=== PATIENT | male | born 1940 | race Caucasian/White ===

== ENCOUNTER 2022-02-15 13:00 | Outpatient (RCR) | payer MEDICARE, BC, SELFPAY | END 2022-07-20 15:49 | disposition home or self-care (01) | PROVIDERS: PCP Family Medicine; Visit Provider Family Medicine | DX: M54.12 Radiculopathy, cervical region (principal); M79.601 Pain in right arm; Z51.89 Encounter for other specified aftercare | CPT/HCPCS: 97110; 97140; 97162 ==

== ENCOUNTER 2022-05-25 07:49 | Outpatient (CLI) | payer MEDICARE, BC, SELFPAY | END 2022-05-25 07:50 | disposition home or self-care (01) | LOC: AMB 06-01 09:55 | PROVIDERS: PCP Family Medicine; Visit Provider Emergency Medicine | DX: R56.9 Unspecified convulsions (principal); R41.82 Altered mental status, unspecified | CPT/HCPCS: A0425; A0427 ==

== ENCOUNTER 2022-05-25 08:36 | Observation (INO) | payer MEDICARE, BC, SELFPAY ==
[2022-05-25] VITALS (22 sets, daily range): BP systolic 108–140; BP diastolic 66–98; PULSE 60–97; RESP 13–74; TEMP 36.2–36.9; O2SAT 87–98; BMI 25.1; BMI 25.4
[2022-05-25 09:55] LABS: Basophils Absolute Auto 0.04 K/uL (0.00-0.30); Basophils Percent Auto 0.5 % (0.0-3.0); Eosinophils Absolute Auto 0.08 K/uL (0.00-0.50); Hematocrit 44.4 % (37.0-53.0); Hemoglobin* 14.7 gm/dL (13.5-17.5); Immature Granulocytes Abs Auto 0.01 K/uL (0.00-0.30); Immature Granulocytes Pct Auto 0.1 %; Mean Corpuscular HGB Conc 33 gm/dL (32-36); Mean Corpuscular Hemoglobin 30 pg (26-34); Mean Corpuscular Volume 90 fL (80-100); Monocytes Percent Auto 8.1 % (0.0-11.0); Neutrophils Percent Auto 79.3 % (42.0-72.0); Platelet Count* 220 K/uL (140-440); RDW Coefficient of Variation % 13.6 % (11.5-15.5); Red Blood Count 4.96 m/uL (4.30-5.90)
[2022-05-25 09:58] LABS: Slide Review Reflex No
[2022-05-25 09:59] LABS: Chloride* 103 mmol/L (96-114)
--- NOTE | 2022-05-25 09:59 | ED.NURSE ---
had an episode that lasted approx 3 minutes when his jaw started to move as though he was chewing and became unresponsive. called nurse and dr méndez did also observe this activity. 02 sats became low-84%. did place 02 at 2 l n/c. awakened an did not have recollection of this occurring. was placed on youth corrections officer.
[2022-05-25 10:00] LABS: Potassium* 3.9 mmol/L (3.6-5.1); Sodium* 139 mmol/L (135-149)
[2022-05-25 10:01] LABS: Albumin* 3.9 g/dL (3.3-5.0)
--- OUTSIDE RECORDS SUMMARY | 2022-05-25 10:01 | XMS_ITS | Encounter Summary ---
:1940 Author Organization [facility] Address [address] [place] [address] Care Team Providers Name Role Phone Unavailable Primary Care Provider Unavailable Encounter Details Date Type Department Care Team Description 12/20/2021 Clinical Communication Department of Sleep Kleber Lindsey, Medicine in [place] Garland, M.P .H. [place] [address] [place], [place] [phone] Social History Tobacco Use Types Packs/Day Years Used Date Smoking Tobacco: Never Smokeless Tobacco: Never Alcohol Use Standard Drinks/Week Comments Yes 1 (1 standard drink = 0.6 oz pure alcoho l) Alcohol Habits Answer Date Recorded How often do you have a drink containing 4 or more times a w [place] 01/14/2022 alcohol? How many drinks containing alcohol do you have 1 or 2 01/14/2022 on a typical day when you are drinking? How often do you have six or more drinks on one Never 01/14/2022 occasion? Social Isolation Answer Date Recorded In a typical week, how many times do you Three times a week 01/14/2022 talk on the phone with family, friends, or neighbors? How often do you get together with friends Once a week 01/14/2022 or relatives? How often do you attend confucianism or episcopalian More than 4 time s per year 01/14/2022 services? Do you belong to any clubs or organizations Yes 01/14/2022 such as confucianism groups, unions, fraternal or athletic groups, or school groups? How often do you attend meetings of the More than 4 times pe r year 01/14/2022 clubs or organizations you belong to? Are you now , , , 01/14/2022 , never or living with a partner? Physical Activity Answer Date Recorded On average, how many days per week do you engage in moderate to 3 days 01/14/2022 strenuous exercise (like walking fast, running, jogging, dancing, swimming, biking, or other activities that cause a light or heavy sweat)? On average, how many minutes do you engage in exercise at th is 30 min 01/14/2022 level? Stress Answer Date Recorded Do you feel stress - tense, restless, nervous, or To some ex tent 01/14/2022 anxious, or unable to sleep at night because your mind is troubled all the time - these days? Financial Resource Strain Answer Date Recorded How hard is it for you to pay for the very basics like Not h aric at all 01/14/2022 food, housing, medical care, and heating? Intimate Partner Violence Answer Date Recorded Within the last year, have you been afraid of your partner o r No 01/14/2022 ex-partner? Within the last year, have you been humiliated or emotionall y No 01/14/2022 abused in other ways by your partner or ex-partner? Within the last year, have you been kicked, hit, slapped, or No 01/14/2022 otherwise physically hurt by your partner or ex-partner? Within the last year, have you been raped or forced to have any No 01/14/2022 kind of sexual activity by your partner or ex-partner? Food Insecurity Answer Date Recorded Within the past 12 months, you worried that your food would Never true 01/14/2022 run out before you got money to buy more. Within the past 12 months, the food you bought just didn't N ever true 01/14/2022 last and you didn't have money to get more. Transportation Needs Answer Date Recorded In the past 12 months, has lack of transportation kept you f rom No 01/14/2022 medical appointments or from getting medications? In the past 12 months, has lack of transportation kept you f rom No 01/14/2022 meetings, work, or getting things needed for daily living? Housing Stability Answer Date Recorded In the last 12 months, was there a time when you were not ab le No 01/14/2022 to pay the mortgage or rent on time? In the last 12 months, how many places have you lived? 2 01/14/2022 In the last 12 months, was there a time when you did not hav e a No 01/14/[address] or slept in a skilled nursing (including now)? Education Answer Date Recorded What is the highest level of school you have completed or th e Doctorate 01/15/2019 highest degree you have received? 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 Gates has senta referral and the patient said Dr. Gates wanted him to try and get seen sooner than his scheduledappointment on 02/14. It looks like there was a previous note with in the order that he could be seenon 12/07 which of course has passed but wondering if still able to fit the patient in before 02/14 Current Phone Number: [phone] Can Nursing/Provider leave a detailed message?: yes Did the patient refuse triage through Nurse line? (for symptom based concerns): na Action Needed: please advise the patient if he can be seen sooner than 02/14 Name of Medication (if relevant): Please send all scheduling replies to scheduling pool. documented in this encounter Plan of Treatment Not on filedocumented as of this encounter Visit Diagnoses Not on filedocumented in this encounter
--- OUTSIDE RECORDS SUMMARY | 2022-05-25 10:01 | XMS_ITS | Clinical Summary ---
:1940 Author Organization [facility] Address [address] [place] [address] Care Team Providers Name Role Phone Unavailable Primary Care Provider Unavailable Source Comments Patient records contain information from all sites at [facility]. For routine questions regarding patient records, call [phone] during business hours, M-F 8:00 AM - 5:00 PM Central Time. Record requests for emergency care only can be directed to [phone] at any time.[facility] Allergies Active Allergy Reactions Severity Noted Date Comments Clams GI intolerance 01/30/2018 Grass Pollen Wheezing 12/04/2021 House Dust Mite Other (see comments) 01/30/2018 snee zy Mold Other (see comments) 01/30/2018 sneezy Medications Medication Sig Dispensed Refills Start Date End Date Status cyanocobalamin (VITAMIN Take 500 mcg by 0 Active B12) 500 mcg tablet mouth daily. cholecalciferol (VITAMIN Take 2,000 0 01/08/2019 Active D3) 2,000 Unit capsule Units by mouth daily. aspirin [address] tablet Take 81 mg by 0 Active mouth daily. levETIRAcetam (KEPPRA) Take 250 mg by 0 12/26/2021 Active 500 mg tablet mouth 2 (two) times a day. 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 from Last 3 Months Immunizations Name Administration Dates Next Due SARS-COV-2 (COVID-19) - PFIZER (12 years or older) 1, 09/01/2020 Social History Tobacco Use Types Packs/Day Years Used Date Smoking Tobacco: Never Smokeless Tobacco: Never Alcohol Use Standard Drinks/Week Comments Yes 1 (1 standard drink = 0.6 oz pure alcoho l) Alcohol Habits Answer Date Recorded How often do you have a drink containing 4 or more times a w [place] 01/14/2022 alcohol? How many drinks containing alcohol [...] or relatives? How often do you attend tenriism or congregation More than 4 time s per year 01/14/2022 services? Do you belong to any clubs or organizations Yes 01/14/2022 such as tenriism groups, unions, fraternal or athletic groups, or [...] place to sleep or slept in a snf (including now)? Education Answer Date Recorded What is the highest level of school you have completed or th e Doctorate 01/15/2019 highest degree you have received? 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 Filed Vital Signs Vital Sign Reading Time Taken Comments Blood Pressure 130/73 01/18/2022 10:02 AM CDT Pulse 69 01/18/2022 10:02 AM CDT Temperature 36.4 ??C (97.5 ??F) 02/25/2018 10:59 AM CDT Respiratory Rate - - Oxygen Saturation - - Inhaled Oxygen Concentration - - Weight 81.8 kg (180 lb 5.4 oz) 01/18/2022 10:02 AM CDT Height 180 cm (5' 10.87) 02/25/2018 10:59 AM CDT Body Mass Index 25.25 02/25/2018 10:59 AM CDT Plan of Treatment Health Maintenance Due Date Last Done Comments Depression Screening (Annual 07/23/2021 PHQ-2) Fall Risk Screen (Annual) 07/23/2021 DTaP,Tdap,and Td Vaccines (2 - Td 07/30/2022 07/30/2012, or Tdap) Pneumococcal vaccine (65+ years) Completed 06/10/2014, Zoster Vaccines Completed 12/04/2018, 09/26/2018, 2007 COVID-19 Vaccine Completed 04/13/2022, 11/08/2021, 05/03/2021, Additional history exists Influenza Vaccine Completed 04/13/2022, 04/11/2021, 04/23/2019, Additional history exists Medical Devices Implanted Type Area Clock And Watch Hands Dipper Device Shelf Model / Identifier Expiration Date Ser ial / Lot Ocular Lens Ocular Lens Cornea Insurance Payer Benefit Plan Subscriber ID Effective Phone Address Typ e / Group Dates MEDICARE MEDICARE A [id number] 2008-Pres [address] [place] [address] BLUE CROSS BCBS NISQUALLY [id number] 2016-Pres [phone] [address] X Cost Share BLUE SHIELD BLUE COST ent [phone] [facility] [place] [id number]
--- OUTSIDE RECORDS SUMMARY | 2022-05-25 10:01 | XMS_ITS | Encounter Summary ---
:1940 Author Organization [facility] Address [address] [place] [address] Care Team Providers Name Role Phone Unavailable Primary Care Provider Unavailable Reason for Referral MRI/CAT/PET Scan (Routine) - Closed Specialty Diagnoses / Procedures Referred By Contact Refer red To Contact Radiology Diagnoses Hemiplegia Nondominant Side Left (HCC) Kle[facility] Lindsey M.D., [facility] [place] Procedures MR Brain without and with IV Contrast M.P.H. [address] [place] [phone] Referral ID Status Reason Start Date Expiration Date Visits Requ ested Visits Authorized [id number] Closed 01/18/2022 01/18/2023 1 1 Reason for Visit MRI/CAT/PET Scan (Routine) - Closed Specialty Diagnoses / Procedures Referred By Contact Refer red To Contact Radiology Diagnoses Hemiplegia Nondominant Side Left (HCC) Kleber Lindsey M.D., [facility] [place] on Procedures MR Brain without and with IV Contrast M.[facility] [address] [place] [phone] Referral ID Status Reason Start Date Expiration Date Visits Requ ested Visits Authorized [id number] Closed 01/18/2022 01/18/2023 1 1 Encounter Details Date Type Department Care Team Description 01/30/2022 Hospital Encounter Department of Kleber Lindsey ia Radiology in Leslie Jha, Nondominant Pieter e Left [place] M.P.[facility] ([facility]) [address] [facility] [id number] [place] [phone] Social History Tobacco Use Types Packs/Day Years Used Date Smoking Tobacco: Never Smokeless Tobacco: Never Alcohol Use Standard Drinks/Week Comments Yes 1 (1 standard drink = 0.6 oz pure alcoho l) Alcohol Habits Answer Date Recorded How often do you have a drink containing 4 or more times a w [place] 01/14/2022 alcohol? How many drinks containing alcohol [...] or relatives? How often do you attend latter day or yarsani More than 4 time s per year 01/14/2022 services? Do you belong to any clubs or organizations Yes 01/14/2022 such as latter day groups, unions, fraternal or athletic groups, or [...] place to sleep or slept in a long-term (including now)? Education Answer Date Recorded What is the highest level of school you have completed or th e Doctorate 01/15/2019 highest degree you have received? 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 cholecalciferol (VITAMIN D3) Take 2,000 Units 0 0 01/08/2019 2,000 Unit capsule by mouth daily. cyanocobalamin (VITAMIN B12) Take 500 mcg by 0 500 mcg tablet mouth daily. levETIRAcetam (KEPPRA) 500 mg Take 250 mg by 0 tablet mouth 2 (two) times a day. documented as of this encounter Plan of Treatment Not on filedocumented as of this encounter Procedures Procedure Name Priority Date/Time Associated Comments Diagnosis MR BRAIN WITHOUT RAD - Routine 01/30/2022 11:27 Hemiplegia Result s for this AND WITH IV (most inpatients AM CDT Nondominant Side procedu re are in CONTRAST and all Left (HCC) the results outpatients) section. documented in this encounter Results MR Brain without and with IV Contrast (01/30/2022 11:27 AM CDT) Anatomical Region Laterality Modality Head, Brain, Neuroradiology RST LOS, Neuroradiology ARZ N/A Magnetic Resonance LOS, Neuroradiology FLA [facility] Specimen (Source) Anatomical Collection Method Collection Time Re ceived Time Location / / Volume Laterality 01/30/2022 2:20 PM CDT Impressions 01/30/2022 4:41 PM CDT Chronic changes as noted, stable. Narrative 01/30/2022 4:41 PM CDT EXAM: MR BRAIN WITHOUT AND WITH IV CONTRAST COMPARISON: Prior outside brain MRI date d 11/10/2021 and 08/09/2020. FINDINGS: Abnormal relatively confluent T2 signal throughout the right frontoparietal white matter, without associated mass effect, enhancem ent, or abnormal mineralization, stable. Minimal chronic microvascular degenerati ve change with moderate diffuse parenchymal volume loss. Minimal scattered mucosal thickening in the paranasal sinuses. Otherwise negative. Specifically, nothin g for an acute infarction. No midline shift. Overall normal sized ventricles, allowing for the volum e loss. Procedure Note Eden Cavazos M.D. - 01/30/2022Form atting of this note might be different from the original. EXAM: MR BRAIN WITHOUT AND WITH IV CONTR AST COMPARISON: Prior outside brain MRI date d 11/10/2021 and 08/09/2020. FINDINGS: Abnormal relatively confluent T2 signal throughout the right frontoparietal white matter, without associated mass effect, enhancem ent, or abnormal mineralization, stable. Minimal chronic microvascular degenerati ve change with moderate diffuse parenchymal volume loss. Minimal scattered mucosal thickening in the paranasal sinuses. Otherwise negative. Specifically, nothin g for an acute infarction. No midline shift. Overall normal sized ventricles, allowing for the volum e loss. IMPRESSION: Chronic changes as noted, stable. Kleber Lindsey M.D., M.P.H. IMG MRI PROCEDURES documented in this encounter Visit Diagnoses Diagnosis Hemiplegia Nondominant Side Left (HCC) documented in this encounter Administered Medications Inactive Administered Medications - up to 3 most recent administrations Medication Order MAR Action Action Date Dose Rate Site gadobutrol injection 0.5-15 mL Given 01/30/2022 11:28 AM CDT 8.2 mL (GADAVIST) 0.5-15 mL, intravenous, Once in imaging, contrast, Starting on Sun01/30/22 at 1036, For 1 dose, Dose per Radiant Medication Guidelines Intrathecal doses greater than 0.25 mL not recommended. sodium chloride 0.9 % injection 1-250 mL Given 01/30/2022 11:27 AM CDT 10 mL 1-250 mL, intravenous, Once in imaging, line care, Starting on Sun01/30/22 at 1036, For 1 dose documented in this encounter
--- OUTSIDE RECORDS SUMMARY | 2022-05-25 10:01 | XMS_ITS | Encounter Summary ---
:1940 Author Organization [facility] Address [address] [place] [address] Care Team Providers Name Role Phone Unavailable Primary Care Provider Unavailable Reason for Referral Outpatient (Routine) - Authorized Specialty Diagnoses / Procedures Referred By Contact Refer red To Contact Diagnoses Lesion Nerve Ulnar Right Kleber Lindsey M.D., [facility] [place] Region Procedures EMG M.P.H. [address] [place] [address] Referral ID Status Reason Start Date Expiration Date Visits V isits Requested Authorized [id number] Authorized 01/18/2022 01/18/2023 1 1 MRI/CAT/PET Scan (Routine) - Closed Specialty Diagnoses / Procedures Referred By Contact Refer red To Contact Radiology Diagnoses Hemiplegia Nondominant Side Left (HCC) Kleber Lindsey M.D., [facility] [place] Z[place] on Procedures MR Brain without and with IV Contrast M.P.H. [address] [place] [address] Referral ID Status Reason Start Date Expiration Date Visits Requ ested Visits Authorized [id number] Closed 01/18/2022 01/18/2023 1 1 Reason for Visit Reason Comments Seizures Hemiplegia - follow up Seizures - ref. Dr. Gates [facility] Outpatient (Routine) - Closed Specialty Diagnoses / Procedures Referred By Contact Refer red To Contact Video Medicine Diagnoses Hemiplegia Nondominant Side Left (HCC) Kleber Lindsey M.D., [facility] [place] on M.P.H. [address] [place] [address] Referral ID Status Reason Start Date Expiration Date Visits Requ ested Visits Authorized [id number] Closed 07/27/2020 07/27/2021 1 1 Encounter Details Date Type Department Care Team Description 01/18/2022 Office Visit Department of Kleber Lindsey, Lesion Ner ve Ulnar Right (Primary Dx); Neurology in [place], M.P.H. Hemiplegia Nondominant Side Left (HCC); [place], [place] [address] Other Seizures (HCC); [address] [place], [place] Paraparesis Spastic (HCC) [place] [phone] [phone] Social History Tobacco Use Types Packs/Day Years Used Date Smoking Tobacco: Never Smokeless Tobacco: Never Alcohol Use Standard Drinks/Week Comments Yes 1 (1 standard drink = 0.6 oz pure alcoho l) Alcohol Habits Answer Date Recorded How often do you have a drink containing 4 or more times a w [place] 01/14/2022 alcohol? How many drinks containing alcohol [...] or relatives? How often do you attend moravian or jehovah's witness More than 4 time s per year 01/14/2022 services? Do you belong to any clubs or organizations Yes 01/14/2022 such as moravian groups, unions, fraternal or athletic groups, or [...] place to sleep or slept in a jail (including now)? Education Answer Date Recorded What is the highest level of school you have completed or th e Doctorate 01/15/2019 highest degree you have received? 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 - 01/18/2022 10:15 AM CDT SUBJECTIVE CHIEF COMPLAINT / REASON FOR VISIT Da Monk is a 81 y.o. male who presents for evaluation of Seizures and Hemiplegia - follow up (Seizures - ref. Dr[facility]). HISTORY OF PRESENT ILLNESS This very pleasant [facility] [facility] returns for follow-up which is annually to keep an eyeon a left hemiparesis because of which she appears to be an ill-defined lesion which could be chronic or inflammatory in right centrum semiovale we and extending to the right fronto parietal periventricular white matter. There has not been enhancement. In September of this year he had convulsive seizure out of sleep on 10/06, 324 and 519. Following this he was started on Keppra 500 mg p.o. b.i.d.. This caused some irritability and so he now has a dose of 250 mg p.o. b.i.d. and this seems to have helped a little bit. A follow- up MRI of the brain [facility] appears to be benign but it was witho ut contrast. Although previous seizures were of sleep. The 1st one resulted according to his with a swollen lip the 2nd one resulted in a tongue biting in the 3rd when resulted in tongue biting urinary incontinence and blood although the bedroom. All through the seizures were out of sleep in theydo not sleep in the same room so she did not see the onset. He has had more difficulty walking lately and that is on top of his chronic left hemiparesis. Speculate this might be due to a change in thatlesion that would been following or perhaps a protracted Moises's hemiparesis or perhaps the Keppra iscausing some problems with balance although it is a low dose and is less likely to do so than sodium channel anti seizure medicines. At the end of the visit the patient mentioned that he has numbness and pain in the three fingers of the right hand that would be supplied by the ulnar nerve. He says this is worse during sleep. He usedto hold his arm up over his head to sleep in this eliminate the pain. At present he goes to sleep cherelle chair for couple hours and the pain goes away. He has had imaging studies of his neck, MRI cervical spine at [facility]. And they do not seem to show evidence of C8-T1 distribution foraminal narrowing that would explain this. It is described as moderate bilateral foraminal narrowing from 2018. INDICATION: 77-year-old male. Bilateral neck pain exacerbated by superior upper extremity extension. Left lower extremity numbness. TECHNIQUE: T1-T2 and STIR sagittal images with multilevel T2 axial acquisitions. Findings : Prevertebral tissues normal. Cerebellar tonsils are situated. Spinal cord is normal. C2-3: Moderate left facet arthrosis. Mild right foraminal narrowing. The disc space is normal. C3-4: Mild bulge, spurring and slight retrolisthesis. Moderate right and mild left foraminal narrowing. C4-5: Disc bulge and spurring. Marked right and moderate left foraminal narrowing. Central canal is adequately patent. C5-6: Disc bulge, spurring and slight retrolisthesis. Moderate bilateral foraminal narrowing. C6-7: Disc bulge, spurring and slight retrolisthesis. Marked moderate bilateral foraminal narrowing.No significant central stenosis. C7-T1: Annular bulge and minor marginal spurring. Mild bilateral foraminal narrowing. Central canal is adequate patent. T1-2: Mild bulge marginal??spurring. Mild bilateral foraminal. Central canal is adequately patent. T2-3: Disc bulge and spurring. No significant central or foraminal narrowing. IMPRESSION: 1. Multilevel spondylosis and/or listhesis detailed above without spinal cord impingement or intramedullary lesion. 2. Facet arthrosis is most advanced on the right at C2-3 without evidence for synovitis. 3. Marked bilateral C6-7 and marked right C4-5 narrowing. Mild and/or moderate foraminal narrowing at other segments detailed above. Dictated by Charan Orellana MD @ Oct 15 2017 ??3:08PM No past medical history on file. No past surgical history on file. MEDICATIONS: Current Outpatient Medications: ??? cholecalciferol (VITAMIN D3) 2,000 Unit capsule, Take 2,000 Units by mouth daily., Disp: , Rfl: ??? cyanocobalamin (VITAMIN B12) 500 mcg tablet, Take 500 mcg by mouth daily., Disp: , Rfl: ??? levETIRAcetam (KEPPRA) 500 mg tablet, Take 250 mg by mouth 2 (two) times a day., Disp: , Rfl: ??? aspirin [address] tablet, Take 81 mg by mouth daily., Disp: , Rfl: ALLERGY: Allergies Allergen Reactions ??? Clams GI intolerance ??? Grass Pollen Wheezing ??? House Dust Mite Other (see comments) sneezy ??? Mold Other (see comments) sneezy No family history on file. Social History Socioeconomic History ??? Marital status: Spouse name: Not on file ??? Number of children: Not on file ??? Years of education: Not on file ??? Highest education level: Doctorate Occupational History ??? Not on file Tobacco Use ??? Smoking status: Never Smoker ??? Smokeless tobacco: Never Used Substance and Sexual Activity ??? Alcohol use: Yes Alcohol/week: 1.0 standard drink Types: 1 Glasses of wine per week ??? Drug use: No ??? Sexual activity: Not on file Other Topics Concern ??? Not on file Social History Narrative ??? Not on file Social Determinants of Health Financial Resource Strain: Low Risk ??? Difficulty of Paying Living Expenses: Not hard at all Food Insecurity: No Food Insecurity ??? Worried About Running Out of Food in the Last Year: Never true ??? Ran Out of Food in the Last Year: Never true Transportation Needs: No Transportation Needs ??? Lack of Transportation (Medical): No ??? Lack of Transportation (Non-Medical): No Physical Activity: Insufficiently Active ??? Days of Exercise per Week: 3 days ??? Minutes of Exercise per Session: 30 min Stress: Stress Concern Present ??? Feeling of Stress : To some extent Social Connections: Socially Integrated ??? Frequency of Communication with Friends and Family: Three times a week ??? Frequency of Social Gatherings with Friends and Family: Once a week ??? Attends Pentecostal Services: More than 4 times per year ??? Active Member of Clubs or Organizations: Yes ??? Attends Club or Organization Meetings: More than 4 times per year ??? Marital Status: Intimate Partner Violence: Not At Risk ??? Fear of Current or Ex-Partner: No ??? Emotionally Abused: No ??? Physically Abused: No ??? Sexually Abused: No Housing Stability: Low Risk ??? Unable to Pay for Housing in the Last Year: No ??? Number of Places Lived in the Last Year: 2 ??? Unstable Housing in the Last Year: No @ OBJECTIVE Vitals: 01/18/22 1002 BP: 130/73 BP Location: Right arm Patient Position: Sitting Cuff Size: Regular Pulse: 69 Weight: 81.8 kg PHYSICAL EXAM COGNITION: Alert and oriented x 4. CRANIAL NERVES: flame hardening machine setter II-XII intact and symmetric. MOTOR: His right him paresis with the paretic gait min he has a rather careful. Reflexes are accordingly brisker on the left side SENSORY: normal sensation to touch, he seemed to have decreased pinprick on the entire right hand soI can not localize the distribution of numbness to a root or nerve distribution. Phalen's test was negative. CEREBELLAR: ARMs-2 on the left ASSESSMENT / PLAN Impression: Encounter Diagnoses Name Primary? Lesion Nerve Ulnar Right Yes ??? Hemiplegia Nondominant Side Left (HCC) ??? Other Seizures ([facility]) ??? Paraparesis Spastic (HCC) For his seizures ago I think it is appropriate to continue the Keppra 250 mg p.o. b.i.d.. If he has another seizure and one and lamotrigine and titrate him up to 100 mg p.o. b.i.d.. The greater difficulty walking might be related to the seizures are might be related to whatever is going on the right hemisphere. I am getting an MRI with contrast to see make sure that this has not changed substantiallyor is not enhancing. The problem with his right hand is likely either a ulnar nerve entrapment or perhaps C8 nerve root but I have not confident about either of those. I am going to order an EMG to evaluate this. I am going to see him back after the studies are complete. I personally spent 60 minutes in care of the patient today. Time includes both non face to face and face to face patient care. Kleber Lindsey M.D., M.P.H. documented in this encounter Plan of Treatment Scheduled Orders Name Type Priority Associated Diagnoses Order S chedule EMG Neurology Routine Lesion Nerve Ulnar Right Exp ected: 01/18/2022 (Approximate), Expires: 2022 documented as of this encounter Results MR Brain without and with IV Contrast (01/30/2022 11:27 AM CDT) Anatomical Region Laterality Modality Head, Brain, Neuroradiology RST LOS, Neuroradiology ARZ N/A Magnetic Resonance LOS, Neuroradiology FLA [facility] Specimen (Source) Anatomical Collection Method Collection Time [...] documented in this encounter Visit Diagnoses Diagnosis Lesion Nerve Ulnar Right - Primary Hemiplegia Nondominant Side Left (HCC) Other Seizures (HCC) Paraparesis Spastic (HCC) Hemiplegia Nondominant Side Left (HCC) documented in this encounter
[2022-05-25 10:02] LABS: Creatinine* 0.7 mg/dL (0.5-1.5); Est. Creatinine Clearance* 58.81; Estimated Glomerular Filt Rate 92 ml/min
--- OUTSIDE RECORDS SUMMARY | 2022-05-25 10:02 | XMS_ITS | Encounter Summary ---
:1940 Author Organization [facility] Address [address] [place] [address] Care Team Providers Name Role Phone Unavailable Primary Care Provider Unavailable Reason for Visit Outpatient (Routine) - Closed Specialty Diagnoses / Procedures Referred By Contact Refer red To Contact Rheumatology Diagnoses Positive Antinuclear Antibody Abnormal Elevated Tahira Acevedo M.B.B.S. [facility] Procedures Rheumatology - Diagnosis eConsult [address] [place], [place] [address] Referral ID Status Reason Start Date Expiration Date Visits Requ ested Visits Authorized [id number] Closed 09/06/2018 09/06/2019 1 1 Encounter Details Date Type Department Care Team Description 09/12/2018 Internal Division of Cecil Guy Positive Ant inuclear E-Consult Rheumatology in Narciso Pryor M.D. Antibody Abnormal [place], [place] [address] [facility] Elevated [address] [place] [phone] Social History Tobacco Use Types Packs/Day Years Used Date Smoking Tobacco: Never Smokeless Tobacco: Never Alcohol Use Standard Drinks/Week Comments Yes 1 (1 standard drink = 0.6 oz pure alcoho l) Alcohol Habits Answer Date Recorded How often do you have a drink containing 4 or more times a w [place] 01/14/2022 alcohol? How many drinks containing alcohol [...] or relatives? How often do you attend congregation or latter-day More than 4 time s per year 01/14/2022 services? Do you belong to any clubs or organizations Yes 01/14/2022 such as congregation groups, unions, fraternal or athletic groups, or [...] minutes do you engage in exercise at is 30 min 01/14/2022 level? Stress Answer [...] place to sleep or slept in a fdc (including now)? 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 - 09/12/2018 4:30 PM CST Is internal E consultation regarding a positive SUSANNA found during the evaluation of a mild left hemiparesis related to a right cerebral lesion. Reviewed detailed neurology evaluation. As recorded, he has no history of symptoms suggestive of systemic lupus erythematosis. Current laboratory studies are notable for no anemia or unexplained cytopenias. 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 He is not taking any medications known to cause a positive SUSANNA. He has a low vitamin-D level. Assessment/recommendation #1 Positive SUSANNA of uncertain clinical significance #2 Mild polyclonal hypergammaglobulinemia #3 Low vitamin-D level Recommendation #1 Positive SUSANNA is most likely related to his age however given the low vitamin- D level, he should be screened for celiac disease. In addition and ZENOBIA panel would be helpful to exclude other more specific autoantibodies seen in connective tissue diseases. TRICAL TROUPER documented in this encounter Plan of Treatment Not on filedocumented as of this encounter Visit Diagnoses Diagnosis Positive Antinuclear Antibody Abnormal E levated documented in this encounter
--- OUTSIDE RECORDS SUMMARY | 2022-05-25 10:02 | XMS_ITS | Encounter Summary ---
:1940 Author Organization [facility] Address [address] [place] [address] Care Team Providers Name Role Phone Unavailable Primary Care Provider Unavailable Reason for Referral Outpatient (Routine) - Closed Specialty Diagnoses / Procedures Referred By Contact Refer red To Contact Neurology Kleber Lindsey M.D ., M.P.H. 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 [facility] Region [address] [place] [address] Referral ID Status Reason Start Date Expiration Date Visits Requ ested Visits Authorized [id number] Closed 01/15/2019 01/15/2020 1 1 Encounter Details Date Type Department Care Team Description 07/24/2019 Office Visit Department of Kleber Lindsey, Hemiplegia Nondominant Neurology in [place], M.P.H. Side Left (HCC) [place], [place] [address] (Primary Dx) [address] [place] [phone] Social History Tobacco Use Types Packs/Day Years Used Date Smoking Tobacco: Never Smokeless Tobacco: Never Alcohol Use Standard Drinks/Week Comments Yes 1 (1 standard drink = 0.6 oz pure alcoho l) Alcohol Habits Answer Date Recorded How often do you have a drink containing 4 or more times a w [place] 01/14/2022 alcohol? How many drinks containing alcohol [...] or relatives? How often do you attend buddhist or druze More than 4 time s per year 01/14/2022 services? Do you belong to any clubs or organizations Yes 01/14/2022 such as buddhist groups, unions, fraternal or athletic groups, or [...] place to sleep or slept in a usp (including now)? Education Answer Date Recorded What is the highest level of school you have completed or th e Doctorate 01/15/2019 highest degree you have received? 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 - 07/24/2019 2:00 PM CST SUBJECTIVE CHIEF COMPLAINT / REASON FOR VISIT Da Monk is a 78 y.o. male who presents for evaluation of Follow-up (MRI results). HISTORY OF PRESENT ILLNESS This 78-year-old patient presents for follow-up on left lower extremity motor difficulties. Dr. Bardales observed that the patient's symptoms did not appear to be related to spinal stenosis ill and ordered the imaging study of his brain. The patient was evaluated by Dr. 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 Repeat imaging shows lesion is stable. 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 I postulate that he might have had encephalitis and was compensated for many years and then dev eloped symptoms later in life or perhaps there was enough injury to the in [place] in that region thathe is finally developed microvascular disease many years later. In any case the other options are a football injuries but he certainly didn't have any symptoms immediately after any of these events. He continues to have problems with his left leg and has to concentrate more carefully when he is walking up stairs with that leg. 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 No past medical history on file. No past surgical history on file. MEDICATIONS: Current Outpatient Medications: ??? aspirin 81 mg chewable tablet, Chew 1 tablet (81 mg total) daily., Disp: 30 tablet, Rfl: 11 ??? cholecalciferol (VITAMIN D3) 2,000 Unit capsule, Take 2,000 Units by mouth daily., Disp: , Rfl: ??? cyanocobalamin (VITAMIN B12) 500 mcg tablet, Take 500 mcg by mouth daily., Disp: , Rfl: ALLERGY: Allergies Allergen Reactions ??? Clams GI intolerance ??? House Dust Mite Other (see comments) sneezy ??? Mold Other (see comments) sneezy No family history on file. Social History Socioeconomic History ??? Marital status: Spouse name: Not on file ??? Number of children: Not on file ??? Years of education: Not on file ??? Highest education level: Doctorate Occupational History ??? Not on file Social Needs ??? Financial resource strain: Not hard at all ??? Food insecurity Worry: Never true Inability: Never true ??? Transportation needs Medical: No Non-medical: No Tobacco Use ??? Smoking status: Never Smoker ??? Smokeless tobacco: Never Used Substance and Sexual Activity ??? Alcohol use: Yes Alcohol/week: 1.0 standard drinks Types: 1 Glasses of wine per week Frequency: 4 or more times a week Drinks per session: 1 or 2 Binge frequency: Never ??? Drug use: No ??? Sexual activity: Not on file Lifestyle ??? Physical activity Days per week: 2 days Minutes per session: 40 min ??? Stress: Only a little Relationships ??? Social connections Talks on phone: Twice a week Gets together: Once a week Attends druze service: More than 4 times per year Active member of club or organization: Yes Attends meetings of clubs or organizations: More than 4 times per year Relationship status: ??? Intimate partner violence Fear of current or ex partner: Not on file Emotionally abused: Not on file Physically abused: Not on file Forced sexual activity: Not on file Other Topics Concern ??? Not on file Social History Narrative ??? Not on file OBJECTIVE Vitals: 07/24/19 1352 BP: 125/75 BP Location: Right arm Patient Position: Sitting Cuff Size: Regular Pulse: 73 Weight: 80.4 kg PHYSICAL EXAM COGNITION: Alert and oriented x 4. CRANIAL NERVES: dehydrator II-XII intact and symmetric. MOTOR: his strength is really very close to normal on the left side REFLEXES: Reflexes are brisker on the left side 2+ in the left upper extremity and 3+ in left lowerextremity SENSORY: normal sensation to touch GAIT: he has a likely rather hemiparetic gait on the left leg Impression: Encounter Diagnoses Name Primary? Hemiplegia Nondominant Side Left (HCC) Yes This is stable. I've recommended that he probably should take low-dose aspirin. The immunology studies were all negative and I reviewed those with him today. He is very high functioning and is clinically stable. My thought is that I can see him back in a year. I did recommend that he take aspirin because of the apparent microvascular lesions but reassuringly he doesn't have any progression. Total time with the patient today was over 40 minutes and more than half that was counseling. Kleber Lindsey M.D., M.P.H. SYSTEM OPERATOR documented in this encounter Plan of Treatment Scheduled Referrals Name Type Priority Associated Diagnoses Order S [facility] Neurology office Outpatient Referral Routine Expe cted: visit (clinic) 07/24/2020 (Approximate), Expires: 07/24/2022 documented as of this encounter Visit Diagnoses Diagnosis Hemiplegia Nondominant Side Left (HCC) - Primary documented in this encounter
--- OUTSIDE RECORDS SUMMARY | 2022-05-25 10:02 | XMS_ITS | Encounter Summary ---
:1940 Author Organization [facility] Address [address] [place] [address] Care Team Providers Name Role Phone Unavailable Primary Care Provider Unavailable Encounter Details Date Type Department Care Team Description 01/15/2019 Hospital Encounter Department of Kleber Lindsey Positive Antinuclear Laboratory Medicine Leslie Jha, Antibody Abnormal in [facility]oxanna Mcg[facility] [address] [place] [phone] Social History Tobacco Use Types Packs/Day Years Used Date Smoking Tobacco: Never Smokeless Tobacco: Never Alcohol Use Standard Drinks/Week Comments Yes 1 (1 standard drink = 0.6 oz pure alcoho l) Alcohol Habits Answer Date Recorded How often do you have a drink containing 4 or more times a w [place] 01/14/2022 alcohol? How many drinks containing alcohol [...] or relatives? How often do you attend scientology or baptism More than 4 time s per year 01/14/2022 services? Do you belong to any clubs or organizations Yes 01/14/2022 such as scientology groups, unions, fraternal or athletic groups, or [...] place to sleep or slept in a long term (including now)? Education Answer Date Recorded What is the highest level of school you have completed or th e Doctorate 01/15/2019 highest degree you have received? 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 cyanocobalamin (VITAMIN B12) Take 500 mcg by 0 500 mcg tablet mouth daily. documented as of this encounter Plan of Treatment Not on filedocumented as of this encounter Procedures Procedure Name Priority Date/Time Associated Diagnosis Comme nts AB TO EXTRACTABLE Routine 01/15/2019 1:43 PM Positive Antinucl ear Results for this NUCLEAR AG EVAL, S CDT Antibody Abnormal proc edure are in Elevated the results section. documented in this encounter Results Antibody to Extractable Nuclear Antigen Evaluation (01/15/2019 1:43 PM CDT) P athologist Signature SS-A/Ro Ab, <0.2 <1.0 01/16/2019 IgG, S (Negative) 1:32 PM CDT U SS-B/La Ab, <0.2 <1.0 01/16/2019 IgG, S (Negative) 1:32 PM CDT U Sm Ab, IgG, S <0.2 <1.0 01/16/2019 (Negative) 1:32 PM CDT U MORTAR MAN Ab, IgG, S <0.2 <1.0 01/16/2019 (Negative) 1:32 PM CDT U Scl 70 Ab, IgG, <0.2 <1.0 01/16/2019 S (Negative) 1:32 PM CDT U Senait 1 Ab, IgG, S <0.2 <1.0 01/16/2019 (Negative) 1:32 PM CDT U Specimen Anatomical Collection Method Collection Time Receive d Time (Source) Location / / Volume Laterality Blood (Blood, 01/15/2019 1:43 PM 01/17/20 19 Venous) CDT 11:24 AM CDT Kleber Lindsey M.D., M.P.H. LAB BLOOD ADD-ON Performing Organization Address City/State/ZIP Code Phon e Number [facility]- [address] [place] [phone] [facility] documented in this encounter Visit Diagnoses Diagnosis Positive Antinuclear Antibody Abnormal E levated documented in this encounter
--- OUTSIDE RECORDS SUMMARY | 2022-05-25 10:02 | XMS_ITS | Encounter Summary ---
:1940 Author Organization [facility] Address [address] [place] [address] Care Team Providers Name Role Phone Unavailable Primary Care Provider Unavailable Encounter Details Date Type Department Care Team Description 11/15/2021 Clinical Communication Department of Neurology Kleber Lindsey, in [facility] william Nelson, M.P.H. [address] [place], [place] [phone] Social History Tobacco Use Types Packs/Day Years Used Date Smoking Tobacco: Never Smokeless Tobacco: Never Alcohol Use Standard Drinks/Week Comments Yes 1 (1 standard drink = 0.6 oz pure alcoho l) Alcohol Habits Answer Date Recorded How often do you have a drink containing 4 or more times a w [place] 01/14/2022 alcohol? How many drinks containing alcohol [...] or relatives? How often do you attend synagogue or rastafarian More than 4 time s per year 01/14/2022 services? Do you belong to any clubs or organizations Yes 01/14/2022 such as synagogue groups, unions, fraternal or athletic groups, or [...] place to sleep or slept in a intermediate (including now)? Education Answer Date Recorded What is the highest level of school you have completed or th e Doctorate 01/15/2019 highest degree you have received? 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 Telephone Encounter - Joleen Pryor LPerlaP.NPerla - 11/15/2021 10:54 AM CDT Patient has an order place. There is an opening 12/07/21 at 11:30. Please call patient and schedule. Telephone Encounter - Jerry Salas - 11/15/2021 10:14 AM CDT Reason for Communication: Patient calling in he stated he had an MRI completed at [facility] and also discuss Potential seizure interpretation. Patient stated he is wanting to schedule an appt with to go over the results. Please place order and call patient to schedule as soon as possible Current Can Nursing/Provider leave a detailed message?: Yes Did the patient refuse triage through Nurse line? (for symptom based concerns): Action Needed: Please call patient back Name of Medication (if relevant): Please send all scheduling replies to scheduling pool. documented in this encounter Plan of Treatment Not on filedocumented as of this encounter Visit Diagnoses Not on filedocumented in this encounter
--- OUTSIDE RECORDS SUMMARY | 2022-05-25 10:02 | XMS_ITS | Encounter Summary ---
:1940 Author Organization [facility] Address [address] [place] [address] Care Team Providers Name Role Phone Unavailable Primary Care Provider Unavailable Reason for Visit Reason Onset Date Comments Judy Acevedo 07/29/2018 Encounter Details Date Type Department Care Team Description 07/29/2018 Clinical Communication Department of Neurology Ana Acevedo E8B / Ali in [facility] M.B.B.S. [address] [facility] [address] [place] [phone] Social History Tobacco Use Types Packs/Day Years Used Date Smoking Tobacco: Never Smokeless Tobacco: Never Alcohol Use Standard Drinks/Week Comments Yes 1 (1 standard drink = 0.6 oz pure alcoho l) Alcohol Habits Answer Date Recorded How often do you have a drink containing 4 or more times a w [place] 01/14/2022 alcohol? How many drinks containing alcohol [...] or relatives? How often do you attend voodoo or anabaptist More than 4 time s per year 01/14/2022 services? Do you belong to any clubs or organizations Yes 01/14/2022 such as voodoo groups, unions, fraternal or athletic groups, or [...] place to sleep or slept in a nursing home (including now)? 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 He is currently in [place] and not due back to [place] until Aug. He is hoping to either delay until Aug for a face to face visit and/or visit by video visit or phone sooner if you feel that is needed. Please review and advise if you feel r/s to Fe is OK or if you prefer to visit with him by phone orvideo visit. Thank you [phone] RDION TUNER Telephone Encounter - Daija Frank - 07/29/2018 1:04 PM CST Patient submitted an Automated Appointment Reminder to reschedule appointments. Please contact the patient to determine which appointments to update and reschedule as appropriate. Thank you. RDION TUNER documented in this encounter Plan of Treatment Not on filedocumented as of this encounter Visit Diagnoses Not on filedocumented in this encounter
--- OUTSIDE RECORDS SUMMARY | 2022-05-25 10:02 | XMS_ITS | Encounter Summary ---
:1940 Author Organization [facility] Address [address] [place] [address] Care Team Providers Name Role Phone Unavailable Primary Care Provider Unavailable Reason for Referral Outpatient (Routine) - Closed Specialty Diagnoses / Procedures Referred By Contact Refer red To Contact Neurology Kleber Lindsey M.D ., M.P.H. [facility] Region [address] [place] [address] Referral ID Status Reason Start Date Expiration Date Visits Requ ested Visits Authorized [id number] Closed 01/15/2019 01/15/2020 1 1 Reason for Visit Reason Comments Follow-up L side weakness Encounter Details Date Type Department Care Team Description 01/15/2019 Comprehensive Visit Department of Kleber Lindsey Antinuclear Antibody Abnormal Elevated (Primary Dx); Neurology in Leslie Jha, Headache [place], [place] M.P.H. [address] [place] [address] [address] [facility] [address] [place], [place] [phone] Social History Tobacco Use Types Packs/Day Years Used Date Smoking Tobacco: Never Smokeless Tobacco: Never Alcohol Use Standard Drinks/Week Comments Yes 1 (1 standard drink = 0.6 oz pure alcoho l) Alcohol Habits Answer Date Recorded How often do you have a drink containing 4 or more times a w [place] 01/14/2022 alcohol? How many drinks containing alcohol [...] or relatives? How often do you attend pentecostal or rastafari More than 4 time s per year 01/14/2022 services? Do you belong to any clubs or organizations Yes 01/14/2022 such as pentecostal groups, unions, fraternal or athletic groups, or [...] place to sleep or slept in a alf (including now)? Education Answer Date Recorded What is the highest level of school you have completed or th e Doctorate 01/15/2019 highest degree you have received? 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 - 01/15/2019 12:45 PM CDT SUBJECTIVE CHIEF COMPLAINT / REASON FOR VISIT Da Monk is a 78 y.o. male who presents for evaluation of Follow-up (L side weakness). HISTORY OF PRESENT ILLNESS This very pleasant 78-year-old gentleman has weakness in his left lower extremity that I thought might be related to stenosis in his spine but turns out that that may all be part of the problem the other part is a poorly defined lesion in the right hemisphere characterized by our neuroradiologist says consistent with remote injury or trauma with no features of a glioma nor low- grade malignancy. 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 Dr. Acevedo obtained a rheumatology consult seeing as his SUSANNA was positive but they do explain this is likely being due to his age and recommended zenobia panel which I have ordered. I reviewed the patient's evaluation with him and discussed everybody's perspective. I proper that itwould probably be reasonable to get the zenobia and then an MRI brain in six months. And unless Dr. 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 No past medical history on file. No [...] strain: Not hard at all ??? Food insecurity: Worry: Never true Inability: Never true ??? Transportation needs: Medical: No Non-medical: No Tobacco Use ??? [...] activity: Not on file Lifestyle ??? Physical activity: Days per week: 3 days Minutes per session: 40 min ??? Stress: Not at all Relationships ??? Social connections: Talks on phone: Three times a week Gets together: Once a week Attends rastafari service: More than 4 times per year Active member of club or organization: Yes Attends meetings of clubs or organizations: More than 4 times per year Relationship status: ??? Intimate partner violence: Fear of current or ex partner: Not on file Emotionally abused: Not on file Physically abused: Not on file Forced sexual activity: Not on file Other Topics Concern ??? Not on file Social History Narrative ??? Not on file OBJECTIVE Vitals: 01/15/19 1248 BP: 120/74 BP Location: Left arm Patient Position: Sitting Cuff Size: Regular Pulse: 66 Weight: 80.6 kg PHYSICAL EXAM COGNITION: Alert and oriented x 4. CRANIAL NERVES: director of neurology II-XII intact and symmetric. MOTOR: Subtle weakness in the left lower extremity REFLEXES: his reflexes are brisker in the left lower extremity SENSORY: normal sensation to touch CEREBELLAR: ARMs-normal GAIT: he has a spastic gait Impression: Encounter Diagnoses Name Primary? Positive Antinuclear Antibody Abnormal Elevated Yes ??? Headache Going to check the patient's ZENOBIA panel today follow-up with an MRI brain in six months. I told him Ithink that is likely we will find a treatable cause for his problem. We had a long discussion about his evaluation including visits to Neurosurgery and Neurology (Dr. Acevedo) Total time together was over 40 minutes and more than half was counseling. Kleber Lindsey M.D., M.P.H. documented in this encounter Plan of Treatment Scheduled Referrals Name Type Priority Associated Diagnoses Order S [facility] Neurology office Outpatient Referral Routine Expe cted: visit (clinic) 07/17/2019 (Approximate), Expires: 01/15/2022 documented as of this encounter Results MR Brain without and with IV Contrast (07/17/2019 11:24 AM CABIN CLEANER) Anatomical Region Laterality Modality Head, Brain, Neuroradiology RST LOS, Neuroradiology ARZ N/A Magnetic Resonance LOS, Neuroradiology FLA LOS Specimen (Source) Anatomical Collection Method Collection Time Re ceived Time Location / / Volume Laterality 07/17/2019 11:26 AM CABIN CLEANER Impressions 07/17/2019 11:40 AM CABIN CLEANER 1. ??Unchanged area confluent T2 signal abnormality within the right frontoparietal periventricular white mat ter. 2. ??Additional sequela of probable mild chronic small vessel ischemia. Narrative 07/17/2019 11:40 AM CABIN CLEANER EXAM: MR BRAIN WITHOUT AND WITH IV CONTRAST COMPARISON: March 27, 2018 comparison . FINDINGS: Confluent areas of T2 signal abnormality within the right frontoparietal periventricular white matter similar to prior likely reflects gliosis related to prior ischemic or other nonspecific insu lt. Few additional scattered areas of T2 signal abnormality which likely reflect the sequela of chronic small vessel ischemia. Mild scattered paranasal sinus mucosal thickening. No extra-axial fluid collections or midline shift. No a bnormal parenchymal or leptomeningeal enhancement. Procedure Note Jovon Haywood M.D. - 07/17/2019Forma tting of this note might be different from the original. EXAM: MR BRAIN WITHOUT AND WITH IV CONTR AST COMPARISON: March 27, 2018 comparison . FINDINGS: Confluent areas of T2 signal abnormality within the right frontoparietal periventricular white matter similar to prior likely reflects gliosis related to prior ischemic or other nonspecific insu lt. Few additional scattered areas of T2 signal abnormality which likely reflect the sequela of chronic small vessel ischemia. Mild scattered paranasal sinus mucosal thickening. No extra-axial fluid collections or midline shift. No a bnormal parenchymal or leptomeningeal enhancement. IMPRESSION: 1. Unchanged area confluent T2 signal ab normality within the right frontoparietal periventricular white mat ter. 2. Additional sequela of probable mild c hronic small vessel ischemia. Kleber Lindsey M.D., M.P.H. IMG MRI PROCEDURES Antibody to Extractable Nuclear Antigen Evaluation (01/15/2019 1:43 PM CDT) P athologist Signature SS-A/Ro Ab, <0.2 <1.0 01/16/2019 IgG, S (Negative) 1:32 PM CDT U SS-B/La Ab, <0.2 <1.0 01/16/2019 IgG, S (Negative) 1:32 PM CDT U Sm Ab, IgG, S <0.2 <1.0 01/16/2019 (Negative) 1:32 PM CDT U AIR PRESS OPERATOR Ab, IgG, S <0.2 <1.0 01/16/2019 (Negative) [...] Organization Address City/State/ZIP Code Phon e Number [facility]- [address] [facility] [place], [place] [address] [facility] documented in this encounter Visit Diagnoses Diagnosis Positive Antinuclear Antibody Abnormal E levated - Primary Headache Unspecified Headache Unspecified documented in this encounter
--- OUTSIDE RECORDS SUMMARY | 2022-05-25 10:02 | XMS_ITS | Encounter Summary ---
:1940 Author Organization [facility] Address [address] [place] [address] Care Team Providers Name Role Phone Unavailable Primary Care Provider Unavailable Reason for Referral Specialty Diagnoses / Procedures Referred By Contact Refer red To Contact Guerita Connolly M.D. 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 Sa renard Connolly M.D. [address] [place], [place] [phone] (Wo rk) Social History Tobacco Use Types Packs/Day Years Used Date Smoking Tobacco: Never Smokeless Tobacco: Never Alcohol Use Standard Drinks/Week Comments Yes 1 (1 standard drink = 0.6 oz pure alcoho l) Alcohol Habits Answer Date Recorded How often do you have a drink containing 4 or more times a w [place] 01/14/2022 alcohol? How many drinks containing alcohol [...] or relatives? How often do you attend samaritan or voodoo More than 4 time s per year 01/14/2022 services? 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
--- OUTSIDE RECORDS SUMMARY | 2022-05-25 10:02 | XMS_ITS | Encounter Summary ---
:1940 Author Organization [facility] Address [address] [place] [address] Care Team Providers Name Role Phone Unavailable Primary Care Provider Unavailable Encounter Details Date Type Department Care Team Description 09/27/2020 Immunization Department of [facility] Jose Tirado For COVID-19 Medicine, Ambrose Bradshaw M.D. Vaccine Immunization [facility], in [address] [address] [place], [place] [phone] (Work) [phone] Social History Tobacco Use Types Packs/Day Years Used Date Smoking Tobacco: Never Smokeless Tobacco: Never Alcohol Use Standard Drinks/Week Comments Yes 1 (1 standard drink = 0.6 oz pure alcoho l) Alcohol Habits Answer Date Recorded How often do you have a drink containing 4 or more times a w [place] 01/14/2022 alcohol? How many drinks containing alcohol [...] or relatives? How often do you attend rastafari or uatsdin More than 4 time s per year 01/14/2022 services? 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
--- OUTSIDE RECORDS SUMMARY | 2022-05-25 10:02 | XMS_ITS | Encounter Summary ---
:1940 Author Organization [facility] Address [address] [place] [address] Care Team Providers Name Role Phone Unavailable Primary Care Provider Unavailable Reason for Referral Outpatient (Routine) - Closed Specialty Diagnoses / Procedures Referred By Contact Refer red To Contact Video Medicine Diagnoses Hemiplegia Nondominant Side Left (HCC) Kleber Lindsey M.D., [facility] [place] on M[facility] [address] [place] [phone] Referral ID Status Reason Start Date Expiration Date Visits Requ ested Visits Authorized [id number] Closed 07/27/2020 07/27/2021 1 1 [employer] MRI/CAT/PET Scan (Routine) - Closed Specialty Diagnoses / Procedures Referred By Contact Refer red To Contact Radiology Diagnoses Hemiplegia Nondominant Side Left (HCC) Kleber Lindsey M.D., [facility] [place] on Procedures MR Brain without and with IV Contrast M.P.H. [address] [place] [address] Referral ID Status Reason Start Date Expiration Date Visits Requ ested Visits Authorized [id number] Closed 07/27/2020 07/27/2021 1 1 [employer] Reason for Visit Reason Comments Follow-up yearly follow up- Hemiplegia left side Outpatient (Routine) - Closed Specialty Diagnoses / Procedures Referred By Contact Refer red To Contact Neurology Kleber Lindsey M.D ., M.P.H. [facility] [address] [place] [phone] Referral ID Status Reason Start Date Expiration Date Visits Requ ested Visits Authorized [id number] Closed 07/24/2019 07/23/2020 1 1 Encounter Details Date Type Department Care Team Description 07/27/2020 Office Visit Department of Kleber Lindsey, Hemiplegia Nondominant Neurology in [place], M.P.H. Side Left (HCC) [place], [place] [address] (Primary Dx) [address] [place] [phone] Social History Tobacco Use Types Packs/Day Years Used Date Smoking Tobacco: Never Smokeless Tobacco: Never Alcohol Use Standard Drinks/Week Comments Yes 1 (1 standard drink = 0.6 oz pure alcoho l) Alcohol Habits Answer Date Recorded How often do you have a drink containing 4 or more times a w [place] 01/14/2022 alcohol? How many drinks containing alcohol [...] How often do you attend synagogue or caodaism More than 4 time s per year [...] place to sleep or slept in a mcc (including now)? Education Answer Date Recorded What is the highest level of school you have completed or th e Doctorate 01/15/2019 highest degree you have received? 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 - 07/27/2020 1:15 PM CST SUBJECTIVE CHIEF COMPLAINT / REASON FOR VISIT Da Monk is a 79 y.o. male who presents for evaluation of Follow-up (yearly follow up- Hemiplegia left side). HISTORY OF PRESENT ILLNESS This patient with left-sided weakness has both lumbar stenosis without clear neurogenic claudication. 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 He continues to have left-sided weakness both the left and right upper extremity and this probably is getting little bit worse. 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 Overall to his mind he is fairly stable. 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 It is likely also that his gait problem is multifactorial including those areas of involvement in the lumbar region. He is amenable to getting another MRI since it has been little over a year since the last one. No past medical history on file. No past surgical history on file. MEDICATIONS: Current Outpatient Medications: ??? aspirin [address] tablet, Take 81 mg by mouth daily., Disp: , Rfl: ??? cholecalciferol (VITAMIN D3) 2,000 Unit capsule, [...] week Gets together: Once a week Attends caodaism service: More than 4 times per year [...] Social History Narrative ??? Not on file @ OBJECTIVE Vitals: 07/27/20 1312 BP: 117/69 BP Location: Left arm Patient Position: Sitting Cuff Size: Regular Pulse: 68 Weight: 79.3 kg PHYSICAL EXAM COGNITION: Alert and oriented x 4. 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 MOTOR: he has minus one weakness in the left upper extremity the shoulder abductor and wrist extensor. Rapid alternating movements are minus two in the left upper extremity and reflexes are 0 on the right and plus one on the left upper and lower extremity. Plantar response results in fanning of the toes on the left but without extension of the toe. SENSORY: normal sensation to touch CEREBELLAR: ARMs-normal GAIT: He clearly has weakness on the left side when he walks Impression: Encounter Diagnoses Name Primary? Hemiplegia Nondominant Side Left (HCC) Yes Patient is an unidentified lesion in the right hemisphere as described above going to get another MRI with without contrast to compare that if this is stable that I think we can spread out the intervalfor imaging. He, I believe he is slightly weaker on the left than he had been and he has at least a partially positive plantar response on the left when he previously did not. Will have to also potentially re-evaluate his lumbar stenosis. Total time with patient today was 35 minutes. Kleber Lindsey M.D., M.P.H. [employer] documented in this encounter Plan of Treatment Scheduled Referrals Name Type Priority Associated Diagnoses Order S chedule Video anyplace Outpatient Referral Routine Hemiplegia Expect ed: visit Nondominant Side Left 2020 (HCC) (Approximate), Expires: 07/27/2023 documented as of this encounter Results MR Brain without and with IV Contrast (08/09/2020 3:00 PM [employer]) Anatomical Region Laterality Modality Head, Brain, Neuroradiology RST LOS, Neuroradiology [place] N/A Magnetic Resonance LOS, Neuroradiology [facility] Specimen (Source) Anatomical Collection Method Collection Time Re ceived Time Location / / Volume Laterality 08/09/2020 4:06 PM [employer] Impressions 08/09/2020 4:14 PM [employer] No significant change from the prior exam. Stable area of confluent nonenhancing T2 signal abnormality of th e right frontoparietal white matter. Negative for acute infarction. Narrative 08/09/2020 4:14 PM [employer] EXAM: MR BRAIN WITHOUT AND WITH IV CONTRAST COMPARISON: 07/17/2019 FINDINGS: No restricted diffusion to ind icate acute infarction. Stable area of confluent T2 hyperintensity of the subco rtical and deep white matter of the right hemisphere. No associated enhancem ent. Mild prominence of the sulci of the right hemisphere. The abnormal T2 signal demonstrates no MR evidence of mass effect upon the right lateral ventricle. No midline shift. Scattered foci of FLAIR signal abnormality of the left hem isphere. Negative for intracranial hemorrhage. No abnormal enhancement. No intracranial mass or mass effect. Mucosal thickening of the ethmoid air ce lls and maxillary sinuses. Normal intracranial flow voids. Surgical change s to the lens. The orbits, sella, and cerebellopontine angles are negative. Procedure Note Miguel Rodriguez M.D. - 08/09/2020For matting of this note might be different from the original. EXAM: MR BRAIN WITHOUT AND WITH IV CONTR AST COMPARISON: 07/17/2019 FINDINGS: No restricted diffusion to ind icate acute infarction. Stable area of confluent T2 hyperintensity of the subco rtical and deep white matter of the right hemisphere. No associated enhancem ent. Mild prominence of the sulci of the right hemisphere. The abnormal T2 signal demonstrates no MR evidence of mass effect upon the right lateral ventricle. No midline shift. Scattered foci of FLAIR signal abnormality of the left hem isphere. Negative for intracranial hemorrhage. No abnormal enhancement. No intracranial mass or mass effect. Mucosal thickening of the ethmoid air ce lls and maxillary sinuses. Normal intracranial flow voids. Surgical change s to the lens. The orbits, sella, and cerebellopontine angles are negative. IMPRESSION: No significant change from the prior exa m. Stable area of confluent nonenhancing T2 signal abnormality of th e right frontoparietal white matter. Negative for acute infarction. Kleber Lindsey M.D., M.P.H. IMG MRI PROCEDURES documented in this encounter Visit Diagnoses Diagnosis Hemiplegia Nondominant Side Left (HCC) - Primary Hemiplegia Nondominant Side Left (HCC) documented in this encounter
--- OUTSIDE RECORDS SUMMARY | 2022-05-25 10:02 | XMS_ITS | Encounter Summary ---
:1940 Author Organization [facility] Address [address] [place] [address] Care Team Providers Name Role Phone Unavailable Primary Care Provider Unavailable Reason for Referral Specialty Diagnoses / Procedures Referred By Contact Refer red To Contact [facility] [address] [phone] Referral ID Status Reason Start Date Expiration Date Visits Requ ested Visits Authorized ER INSPECTOR Encounter Details Date Type Department Care Team Description 09/01/2020 Immunization Department of [facility] er For COVID-19 Medicine, [facility] Vaccine Immunization [facility], [facility] (Prim viola Dx) [address] [address] [facility] [phone] Social History Tobacco Use Types Packs/Day Years Used Date Smoking Tobacco: Never Smokeless Tobacco: Never Alcohol Use Standard Drinks/Week Comments Yes 1 (1 standard drink = 0.6 oz pure alcoho l) Alcohol Habits Answer Date Recorded How often do you have a drink containing 4 or more times a w [place] 01/14/2022 alcohol? How many drinks containing alcohol [...] How often do you attend moravian or church More than 4 time s per year [...] place to sleep or slept in a care home (including now)? Education Answer Date Recorded What is the highest level of school you have completed or th e Doctorate 01/15/2019 highest degree you have received? 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
--- OUTSIDE RECORDS SUMMARY | 2022-05-25 10:02 | XMS_ITS | Encounter Summary ---
:1940 Author Organization [facility] Address [address] [place] [address] Care Team Providers Name Role Phone Unavailable Primary Care Provider Unavailable Encounter Details Date Type Department Care Team Description 07/17/2019 Hospital Encounter Department of Kleber Lindsey Laboratory Medicine [place] Jha, Nondomin ant Side Left in Roxanna Murrell ([facility]) [place] [address] [place] [phone] Social History Tobacco Use Types Packs/Day Years Used Date Smoking Tobacco: Never Smokeless Tobacco: Never Alcohol Use Standard Drinks/Week Comments Yes 1 (1 standard drink = 0.6 oz pure alcoho l) Alcohol Habits Answer Date Recorded How often do you have a drink containing 4 or more times a w [place] 01/14/2022 alcohol? How many drinks containing alcohol [...] or relatives? How often do you attend pentecostalism or tenriism More than 4 time s per year 01/14/2022 services? Do you belong to any clubs or organizations Yes 01/14/2022 such as pentecostalism groups, unions, fraternal or athletic groups, or school groups? How often do you attend meetings of the More than 4 times r year 01/14/2022 clubs or organizations you [...] place to sleep or slept in a senior care (including now)? Education Answer Date Recorded What is the highest level of school you have completed or th e Doctorate 01/15/2019 highest degree you have received? 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 documented in this encounter Results Creatinine with Estimated GFR (07/17/2019 8:45 AM MANAGER CONTRACT) P athologist Signature Creatinine 0.99 0.74 - 07/17/2019 [place] 1.35 mg/dL 10:03 AM MANAGER CONTRACT eGFR-Non 72 >=60 07/17/2019 [place] Black/ mL/min/BSA 10:03 AM MANAGER CONTRACT [place] Comment: ----ADDITIONAL INFORMATION---- Estimated GFR calculated using the 2009 CKD_EPI creatinine equation. eGFR-Black/ 83 >=60 mL/min/BSA 2018 10:03 AM MANAGER CONTRACT [place] Comment: ----ADDITIONAL INFORMATION---- Estimated GFR calculated using the 2009 CKD_EPI creatinine equation. Specimen Anatomical Collection Method Collection Time Receive d Time (Source) Location / / Volume Laterality Blood (Blood, 07/17/2019 8:45 AM 07/17/20 19 8:50 Venous) MANAGER CONTRACT AM MANAGER CONTRACT Kleber Lindsey M.D., M.P.H. LAB BLOOD ADD-ON Performing Organization Address City/State/ZIP Code Phon e Number [facility] [address] [place] [address] [place] [place] [address] System in [place] [address] documented in this encounter Visit Diagnoses Diagnosis Hemiplegia Nondominant Side Left (HCC) documented in this encounter
--- OUTSIDE RECORDS SUMMARY | 2022-05-25 10:02 | XMS_ITS | Encounter Summary ---
:1940 Author Organization [facility] Address [address] [place] [address] Care Team Providers Name Role Phone Unavailable Primary Care Provider Unavailable Encounter Details Date Type Department Care Team Description 07/17/2019 Hospital Encounter Department of Radiology Kleber Lindsey, Headache in [facility] emily Nelson, M.P.H. [address] [place] [address] [place], [place] [phone] Social History Tobacco Use Types Packs/Day Years Used Date Smoking Tobacco: Never Smokeless Tobacco: Never Alcohol Use Standard Drinks/Week Comments Yes 1 (1 standard drink = 0.6 oz pure alcoho l) Alcohol Habits Answer Date Recorded How often do you have a drink containing 4 or more times a w [employer] [place] 01/14/2022 alcohol? How many drinks containing alcohol [...] or relatives? How often do you attend restorationism or yarsanism More than 4 time s per year 01/14/2022 services? Do you belong to any clubs or organizations Yes 01/14/2022 such as restorationism groups, unions, fraternal or athletic groups, or [...] place to sleep or slept in a halfway (including now)? Education Answer Date Recorded What is the highest level of school you have completed or th e Doctorate 01/15/2019 highest degree you have received? 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 documented in this encounter Results MR Brain without and with IV Contrast (07/17/2019 11:24 AM COMPUTER SECURITY SPECIALIST) Anatomical Region Laterality Modality Head, Brain, Neuroradiology RST LOS, Neuroradiology [place] N/A Magnetic Resonance LOS, Neuroradiology [facility] Specimen (Source) Anatomical Collection Method Collection Time Re ceived Time Location / / Volume Laterality 07/17/2019 11:26 AM COMPUTER SECURITY SPECIALIST Impressions 07/17/2019 11:40 AM COMPUTER SECURITY SPECIALIST 1. ??Unchanged area confluent T2 signal abnormality within the right frontoparietal periventricular white mat ter. 2. ??Additional sequela of probable mild chronic small vessel ischemia. Narrative 07/17/2019 11:40 AM COMPUTER SECURITY SPECIALIST EXAM: MR BRAIN WITHOUT AND WITH IV [...] documented in this encounter Visit Diagnoses Diagnosis Headache Unspecified documented in this encounter Administered Medications Inactive Administered Medications - up to 3 most recent administrations Medication Order MAR Action Action Date Dose Rate Site gadobutrol injection 1-14 mL Given 07/17/2019 11:11 AM COMPUTER SECURITY SPECIALIST 7.5 m L (GADAVIST) 1-14 mL, intravenous, Once in imaging, contrast, Starting on Fern 07/17/19 at 1049, For 1 dose, Dose per Radiant Medication Guidelines sodium chloride 0.9 % injection 1-250 mL Given 07/17/2019 11:14 AM COMPUTER SECURITY SPECIALIST 10 mL 1-250 mL, intravenous, Once in imaging, line care, Starting on Fern 07/17/19 at 1049, For 1 dose documented in this encounter
--- OUTSIDE RECORDS SUMMARY | 2022-05-25 10:02 | XMS_ITS | Encounter Summary ---
:1940 Author Organization [facility] Address [address] [place] [address] Care Team Providers Name Role Phone Unavailable Primary Care Provider Unavailable Encounter Details Date Type Department Care Team Description 11/25/2018 Clinical Communication Department of Internal Narciso Lindsey, [place], [facility]. [facility] [address] [facility] [place], [place] [phone] Social History Tobacco Use Types Packs/Day Years Used Date Smoking Tobacco: Never Smokeless Tobacco: Never Alcohol Use Standard Drinks/Week Comments Yes 1 (1 standard drink = 0.6 oz pure alcoho l) Alcohol Habits Answer Date Recorded How often do you have a drink containing 4 or more times a w [place] 01/14/2022 alcohol? How many drinks containing alcohol [...] or relatives? How often do you attend episcopalian or yazdanism More than 4 time s per year 01/14/2022 services? Do you belong to any clubs or organizations Yes 01/14/2022 such as episcopalian groups, unions, fraternal or athletic groups, or [...] or slept in a usp (including now)? 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
--- OUTSIDE RECORDS SUMMARY | 2022-05-25 10:02 | XMS_ITS | Encounter Summary ---
:1940 Author Organization [facility] Address [address] [place] [address] Care Team Providers Name Role Phone Unavailable Primary Care Provider Unavailable Reason for Visit Reason Onset Date Comments Reschedule 07/19/2018 Automatic Appointmen t Reminder to reschedule appointment. Encounter Details Date Type Department Care Team Description 07/19/2018 Clinical Communication Department of Tahira Acevedo, Resc hedule Neurology in [facility] ([employer] [place], [address] Appointment Reminder [place], [place] to reschedule [address] [phone] appointment.) [place], [place] [phone] (Work) [phone] Social History Tobacco Use Types Packs/Day Years Used Date Smoking Tobacco: Never Smokeless Tobacco: Never Alcohol Use Standard Drinks/Week Comments Yes 1 (1 standard drink = 0.6 oz pure alcoho l) Alcohol Habits Answer Date Recorded How often do you have a drink containing 4 or more times a w [place] 01/14/2022 alcohol? How many drinks containing alcohol [...] or relatives? How often do you attend christianity or yazidism More than 4 time s per year 01/14/2022 services? Do you belong to any clubs or organizations Yes 01/14/2022 such as christianity groups, unions, fraternal or athletic groups, or school groups? How often do you attend meetings of the More than 4 times [facility] year 01/14/2022 clubs or organizations you belong [...] or slept in a intermediate (including now)? 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 Please contact the patient to determine which appointments to update and reschedule as appropriate. Thank you. RAL WAREHOUSE ASSOCIATE documented in this encounter Plan of Treatment Not on filedocumented as of this encounter Visit Diagnoses Not on filedocumented in this encounter
--- OUTSIDE RECORDS SUMMARY | 2022-05-25 10:02 | XMS_ITS | Encounter Summary ---
:1940 Author Organization [facility] Address [address] [place] [id number] Care Team Providers Name Role Phone Unavailable Primary Care Provider Unavailable Reason for Referral Outpatient (Routine) - Closed Specialty Diagnoses / Procedures Referred By Contact Refer red To Contact Rheumatology Diagnoses Positive Antinuclear Antibody Abnormal Elevated Wolf Acevedo M.B.B.S. [facility] Procedures Rheumatology - Diagnosis eConsult [address] [place] [phone] Referral ID Status Reason Start Date Expiration Date Visits Requ ested Visits Authorized [id number] Closed 09/06/2018 09/06/2019 1 1 OBIOLOGY PROFESSOR Reason for Visit Outpatient (Routine) - Closed Specialty Diagnoses / Procedures Referred By Contact Refer red To Contact Neurology Wolf Acevedo M.B.B.S. [facility] [address] [place] [address] [phone] Referral ID Status Reason Start Date Expiration Date Visits Requ ested Visits Authorized [id number] Closed 06/19/2018 06/19/2019 1 1 Encounter Details Date Type Department Care Team Description 09/06/2018 Office Visit Department of Wolf Acevedo, Positive Antin uclear Antibody Abnormal Elevated (Primary Dx); Neurology in [facility] Paraparesis Spastic (HCC); [place], [place] [address] [facility] Hemiplegia Nondominant Side Left (HCC) [address] [place] [phone] Social History Tobacco Use Types Packs/Day Years Used Date Smoking Tobacco: Never Smokeless Tobacco: Never Alcohol Use Standard Drinks/Week Comments Yes 1 (1 standard drink = 0.6 oz pure alcoho l) Alcohol Habits Answer Date Recorded How often do you have a drink containing 4 or more times a w [place] 01/14/2022 alcohol? How many drinks containing alcohol [...] or relatives? How often do you attend anglican or sikh More than 4 time s per year 01/14/2022 services? 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 - 09/06/2018 3:30 PM CST Da Monk returns today to discuss the results of their tests and consultations. He was accompanied by his Lisbet. Our workup was directed to words ruling out any insidiously progressive low- grade infection, addressing the possibility of a low-grade glioma or inflammatory etiologies for the brain lesion. Blood work was overall unremarkable with the exception of elevated anti nuclear antibody hep 2 substrate titer 1:320. Paraneoplastic evaluation was negative. Lumbar puncture for spinal fluid evaluation revealed no clear evidence of intrathecal inflammation. CSF cytology was normal. There was only 1 nucleated cell. Protein was mildly elevated at 64 which would be expected for age. Glucose is 56. Various infectious serology is were negative. Mr. Monk shared with me history of previous exposure to organic chlorine, wood preservatives, glyphosphates through various activities. I am unable to draw a causal biological relationship betweenhis symptoms and these exposures. He has also been exposed to well water with higher than acceptablelevels of a herbicide. His MRI brain scan was interpreted by [address]. Hernandez and I also discussed the neuroimaging findings with the neuro oncologist. The findings are most consistent with remote injury or trauma and has no features of a glioma or other low-grade malignancy. Examination is remarkable for a very subtle left-sided upper motor neuron pattern of weakness and brisk reflexes. Exam is stable from previous. 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 However symptoms fit to the neuro anatomical localization. We have very thoroughly ruled out any infectious, inflammatory or malignant etiology at this time. The clinical impression is most consistent with decompensation of a remote neurological injury over time. Of course if there is any significant change abruptly, MRI brain scan with contrast should be repeated. During our workup we found elevation of antinuclear antibody hep 2 substrate. He does not have any active symptoms of inflammatory arthritis, serositis or rash. There appears to be no known family history of autoimmune conditions. There is no evidence of SPECIFICATION CONSULTANT inflammation to explain the current symptomatology. However, I would appreciate any thoughts from our colleagues in Rheumatology regarding future workup and management. I personally spent over half of a total 45 minutes face to face with the patient in counseling and discussion and/or coordination of care as described above. PATIENT EDUCATION Ready to learn, no apparent learning barriers were identified; learning preferences include listening. Explained diagnosis and treatment plan; patient expressed understanding of the content. OBIOLOGY PROFESSOR documented in this encounter Miscellaneous Notes Addendum Note - Wolf Acevedo M.B.B.S. 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
--- OUTSIDE RECORDS SUMMARY | 2022-05-25 10:02 | XMS_ITS | Encounter Summary ---
:1940 Author Organization [facility] Address [address] [place] [address] Care Team Providers Name Role Phone Unavailable Primary Care Provider Unavailable Reason for Referral MRI/CAT/PET Scan (Routine) - Closed Specialty Diagnoses / Procedures Referred By Contact Refer red To Contact Radiology Diagnoses Hemiplegia Nondominant Side Left (HCC) Kleber Lindsey M.D., [facility] [place] on Procedures MR Brain without and with IV Contrast [facility] [address] [place] [phone] Referral ID Status Reason Start Date Expiration Date Visits Requ ested Visits Authorized [id number] Closed 07/27/2020 07/27/2021 1 1 UME SEAMSTRESS Reason for Visit MRI/CAT/PET Scan (Routine) - Closed Specialty Diagnoses / Procedures Referred By Contact Refer red To Contact Radiology Diagnoses Hemiplegia Nondominant Side Left (HCC) Kleber Lindsey M.D., [facility] [place] on Procedures MR Brain without and with IV Contrast [facility] [address] [place] [address] [phone] Referral ID Status Reason Start Date Expiration Date Visits Requ ested Visits Authorized [id number] Closed 07/27/2020 07/27/2021 1 1 Encounter Details Date Type Department Care Team Description 08/09/2020 Hospital Encounter Department of Kleber Lindsey Radiology in [place], Nondominant Pieter e Left [place] [facility] ([facility] [address] [facility] [phone] FRANTZ Murrell [phone] Social History Tobacco Use Types Packs/Day Years Used Date Smoking Tobacco: Never Smokeless Tobacco: Never Alcohol Use Standard Drinks/Week Comments Yes 1 (1 standard drink = 0.6 oz pure alcoho l) Alcohol Habits Answer Date Recorded How often do you have a drink containing 4 or more times a w [place] 01/14/2022 alcohol? How many drinks containing alcohol [...] or relatives? How often do you attend yarsani or protestant More than 4 time s per year 01/14/2022 services? Do you belong to any clubs or organizations Yes 01/14/2022 such as yarsani groups, unions, fraternal or athletic groups, or [...] place to sleep or slept in a retirement (including now)? Education Answer Date Recorded What is the highest level of school you have completed or th e Doctorate 01/15/2019 highest degree you have received? 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 documented in this encounter Results MR Brain without and with IV Contrast (08/09/2020 3:00 PM COSTUME SEAMSTRESS) Anatomical Region Laterality Modality Head, Brain, Neuroradiology RST LOS, Neuroradiology ARZ N/A Magnetic Resonance LOS, Neuroradiology FLA LOS Specimen (Source) Anatomical Collection Method Collection Time Re ceived Time Location / / Volume Laterality 08/09/2020 4:06 PM COSTUME SEAMSTRESS Impressions 08/09/2020 4:14 PM COSTUME SEAMSTRESS No significant change from the prior exam. Stable area of confluent nonenhancing T2 signal abnormality of th e right frontoparietal white matter. Negative for acute infarction. Narrative 08/09/2020 4:14 PM COSTUME SEAMSTRESS EXAM: MR BRAIN WITHOUT AND WITH IV [...] Rate Site gadobutrol injection 1-14 mL Given 08/09/2020 2:48 PM COSTUME SEAMSTRESS 7.5 mL (GADAVIST) 1-14 mL, intravenous, Once in imaging, contrast, Starting on 08/09/20 at 1411, For 1 dose, Dose per Radiant Medication Guidelines sodium chloride 0.9 % injection 1-250 mL Given 08/09/2020 2:48 PM COSTUME SEAMSTRESS 10 mL 1-250 mL, intravenous, Once in imaging, line care, Starting on Sun08/09/20 at 1411, For 1 dose documented in this encounter
[2022-05-25 10:03] LABS: Bilirubin Total* 0.5 mg/dL (0.1-1.5); Blood Urea Nitrogen* 13 mg/dL (7-30); Calcium* 8.8 mg/dL (8.4-10.6); Carbon Dioxide* 27 mmol/L (20-32); Glucose* 117 mg/dL (60-115); Magnesium* 2.3 mg/dL (1.5-2.6); Total Protein* 7.3 g/dL (6.0-8.3)
--- OUTSIDE RECORDS SUMMARY | 2022-05-25 10:03 | XMS_ITS | Encounter Summary ---
:1940 Author Organization [facility] Address [address] [place] [id number] Care Team Providers Name Role Phone Unavailable Primary Care Provider Unavailable Encounter Details Date Type Department Care Team Description 06/19/2018 Hospital Encounter Department of Ali, Tahira, Hemipleg ia Nondominant Side Left (HCC); Laboratory Medicine [facility], [address] [place] [address], in [place], [place] [id number] [place] [address] [place], [place] (Work) [phone] Social History Tobacco Use Types Packs/Day Years Used Date Smoking Tobacco: Never Smokeless Tobacco: Never Alcohol Use Standard Drinks/Week Comments Yes 1 (1 standard drink = 0.6 oz pure alcoho l) Alcohol Habits Answer Date Recorded How often do you have a drink containing 4 or more times a w [place] 01/14/2022 alcohol? How many drinks containing alcohol [...] or relatives? How often do you attend methodist or yarsani More than 4 time s per year 01/14/2022 services? Do you belong to any clubs or organizations Yes 01/14/2022 such as methodist groups, unions, fraternal or athletic groups, or [...] place to sleep or slept in a detention (including now)? Sex Assigned at Date Recorded Male 08/30/2018 2:45 PM [facility] documented as of this encounter Medications at Time of Discharge Medication Sig Dispensed Refills Start Date End Date cyanocobalamin (VITAMIN B12) Take 500 mcg by 0 500 mcg tablet mouth daily. documented as of this encounter Plan of Treatment Not on filedocumented as of this encounter Procedures Procedure Name Priority Date/Time Associated Comments Diagnosis HIV-1/-2 AG AND AB Routine 06/19/2018 12:33 Hemiplegia Resul ts for this SCREEN, PLASMA PM [facility] Nondominant Side procedure are in Left (HCC) the results [facility] section. MONOCLONAL GAMMOPATHY Routine 06/19/2018 12:33 Hemiplegia Re sults for this DIAGNOSTIC, S PM [facility] Nondominant Side procedure are in Left (HCC) the results [facility] section. METHYLMALONIC ACID, QN, Routine 06/19/2018 12:33 Results for this S PM [facility] procedure are i n the results section. THYROID FUNCTION Routine 06/19/2018 12:33 Hemiplegia Results for this CASCADE, S PM [facility] Nondominant Side procedure a re in Left (HCC) the results [facility]. PERNICIOUS ANEMIA Routine 06/19/2018 12:33 Hemiplegia Result s for this CASCADE, S PM [facility] Nondominant Side procedure a re in Left (HCC) the results [facility]. HCV AB SCRN W/REFLEX TO Routine 06/19/2018 12:33 Hemiplegia Results for this HCV PCR, S PM [facility] Nondominant Side procedure a re in Left (HCC) the results [facility]. ENCEPHALOPATHY, Routine 06/19/2018 12:33 Hemiplegia Results for this AUTOIMM/PARANEO,SERUM PM [facility] Nondominant Side pr ocedure are in Left (HCC) the results [facility]. ANCA VASCULITIS PANEL, Routine 06/19/2018 12:33 Hemiplegia R esults for this S PM [facility] Nondominant Side procedure a re in Left (HCC) the results [facility] section. THIAMIN (VITAMIN B1), B Routine 06/19/2018 12:33 Hemiplegia Results for this PM [facility] Nondominant Side procedure a re in Left (HCC) the results [facility]. CONNECTIVE TISSUE Routine 06/19/2018 12:33 Hemiplegia Result s for this DISEASE CASCADE, ROEL, PM [facility] Nondominant Side procedure are in S Left (HCC) the results [facility]. ZINC, S Routine 06/19/2018 12:33 Hemiplegia Results for this PM [facility] Nondominant Side procedure a re in Left (HCC) the results [facility]. 25-HYDROXYVITAMIN D2 Routine 06/19/2018 12:33 Hemiplegia Res ults for this AND D3, S PM [facility] Nondominant Side procedure a re in Left (HCC) the results [facility]. HEPATITIS B SURFACE Routine 06/19/2018 12:33 Hemiplegia Resu lts for this ANTIGEN PM [facility] Nondominant Side procedure a re in Left (HCC) the results [facility]. ACTIVATED PARTIAL Routine 06/19/2018 12:33 Hemiplegia Result s for this THROMBOPLASTIN TIME PM [facility] Nondominant Side proc edure are in (APTT), P Left (HCC) the results [facility]. PROTHROMBIN TIME (PT), Routine 06/19/2018 12:33 Hemiplegia R esults for this P PM [facility] Nondominant Side procedure a re in Left (HCC) the results [facility]. CBC WITH DIFFERENTIAL, Routine 06/19/2018 12:33 Hemiplegia R esults for this B PM [facility] Nondominant Side procedure a re in Left (HCC) the results [facility]. C-REACTIVE PROTEIN Routine 06/19/2018 12:33 Hemiplegia Resul ts for this (CRP), S/P PM [facility] Nondominant Side procedure a re in Left (HCC) the results [facility]. VITAMIN E, S Routine 06/19/2018 12:33 Hemiplegia Results for this PM [facility] Nondominant Side procedure a re in Left (HCC) the results [facility]. FERRITIN, S Routine 06/19/2018 12:33 Hemiplegia Results for this PM [facility] Nondominant Side procedure a re in Left (HCC) the results [facility]. COMPREHENSIVE METABOLIC Routine 06/19/2018 12:33 Hemiplegia Results for this PANEL, S/P PM [facility] Nondominant Side procedure a re in Left (HCC) the results [facility]. documented in this encounter Results Methylmalonic Acid (MMA), Quantitative, Serum (06/19/2018 12:33 PM [facility]) Patholo gist Method Time Signature Methylmalonic 0.12 <=0.40 06/21/2018 [facility] Acid, QN, S nmol/mL 11:18 AM [facility] Comment: No cellular B-12 deficiency. ----ADDITIONAL INFORMATION---- This test was developed and its performa nce characteristics determined by [facility] in a manner consistent with CLIA requirements. This test has not been cleared or approved by the U.S. Misha d and Drug Administration. Specimen Anatomical Collection Method Collection Time Receive d Time (Source) Location / / Volume Laterality Blood 06/19/2018 12:33 06/19/2018 6:23 PM [facility] PM [facility] Tahira HoneycuttSPerla LAB BLOOD NON ADD-ON Performing Organization Address City/[facility] Phon e Number [facility]ATORIES - [address] Thyroid Function Christian (06/19/2018 12:33 PM [facility]) athologist Signature TSH, Sensitive 2.0 0.3 - 4.2 06/19/2018 [facility] mIU/L 2:21 PM [facility] Specimen Anatomical Collection Method Collection Time Receive d Time (Source) Location / / Volume Laterality Blood (Blood, 06/19/2018 12:33 06/19/2018 Venous) PM [facility] 12:55 PM [facility] Tahira HoneycuttS. LAB BLOOD ADD-ON Performing Organization Address City/[facility] Phon e Number [facility] - [address] Pernicious Anemia Christian (06/19/2018 12:33 PM [facility]) athologist Signature Vitamin B12 400 180 - 914 06/19/2018 [facility] Assay, S ng/L 6:23 PM [facility] Comment: B-12 <400; MMA test was perform ed. Specimen Anatomical Collection Method Collection Time Receive d Time (Source) Location / / Volume Laterality Blood (Blood, 06/19/2018 12:33 06/19/2018 3:30 Venous) PM [facility] PM [facility] Tahira HoneycuttSPerla LAB BLOOD NON ADD-ON Performing Organization Address City/[facility]/ZIP Code Phon e Number [facility] [address] [place] [address] [facility] Vitamin E (06/19/2018 12:33 PM [facility]) P athologist Signature A-Tocopherol, 11.4 5.5 - 17.0 06/20/2018 [facility] Vitamin E mg/L 1:55 PM [facility] Comment: ----ADDITIONAL INFORMATION---- This test was developed and its performa nce characteristics determined by [facility] in a manner consistent with CLIA requirements. This test has not been cleared or approved by the U.S. Misha d and Drug Administration. Specimen Anatomical Collection Method Collection Time Receive d Time (Source) Location / / Volume Laterality Blood (Blood, 06/19/2018 12:33 06/19/2018 4:24 Venous) PM [facility] PM [facility] Tahira HoneycuttSPerla LAB BLOOD NON ADD-ON Performing Organization Address City/[facility]/ZIP Code Phon e Number [address] [place] [address] [facility] (ABNORMAL) Zinc (06/19/2018 12:33 PM [facility]) P athologist Signature Zinc, S 0.60 (L) 0.66 - 1.10 06/19/2018 [facility] mcg/mL 8:33 PM [facility] Comment: ----ADDITIONAL INFORMATION---- This test was developed and its performa nce characteristics determined by [facility] in a manner consistent with CLIA requirements. This test has not been cleared or approved by the U.S. Misha d and Drug Administration. Specimen Anatomical Collection Method Collection Time Receive d Time (Source) Location / / Volume Laterality Blood (Blood, 06/19/2018 12:33 06/19/2018 3:25 Venous) PM [facility] PM [facility] Tahira HoneycuttSPerla LAB BLOOD NON ADD-ON Performing Organization Address City/State/ZIP Code Phon e Number [facility] [address] [place], [facility] 05 [facility] Thiamine (Vitamin B1), Whole Blood (06/19/2018 12:33 PM [facility]) P athologist Signature Thiamine 109 70 - 180 06/20/2018 [facility] (Vitamin B1), nmol/L 1:10 PM [facility] Comment: ----ADDITIONAL INFORMATION---- This test was developed and its performa nce characteristics determined by [facility] in a manner consistent with CLIA requirements. This test has not been cleared or approved by the U.S. Misha d and Drug Administration. Specimen Anatomical Collection Method Collection Time Receive d Time (Source) Location / / Volume Laterality Blood (Blood, 06/19/2018 12:33 06/19/2018 3:32 Venous) PM [facility] PM [facility] Tahira Terrell LAB BLOOD NON ADD-ON Performing Organization Address City/[facility]/ZIP Code Phon e Number [facility] [address] [place] (ABNORMAL) Monoclonal Gammopathy Screen (06/19/2018 12:33 PM [facility]) Component Value Ref Test Analysis Performed At Patholo gist Range Method Time Signature Total 7.5 6.3 - [facility] Protein, S 7.9 8 2:25 PM LABORATORIES g/dL [facility] [place] Free 2.30 (H) 0.3300 [facility] Light Chain, - 1.94 8 7:41 PM LABORATORIES S mg/dL [facility] Lambda Free 1.81 0.5700 [facility] Light Chain, - 2.63 8 7:38 PM LABORATORIES S mg/dL [facility] [place]/Lambda 1.27 0.2600 [facility] FLC Ratio - 1.65 8 7:41 PM LABORATORIES [facility] Albumin 3.7 3.4 - [facility] 4.7 8 11:55 LABORATORIES g/dL AM [facility] Alpha-1 0.2 0.1 - [facility] Globulin 0.3 8 11:55 LABORATORIES g/dL AM [facility] Alpha-2 1.0 0.6 - [facility] Globulin 1.0 8 11:55 LABORATORIES g/dL AM [facility] Beta-Globuli 1.0 0.7 - [facility] n 1.2 8 11:55 LABORATORIES g/dL AM [facility] Gamma-Globul 1.7 (H) 0.6 - [facility] in 1.6 8 11:55 LABORATORIES g/dL AM [facility] A/G Ratio 0.96 [facility] 8 11:55 LABORATORIES AM [facility] 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 8 11:55 LABORATORIES AM [facility] M-protein No monoclonal protein [facility] Isotype detected. 8 4:48 PM LABORATORIES MALDI-TOF MS [facility] Comment: ----ADDITIONAL INFORMATION---- The submitted sample was assayed by five separate immunopurifications for IgG, IgA, IgM, kappa and lambda. ??The r esult reflects the findings of either no monoclonal protein detected or those monoclonal immunoglobulins that were detected. This test was developed and its performa nce characteristics determined by [facility] in a manner consistent with CLIA requirements. This test has not been cleared or approved by the U.S. Misha d and Drug Administration. Specimen Anatomical Collection Method Collection Time Receive d Time (Source) Location / / Volume Laterality Blood (Blood, 06/19/2018 12:33 06/19/2018 1:43 Venous) PM [facility] PM [facility] Tahira Terrell LAB BLOOD ADD-ON Performing Organization Address City/State/ZIP Code Phon e Number [facility] - 200 [place], [place] [address] [facility] CRP (C-Reactive Protein) (06/19/2018 12:33 PM [facility]) P athologist Signature C-Reactive 7.2 <=8.0 mg/L 06/19/2018 [facility] Protein (CRP), 2:21 PM [facility] LABORATORIES - S [facility] Specimen Anatomical Collection Method Collection Time Receive d Time (Source) Location / / Volume Laterality Blood (Blood, 06/19/2018 12:33 06/19/2018 Venous) PM [facility] 12:55 PM [facility] Tahira Terrell LAB BLOOD ADD-ON Performing Organization Address City/State/ZIP Code Phon e Number [facility] - [address] [place], [place] [address] [facility] CMP (Comprehensive Metabolic Panel) (06/19/2018 12:33 PM [facility]) Analysis Performed At Patho logist Time Signature Potassium, S 4.4 3.6 - 5.2 06/19/2018 [facility] mmol/L 2:21 PM [facility] LABORATORIES [facility] Sodium, S 141 135 - 145 06/19/2018 [facility] mmol/L 2:21 PM [facility] Chloride, S 101 98 - 107 06/19/2018 [facility] mmol/L 2:21 PM [facility] Bicarbonate, S 27 22 - 29 06/19/2018 [facility] mmol/L 2:21 PM [facility] Anion Gap 13 7 - 15 06/19/2018 [facility] 2:21 PM [facility] BUN (Blood Urea 13 8 - 24 06/19/2018 [facility] Nitrogen), S mg/dL 2:21 PM [facility] Creatinine 0.91 0.74 - 06/19/2018 [facility] 1.35 mg/dL 2:21 PM [facility] eGFR-Non 80 >=60 06/19/2018 [facility] Black/ mL/min/BSA 2:21 PM [facility] Comment: ----ADDITIONAL INFORMATION---- Estimated GFR calculated using the 2009 CKD_EPI creatinine equation. eGFR-Black/ >90 >=60 mL/min/BSA 06/19/2018 2:21 [facility] [place] [facility] Comment: ----ADDITIONAL INFORMATION---- Estimated GFR calculated using the 2009 CKD_EPI creatinine equation. Calcium, Total, S 9.2 8.8 - 10.2 06/19/2018 2:21 PM [facility] mg/dL [facility] LABORATORIES [facility] Glucose, S 98 70 - 140 mg/dL 06/19/2018 2:21 PM [facility] Protein, Total, S 7.4 6.3 - 7.9 g/dL 06/19/2018 2:21 P M [facility] Albumin, S 4.5 3.5 - 5.0 g/dL 06/19/2018 2:[address] [facility] Aspartate 21 8 - 48 U/L 06/19/2018 2:21 PM [facility] Aminotransferase (AST), S [facility] LAB[facility]ATORIES - [facility] Alkaline Phosphatase, S 72 40 - 129 U/L 06/19/2018 2: [address] [facility] Alanine Aminotransferase 16 7 - 55 U/L 06/19/2018 2:2 1 PM [facility] (ALT), S [facility] Bilirubin, Total, S 0.5 <=1.2 mg/dL 06/19/2018 2:21 PM [facility] Specimen Anatomical Collection Method Collection Time Receive d Time (Source) Location / / Volume Laterality Blood (Blood, 06/19/2018 12:33 06/19/2018 Venous) PM [facility] 12:55 PM STONE HAND Tahira Terrell LAB BLOOD ADD-ON Performing Organization Address City/State/ZIP Code Phon e Number [facility] - [address] (ABNORMAL) 25-Hydroxyvitamin D2 and D3 (06/19/2018 12:33 PM ST[facility]) P athologist Signature 25-Hydroxy D2 <4.0 ng/mL 06/21/2018 [facility] 11:26 AM [facility] 25-Hydroxy D3 14 ng/mL 06/21/2018 [facility] 11:26 AM [facility] 25-Hydroxy D 14 (L) ng/mL 06/21/2018 [facility] Total 11:26 AM [facility] Comment: Interpretation: 10-19 ng/mL (mild to mod erate deficiency) ----REFERENCE VALUE---- 25-HYDROXY D TOTAL (D2+D3) Optimum level s in the healthy population are 20-50, patients with bone disease may benefit from higher levels within this r sherry. ----ADDITIONAL INFORMATION---- This test was developed and its performa nce characteristics determined by [facility] in a manner consistent with CLIA requirements. This test has not been cleared or approved by the U.S. Misha d and Drug Administration. Specimen Anatomical Collection Method Collection Time Receive d Time (Source) Location / / Volume Laterality Blood (Blood, 06/19/2018 12:33 06/20/2018 8:22 Venous) PM STONE HAND AM STONE HAND Tahira Terrell LAB BLOOD ADD-ON Performing Organization Address City/[facility]/ZIP Code Phon e Number [facility] [address] [place], [place] [address] [place] [address] HIV-1/-2 Ag and Ab Screen, Plasma (06/19/2018 12:33 PM STONE HAND) athologist Signature HIV-1/-2 Ag Negative Negative 06/19/2018 [facility] and Ab Screen, 4:21 PM STONE HAND [facility] Comment: Negative result does not rule out HIV in fection. If exposure to HIV infection occurred <14 d ays ago, contact the laboratory to request additi on of HIV-1 RNA detection / quantification test (HIV QN). Specimen Anatomical Collection Method Collection Time Receive d Time (Source) Location / / Volume Laterality Blood (Blood, 06/19/2018 12:33 06/19/2018 3:22 Venous) PM ST[facility] PM ST[facility] Tahira Terrell LAB MICROBIOLOGY - BLOOD ORD ERABLES Performing Organization Address City/State/ZIP Code Phon e Number [address] [place] [address] Hepatitis B Surface Antigen (06/19/2018 12:33 PM STONE HAND) athologist [facility] HBs Antigen, S Negative Negative 06/20/2018 [facility] 9:47 AM STONE HAND [facility] Specimen Anatomical Collection Method Collection Time Receive d Time (Source) Location / / Volume Laterality Blood (Blood, 06/19/2018 12:33 06/19/2018 3:22 Venous) PM STONE HAND PM STONE HAND Tahira Terrell LAB MICROBIOLOGY - BLOOD ORD ERABLES Performing Organization Address City/State/ZIP Code Phon e Number [address] [place]OS[place] [address] HCV Ab Scrn w/Reflex to HCV PCR, Serum (06/19/2018 12:33 PM STONE [facility]) athologist Signature HCV Ab Screen, Negative Negative 06/20/2018 [facility] S 10:05 AM STONE HAND [address] [facility] Comment: Celwvp-qy-sxbuib ratio is <1.00 . Specimen Anatomical Collection Method Collection Time Receive d Time (Source) Location / / Volume Laterality Blood (Blood, 06/19/2018 12:33 06/19/2018 3:22 Venous) PM STONE HAND PM STONE HAND Tahira Terrell LAB MICROBIOLOGY - BLOOD ORD ERABLES Performing Organization Address City/State/ZIP Code Phon e Number [facility] [address] [place], [place] [address] [facility] Encephalopathy, Autoimmune Evaluation (06/19/2018 12:33 PM STONE HAND) [facility] Method Time Signature Encephalopathy see below 06/26/2018 [facility] , 3:11 PM ST[facility] HAND LABORATORIES - Interpretation [facility] Comment: No informative autoantibodies were detec jj in this evaluation. However, a negative result does not exclude autoimm une encephalopathy, idiopathic or paraneoplastic. Sensitivity and specific ity of antibody testing are enhanced by testing both serum and CSF. NMDA-R Ab CBA, S Negative Negative 06/26/2018 3:11 PM [facility] Comment: ----ADDITIONAL INFORMATION---- This test was developed and its performa nce characteristics determined by [facility] in a manner consistent with CLIA requirements. This test has not been cleared or approved by the U.S. Misha d and Drug Administration. Neuronal (V-G) K+ 0.00 <=0.02 nmol/L 06/26/2018 3:11 PM [facility] Channel Ab, S [facility] Comment: ----ADDITIONAL INFORMATION---- This test was developed and its performa nce characteristics determined by [facility] in a manner consistent with CLIA requirements. This test has not been cleared or approved by the U.S. Misha d and Drug Administration. LGI1-IgG CBA, S Negative Negative 06/26/2018 3:[address] [facility] Comment: ----ADDITIONAL INFORMATION---- This test was developed and its performa nce characteristics determined by [facility] in a manner consistent with CLIA requirements. This test has not been cleared or approved by the U.S. Misha d and Drug Administration. CASPR2-IgG CBA, S Negative Negative 06/26/2018 3:11 PM [facility] Comment: ----ADDITIONAL INFORMATION---- This test was developed and its performa nce characteristics determined by [facility] in a manner consistent with CLIA requirements. This test has not been cleared or approved by the U.S. Misha d and Drug Administration. GAD65 Ab Assay, S 0.01 <=0.02 nmol/L 06/26/2018 3:11 PM [facility] Comment: ----ADDITIONAL INFORMATION---- This test was developed and its performa nce characteristics determined by [facility] in a manner consistent with CLIA requirements. This test has not been cleared or approved by the U.S. Misha d and Drug Administration. JESSICA-B-R Ab CBA, S Negative Negative 06/26/2018 3:11 PM [facility] Comment: ----ADDITIONAL INFORMATION---- This test was developed and its performa nce characteristics determined by [facility] in a manner consistent with CLIA requirements. This test has not been cleared or approved by the U.S. Misha d and Drug Administration. AMPA-R Ab CBA, S Negative Negative 06/26/2018 3:11 PM [facility] Comment: ----ADDITIONAL INFORMATION---- This test was developed and its performa nce characteristics determined by [facility] in a manner consistent with CLIA requirements. This test has not been cleared or approved by the U.S. Misha d and Drug Administration. JAVON-1, S Negative <1:240 titer 06/26/2018 3:11 PM [facility] Reflex Added None. 06/26/2018 3:11 PM [facility] Comment: ----ADDITIONAL INFORMATION---- This test was developed and its performa nce characteristics determined by [facility] in a manner consistent with CLIA requirements. This test has not been cleared or approved by the U.S. Misha d and Drug Administration. JAVON-2, S Negative <1:240 titer 06/26/2018 3:11 PM [facility] Comment: ----ADDITIONAL INFORMATION---- This test was developed and its performa nce characteristics determined by [facility] in a manner consistent with CLIA requirements. This test has not been cleared or approved by the U.S. Misha d and Drug Administration. JAVON-3, S Negative <1:240 titer 06/26/2018 3:11 PM [facility] Comment: ----ADDITIONAL INFORMATION---- This test was developed and its performa nce characteristics determined by [facility] in a manner consistent with CLIA requirements. This test has not been cleared or approved by the [place] and Drug Administration. AGNA-1, S Negative <1:240 titer 06/26/2018 3:11 PM [facility] Comment: ----ADDITIONAL INFORMATION---- This test was developed and its performa nce characteristics determined by [facility] in a manner consistent with CLIA requirements. This test has not been cleared or approved by the [place] and Drug Administration. MARKETING REP-1, S Negative <1:240 titer 06/26/2018 3:11 PM [facility] Comment: ----ADDITIONAL INFORMATION---- This test was developed and its performa nce characteristics determined by [facility] in a manner consistent with CLIA requirements. This test has not been cleared or approved by the [place] and Drug Administration. MARKETING REP-2, S Negative <1:240 titer 06/26/2018 3:11 PM [facility] Comment: ----ADDITIONAL INFORMATION---- This test was developed and its performa nce characteristics determined by [facility] in a manner consistent with CLIA requirements. This test has not been cleared or approved by the [place] M[place] and Drug Administration. MARKETING REP-Tr, S Negative <1:240 titer 06/26/2018 3:11 PM [facility] Comment: ----ADDITIONAL INFORMATION---- This test was developed and its performa nce characteristics determined by [facility] in a manner consistent with CLIA requirements. This test has not been cleared or approved by the [place] and Drug Administration. Amphiphysin Ab, S Negative <1:240 titer 06/26/2018 3:11 PM [facility] Comment: ----ADDITIONAL INFORMATION---- This test was developed and its performa nce characteristics determined by [facility] in a manner consistent with CLIA requirements. This test has not been cleared or approved by the [place] M[place] and Drug Administration. N-Type Calcium 0.00 <=0.03 nmol/L 06/26/2018 3:11 PM [facility] Channel Ab [facility] Comment: ----ADDITIONAL INFORMATION---- This test was developed and its performa nce characteristics determined by [facility] in a manner consistent with CLIA requirements. This test has not been cleared or approved by the [place] and Drug Administration. P/Q-Type Calcium 0.00 <=0.02 nmol/L 06/26/2018 3:11 PM [facility] Channel Ab [facility] Comment: ----ADDITIONAL INFORMATION---- This test was developed and its performa nce characteristics determined by [facility] in a manner consistent with CLIA requirements. This test has not been cleared or approved by the [place] and Drug Administration. ACh Receptor 0.00 <=0.02 nmol/L 06/26/2018 3:11 PM [facility] (Muscle) Binding Ab [facility] Comment: ----ADDITIONAL INFORMATION---- This test was developed and its performa nce characteristics determined by [facility] in a manner consistent with CLIA requirements. This test has not been cleared or approved by the [place] M[place] and Drug Administration. AChR Ganglionic 0.00 <=0.02 nmol/L 06/26/2018 3:11 PM [facility] Neuronal Ab, S [facility] Comment: ----ADDITIONAL INFORMATION---- This test was developed and its performa nce characteristics determined by [facility] in a manner consistent with CLIA requirements. This test has not been cleared or approved by the [place] M[place] and Drug Administration. CRMP-5-IgG, S Negative <1:240 titer 06/26/2018 3:11 PM [facility] Comment: ----ADDITIONAL INFORMATION---- This test was developed and its performa nce characteristics determined by [facility] in a manner consistent with CLIA requirements. This test has not been cleared or approved by the [place] Misha [place] and Drug Administration. Specimen Anatomical Collection Method Collection Time Receive d Time (Source) Location / / Volume Laterality Blood (Blood, 06/19/2018 12:33 06/19/2018 1:53 Venous) PM [facility] PM [facility] Narrative This result has an attachment that is no t available. Tahira Terrell LAB BLOOD ADD-ON Performing Organization Address City/State/ZIP Code Phon e Number [facility] - [address] [place] [id number] [facility] (ABNORMAL) Connective Tissue Diseases Christian (06/19/2018 12:33 PM [facility]) Analysis Performed At Patho logist Time Signature Antinuclear Ab, 1.7 (H) <=1.0 06/20/2018 [facility] S (Negative) 11:14 AM [facility] Comment: Interpretation: Weak Positive ( 1.1-2.9) Cyclic Citrullinated <15.6 <20.0 (Negative) 06/19/2018 8 :13 [facility] Peptide Ab, S U PM [facility] Interpretation SEE COMMENT 06/20/2018 11:14 [facility] LIN[facility] AM [facility] Comment: Tests for antibodies to dsDNA and ZENOBIA an tigens are not performed automatically unless the SUSANNA r esult is > or = 3.0 U. ??Studies performed at [facility] indicate that positive SUSANNA results <3.0 U are rarely a ccompanied by positive second order tests. Specimen Anatomical Collection Method Collection Time Receive d Time (Source) Location / / Volume Laterality Blood (Blood, 06/19/2018 12:33 06/19/2018 3:24 Venous) PM [facility] PM [facility] Tahira Terrell LAB BLOOD ADD-ON Performing Organization Address City/State/ZIP Code Phon e Number [facility] [address] [place] [address] [facility] [place] [facility] (Antineutrophil Cytoplasmic Antibodies) Vasculitis Panel (06/19/2018 12:33 PM [facility]) Patholo gist Method Time Signature Myeloperoxidase Ab, <0.2 <0.4 06/19/2018 [facility] S (Negative 5:07 PM [facility] ) U DRIVE [facility] Proteinase 3 Ab <0.2 <0.4 06/19/2018 [facility] (PR3), S (Negative 5:07 PM [facility]PERIOR ) U DRIVE [facility] Specimen Anatomical Collection Method Collection Time Receive d Time (Source) Location / / Volume Laterality Blood (Blood, 06/19/2018 12:33 06/19/2018 3:23 Venous) PM [facility] PM [facility] Tahira HoneycuttSPerla LAB BLOOD ADD-ON Performing Organization Address City/State/ZIP Code Phon e Number [facility] [address] [place], [place] [address] [facility] (ABNORMAL) PT (Prothrombin Time) with INR (06/19/2018 12:33 PM [facility]) [facility] Method Time Signature Prothrombin 12.7 (H) 9.4 - 06/19/2018 [facility] Time, P 12.5 sec 1:24 PM [facility] INR 1.2 0.9 - 1.1 06/19/2018 [facility] 1:24 PM [facility] Comment: ----ADDITIONAL INFORMATION---- Standard intensity warfarin therapeutic range: 2.0 to 3.0 ?? High intensity warfarin therapeutic rang e: 2.5 to 3.5 Specimen Anatomical Collection Method Collection Time Receive d Time (Source) Location / / Volume Laterality Blood (Blood, 06/19/2018 12:33 06/19/2018 Venous) PM [facility] 12:55 PM [facility] Tahira HoneycuttSPerla LAB BLOOD ADD-ON Performing Organization Address City/State/ZIP Code Phon e Number [facility] - [address] [place] [address] [facility] APTT (Activated Partial Thromboplastin Time) (06/19/2018 12:33 PM [facility]) P athologist Signature Activated 30 25 - 37 06/19/2018 [facility] Partial sec 1:24 PM [facility] Specimen Anatomical Collection Method Collection Time Receive d Time (Source) Location / / Volume Laterality Blood (Blood, 06/19/2018 12:33 06/19/2018 Venous) PM [facility] 12:55 PM [facility] Tahira HoneycuttSPerla LAB BLOOD ADD-ON Performing Organization Address City/State/ZIP Code Phon e Number [facility] - [address] [place], [place] [address] [facility] Ferritin (06/19/2018 12:33 PM [facility]) P athologist Signature Ferritin, S 127 24 - 336 06/19/2018 [facility] mcg/L 3:29 PM [facility] Specimen Anatomical Collection Method Collection Time Receive d Time (Source) Location / / Volume Laterality Blood (Blood, 06/19/2018 12:33 06/19/2018 Venous) PM [facility] 12:55 PM [facility] Tahira Terrell LAB BLOOD ADD-ON Performing Organization Address City/State/ZIP Code Phon e Number [facility] - [address] [place] [address] 05 [facility] CBC with Differential, Blood (06/19/2018 12:33 PM [facility]) Patholo gist Method Time Signature Hemoglobin 15.8 13.2 - 06/19/2018 [facility] 16.6 g/dL 1:03 PM [facility] Hematocrit 48.0 38.3 - 06/19/2018 [facility] 48.6 % 1:03 PM [facility] Erythrocytes 5.29 4.35 - 06/19/2018 [facility] 5.65 1:03 PM [facility] - x10(12)/L [facility] MCV 90.7 78.2 - 06/19/2018 [facility] 97.9 fL 1:03 PM [facility] RBC Distrib Width 14.5 11.8 - 06/19/2018 [facility] 14.5 % 1:03 PM [facility] Platelet Count 231 135 - 317 06/19/2018 [facility] x10(9)/L 1:03 PM [facility] Leukocytes 6.2 3.4 - 9.6 06/19/2018 [facility] x10(9)/L 1:03 PM [facility] Neutrophils 4.15 1.56 - 06/19/2018 [facility] 6.45 1:03 PM [facility] - x10(9)/L [facility] Lymphocytes 1.30 0.95 - 06/19/2018 [facility] 3.07 1:03 PM [facility] - x10(9)/L [facility] Monocytes 0.55 0.26 - 06/19/2018 [facility] 0.81 1:03 PM [facility] - x10(9)/L [facility] Eosinophils 0.18 0.03 - 06/19/2018 [facility] 0.48 1:03 PM [facility] - x10(9)/L [facility] Basophils 0.06 0.01 - 06/19/2018 [facility] 0.08 1:03 PM [facility] - x10(9)/L [facility] Specimen Anatomical Collection Method Collection Time Receive d Time (Source) Location / / Volume Laterality Blood (Blood, 06/19/2018 12:33 06/19/2018 Venous) PM [facility] 12:55 PM [facility] Tahira Terrell LAB BLOOD ADD-ON Performing Organization Address City/State/ZIP Code Phon e Number [facility] [address] [place] [address] 05 [facility] documented in this encounter Visit Diagnoses Diagnosis Hemiplegia Nondominant Side Left (HCC) Lesion Brain documented in this encounter
--- OUTSIDE RECORDS SUMMARY | 2022-05-25 10:03 | XMS_ITS | Encounter Summary ---
:1940 Author Organization [facility] Address [address] [place] [address] Care Team Providers Name Role Phone Unavailable Primary Care Provider Unavailable Reason for Visit Reason Comments New Patient Dicsuss back pain. Weakness on left leg and left side. Numbness in left foot. MRI results and explor ing details of what can be causing him numbness and weakness. Outpatient (Routine) - Closed Specialty Diagnoses / Procedures Referred By Contact Refer red To Contact Neurological Surgery Diagnoses Radiculopathy Sacral Kleber Lindsey, [facility] Leslie, M.P.H. [address] [address] Referral ID Status Reason Start Date Expiration Date Visits Requ ested Visits Authorized [id number] Closed 02/05/2018 02/05/2019 1 1 Encounter Details Date Type Department Care Team Description 02/25/2018 Comprehensive Visit Department of Timmy Bardales Spinal Lumbar With Neurogenic Claudication (Primary Dx); Neurological Surgery S, M.B.B.S. Radiculopathy Sacral in [place] [address] [place], [place] [address] [facility] [address] [place], [place] [phone] (Work) [phone] Social History Tobacco Use Types Packs/Day Years Used Date Smoking Tobacco: Never Smokeless Tobacco: Never Alcohol Use Standard Drinks/Week Comments Yes 1 (1 standard drink = 0.6 oz pure alcoho l) Alcohol Habits Answer Date Recorded How often do you have a drink containing 4 or more times a w rampart 01/14/2022 alcohol? How many drinks containing alcohol [...] or relatives? How often do you attend temple or synagogue More than 4 time s per year 01/14/2022 services? Do you belong to any clubs or organizations Yes 01/14/2022 such as temple groups, unions, fraternal or athletic groups, or [...] at Date Recorded Male 08/30/2018 2:45 PM [employer] documented as of this encounter Last Filed Vital Signs Vital Sign Reading Time Taken Comments Blood Pressure 108/68 02/25/2018 10:59 AM CDT Pulse 70 02/25/2018 10:59 AM CDT Temperature 36.4 ??C (97.5 ??F) 02/25/2018 10:59 AM CDT Respiratory Rate - - Oxygen Saturation - - Inhaled Oxygen Concentration - - Weight 80.2 kg (176 lb 12.9 oz) 02/25/2018 10:59 AM CDT Height 180 cm (5' 10.87) 02/25/2018 10:59 AM CDT Body Mass Index 24.75 02/25/2018 10:59 AM CDT documented in this encounter Consult Notes Timmy Bardales M.B.BPerlaS. - 02/25/2018 12:00 AM CDT SUBJECTIVE TIME: 1:14 p.m. REQUESTING PROVIDER: Dr. Kleber Lindsey M.D., M.P.H., REASON FOR CONSULT 1. Left leg numbness and weakness-progressive x2-3 years. 2. MRI indicates multilevel lumbar spondylosis with lumbar spinal stenosis at L2-3. HISTORY OF PRESENT ILLNESS Mr. Monk is a right-handed 77-year-old gentleman, who was accompanied by his when I saw them in clinic today. The patient states that he has been developing progressive left leg numbness and weakness at least for the last 2-3 years now. The onset was insidious and the progression has been gradual. He is working with physical therapy, and the patient notes a definite decrease in the strength at his left lower extremity especially when he works out in the gym. He believes that his hip, knee, and ankle are weak. He also notes numbness over the bottom of his foot, the outer aspect of the same and along his calf. The numbness and weakness is accentuated upon standing and walking forabout a quarter mile. This is relieved upon sitting down. The patient is then able to continue. He denies a history of significant cervical pain and radiculopathy, although he does state that he develops intermittent numbness and tingling down his neck into his extremities on arm elevation with neck extension when he is changing light bulbs for instance. He denies permanent numbness or weakness at both upper extremities and at the right lower extremity, color changes over his legs, uro fecal incontinence, private area numbness, flexor spasms, dissociate sensory loss, sensory ataxia, or frequent falls. The patient denies a history of thoracic pain and radiculopathy, lumbar pain or pain down any leg. Due to his numbness, the patient was evaluated by Dr. Lindsey from Neurology on 01/15/2018. He noticed brisker reflexes at the left knee and ankle and ordered an MRI of the spinal axis as well as an electrophysiological study. The latter was performed on 01/04/2018 and revealed a chronic left L2 radicul opathy. The MRI of the cervical and thoracic spine revealed multilevel spondylosis without gross spinal cord compression. The MRI of the lumbosacral spine revealed decreased disk height at the L1-2, L2-3, L4-5, and L5-S1 levels with spinal stenosis at the L2-3 level with a loss of CSF signal within the thecal sac here. The patient is here to discuss his surgical options. He is otherwise in his usual state of health and denies a history to indicate a primary malignancy with metastases to the spine and/or an infective process here. MEDICAL HISTORY This is significant for no chronic health issues. The patient has had a tonsillectomy as a child andunderwent a surgical procedure for a leg abrasion in [place] under general anesthesia. He denies complications to the anesthetic or wound healing issues. CURRENT MEDICATIONS Vitamin B12. ALLERGIES/CONTRAINDICATIONS None to medication. 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 He does not smoke or chew tobacco or use recreational drugs. Alcohol use is defined as social only. FAMILY HISTORY The patient is the patient has been for the last 58 years and today was his wedding anniversary. He was congratulated for this. They have 3 sons. There is no history of a bleeding tendency or unprovoked DVTs in the family. REVIEW OF SYSTEMS General: Weight and appetite patterns are preserved. His sleep is not affected by his symptoms. No fever or night sweats. Respiratory System: No chronic cough or hemoptysis. GI Tract: No melena, hematochezia. CARDIOVASCULAR system: No heart attack-like symptoms or pedal edema. Genitourinary Tract: No hematuria. Dermatologic: No rashes, or itching. Central Nervous System: No stroke-like symptoms. OBJECTIVE VITAL SIGNS Blood pressure 108/68 mmHg. Pulse 70 beats per minute. Temperature 36.4 degrees Celsius. Weight 80.2kg. Body mass index 24.75 kg per square meter. PHYSICAL EXAMINATION The patient is conscious, alert, cooperative, pleasant, well-nourished, and well-groomed. He was in no acute distress. Central Nervous System: High Mental Functions: The patient is oriented to time, place, and person. His fund of knowledge is adequate. His speech was fluent. Repetition normal. Comprehension intact. He asked several pertinent questions regarding his care. He had a good grasp of the nuances of his condition. Cranial Nerve Examination: Two through twelve did not reveal any gross abnormality. Motor Examination: The patient has symmetric bulk, normal tone, and an absent pronator drift and Tiffany sign. I could not detect objective weakness in major muscle groups over both upper and at the right lower extremity. The patient did have weakness at left hip extension, left knee extension, left ankle plantar flexion, and toe curling. Left ankle dorsiflexion and extensor hallucis longus were almost symmetrically strong on the left as compared to the right side. Left hip adduction, abduction, and extension had similar strength when compared to the right side. Hip flexion was symmetrically strong bilaterally. Deep Tendon Jerks: Brisk at both biceps and triceps, diminished at both supinators, asymmetrically brisk at the left knee and ankle. Plantars were bilaterally downgoing. There was no ankle clonus. Sensory Examination: The patient denies loss of sensation to light touch over the dermatomes of his upper extremities, face, trunk, buttock areas, and right lower extremity. He notes about a 20% loss of sensation to light touch over the back of the left thigh, back of the left calf and over the dorsumof the left foot and outer aspect of the sole and heel sparing the bottom of his foot. Joint position sense was intact at both great toes. Graphesthesia is intact at both palms. Romberg's sign was positive. Cerebellar Signs: The patient did have mild left-sided dysdiadochokinesia, but no marie dysmetria, intention tremor, or nystagmus. I did not check his tandem gait because of the fall risk. Gait: This was broad-based. The patient is clearly imbalanced especially when he attempts to turn. He was unable to walk without assistance on his heels and toes. Performing toe lifts on the left side was more difficult for him than on the right. Spine: I could not detect significant midline or paraspinal tenderness. Sacroiliac joints and greater trochanters were nontender. The BRENDON maneuver did not result in hip pain on either side. The straight and reverse straight leg raising tests were negative bilaterally. Vascular Examination: Both dorsalis pedis pulses were palpable and his feet were well-perfused. DIAGNOSTICS As reviewed above. The MRI of the cervical spine does reveal decreased disk height at the C5-6 and C6-7 levels with marked bilateral C6-7 foraminal stenosis and right-sided C2-3 facet arthrosis. The MRI of the lumbosacral spine reveals greatest compression at the L2-L3 level secondary to a disk osteophyte complex, ligamentum flavum buckling, and facet joint hypertrophy. ASSESSMENT / PLAN #1 Gait imbalance-likely multifactorial #2 Left leg weakness-likely multifactorial #3 MRI indicates lumbar spinal stenosis #4 Neurogenic claudication #5 Cervical spondylosis PLAN: I had a long and detailed discussion in layman's terms with Mr. Monk regarding the indications for, alternatives to, hoped for benefits, and possible complications of an L2-L3 laminectomy, facetectomy, and foraminotomy. I believe his gait issues are multifactorial. The pattern of weakness is complex. Although the patient does have weakness in an L5-S1 distribution, he has a brisk at the left knee and ankle jerk. Plantars were bilaterally downgoing. There is no Tiffany sign. I believe it may be worthwhile to consider imaging the brain. Although the patient's examination does not clearly indicate normal pressure hydrocephalus, neither is he incontinent, nor does he suffered from cognitive decline, he does have a broad-based gait. He also has a combination of upper motor neuron and low motor neuron signs at the left leg. Should the MRI of the brain be satisfactory, the patient would then have to decide about whether he wishes to proceed with surgery at the lumbar spine. Should he be willing to do so, I would like to order an MRI of the lumbosacral spine with and without contrast to rule out bone marrow changes here, which can be seen on his previous imaging especially on STIR sequences. These are likely to be due to Modic changes, but need to be further investigated in my opinion. I used layman's terms at all points in our conversations so that he and his could understand. Ishowed them models of the lumbar spine, the MR images of the spinal axis and demonstrated what the surgical procedure would involve on these. Relevant printouts of the MR images also provided to them. I believe I have answered all their questions and concerns. They voiced comprehension of the plan. They wish for more time to understand options. They were grateful for the care provided. I would like to thank Dr. Kleber Lindsey for involving us in the care of this challenging patient. We shall remain on stand by. They will contact us should they wish to proceed with surgery or further imaging. ADMINISTRATIVE BILLING: I spent a total of 80 minutes with the patient of which about 60 minutes were spent in education, counseling, and coordinating future care. Job ID: [id number]/[id number] CC: Kleber Lindsey M.D., M.P.H. [facility] in [place] [address] [place] [address] documented in this encounter Plan of Treatment Not on filedocumented as of this encounter Visit Diagnoses Diagnosis Stenosis Spinal Lumbar With Neurogenic C laudication - Primary Radiculopathy Sacral documented in this encounter
--- OUTSIDE RECORDS SUMMARY | 2022-05-25 10:03 | XMS_ITS | Encounter Summary ---
:1940 Author Organization [facility] Address [address] [place] [address] Care Team Providers Name Role Phone Unavailable Primary Care Provider Unavailable Encounter Details Date Type Department Care Team Description 06/24/2018 Procedure visit Department of Wolf Acevedo M.B. B.S. [address] [place] [phone] Hemiplegia Nondominant Side Left (HCC); Neurology in Mary Ellington M.SPerlaN., R.N. [address] [place] [address] Lesion Brain [place], [place] [address] [place] [phone] Social History Tobacco Use Types Packs/Day Years Used Date Smoking Tobacco: Never Smokeless Tobacco: Never Alcohol Use Standard Drinks/Week Comments Yes 1 (1 standard drink = 0.6 oz pure alcoho l) Alcohol Habits Answer Date Recorded How often do you have a drink containing 4 or more times a w [place] 01/14/2022 alcohol? How many drinks containing alcohol [...] How often do you attend synagogue or uatsdin More than 4 time s [...] place to sleep or slept in a chcf (including now)? Sex Assigned at Date Recorded Male 08/30/2018 2:45 PM WARP PLACER documented as of this encounter Procedure Notes Mary Ellington, M.S.N., R.N. - 06/24/2018 10:30 AM CSTAssociated Order(s): LUMBAR PUNCTURE Post-Procedure Diagnose(s): Lesion Brain Lumbar Puncture Date/Time: 06/24/2018 11:11 AM Performed by: MARY ELLINGTON Authorized by: WOLF ACEVEDO Consent: Consent obtained: Written Consent given by: Patient The benefits, risks and alternatives to the procedure and the potential need for sedation or anesthesia as well as the names, roles, and responsibilities or healthcare team members performing significant interventional tasks were discussed: yes The benefits, risks and alternative to the possible need for blood products were discussed with thepatient and/or decision maker: Consent for transfusion was obtained [place] protocol: All relevant documentation and testing were reviewed and available. All required blood products, implants, devices and/or special equipment were made available as applicable. The pre-procedure verification was conducted, the correct site was marked if required and the procedural time out was conducted prior to performing the procedure and confirmed in a procedural pause: yes Pre-procedure details: Procedure purpose: Diagnostic Indication comment: Brain Lesion Site preparation: Povidone-iodine Appropriate hand hygiene, gown, cap, mask, protective eyewear, sterile gloves, skin preparation, sterile drape, and strict aseptic technique were utilized as applicable for the procedure: yes Sedation/Anesthesia (see MAR for exact dosages): Anesthesia method: Local infiltration Local anesthetic: Lidocaine 1% w/o epi Procedure details: Ultrasound guidance: no Patient position: Left lateral decubitus Lumbar space: L4-L5 interspace Needle gauge: 20 G Needle type: Spinal needle - Quincke tip Needle length (in): 3.5 Number of attempts: 1 Opening pressure (cm H2O): 12.2 Fluid appearance: Clear Total volume (mL): 20 Intrathecal medication(s) administered after observation of continued CSF flow: no Post-procedure: Procedure completed successfully: yes Venipunture performed: yes Puncture site: Adhesive bandage applied, direct pressure applied and clean and dry Complications: no immediate complications PLACER documented in this encounter Plan of Treatment Not on filedocumented as of this encounter Procedures Procedure Name Priority Date/Time Associated Comments Diagnosis LYME CHIEF LIBRARIAN BRANCH OR DEPARTMENT INFECTION IGG Routine 06/24/2018 11:03 Hemiplegia R esults for this W/ ANTIBODY INDEX AM WARP PLACER Nondominant Side proced ure are in REFLEX Left (HCC) the results Lesion Brain section. BROAD RANGE BACTERIA Routine 06/24/2018 11:03 Hemiplegia Res ults for this PCR AND SEQUENCING AM WARP PLACER Nondominant Side proce dure are in Left (HCC) the results Lesion Brain section. AI MARTINEZ VIRUS PCR Routine 06/24/2018 11:03 Hemiplegia R esults for this AM WARP PLACER Nondominant Side procedure a re in Left (HCC) the results Lesion Brain section. MALIGNANT CELLS, CSF Routine 06/24/2018 11:03 Hemiplegia Res ults for this AM WARP PLACER Nondominant Side procedure a re in Left (HCC) the results Lesion Brain section. ADENOVIRUS PCR Routine 06/24/2018 11:03 Hemiplegia Results f or this AM WARP PLACER Nondominant Side procedure a re in Left (HCC) the results Lesion Brain section. VARICELLA-ZOSTER VIRUS Routine 06/24/2018 11:03 Hemiplegia R esults for this PCR, V AM WARP PLACER Nondominant Side procedure a re in Left (HCC) the results Lesion Brain section. ENTEROVIRUS PCR Routine 06/24/2018 11:03 Hemiplegia Results for this AM WARP PLACER Nondominant Side procedure a re in Left (HCC) the results Lesion Brain section. CYTOMEGALOVIRUS PCR Routine 06/24/2018 11:03 Hemiplegia Resu lts for this AM WARP PLACER Nondominant Side procedure a re in Left (HCC) the results Lesion Brain section. MARLEN VIRUS PCR, CSF Routine 06/24/2018 11:03 Hemiplegia Result s for this AM WARP PLACER Nondominant Side procedure a re in Left (HCC) the results Lesion Brain section. TROPHERYMA WHIPPLEI PCR Routine 06/24/2018 11:03 Hemiplegia Results for this AM WARP PLACER Nondominant Side procedure a re in Left (HCC) the results Lesion Brain section. BACTERIAL CULTURE, Routine 06/24/2018 11:03 Resul ts for this AEROBIC + SUSC AM WARP PLACER procedure are in the results section. CEREBROSPINAL FL, CSF Routine 06/24/2018 11:03 Hemiplegia Re sults for this AND S, IGG INDEX AM WARP PLACER Nondominant Side procedu re are in Left (HCC) the results Lesion Brain section. CELL COUNT AND Routine 06/24/2018 11:03 Results f or this DIFFERENTIAL, CSF AM WARP PLACER procedure are in the results section. ENCEPH, Routine 06/24/2018 11:03 Hemiplegia Results for this AUTOIMM/PARANEO, CSF AM WARP PLACER Nondominant Side pro cedure are in Left (HCC) the results Lesion Brain section. CRYPTOCOCCUS AG Routine 06/24/2018 11:03 Hemiplegia Results for this W/REFLEX, LFA, CSF AM WARP PLACER Nondominant Side proce dure are in Left (HCC) the results Lesion Brain section. OLIGOCLONAL BANDING, Routine 06/24/2018 11:03 Hemiplegia Res ults for this CSF AND S AM WARP PLACER Nondominant Side procedure a re in Left (HCC) the results Lesion Brain section. FUNGAL SMEAR Routine 06/24/2018 11:03 Hemiplegia Results for this AM WARP PLACER Nondominant Side procedure a re in Left (HCC) the results Lesion Brain section. GRAM STAIN Routine 06/24/2018 11:03 Hemiplegia Results for this AM WARP PLACER Nondominant Side procedure a re in Left (HCC) the results Lesion Brain section. FUNGAL CULTURE, ROUTINE Routine 06/24/2018 11:03 Results for this AM WARP PLACER procedure are i n the results section. HERPES SIMPLEX VIRUS, Routine 06/24/2018 11:02 Hemiplegia Re sults for this PCR, CSF AM WARP PLACER Nondominant Side procedure a re in Left (HCC) the results Lesion Brain section. [place] VIRUS AB, IGG Routine 06/24/2018 11:02 Hemiplegia Results for this AND IGM,CSF AM WARP PLACER Nondominant Side procedure a re in Left (HCC) the results Lesion Brain section. PROTEIN, TOTAL, CSF Routine 06/24/2018 11:02 Hemiplegia Resu lts for this AM WARP PLACER Nondominant Side procedure a re in Left (HCC) the results Lesion Brain section. ARBOVIRUS AB PANEL IGG Routine 06/24/2018 11:02 Hemiplegia R esults for this AND IGM, CSF AM WARP PLACER Nondominant Side procedure a re in Left (HCC) the results Lesion Brain section. VDRL, CSF Routine 06/24/2018 11:02 Hemiplegia Results for this AM WARP PLACER Nondominant Side procedure a re in Left (HCC) the results Lesion Brain section. GLUCOSE, CSF Routine 06/24/2018 11:02 Hemiplegia Results for this AM WARP PLACER Nondominant Side procedure a re in Left (HCC) the results Lesion Brain section. MD PUNCTURE SPINAL Routine 06/24/2018 10:30 Lesion Brain Resul ts for this LUMBAR DX AM WARP PLACER procedure are i n the results section. documented in this encounter Results Cell Count and Differential, CSF (06/24/2018 11:03 AM WARP PLACER) Analysis Performed At Patho logist Time Signature Fluid Type CSF 06/24/2018 [facility] 12:10 PM [facility] CSF Gross Clear 06/24/2018 [facility] Appearance 12:10 PM [facility] Total Nucleated 1 /mcL 06/24/2018 [facility] Cells 12:10 PM [facility] Comment: ----REFERENCE VALUE---- Adults (0-5) Neonates (0-30) Erythrocytes 1 /mcL 06/24/2018 12:10 PM [facility] Lymphocytes 58 % 06/24/2018 12:34 PM [facility] Comment: ----REFERENCE VALUE---- Adult: (60% +/- 20%) Neonates: (20% +/- 15%) Monocytes/Macrophages 42 % 06/24/2018 12:34 P M [facility] Comment: ----REFERENCE VALUE---- Adult: (30% +/- 15%) Neonates: (70% +/- 20%) Diff Comments 81 cells counted 06/24/2018 12:34 PM [facility] Comment SeeComment 06/24/2018 12:[address] [facility] Comment: Cytology concurrently ordered; see separate report. Reviewed by: Tech 06/24/2018 12:34 PM WARP PLACER [facility] Specimen Anatomical Collection Method Collection Time Receive d Time (Source) Location / / Volume Laterality Fluid 06/24/2018 11:03 06/24/2018 AM WARP PLACER 12:06 PM WARP PLACER Wolf Terrell LAB BODY FLUIDS AND STOOLS O COLLEEN Performing Organization Address City/[facility]/ZIP Code Phon e Number [facility] LABORATORIES - [address] Fungal Culture, Routine (06/24/2018 11:03 AM WARP PLACER) [facility] Method Time Signature Fungal No growth 07/18/2018 [facility] Culture, after 24 1:01 PM WARP PLACER LABORATORIES - Routine days [facility] . Specimen (Source) Anatomical Collection Method Collection Time Re ceived Time Location / / Volume Laterality Cerebrospinal Fluid 06/24/2018 11:03 1209/2017 AM WARP PLACER 11:48 AM WARP PLACER Comment: Specimen Source Site: Cerebrosp inal Fluid Wolf Terrell LAB MICROBIOLOGY - GENERAL O COLLEEN Performing Organization Address City/[facility]/ZIP Code Phon e Number [facility]IES - [address] Bacterial Culture, Aerobic + Susc (06/24/2018 11:03 AM WARP PLACER) [facility] Method Time Signature Bacterial No growth 06/29/2018 [facility] Culture, after 5 3:08 PM WARP PLACER LABORATORIES - Aerobic + [facility] incubation [place] . Specimen (Source) Anatomical Collection Method Collection Time Re ceived Time Location / / Volume Laterality Cerebrospinal Fluid 06/24/2018 11:03 1209/2017 AM WARP PLACER 11:48 AM WARP PLACER Comment: Specimen Source Site: Cerebrosp inal Fluid Wolf HoneycuttSPerla LAB MICROBIOLOGY - GENERAL O RDERAGUME Performing Organization Address City/State/ZIP Code Phon e Number [facility]IES - [address] MARLEN Virus PCR, CSF (06/24/2018 11:03 AM WARP PLACER) [facility] Method Time Signature MARLEN Virus PCR, Negative Negative 06/25/2018 [facility] CSF 3:01 PM WARP PLACER LABORATORIES [facility] Comment: ----ADDITIONAL INFORMATION---- This test was developed and its performa nce characteristics determined by [facility] in a manner consistent with CLIA requirements. This test has not been cleared or approved by the U.S. Misha d and Drug Administration. Specimen Anatomical Collection Method Collection Time Receive d Time (Source) Location / / Volume Laterality Varies 06/24/2018 11:06/24/2018 (Cerebrospinal AM WARP PLACER 11:48 AM WARP PLACER Fluid) Wolf HoneycuttSPerla LAB MICROBIOLOGY - GENERAL O RDERABLES Performing Organization Address City/[facility] Phon e Number [facility]IES - [address] Ai Martinez Virus PCR (06/24/2018 11:03 AM WARP PLACER) [facility] Method Time [facility] Specimen csf 06/25/2018 [facility] Source 3:15 PM WARP PLACER LABORATORIES [facility] Ai-Martinez Negative Negative 06/25/2018 [facility] Virus PCR 3:15 PM WARP PLACER LABORATORIES [facility] Comment: ----ADDITIONAL INFORMATION---- This test was developed using an analyte specific reagent. Its performance characteristics were determined by [facility] in a manner consistent with CLIA requirements. This test has not bee n cleared or approved by the U.S. Food and Drug Administration. Specimen Anatomical Collection Method Collection Time Receive d Time (Source) Location / / Volume Laterality Varies 06/24/2018 11:03 06/24/2018 (Cerebrospinal AM WARP PLACER 11:48 AM WARP PLACER Fluid) Wolf HoneycuttSPerla LAB MICROBIOLOGY - GENERAL O RDERABLES Performing Organization Address City/[facility] Phon e Number [facility]IES - [address] [place] [address] [facility] Cytomegalovirus PCR (06/24/2018 11:03 AM WARP PLACER) [facility] Time [facility] Specimen Source csf 06/24/2018 [facility] 11:19 PM LABORATORIES [facility] Cytomegalovirus Negative Negative 06/24/2018 [facility] PCR 11:19 PM LABORATORIES - [facility] Comment: ----ADDITIONAL INFORMATION---- This test was developed and its performa nce characteristics determined by [facility] in a manner consistent with CLIA requirements. This test has not been cleared or approved by the U.S. Misha d and Drug Administration. Specimen Anatomical Collection Method Collection Time Receive d Time (Source) Location / / Volume Laterality Varies 06/24/2018 11:03 06/24/2018 (Cerebrospinal AM WARP PLACER 11:48 AM WARP PLACER Fluid) Wolf Terrell LAB MICROBIOLOGY - GENERAL O COLLEEN Performing Organization Address [facility] Phon e Number [facility] LAB[facility]ATORIES - [address] Adenovirus PCR (06/24/2018 11:03 AM WARP PLACER) [facility] Method Time Signature Specimen csf 06/25/2018 [facility] Source 3:04 PM WARP PLACER LABORATORIES - [facility] Adenovirus PCR Negative Negative 06/25/2018 [facility] 3:04 PM WARP PLACER LABORATORIES - [facility] Comment: ----ADDITIONAL INFORMATION---- This test was developed and its performa nce characteristics determined by [facility] in a manner consistent with CLIA requirements. This test has not been cleared or approved by the U.S. Misha d and Drug Administration. Specimen Anatomical Collection Method Collection Time Receive d Time (Source) Location / / Volume Laterality Varies 06/24/2018 11:06/24/2018 (Cerebrospinal AM WARP PLACER 11:48 AM WARP PLACER Fluid) Wolf Terrell LAB MICROBIOLOGY - GENERAL O COLLEEN Performing Organization Address [facility] Phon e Number [facility] LAB[facility]ATORIES - [address] [place] [address] [facility] Broad Range Bacteria PCR+Sequencing (06/24/2018 11:03 AM WARP PLACER) [facility] Method Time Signature Broad Range CANCELED 07/18/2018 [facility] Bacteria 8:54 AM WARP PLACER LABORATORIES - PCR+Sequencing [facility] Comment: BRBPS was cancelled on 07/18/2018 at 08: 54 by [id number]; Due to assay failure. Quantity not sufficient to complete testing. Result canceled by the ancillary Specimen (Source) Anatomical Collection Method Collection Time Re ceived Time Location / / Volume Laterality Cerebrospinal Fluid 06/24/2018 11:03 1209/2017 (Cerebrospinal AM WARP PLACER 11:48 AM WARP PLACER Fluid) Comment: Specimen Source Site: Cerebrosp inal Fluid Wolf Terrell LAB MICROBIOLOGY - GENERAL O RDERABLES Performing Organization Address City/State/ZIP Code Phon e Number [facility] LAB[facility]ATORIES - [address] [place], [place] [address] [facility] Lyme CHIEF LIBRARIAN BRANCH OR DEPARTMENT Infection IgG w/ Al Reflex (06/24/2018 11:03 AM WARP PLACER) [facility] Method Time Signature Lyme CHIEF LIBRARIAN BRANCH OR DEPARTMENT Negative Negative 06/28/2018 [facility] Infection 1:11 PM WARP PLACER [place] IgG, CSF DRIVE [facility] Lyme CHIEF LIBRARIAN BRANCH OR DEPARTMENT SEE COMMENT 06/28/2018 [facility] Infection IgG 1:11 PM WARP PLACER [place] Interp [address] [facility] Comment: No antibodies to Lyme Borrelia species d etected in cerebrospinal fluid. A negative result i n a patient with appropriate exposure history and sy mptoms consistent with neuroinvasive Lyme disea se should not be used to exclude infection. Testing fo r antibodies to Lyme Borrelia species in serum should be performed. ----ADDITIONAL INFORMATION---- This test was developed and its performa nce characteristics determined by [facility] in a manner co nsistent with CLIA requirements. This test has not bee n cleared or approved by the U.S. Food and Drug Admin istration. Lyme CHIEF LIBRARIAN BRANCH OR DEPARTMENT Infection IgG, SEE COMMENT 06/28/2018 1:11 PM WARP PLACER [facility] Comment: CSF screen was negative for IgG-class an tibodies to Lyme Borrelia species. Testing for IgG-c lass antibodies to Borrelia in serum is not indicated an d was not performed. Specimen Anatomical Collection Method Collection Time Receive d Time (Source) Location / / Volume Laterality Blood 06/24/2018 11:03 06/26/2018 9:14 (Cerebrospinal AM WARP PLACER AM WARP PLACER Fluid) Narrative [facility] - 07/18/2018 8:54 AM WARP PLACER Specimen Information: Specimen ID: [id number] Specimen Type: Blood Specimen Collection Start Date: 06/24/20 18 11:03 AM Specimen Received Date: 06/26/2018 ??9:1 4 AM Specimen ID: [id number] Specimen Type: Cerebrospinal Fluid Specimen Collection Start Date: 06/24/20 18 11:04 AM Specimen Received Date: 06/24/2018 ??1:2 7 PM Wolf Terrell LAB BODY FLUIDS AND STOOLS O COLLEEN Performing Organization Address City/State/ZIP Code Phon e Number [facility] [address] [place], [place] [address] [facility] Tropheryma whipplei PCR (06/24/2018 11:03 AM WARP PLACER) [facility] Method Time Signature Specimen csf 06/26/2018 [facility] Source 12:04 PM LABORATORIES - WARP PLACER [facility] Tropheryma Negative Not 06/26/2018 [facility] whipplei PCR, Applicable 12:04 PM LABORATORIES - Result WARP PLACER [facility] Comment: ----ADDITIONAL INFORMATION---- This test was developed and its performa nce characteristics determined by [facility] in a manner consistent with CLIA requirements. This test has not been cleared or approved by the U.S. Misha d and Drug Administration. Specimen Anatomical Collection Method Collection Time Receive d Time (Source) Location / / Volume Laterality Varies 06/24/2018 11:06/24/2018 (Cerebrospinal AM WARP PLACER 11:48 AM WARP PLACER Fluid) Wolf Terrell LAB MICROBIOLOGY - GENERAL O KARINAERAGUME Performing Organization Address City/[facility]/ZIP Code Phon e Number [facility] LAB[facility]ATORIES - [address] [place] [address] [facility] Varicella-Zoster Virus PCR (06/24/2018 11:03 AM WARP PLACER) [facility] Method Time Signature Specimen csf 06/24/2018 [facility] Source 8:48 PM WARP PLACER LABORATORIES - [facility] Varicella-Zos Negative Negative 06/24/2018 [facility] ter Virus PCR 8:48 PM WARP PLACER LABORATORIES - [facility] Comment: ----ADDITIONAL INFORMATION---- This test was developed and its performa nce characteristics determined by [facility] in a manner consistent with CLIA requirements. This test has not been cleared or approved by the U.S. Misha d and Drug Administration. Specimen Anatomical Collection Method Collection Time Receive d Time (Source) Location / / Volume Laterality Varies 06/24/2018 11:03 06/24/2018 (Cerebrospinal AM WARP PLACER 11:48 AM WARP PLACER Fluid) Wolf Terrell LAB MICROBIOLOGY - GENERAL O RDERABLES Performing Organization Address City/[facility]/ZIP Code Phon e Number [facility] LABORATORIES - [address] [place] [phone] [facility] Fungal Smear (06/24/2018 11:03 AM WARP PLACER) Component Value Ref Test Analysis Performed At [facility] gist Range Method Time Signature Fungal Smear Negative. 06/24/2018 [facility] If Cryptococcus neoformans meningitis is suspected, 4:02 PM WARP PLACER LABORATORIES - the cryptococcal antigen test has greater sensitivity [facility] than smear. [place] Specimen (Source) Anatomical Collection Method Collection Time Re ceived Time Location / / Volume Laterality Cerebrospinal Fluid 06/24/2018 11:03 12/09/2017 (Cerebrospinal AM WARP PLACER 11:48 AM WARP PLACER Fluid) Comment: Specimen Source Site: Cerebrosp inal Fluid Wolf Terrell LAB MICROBIOLOGY - GENERAL O RDERABLES Performing Organization Address City/State/ZIP Code Phon e Number [facility] LABORATORIES - [address] [place] [address] [facility] Encephalopathy, Autoimmune Evaluation, CSF (06/24/2018 11:03 AM WARP PLACER) [facility] g[facility] Method Time Signature Encephalopathy see below 07/03/2018 [facility] , 11:03 AM WARP PLACER LABORATORIES - Interpretation [facility] Comment: No informative autoantibodies were detec jj in this evaluation. However, a negative result does not exclude autoimm une encephalopathy, idiopathic or paraneoplastic. Sensitivity and specific ity of antibody testing are enhanced by testing both serum and CSF. NMDA-R Ab CBA, CSF Negative Negative 07/03/2018 11:04 AM [facility] WARP PLACER LABORATORIES - [facility] Comment: ----ADDITIONAL INFORMATION---- This test was developed and its performa nce characteristics determined by [facility] in a manner consistent with CLIA requirements. This test has not been cleared or approved by the U.S. Misha d and Drug Administration. VGKC-complex Ab IPA, 0.00 0.00 - 0.02 07/03/2018 11:04 AM [facility] CSF nmol/L WARP PLACER LABORATORIES - [facility] Comment: ----ADDITIONAL INFORMATION---- This test was developed and its performa nce characteristics determined by [facility] in a manner consistent with CLIA requirements. This test has not been cleared or approved by the U.S. Misha d and Drug Administration. LGI1-IgG CBA, CSF Negative Negative 07/03/2018 11:04 AM [facility] WARP PLACER [facility] Comment: ----ADDITIONAL INFORMATION---- This test was developed and its performa nce characteristics determined by [facility] in a manner consistent with CLIA requirements. This test has not been cleared or approved by the U.S. Misha d and Drug Administration. CASPR2-IgG CBA, CSF Negative Negative 07/03/2018 11:04 AM [facility] Comment: ----ADDITIONAL INFORMATION---- This test was developed and its performa nce characteristics determined by [facility] in a manner consistent with CLIA requirements. This test has not been cleared or approved by the U.S. Misha d and Drug Administration. GAD65 Ab Assay, 0.00 <=0.02 nmol/L 07/03/2018 11:04 AM [facility] Comment: ----ADDITIONAL INFORMATION---- This test was developed and its performa nce characteristics determined by [facility] in a manner consistent with CLIA requirements. This test has not been cleared or approved by the U.[place]. Imsha d and Drug Administration. JESSICA-B-R Ab CBA, Negative Negative 07/03/2018 11:04 AM [facility] Comment: ----ADDITIONAL INFORMATION---- This test was developed and its performa nce characteristics determined by [facility] in a manner consistent with CLIA requirements. This test has not been cleared or approved by the U.[place]. Misha d and Drug Administration. AMPA-R Ab CBA, CSF Negative Negative 07/03/2018 11:04 AM [facility] Comment: ----ADDITIONAL INFORMATION---- This test was developed and its performa nce characteristics determined by [facility] in a manner consistent with CLIA requirements. This test has not been cleared or approved by the U.[place]. Misha d and Drug Administration. JAVON-1, CSF Negative <1:2 titer 07/03/2018 11:04 AM [facility] Reflex Added None. 07/03/2018 11:04 AM [facility] Comment: ----ADDITIONAL INFORMATION---- This test was developed and its performa nce characteristics determined by [facility] in a manner consistent with CLIA requirements. This test has not been cleared or approved by the U.[place]. Misha d and Drug Administration. JAVON-2, CSF Negative <1:2 titer 07/03/2018 11:04 AM [facility] Comment: ----ADDITIONAL INFORMATION---- This test was developed and its performa nce characteristics determined by [facility] in a manner consistent with CLIA requirements. This test has not been cleared or approved by the U.S. Misha d and Drug Administration. JAVON-3, CSF Negative <1:2 titer 07/03/2018 11:04 AM [facility] Comment: ----ADDITIONAL INFORMATION---- This test was developed and its performa nce characteristics determined by [facility] in a manner consistent with CLIA requirements. This test has not been cleared or approved by the U.S. Misha d and Drug Administration. AGNA-1, CSF Negative <1:2 titer 07/03/2018 11:04 AM [facility] Comment: ----ADDITIONAL INFORMATION---- This test was developed and its performa nce characteristics determined by [facility] in a manner consistent with CLIA requirements. This test has not been cleared or approved by the U.[place]. Misha d and Drug Administration. DINING SERVER-1, CSF Negative <1:2 titer 07/03/2018 11:04 AM [facility] Comment: ----ADDITIONAL INFORMATION---- This test was developed and its performa nce characteristics determined by [facility] in a manner consistent with CLIA requirements. This test has not been cleared or approved by the U.[place]. Misha d and Drug Administration. DINING SERVER-2, CSF Negative <1:2 titer 07/03/2018 11:04 AM [facility] Comment: ----ADDITIONAL INFORMATION---- This test was developed and its performa nce characteristics determined by [facility] in a manner consistent with CLIA requirements. This test has not been cleared or approved by the U.S. Misha d and Drug Administration. DINING SERVER-Tr, CSF Negative <1:2 titer 07/03/2018 11:04 AM [facility] Comment: ----ADDITIONAL INFORMATION---- This test was developed and its performa nce characteristics determined by [facility] in a manner consistent with CLIA requirements. This test has not been cleared or approved by the U.S. Misha d and Drug Administration. Amphiphysin Ab, CSF Negative <1:2 titer 07/03/2018 11:04 AM [facility] Comment: ----ADDITIONAL INFORMATION---- This test was developed and its performa nce characteristics determined by [facility] in a manner consistent with CLIA requirements. This test has not been cleared or approved by the U.S. Misha d and Drug Administration. CRMP-5-IgG, CSF Negative <1:2 titer 07/03/2018 11:04 AM [facility] Comment: ----ADDITIONAL INFORMATION---- This test was developed and its performa nce characteristics determined by [facility] in a manner consistent with CLIA requirements. This test has not been cleared or approved by the U.S. Misha d and Drug Administration. Specimen (Source) Anatomical Collection Method Collection Time Re ceived Time Location / / Volume Laterality Cerebrospinal Fluid 06/24/2018 11:03 12/0 09/2017 (Cerebrospinal AM WARP [facility]ACER 12:00 PM [facility]ER Fluid) Narrative This result has an attachment that is no t available. Wolf Terrell LAB BODY FLUIDS AND STOOLS O RDERABLES Performing Organization Address City/State/ZIP Code Phon e Number [facility] - [address] [address] [facility] Cerebrospinal Fluid (CSF) IgG Index (06/24/2018 11:03 AM [facility]) athologist Signature IgG Index, CSF 0.55 <=0.85 06/25/2018 [facility] 1:32 PM [facility] IgG, CSF 4.2 <=8.1 06/25/2018 [facility] mg/dL 1:32 PM [facility] Comment: ----ADDITIONAL INFORMATION---- This test has been modified from the man evangelistr's instructions. Its performance characteri stics were determined by [facility] in a manner co nsistent with CLIA requirements. This test has not bee n cleared or approved by the U.S. Food and Drug Admin istration. Albumin, CSF 24.9 <=27.0 mg/dL 06/25/2018 1:21 PM [facility] Comment: ----ADDITIONAL INFORMATION---- This test has been modified from the lee ufchelor's instructions. Its performance characteri stics were determined by [facility] in a manner co nsistent with CLIA requirements. This test has not bee n cleared or approved by the U.S. Food and Drug Admin istration. IgG/Albumin, CSF 0.17 <=0.21 06/25/2018 1:32 PM [facility] Synthesis Rate, CSF 1.81 <=12 mg/24 h 06/25/2018 1:32 P M [facility] Immunoglobulin G (IgG), 1230 767 - 1590 06/25/2018 1:07 PM [facility] S mg/dL [facility] Albumin, S 3920 3200 - 4800 06/25/2018 1:07 PM [facility] mg/dL [facility] IgG/Albumin, S 0.31 <=0.40 06/25/2018 1:07 PM [facility] Specimen Anatomical Collection Method Collection Time Receive d Time (Source) Location / / Volume Laterality Blood 06/24/2018 11:03 06/24/2018 (Cerebrospinal AM [facility]ER 11:57 AM [facility]ER Fluid) Narrative [facility] - 06/25/2018 1:32 PM [facility] Specimen Information: Specimen ID: [id number] Specimen Type: Blood Specimen Collection Start Date: 06/24/20 18 11:03 AM Specimen Received Date: 06/24/2018 11:57 AM Specimen ID: [id number] Specimen Type: Cerebrospinal Fluid Specimen Collection Start Date: 06/24/20 18 11:04 AM Specimen Received Date: 06/24/2018 11:59 AM Wolf Terrell LAB BODY FLUIDS AND STOOLS O RDERABLES Performing Organization Address City/State/ZIP Code Phon e Number [facility] - [address] [address] [facility] Oligoclonal Banding, Serum and CSF (06/24/2018 11:03 AM [facility]ER) [facility] Method Time Signature CSF Bands 1 bands 06/26/2018 [facility] 8:16 AM [facility] [place] CSF Olig Bands 0 <4 bands 06/26/2018 [facility] Interpretation 8:16 AM [facility] Comment: The oligoclonal band assay detected 3 or fewer unique IgG bands in the CSF. ?? This is a negative result. Serum Bands 1 bands 06/26/2018 8:16 AM [facility]ER M [facility] Specimen Anatomical Collection Method Collection Time Receive d Time (Source) Location / / Volume Laterality Blood 06/24/2018 11:03 06/24/2018 (Cerebrospinal AM [employer]ER 11:57 AM [facility]ER Fluid) Narrative [facility] - 06/26/2018 8:16 AM [facility] Specimen Information: Specimen ID: [id number] Specimen Type: Blood Specimen Collection Start Date: 06/24/20 18 11:03 AM Specimen Received Date: 06/24/2018 11:57 AM Specimen ID: [id number] Specimen Type: Cerebrospinal Fluid Specimen Collection Start Date: 06/24/20 18 11:04 AM Specimen Received Date: 06/24/2018 11:59 AM Wolf Terrell LAB BODY FLUIDS AND STOOLS O RDERABLES Performing Organization Address City/State/ZIP Code Phon e Number [facility] - [address] [phone] [facility] Enterovirus PCR (06/24/2018 11:03 AM [facility]ER) [facility] Method [place] Signature Specimen Source csf 06/24/2018 [facility] 11:13 PM [facility] [place] Enterovirus PCR Negative Negative 06/24/2018 [facility] 11:13 PM [facility] [place] Comment: ----ADDITIONAL INFORMATION---- This test was developed and its performa nce characteristics determined by [facility] in a manner consistent with CLIA requirements. This test has not been cleared or approved by the U.S. Misha d and Drug Administration. Specimen Anatomical Collection Method Collection Time Receive d Time (Source) Location / / Volume Laterality Varies 06/24/2018 11:03 06/24/2018 (Cerebrospinal AM [employer]ER 11:48 AM [facility]ER Fluid) Wolf HoneycuttSPerla LAB MICROBIOLOGY - GENERAL O RDERABLES Performing Organization Address City/[facility]/ZIP Code Phon e Number [facility] - [address] [phone] [facility] Cryptococcus Antigen with Reflex, LFA, CSF (06/24/2018 11:03 AM [facility]ER) [facility] Method Time Signature Cryptococcus Ag Negative Negative 06/24/2018 [facility] Screen w/Titer, 4:17 PM [facility] [address] [facility] Comment: A single negative result does not exclud e the diagnosis of cryptococcosis. ----ADDITIONAL INFORMATION---- This assay was performed using the FDA-c [employer] Cryptococcus Antigen Lateral Flow Assay. Specimen (Source) Anatomical Collection Method Collection Time Re ceived Time Location / / Volume Laterality Cerebrospinal Fluid 06/24/2018 11:03 09/2017 (Cerebrospinal AM [facility]ACER 1:49 PM [facility]ACER Fluid) Wolf HoneycuttSPerla LAB MICROBIOLOGY - GENERAL O RDERAGUME Performing Organization Address [facility]/ZIP Code Phon e Number [facility] [address] [place] [phone] [facility][NOTE 3] Gram Stain (06/24/2018 11:03 AM [facility]ER) [facility] Method Time Signature Gram Stain No organisms 06/24/2018 [facility] seen. 12:33 PM [facility] - [facility] Specimen (Source) Anatomical Collection Method Collection Time Re ceived Time Location / / Volume Laterality Cerebrospinal Fluid 06/24/2018 11:03 09/2017 (Cerebrospinal AM [facility] [employer]ER 11:48 AM [facility]ER Fluid) Comment: Specimen Source Site: Cerebrosp inal Fluid Wolf HoneycuttSPerla LAB MICROBIOLOGY - GENERAL O RDERAGUME Performing Organization Address City/[facility]/ZIP Code Phon e Number [facility] - [address] [phone] [facility] Malignant Cells, CSF (06/24/2018 11:03 AM W[facility] PLACER) Component Value Ref Test Analysis Performed At [facility] Method Time Signature Report Arash Rodriguez M.D. 06/24/2018 [facility] ANTHONY electronically I verify that I have examined all relevant slides/ma terials 12:45 PM LABORATORIES - signed by for the specimen(s) and rendered or confirmed the diagnosi s. [facility] 06/24/2018 [facility] 12:45 PM [facility]ATORIES - [facility] Gross Description Received 5 cc of 06/24/2018 [facility] clear fluid. 12:45 PM [facility]ORATORIES - [facility] Source Cerebrospinal 06/24/2018 [facility] Fluid, 12:45 PM LABORATORIES - Cerebrospinal [facility] Clinical History brain lesion 06/24/2018 [facility] 12:45 PM [facility] - [facility] Interpretation A. Cerebrospinal , Fluid (cytospin): ?? Negative for 06/24/2018 [facility] malignancy. 12:45 PM LABORATORIES - A Fitzpatrick-Giemsa stained slide of the fluid is examined. No [facility] malignant cells are seen. The cell count is low. CAMPUS Specimen Anatomical Collection Method Collection Time Receive d Time (Source) Location / / Volume Laterality Fluid 06/24/2018 11:03 06/24/2018 (Cerebrospinal AM WARP PLACER 11:31 AM [facility]ER Fluid) Narrative This result has an attachment that is no t available. Wolf Terrell LAB SURG PATH ORDERABLES Performing Organization Address City/State/ZIP Code Phon e Number [facility] - [address] [address] [facility] West Nile Virus (WNV) Antibody, IgG and IgM, CSF, (Preferred) (06/24/2018 11:02 AM W[facility]ACER) [facility] gist Method Time Signature West Nile Virus Negative Negative 06/24/2018 [facility] Ab, IgG, CSF 8:10 PM [facility] West Nile Virus Negative Negative 06/25/2018 [facility] Ab, IgM, CSF 1:27 PM [facility] Interpretation SEE COMMENT 06/25/2018 [facility] 1:27 PM [facility] [place] Comment: No antibodies to WNV detected. ??Repeat testing in 10-14 days if clinical suspicion persists. ----ADDITIONAL INFORMATION---- This test has been modified from the man ufchelor's instructions. Its performance characteri stics were determined by [facility] in a manner co nsistent with CLIA requirements. This test has not bee n cleared or approved by the U.S. Food and Drug Admin istration. Specimen (Source) Anatomical Collection Method Collection Time Re ceived Time Location / / Volume Laterality Cerebrospinal Fluid 06/24/2018 11:02 12/0 09/2017 (Cerebrospinal AM WARP PLACER 1:27 PM W[facility]ER Fluid) Wolf Terrell LAB MICROBIOLOGY - GENERAL O COLLEEN Performing Organization Address City/State/ZIP Code Phon e Number [facility] [address] [place], [place] [address] [facility] Arbovirus Antibody Panel, IgG and IgM, CSF (06/24/2018 11:02 AM WARP [facility]ACER) P athologist Signature [place] <1:10 <1:10 06/25/2018 [facility] Encep Ab, 2:40 PM [facility] [address] IgG,CSF [facility] [place] <1:10 <1:10 06/25/2018 [facility] Encep Ab, 2:40 PM [facility] [address] IgM,CSF [facility] Comment: ----ADDITIONAL INFORMATION---- This test was developed and its performa nce characteristics determined by [facility] in a manner consistent with CLIA requirements. This test has not been cleared or approved by the U.S. Misha d and Drug Administration. [place] Enceph Ab, <1:10 <1:10 06/25/2018 2:40 P M WARP PLACER [facility] SUPERIOR IgG, CSF DRIVE [facility] [place] Enceph Ab, <1:10 <1:10 06/25/2018 2:40 P M [employer]ACER [facility] SUPERIOR IgM, CSF DRIVE [facility] Comment: ----ADDITIONAL INFORMATION---- This test was developed and its performa nce characteristics determined by [facility] in a manner consistent with CLIA requirements. This test has not been cleared or approved by the U.S. Misha d and Drug Administration. [place] Enceph Ab, <1:10 <1:10 06/25/2018 2:40 PM W[facility] PLACER [facility] SUPERIOR IgG, CSF DRIVE [facility] [place] Enceph Ab, <1:10 <1:10 06/25/2018 2:40 PM W[facility] PLACER [facility] IgM, CSF DRIVE [facility] Comment: ----ADDITIONAL INFORMATION---- This test was developed and its performa nce characteristics determined by [facility] in a manner consistent with CLIA requirements. This test has not been cleared or approved by the U.S. Misha d and Drug Administration. [place] Enceph Ab, <1:10 <1:10 06/25/2018 2:40 P M [facility] PLACER [facility] IgG, CSF DRIVE [facility] [place] Enceph Ab, <1:10 <1:10 06/25/2018 2:40 P M [facility]ER [facility] IgM, CSF DRIVE [facility] Comment: ----ADDITIONAL INFORMATION---- This test was developed and its performa nce characteristics determined by [facility] in a manner consistent with CLIA requirements. This test has not been cleared or approved by the U.S. Misha d and Drug Administration. Specimen (Source) Anatomical Collection Method Collection Time Re ceived Time Location / / Volume Laterality Cerebrospinal Fluid 06/24/2018 11:02 09/2017 (Cerebrospinal AM WARP PLACER 2:04 PM WARP PLACER Fluid) Wolf Terrell LAB BODY FLUIDS AND STOOLS O COLLEEN Performing Organization Address City/[facility]/ZIP Code Phon e Number [facility] [address] [place] [phone] [facility][NOTE 3] Herpes Simplex Virus, PCR, CSF (06/24/2018 11:02 AM WARP PLACER) Patholo gist Method Time Signature HSV 1 PCR, C Negative Negative 06/24/2018 [facility] 4:41 PM [facility] PL[facility]ER [facility] - [facility] HSV 2 PCR, C Negative Negative 06/24/2018 [facility] 4:41 PM [facility]ER [facility] - [facility] Specimen (Source) Anatomical Collection Method Collection Time Re ceived Time Location / / Volume Laterality Cerebrospinal Fluid 06/24/2018 11:02 09/2017 (Cerebrospinal AM WARP PLACER 11:48 AM WARP PLACER Fluid) Wolf HoneycuttSPerla LAB MICROBIOLOGY - GENERAL O COLLEEN Performing Organization Address City/State/ZIP Code Phon e Number [facility] - [address] [address] [facility] VDRL, CSF (06/24/2018 11:02 AM WARP PLACER) P athologist Signature VDRL, CSF Negative Negative 06/25/2018 [facility] 1:48 PM WARP PLACER [facility] Specimen (Source) Anatomical Collection Method Collection Time Re ceived Time Location / / Volume Laterality Cerebrospinal Fluid 06/24/2018 11:02 09/2017 (Cerebrospinal AM WARP PLACER 1:49 PM WARP PLACER Fluid) Wolf HoneycuttSPerla LAB BODY FLUIDS AND STOOLS O RDERAGUME Performing Organization Address City/[facility]/ZIP Code Phon e Number [facility] [address] [place] [phone] [facility] Glucose, CSF (06/24/2018 11:02 AM WARP PLACER) P athologist Signature Glucose, CSF 56 mg/dL 06/24/2018 [facility] 12:26 PM WARP PLACER LABORATORIES [facility] Comment: ----REFERENCE VALUE---- CSF glucose concentration should be approximately 60% of the plasma /serum concentration and should be compared with concurrently measured plasma /serum glucose for adequate clinical interpretation. Specimen (Source) Anatomical Collection Method Collection Time Re ceived Time Location / / Volume Laterality Cerebrospinal Fluid 06/24/2018 11:02 09/2017 (Cerebrospinal AM WARP PLACER 11:17 AM WARP PLACER Fluid) Wolf HoneycuttSPerla LAB BODY FLUIDS AND STOOLS O COLLEEN Performing Organization Address [facility]/ZIP Code Phon e Number [facility] - [address] [phone] [facility] (ABNORMAL) Protein, Total, CSF (06/24/2018 11:02 AM WARP PLACER) Analysis Performed At Patho logist Time Signature Protein, 65 (H) 0 - 35 06/24/2018 [facility] Total, CSF mg/dL 12:26 PM [facility] Specimen (Source) Anatomical Collection Method Collection Time Re ceived Time Location / / Volume Laterality Cerebrospinal Fluid 06/24/2018 11:02 09/2017 (Cerebrospinal AM WARP PLACER 11:17 AM WARP PLACER Fluid) Wolf HoneycuttSPerla LAB BODY FLUIDS AND STOOLS O RDERAGUME Performing Organization Address City/[facility]/ZIP Code Phon e Number [facility] - [address] [address] [facility] MD PUNCTURE SPINAL LUMBAR DX (06/24/2018 10:30 AM WARP PLACER) Narrative [facility] - 06/24/2018 10:30 AM WARP PLACER Mary Ellington M.S.N., R.N. ? 06/24/2018 11:13 AM Lumbar Puncture Date/Time: 06/24/2018 11:11 AM Performed by: MARY ELLINGTON Authorized by: ALI, FARWA Consent: ??Consent obtained: ??Written ??Consent given by: ??Patient ??The benefits, risks and alternatives to the procedure and the potential need for sedation or anesthesia as well as the names, roles, and responsibilities or healthcare team memb ers performing significant interventional tasks were discussed: yes ?The benefits, risks and alternative t o the possible need for blood products were discussed with the patient and/or decision maker: ??Consent for transfusion was obtained [place] protocol: ??All relevant documentation and testin g were reviewed and available. All required blood products, implants, devic es and/or special equipment were made available as applicable. The pre-pr ocedure verification was conducted, the correct site was marked i f required and the procedural time out was conducted prior to performing e procedure and confirmed in a procedural pause: yes ?? Pre-procedure details: ??Procedure purpose: ??Diagnostic ??Indication comment: ??Brain Lesion ??Site preparation: ??Povidone-iodine ??Appropriate hand hygiene, gown, cap, mask, protective eyewear, sterile gloves, skin preparation, sterile drape, and strict aseptic technique were utilized as applicable for the procedure : yes ?? Sedation/Anesthesia (see MAR for exact d osages): ??Anesthesia method: ??Local infiltrati on ??Local anesthetic: ??Lidocaine 1% w/o epi Procedure details: ??Ultrasound guidance: no ?Patient position: ??Left lateral decu bitus ??Lumbar space: ??L4-L5 interspace ??Needle gauge: ??20 G ??Needle type: ??Spinal needle - Quinck e tip ??Needle length (in): ??3.5 ??Number of attempts: ??1 ??Opening pressure (cm H2O): ??12.2 ??Fluid appearance: ??Clear ??Total volume (mL): ??20 ??Intrathecal medication(s) administere d after observation of continued CSF flow: no ?? Post-procedure: ??Procedure completed successfully: yes ?Venipunture performed: yes ?Puncture site: ??Adhesive bandage clemencia lied, direct pressure applied and clean and dry ??Complications: no immediate complicat ions ?? Wolf Terrell PROCEDURE/MINOR SURGICAL ORD ERABLES Performing Organization Address City/State/ZIP Code Phon e Number MMODAL MMODAL NA documented in this encounter Visit Diagnoses Diagnosis Hemiplegia Nondominant Side Left (HCC) Lesion Brain documented in this encounter Administered Medications Inactive Administered Medications - up to 3 most recent administrations Medication Order MAR Action Action Date Dose Rate Site lidocaine (PF) 10 mg/mL (1 %) Given 06/24/2018 11:02 AM WARP PLACER 3 mL injection 10 mL (XYLOCAINE) 10 mL, infiltration, Once, On 06/24/18 at 1030, For 1 dose documented in this encounter
--- OUTSIDE RECORDS SUMMARY | 2022-05-25 10:03 | XMS_ITS | Encounter Summary ---
:1940 Author Organization [facility] Address [address] [place] [address] Care Team Providers Name Role Phone Unavailable Primary Care Provider Unavailable Reason for Visit Reason Onset Date Comments Results 04/24/2018 Encounter Details Date Type Department Care Team Description 04/24/2018 Clinical Communication Department of Adama Epps homer Neurological Surgery in [facility] , [address] [phone] Social History Tobacco Use Types Packs/Day Years Used Date Smoking Tobacco: Never Smokeless Tobacco: Never Alcohol Use Standard Drinks/Week Comments Yes 1 (1 standard drink = 0.6 oz pure alcoho l) Alcohol Habits Answer Date Recorded How often do you have a drink containing 4 or more times a w [place] 01/14/2022 alcohol? How many drinks containing alcohol [...] or relatives? How often do you attend zoroastrianism or hindu More than 4 time s per year 01/14/2022 services? Do you belong to any clubs or organizations Yes 01/14/2022 such as zoroastrianism groups, unions, fraternal or athletic groups, or [...] slept in a care home (including now)? 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 - 04/24/2018 5:50 PM CDT Left a VM to call back. Thanks. Telephone Encounter - Emi Epps R.N. - 04/24/2018 3:14 PM CDT Patient had new MRI's from [place] downloaded. Please review documented in this encounter Plan of Treatment Not on filedocumented as of this encounter Visit Diagnoses Not on filedocumented in this encounter
--- OUTSIDE RECORDS SUMMARY | 2022-05-25 10:03 | XMS_ITS | Encounter Summary ---
:1940 Author Organization [facility] Address [address] [place] [address] Care Team Providers Name Role Phone Unavailable Primary Care Provider Unavailable Encounter Details Date Type Department Care Team Description 05/23/2018 Abstract [facility] FRANTZ Moran ea Provider, Historical [address] [place] [address] Social History Tobacco Use Types Packs/Day Years Used Date Smoking Tobacco: Never Smokeless Tobacco: Never Alcohol Use Standard Drinks/Week Comments Yes 1 (1 standard drink = 0.6 oz pure alcoho l) Alcohol Habits Answer Date Recorded How often do you have a drink containing 4 or more times a w [place] 01/14/2022 alcohol? How many drinks containing alcohol [...] How often do you attend congregation or hindu More than 4 time s [...] or slept in a jail (including now)? 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
--- OUTSIDE RECORDS SUMMARY | 2022-05-25 10:03 | XMS_ITS | Encounter Summary ---
:1940 Author Organization [facility] Address [address] [place] [address] Care Team Providers Name Role Phone Unavailable Primary Care Provider Unavailable Encounter Details Date Type Department Care Team Description 01/30/2018 Abstract [facility] FRANTZ Moran ea Provider, Historical [address] [place] [address] Social History Tobacco Use Types Packs/Day Years Used Date Smoking Tobacco: Never Assessed Alcohol Habits Answer Date Recorded How often do you have a drink containing 4 or more times a w [place] 01/14/2022 alcohol? How many drinks containing alcohol [...] or relatives? How often do you attend hoahaoism or christian More than 4 time s per year 01/14/2022 services? Do you belong to any clubs or organizations Yes 01/14/2022 such as hoahaoism groups, unions, fraternal or athletic groups, or [...] or slept in a [facility] (including now)? 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
--- OUTSIDE RECORDS SUMMARY | 2022-05-25 10:03 | XMS_ITS | Encounter Summary ---
:1940 Author Organization [facility] Address [address] [place] [address] Care Team Providers Name Role Phone Unavailable Primary Care Provider Unavailable Reason for Referral Outpatient (Routine) - Closed Specialty Diagnoses / Procedures Referred By Contact Refer red To Contact Neurology Diagnoses Paraparesis Spastic (HCC) Timmy Bardales M.B.B.S. [address] [address] Referral ID Status Reason Start Date Expiration Date Visits Requ ested Visits Authorized [id number] Closed 05/07/2018 05/07/2019 1 1 Encounter Details Date Type Department Care Team Description 05/07/2018 Orders Only Department of Timmy Bardales Parapares is Spastic Neurological Surgery in [facility] ([facility]) (Primary Dx) [address] [phone] Social History Tobacco Use Types Packs/Day Years Used Date Smoking Tobacco: Never Smokeless Tobacco: Never Alcohol Use Standard Drinks/Week Comments Yes 1 (1 standard drink = 0.6 oz pure alcoho l) Alcohol Habits Answer Date Recorded How often do you have a drink containing 4 or more times a w [place] 01/14/2022 alcohol? How many drinks containing alcohol [...] or relatives? How often do you attend rastafarian or hindu More than 4 time s per year 01/14/2022 services? Do you belong to any clubs or organizations Yes 01/14/2022 such as rastafarian groups, unions, fraternal or athletic groups, or [...] place to sleep or slept in a [place] [facility] (including now)? 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
--- OUTSIDE RECORDS SUMMARY | 2022-05-25 10:03 | XMS_ITS | Encounter Summary ---
:1940 Author Organization [facility] Address [address] [place] [address] Care Team Providers Name Role Phone Unavailable Primary Care Provider Unavailable Encounter Details Date Type Department Care Team Description 01/04/2018 - Hospital Encounter Department of Guerita Murray opathy Lumbar 01/14/2018 Radiation Oncology Leslie Cortez in [place], [facility] [address] [place] [address] [place] [phone] [place], [place] [phone] (Work) [phone] Social History Tobacco Use Types Packs/Day Years Used Date Smoking Tobacco: Never Assessed Alcohol Habits Answer Date Recorded How often do you have a drink containing 4 or more times a w [place] 01/14/2022 alcohol? How many drinks containing alcohol [...] or relatives? How often do you attend alevism or adventist More than 4 time s per year 01/14/2022 services? 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 documented in this encounter Results EMG (01/04/2018 9:44 AM CDT) Specimen (Source) Anatomical Collection Method Collection Time Re ceived Time Location / / Volume Laterality 01/04/2018 9:44 AM CDT Narrative [facility] - 01/04/2018 11:51 AM CDT 04-Jan-2018 ? Electromyography ? Final Report Study Number: [id number] EMG Magazine Hand: Guerita Murray 127 or [phone] Referred by: Kleber LINDSEY ([phone]) Referred for: Lumbar Radic Referral Code: ?063 RX: 332 SUMMARY: Prior to starting the procedure , the patient's identity was verified, pertinent available records were reviewed, the nature of the procedure was explained, the appropriate sites of the exam were confirmed directly with the pa tient, and a pre-procedure pause was performed for final verification of all of the above. ?? Nerve conduction studies of the left low er limb were normal with the exception of a low ampli tude tibial motor response which is likely due to local factors. Needle examination revealed red uced recruitment of high amplitude, complex motor unit potentials at the iliopsoas. CLINICAL INTERPRETATION: Abnormal study. The electrodiagnostics findings are in keeping with a chronic left L2 radiculopathy without ev idence of ongoing denervation. ?? Chris Murray (127 or [phone]) NERVE CONDUCTIONS ?Temperat ure: 30.1 ? ??C ?Record ?Rep ? Normal ? Normal Distal Normal ??F-Wave F-Wave Nerve ? Type ?Site ?Stim Side Amp Amp ? CV CV ? Lat ? Lat ? Lat ?Est ?extenso r ?digitor um ?brevis Peroneal ?motor ?? (pedis) ?L ?4.4 (> 2.0) 41 (> 41) 5.4 ? (< 6.6) ?abducto r Tibial ?motor ?? hallucis ? L ?2.5 (> 4.0) 43 (> 40) 6.1 ? (< 6.1) ? Sural ? sensory ankle ?L ?8 ?? (> 0.0) ?(> 40) 4.3 ? (< 4.5) ? NEEDLE EMG ? Ins ?Spo nt ? MUP ?Recruitment ?? Duration ?? Amplitude Phases ? Muscle ?Side Act ?Fib ??Fa sc Normal Activ Reduced Rapid Long Short High Low ??% ?Turns Medial Gastroc ? L ?Normal 0 ?0 ?Normal ? Paraspinal, Lumbar (Upper) ? L ?Normal 0 ?0 ?Normal ? Gluteus rhys ? L ?Normal 0 ?0 ?Normal ? 25% ??+ ? Tensor fasciae latae L ?Normal 0 ?0 ?Normal ? Iliopsoas ? L ?Normal 0 ?0 ? + ? + ? + ? 50% ??++ ? Vastus medialis ?L ?Normal 0 ?0 ?Normal ? Tibialis Anterior ?L ?Normal 0 ?0 ?Normal ? 25% ??+ ? Adductor longus ?L ?Normal 0 ?0 ?Normal ? 25% ??+ ? This interpretation has been electron ically signed: Guerita Murray MD at 01/04/2018 11:49:14 AM CDT Kleber Lindsey M.D., M.P.H. NEUROLOGY ORDERABLES Performing Organization Address City/State/ZIP Code Phon e Number EMG documented in this encounter Visit Diagnoses Diagnosis Radiculopathy Lumbar documented in this encounter
--- OUTSIDE RECORDS SUMMARY | 2022-05-25 10:03 | XMS_ITS | Encounter Summary ---
:1940 Author Organization [facility] Address [address] [place] [address] Care Team Providers Name Role Phone Unavailable Primary Care Provider Unavailable Encounter Details Date Type Department Care Team Description 05/15/2018 Abstract DATA ABSTRACTION Provider, Historical Social History Tobacco Use Types Packs/Day Years Used Date Smoking Tobacco: Never Smokeless Tobacco: Never Alcohol Use Standard Drinks/Week Comments Yes 1 (1 standard drink = 0.6 oz pure alcoho l) Alcohol Habits Answer Date Recorded How often do you have a drink containing 4 or more times a w [place] 01/14/2022 alcohol? How many drinks containing alcohol [...] or relatives? How often do you attend amish or baptism More than 4 time s per year 01/14/2022 services? 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
--- OUTSIDE RECORDS SUMMARY | 2022-05-25 10:03 | XMS_ITS | Encounter Summary ---
:1940 Author Organization [facility] Address [address] [place] [address] Care Team Providers Name Role Phone Unavailable Primary Care Provider Unavailable Encounter Details Date Type Department Care Team Description 06/21/2018 Orders Only Department of Neurology Margaux Landers, in [facility] R.N. [address] [facility] [address] [place] [address] [place] [address] Social History Tobacco Use Types Packs/Day Years Used Date Smoking Tobacco: Never Smokeless Tobacco: Never Alcohol Use Standard Drinks/Week Comments Yes 1 (1 standard drink = 0.6 oz pure alcoho l) Alcohol Habits Answer Date Recorded How often do you have a drink containing 4 or more times a w [place] 01/14/2022 alcohol? 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
--- OUTSIDE RECORDS SUMMARY | 2022-05-25 10:03 | XMS_ITS | Encounter Summary ---
:1940 Author Organization [facility] Address [address] [place] [address] Care Team Providers Name Role Phone Unavailable Primary Care Provider Unavailable Encounter Details Date Type Department Care Team Description 01/22/2018 Clinical Communication Department of Nicole Sauceda Neurological Surgery in [facility] [address] [phone] Social History Tobacco Use Types Packs/Day Years Used Date Smoking Tobacco: Never Assessed Alcohol Habits Answer Date Recorded How often do you have a drink containing 4 or more times a w [place] 01/14/2022 alcohol? How many drinks containing alcohol [...] or relatives? How often do you attend judaism or yazidi More than 4 time s per year 01/14/2022 services? Do you belong to any clubs or organizations Yes 01/14/2022 such as judaism groups, unions, fraternal or athletic groups, or [...] place to sleep or slept in a [facility] (including now)? 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 - 01/22/2018 3:14 PM CDT Contacted patient, requested he contact [facility], where his MRI was done, to request they push it to the [facility] system, or mail a disk to the patient, to bring to the nearest [place] facility. Patient expressed understanding. Telephone Encounter - Nicole Scruggs L.P.N. - 01/22/2018 3:[address] Lindsey's office in [place] is referring this patient to neurosurgery for lumbar sacral radiculopathy. Requested for MRI to be pushed to our system. Have been checking daily for films. I left a message with Emily from Dr Lindsey's office to call our office regarding getting the films. documented in this encounter Plan of Treatment Not on filedocumented as of this encounter Visit Diagnoses Not on filedocumented in this encounter
--- OUTSIDE RECORDS SUMMARY | 2022-05-25 10:03 | XMS_ITS | Encounter Summary ---
:1940 Author Organization [facility] Address [address] [place] [address] Care Team Providers Name Role Phone Unavailable Primary Care Provider Unavailable Reason for Referral Outpatient (Routine) - Closed Specialty Diagnoses / Procedures Referred By Contact Refer red To Contact Neurology Wolf Acevedo M.B.BPerlaS. [facility] [address] [place] [phone] Referral ID Status Reason Start Date Expiration Date Visits Requ ested Visits Authorized [id number] Closed 06/19/2018 06/19/2019 1 1 ER Reason for Visit Outpatient (Routine) - Closed Specialty Diagnoses / Procedures Referred By Contact Refer red To Contact Neurology Diagnoses Paraparesis Spastic (HCC) Timmy Bardales M.B.B.S. [address] [phone] Referral ID Status Reason Start Date Expiration Date Visits Requ ested Visits Authorized [id number] Closed 05/07/2018 05/07/2019 1 1 Encounter Details Date Type Department Care Team Description 06/19/2018 Comprehensive Visit Department of Tevin Bardales M.B.B.S. [address] [place] [phone] Hemiplegia Nondominant Side Left (HCC) ( Primary Dx); Neurology in Wolf Acevedo M.B.B.S. [address] [place] [phone] Paraparesis Spastic (HCC); [place], [facility] [address] [place] [address] Social History Tobacco Use Types Packs/Day Years [...] or relatives? How often do you attend jain or religion More than 4 time s per year 01/14/2022 services? Do you belong to any clubs or organizations Yes 01/14/2022 such as jain groups, unions, fraternal or athletic groups, or [...] place to sleep or slept in a correction (including now)? Sex Assigned at Date Recorded Male 08/30/2018 2:45 PM BUDDER documented as of this encounter Consult Notes Wolf Acevedo M.B.B.S. - 06/19/2018 10:30 AM CST CHIEF COMPLAINT / REASON FOR VISIT Da Monk is a 77 y.o. male who presents for evaluation of left radha paresis and a righthemispheric white matter lesion. HISTORY OF PRESENT ILLNESS Mr. Monk is a very pleasant 77-year-old right-handed man appearing much younger than stated age, who comes into the Neurology movement disorders office today accompanied by his long-term partner Lisbet. He is a never smoker. He is very healthy with no chronic medical issues. 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 In the 1970s, both him and Lisbet developed an illness which he recalls was categorized by fever, flu- like symptoms, generalized weakness, however he does not remember aclear headache. No medical attention was sought however Lisbet did undergo evaluation and was diagnosed with encephalitis. He has also had a concussion while playing football in college. His travel history is remarkable for 5-6 trip to [facility] over a span of 10 years, most recently in 2016. Previous to that he has traveled to [facility] and [facility] where he used to teach. He has 2 sisters who are generally healthy. One brother in his 50s of cachexia of undetermined etiology. Father was healthy throughout most of his life, developed diabetes at an advanced age andprostate cancer. His mother had various GI ailments with no specific diagnosis that is known and developed cognitive decline during the last 5 years of her life. Current symptoms: Over the past 3-4 years he has developed an extremely insidious onset very slowly progressive left leg weakness. He initially noticed that he would slow down after walking with the dog, once hurt his foot at the beach and other similar rare instances which he recalls perhaps were markers of mild left leg weakness. This has become more prominent over the past year or so. The leg appears to drag and feels weak after walking for about 0.25 mi. Weakness is associated with intermittent numbness as well as tingling paresthesias that occur after any form of exertion. The symptoms are located in the bottom of her foot, lateral aspect of the foot and leg. This coincides with sensory deficit on examination. The tingling paresthesias are not migratory in nature. At night, he does have infrequent intermittent leg movements that are a response to restless sensation. He denies any involuntary rhythmic jerking or twitching motion to suggest seizure activity. In addition to this he has developed lower back pain which is worse with prolonged sitting such as in the theater. He is able to reposition himself and alleviate the pain to some extent. He is also engaged in extensive physical therapy, exercises, strength training, lifting weights and bicycling whichall help with muscle conditioning, pain and strength. His muscle weakness is mild enough that he is able to continue ambulating without a gait aid. He reports some element of neck discomfort and tingling with sustained neck hyperextension. Pertinent negatives: He denies headache, cognitive symptoms, episodes of loss of consciousness, loss of awareness or other episodes concerning for seizure activity, he has no issues with reading or writing, there are no vision changes, he denies any symptoms of dysarthria or dysphagia. There is some bladder and bowel urgency but no frequent incontinence. There are no cognitive, personality or behavioral changes. He denies any recent travel, infectious symptoms, fever, night sweats, unintentional weight loss. He does not have a known history of malignancy. He has never been exposed to immune modulatory drugs. REVIEW OF SYSTEMS: Da Monk's history was reviewed including allergies, current medications, review of systems, family history, medical and surgical history, social history, and problem list. PHYSICAL EXAM For details of the neurologic examination, please see the neurologic examination form. In summary: Normal mental status, speech, language. Cranial nerve examination is unremarkable. Motorexamination reveals mild spasticity in the left leg, brisk reflexes graded +2 in the left upper and lower limb, very mild upper motor neuron pattern of weakness in the left arm. Moderate weakness of the left iliopsoas, hamstrings, and anterior tibialis. Mild weakness of the quadriceps and medial gastrocnemius. Plantar responses flexor bilaterally. Rapid alternating movements are irregular, slow and consistent with the degree of weakness. On sensory examination, vibration is absent in the left leg atthe toe, ankle and knee but preserved in the right leg and upper limbs. Similarly superficial pain is reduced along the lateral aspect of the foot and leg. There is no sensory deficit in the upper limbs. There is no apraxia, cortical sensory neglect or agraphesthesia. 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 Monk presents with an at least 3-4 year history indolent progressive left spastic radha paresis and has been found to have a right hemispheric white matter lesion. This appears to be periventricular, spreading into the gyri primarily located within the white matter of the precentral sulcus affecting the leg area greater than the rest. The lesion is non expansile, does not appear to have mass effect, is nonenhancing and does not show diffusion restriction. The location of the lesion explained his symptoms. This has been a very slowly progressive process which would not fit the time course of an aggressive neoplasm, infectious, autoimmune or paraneoplastic process. However, indolent viral infections like MARLEN virus are consideration although he is Immune co mpetent. Lack of contrast enhancement makes and aggressive neoplasm less likely however certain indolent oligodendrogliomas may lack contrast enhancement. We will request our radiologist to interpret his MRI brain images. We will also undertake extensive serological and CSF evaluations for various differential diagnoses. I will discuss his imaging with my subspecialty colleagues in Neuro- Oncology as well as neuro immunology, and in conjunction with testresults as these return we will plan on the neck steps. Lastly, it is definitely possible that he had a remote COPY READER injury either as a consequence of the concussion or encephalitis which left him with very minimal well-compensated deficits. And that this has decompensated with aging. The only point against this theory is that the patient reports being very highly functional and really had no motor symptoms as a consequence of those events. In the interim, I encouraged him to continue physical exercise and ambulating in a very safe manner.His weakness is mild enough that he does not require a gait aid but if that became necessary we willconsider physical medicine and rehab referral. #3 Lumbar spinal stenosis MRI lumbar spine images reveal spinal canal stenosis. There is multilevel degenerative joint diseasein the spine. Some of the lower back pain is related to this. He does not have any active radicular symptoms. There is evidence of a remote L2 radiculopathy on EMG. I would defer management of his lower back pain to his primary care provider and to Dr. Bardales if surgical intervention is to be considered. PATIENT EDUCATION Ready to learn, no apparent learning barriers were identified; learning preferences include listening. Explained diagnosis and treatment plan; patient expressed understanding of the content. ER documented in this encounter Miscellaneous Notes Addendum Note - Wolf Acevedo M.B.B.S. - 06/19/2018 10:30 AM BUDDER Addended by: WOLF ACEVEDO on: 06/20/2018 11:49 AM Modules accepted: Orders ER documented in this encounter Plan of Treatment Scheduled Orders Name Type Priority Associated Diagnoses Order S chedule Lumbar puncture Neurology Routine Hemiplegia Nondominant Ex pected: 06/19/2018 neurology Side Left (HCC) (Approximate), Lesion Brain Expires: 2020 Scheduled Referrals Name Type Priority Associated Diagnoses Order S chedule Neurology office Outpatient Referral Routine Expe cted: visit (clinic) 06/19/2018 (Approximate), Expires: 06/19/2021 documented as of this encounter Procedures Procedure Name Priority Date/Time Associated Diagnosis Comme nts ANTINUCLEAR AB, Routine 06/19/2018 12:23 Hemiplegia Results for this HEP-2, SUBSTRATE, S PM BUDDER Nondominant Side proc edure are in Left (HCC) the results section. documented in this encounter Results MARLEN Virus PCR, CSF (06/24/2018 11:03 AM BUDDER) [employer] Method Time Signature MARLEN Virus PCR, Negative Negative 06/25/[address] [facility] CSF 3:01 PM BUDDER LAB[facility] - [facility] Comment: ----ADDITIONAL INFORMATION---- This test was developed and its performa nce characteristics determined by [facility] in a manner consistent with CLIA requirements. This test has not been cleared or approved by the U.S. Misha d and Drug Administration. Specimen Anatomical Collection Method Collection Time Receive d Time (Source) Location / / Volume Laterality Varies 06/24/2018 11:03 06/24/2018 (Cerebrospinal AM BUDDER 11:48 AM BUDDER Fluid) Wolf HoneycuttS. LAB MICROBIOLOGY - GENERAL O RDERABLES Performing Organization Address City/State/ZIP Code Phon e Number [facility] LABORATORIES - [address] [address] [facility] Ai Martinez Virus PCR (06/24/2018 11:03 AM BUDDER) [employer] Method Time Signature Specimen csf 06/25/[address] [facility] Source 3:15 PM BUDDER [facility] - [facility] Ai-Martinez Negative Negative 06/25/[address] [facility] Virus PCR 3:15 PM BUDDER [facility] - [facility] Comment: ----ADDITIONAL INFORMATION---- This test was developed using an analyte specific reagent. Its performance characteristics were determined by [facility] in a manner consistent with CLIA requirements. This test has not bee n cleared or approved by the U.S. Food and Drug Administration. Specimen Anatomical Collection Method Collection Time Receive d Time (Source) Location / / Volume Laterality Varies 06/24/2018 11:03 06/24/2018 (Cerebrospinal AM BUDDER 11:48 AM BUDDER Fluid) Wolf Terrell LAB MICROBIOLOGY - GENERAL O COLLEEN Performing Organization Address [facility] Phon e Number [facility] LABORATORIES - [address] Cytomegalovirus PCR (06/24/2018 11:03 AM BUDDER) [facility] gist Method Time Signature Specimen Source csf 06/24/[address] [facility] 11:19 PM LABORATORIES - [facility] Cytomegalovirus Negative Negative 06/24/[address] [facility] PCR 11:19 PM LABORATORIES - [facility] Comment: ----ADDITIONAL INFORMATION---- This test was developed and its performa nce characteristics determined by [facility] in a manner consistent with CLIA requirements. This test has not been cleared or approved by the U.S. Misha d and Drug Administration. Specimen Anatomical Collection Method Collection Time Receive d Time (Source) Location / / Volume Laterality Varies 06/24/2018 11:03 06/24/2018 (Cerebrospinal AM BUDDER 11:48 AM BUDDER Fluid) Wolf Terrell LAB MICROBIOLOGY - GENERAL Babita MACIAS Performing Organization Address [facility] Phon e Number [facility] LABORATORIES - [address] [address] [facility] Adenovirus PCR (06/24/2018 11:03 AM BUDDER) [facility] gist Method Time Signature Specimen csf 06/25/[address] [facility] Source 3:04 PM BUDDER LABORATORIES [facility] Adenovirus PCR Negative Negative 06/25/[address] [facility] 3:04 PM BUDDER [facility] - [facility] Comment: ----ADDITIONAL INFORMATION---- This test was developed and its performa nce characteristics determined by [facility] in a manner consistent with CLIA requirements. This test has not been cleared or approved by the U.S. Misha d and Drug Administration. Specimen Anatomical Collection Method Collection Time Receive d Time (Source) Location / / Volume Laterality Varies 06/24/2018 11:03 06/24/2018 (Cerebrospinal AM BUDDER 11:48 AM BUDDER Fluid) Wolf Terrell LAB MICROBIOLOGY - GENERAL O COLLEEN Performing Organization Address City/[facility]/ZIP Code Phon e Number [facility] LAB[facility]ATORIES - [address] [address] [facility] Broad Range Bacteria PCR+Sequencing (06/24/2018 11:03 AM BUDDER) [facility] Signature Broad Range CANCELED 07/18/[address] [facility] Bacteria 8:54 AM BUDDER LABORATORIES - PCR+Sequencing [facility] Comment: BRBPS was cancelled on 07/18/2018 at 08: 54 by [id number]; Due to assay failure. Quantity not sufficient to complete testing. Result canceled by the ancillary Specimen (Source) Anatomical Collection Method Collection Time Re ceived Time Location / / Volume Laterality Cerebrospinal Fluid 06/24/2018 11:03 1209/2017 (Cerebrospinal AM BUDDER 11:48 AM BUDDER Fluid) Comment: Specimen Source Site: Cerebrosp inal Fluid Wolf Terrell LAB MICROBIOLOGY - GENERAL O COLLEEN Performing Organization Address [facility] Phon e Number [facility] LABORATORIES - [address] Lyme COPY READER Infection IgG w/ Al Reflex (06/24/2018 11:03 AM BUDDER) [employer] Method Time Signature Lyme COPY READER Negative Negative 06/28/[address] [facility] Infection 1:11 PM BUDDER SUPERIOR IgG, CSF [facility] Lyme COPY READER SEE COMMENT 06/28/[address] [facility] Infection IgG 1:11 PM BUDDER [facility]PER[facility] Inter[address] [facility] Comment: No antibodies to Lyme Borrelia species [...] and its performa nce characteristics determined by [facility] in a manner co nsistent with CLIA requirements. This test has not bee n cleared or approved by the U.S. Food and Drug Admin istration. Lyme COPY READER Infection IgG, SEE COMMENT 06/28/2018 1:11 PM BUDDER [facility] Comment: CSF screen was negative for IgG-class an tibodies to Lyme Borrelia species. Testing for IgG-c lass antibodies to Borrelia in serum is not indicated an d was not performed. Specimen Anatomical Collection Method Collection Time Receive d Time (Source) Location / / Volume Laterality Blood 06/24/2018 11:03 06/26/2018 9:14 (Cerebrospinal AM BUDDER AM BUDDER Fluid) Narrative [facility] - 07/18/2018 8:54 AM BUDDER Specimen Information: Specimen ID: [id number] Specimen Type: Blood Specimen Collection Start Date: 06/24/20 11:03 AM Specimen Received Date: 06/26/2018 ??9:1 4 AM Specimen ID: [id number] Specimen Type: Cerebrospinal Fluid Specimen Collection Start Date: 06/24/20 11:04 AM Specimen Received Date: 06/24/2018 ??1:2 7 PM Wolf HoneycuttSPerla LAB BODY FLUIDS AND STOOLS O COLLEEN Performing Organization Address City/State/ZIP Code Phon e Number [facility] [address] [place] [address] Tropheryma whipplei PCR (06/24/2018 11:03 AM BUDDER) [facility] Method Time Signature Specimen csf 06/26/[address] [facility] Source 12:04 PM LABORATORIES - BUDDER [facility] Tropheryma Negative Not 06/26/[address] [facility] whipplei PCR, Applicable 12:04 PM LABORATORIES - Result [facility] Comment: ----ADDITIONAL INFORMATION---- This test was developed and its performa nce characteristics determined by [facility] in a manner consistent with CLIA requirements. This test has not been cleared or approved by the U.S. Misha d and Drug Administration. Specimen Anatomical Collection Method Collection Time Receive d Time (Source) Location / / Volume Laterality Varies 06/24/2018 11:03 06/24/2018 (Cerebrospinal AM BUDDER 11:48 AM BUDDER Fluid) Wolf Terrell LAB MICROBIOLOGY - GENERAL O RDERABLES Performing Organization Address City/[facility]/ZIP Code Phon e Number [facility] LABORATORIES - [address] [place], [place] [address] [facility] Varicella-Zoster Virus PCR (06/24/2018 11:03 AM BUDDER) [facility] Method Time Signature Specimen csf 06/24/[address] [facility] Source 8:48 PM BUDDER [facility] - [facility] Varicella-Zos Negative Negative 06/24/[address] [facility] ter Virus PCR 8:48 PM BUDDER [facility] - [facility] Comment: ----ADDITIONAL INFORMATION---- This test was developed and its performa nce characteristics determined by [facility] in a manner consistent with CLIA requirements. This test has not been cleared or approved by the U.S. Misha d and Drug Administration. Specimen Anatomical Collection Method Collection Time Receive d Time (Source) Location / / Volume Laterality Varies 06/24/2018 11:03 06/24/2018 (Cerebrospinal AM BUDDER 11:48 AM BUDDER Fluid) Wolf Terrell LAB MICROBIOLOGY - GENERAL O RDERABLES Performing Organization Address [facility] Code Phon e Number [facility] LABORATORIES - [address] [address] [facility] Fungal Smear (06/24/2018 11:03 AM BUDDER) Component Value Ref Test Analysis [facility] At [facility] Range Method Time Signature Fungal Smear Negative. 06/24/[address] [facility] If Cryptococcus neoformans meningitis is suspected, 4:02 PM BUDDER LABORATORIES - the cryptococcal antigen test has greater sensitivity [facility] than smear. [place] Specimen (Source) Anatomical Collection Method Collection Time Re ceived Time Location / / Volume Laterality Cerebrospinal Fluid 06/24/2018 11:03 1209/2017 (Cerebrospinal AM BUDDER 11:48 AM BUDDER Fluid) Comment: Specimen Source Site: Cerebrosp inal Fluid Wolf Terrell LAB MICROBIOLOGY - GENERAL O RDERABLES Performing Organization Address City/[facility]/ZIP Code Phon e Number [facility] LABORATORIES - [address] [address] [facility] Encephalopathy, Autoimmune Evaluation, CSF (06/24/2018 11:03 AM BUDDER) [facility] Method Time Signature Encephalopathy see below 07/03/[address] [facility] , 11:03 AM BUDDER LABORATORIES - Interpretation [facility] , [facility] Comment: No informative autoantibodies were detec jj in this evaluation. However, a negative result does not exclude autoimm une encephalopathy, idiopathic or paraneoplastic. Sensitivity and specific ity of antibody testing are enhanced by testing both serum and CSF. NMDA-R Ab CBA, CSF Negative Negative 07/03/2018 11:04 AM [facility] Comment: ----ADDITIONAL INFORMATION---- This test was developed and its performa nce characteristics determined by [facility] in a manner consistent with CLIA requirements. This test has not been cleared or approved by the U.[place]. Misha d and Drug Administration. VGKC-complex Ab IPA, 0.00 0.00 - 0.02 07/03/2018 11:[address] [facility] CSF nmol/L [facility] Comment: ----ADDITIONAL INFORMATION---- This test was developed and its performa nce characteristics determined by [facility] in a manner consistent with CLIA requirements. This test has not been cleared or approved by the U.[place]. Misha d and Drug Administration. LGI1-IgG CBA, CSF Negative Negative 07/03/2018 11:04 AM [facility] Comment: ----ADDITIONAL INFORMATION---- This test was developed and its performa nce characteristics determined by [facility] in a manner consistent with CLIA requirements. This test has not been cleared or approved by the U.[place]. Misha d and Drug Administration. CASPR2-IgG CBA, CSF Negative Negative 07/03/2018 11:04 AM [facility] Comment: ----ADDITIONAL INFORMATION---- This test was developed and its performa nce characteristics determined by [facility] in a manner consistent with CLIA requirements. This test has not been cleared or approved by the U.[place]. Misha d and Drug Administration. GAD65 Ab Assay, 0.00 <=0.02 nmol/L 07/03/2018 11:[address] [facility] CSF [facility] Comment: ----ADDITIONAL INFORMATION---- This test was developed and its performa nce characteristics determined by [facility] in a manner consistent with CLIA requirements. This test has not been cleared or approved by the U.[place]. Misha d and Drug Administration. JESSICA-B-R Ab CBA, Negative Negative 07/03/2018 11:04 AM [facility] Comment: ----ADDITIONAL INFORMATION---- This test was developed and its performa nce characteristics determined by [facility] in a manner consistent with CLIA requirements. This test has not been cleared or approved by the U.[place]. Misha d and Drug Administration. AMPA-R Ab CBA, CSF Negative Negative 07/03/2018 11:04 AM [facility] Comment: ----ADDITIONAL INFORMATION---- This test was developed and its performa nce characteristics determined by [facility] in a manner consistent with CLIA requirements. This test has not been cleared or approved by the U.[place]. Misha d and Drug Administration. JAVON-1, CSF Negative <1:2 titer 07/03/2018 11:04 AM [facility] Reflex Added None. 07/03/2018 11:04 AM [facility] Comment: ----ADDITIONAL INFORMATION---- This test was developed and its performa nce characteristics determined by [facility] in a manner consistent with CLIA requirements. This test has not been cleared or approved by the U.S. Misha d and Drug Administration. JAVON-2, CSF Negative <1:2 titer 07/03/2018 11:04 AM [facility] Comment: ----ADDITIONAL INFORMATION---- This test was developed and its performa nce characteristics determined by [facility] in a manner consistent with CLIA requirements. This test has not been cleared or approved by the U.S. Misha d and Drug Administration. JAVON-3, CSF Negative <1:2 titer 07/03/2018 11:04 AM [facility] Comment: ----ADDITIONAL INFORMATION---- This test was developed and its performa nce characteristics determined by [facility] in a manner consistent with CLIA requirements. This test has not been cleared or approved by the U.S. Misha d and Drug Administration. AGNA-1, CSF Negative <1:2 titer 07/03/2018 11:04 AM [facility] Comment: ----ADDITIONAL INFORMATION---- This test was developed and its performa nce characteristics determined by [facility] in a manner consistent with CLIA requirements. This test has not been cleared or approved by the U.S. Misha d and Drug Administration. ROAD REPAIRER-1, CSF Negative <1:2 titer 07/03/2018 11:04 AM [facility] Comment: ----ADDITIONAL INFORMATION---- This test was developed and its performa nce characteristics determined by [facility] in a manner consistent with CLIA requirements. This test has not been cleared or approved by the U.S. Misha d and Drug Administration. ROAD REPAIRER-2, CSF Negative <1:2 titer 07/03/2018 11:04 AM [facility] Comment: ----ADDITIONAL INFORMATION---- This test was developed and its performa nce characteristics determined by [facility] in a manner consistent with CLIA requirements. This test has not been cleared or approved by the U.S. Misha d and Drug Administration. ROAD REPAIRER-Tr, CSF Negative <1:2 titer 07/03/2018 11:04 AM [facility] Comment: ----ADDITIONAL INFORMATION---- This test was developed and its performa nce characteristics determined by [facility] in a manner consistent with CLIA requirements. This test has not been cleared or approved by the U.S. Misha d and Drug Administration. Amphiphysin Ab, CSF Negative <1:2 titer 07/03/2018 11:04 AM [facility] Comment: ----ADDITIONAL INFORMATION---- This test was developed and its performa nce characteristics determined by [facility] in a manner consistent with CLIA requirements. This test has not been cleared or approved by the U.S. Misha d and Drug Administration. CRMP-5-IgG, CSF Negative <1:2 titer 07/03/2018 11:04 AM [facility] Comment: ----ADDITIONAL INFORMATION---- This test was developed and its performa nce characteristics determined by [facility] in a manner consistent with CLIA requirements. This test has not been cleared or approved by the U.S. Misha d and Drug Administration. Specimen (Source) Anatomical Collection Method Collection Time Re ceived Time Location / / Volume Laterality Cerebrospinal Fluid 06/24/2018 11:03 12/0 09/2017 (Cerebrospinal AM BUDDER 12:00 PM BUDDER Fluid) Narrative This result has an attachment that is no t available. Wolf Terrell LAB BODY FLUIDS AND STOOLS O COLLEEN Performing Organization Address City/State/ZIP Code Phon e Number [facility] - [address] [place], [place] [address] [facility] Cerebrospinal Fluid (CSF) IgG Index (06/24/2018 11:03 AM BUDDER) athologist Signature IgG Index, CSF 0.55 <=0.85 06/25/[address] [facility] 1:32 PM [facility] IgG, CSF 4.2 <=8.1 06/25/[address] [facility] mg/dL 1:32 PM [facility] Comment: ----ADDITIONAL INFORMATION---- This test has been modified from the [facility]. Its performance characteri stics were determined by [facility] in a manner co nsistent with CLIA requirements. This test has not bee n cleared or approved by the U.S. Food and Drug Admin istration. Albumin, CSF 24.9 <=27.0 mg/dL 06/25/2018 1:21 PM CS T [facility] Comment: ----ADDITIONAL INFORMATION---- This test has been modified from the [facility] instructions. Its performance characteri stics were determined by [facility] in a manner co nsistent with CLIA requirements. This test has not bee n cleared or approved by the U.S. Food and Drug Admin istration. IgG/Albumin, CSF 0.17 <=0.21 06/25/2018 1:[address] [facility] Synthesis Rate, CSF 1.81 <=12 mg/24 h 06/25/2018 1:[address] [facility] Immunoglobulin G (IgG), 1230 767 - 1590 06/25/2018 1:[address] [facility] S mg/dL [facility] Albumin, S 3920 3200 - 4800 06/25/2018 1:07 PM [facility] mg/dL [facility] IgG/Albumin, S 0.31 <=0.40 06/25/2018 1:07 PM [place] [facility] Specimen Anatomical Collection Method Collection Time Receive d Time (Source) Location / / Volume Laterality Blood 06/24/2018 11:03 06/24/2018 (Cerebrospinal AM BUDDER 11:57 AM BUDDER Fluid) Narrative [facility] - 06/25/2018 1:32 PM BUDDER Specimen Information: Specimen ID: [id number] Specimen Type: Blood Specimen Collection Start Date: 06/24/20 18 11:03 AM Specimen Received Date: 06/24/2018 11:57 AM Specimen ID: [id number] Specimen Type: Cerebrospinal Fluid Specimen Collection Start Date: 06/24/20 11:04 AM Specimen Received Date: 06/24/2018 11:59 AM Wolf Terrell LAB BODY FLUIDS AND STOOLS O RDERABLES Performing Organization Address City/State/ZIP Code Phon e Number [facility] - [address] [place] [address] [facility] Oligoclonal Banding, Serum and CSF (06/24/2018 11:03 AM BUDDER) Patholo gist Method Time Signature CSF Bands 1 bands 06/26/[address] [facility] 8:16 AM [facility] CSF Olig Bands 0 <4 bands 06/26/[address] [facility] Interpretation 8:16 AM [facility] Comment: The oligoclonal band assay detected 3 or fewer unique IgG bands in the CSF. ?? This is a negative result. Serum Bands 1 bands 06/26/2018 8:16 AM BUDDER [facility] Specimen Anatomical Collection Method Collection Time Receive d Time (Source) Location / / Volume Laterality Blood 06/24/2018 11:03 06/24/2018 (Cerebrospinal AM BUDDER 11:57 AM BUDDER Fluid) Narrative [facility] - 06/26/2018 8:16 AM BUDDER Specimen Information: Specimen ID: [id number] Specimen Type: Blood Specimen Collection Start Date: 06/24/20 11:03 AM Specimen Received Date: 06/24/2018 11:57 AM Specimen ID: [id number] Specimen Type: Cerebrospinal Fluid Specimen Collection Start Date: 06/24/20 18 11:04 AM Specimen Received Date: 06/24/2018 11:59 AM Wolf Terrell LAB BODY FLUIDS AND STOOLS O COLLEEN Performing Organization Address City/[facility]/ZIP Code Phon e Number [facility] LABORATORIES - [address] [address] [facility] Enterovirus PCR (06/24/2018 11:03 AM BUDDER) [facility] Cangrade Method Time Signature Specimen Source csf 06/24/[address] [facility] 11:13 PM BUDDER LABORATORIES - [facility] Enterovirus PCR Negative Negative 06/24/[address] [facility] 11:13 PM BUDDER LABORATORIES - [facility] Comment: ----ADDITIONAL INFORMATION---- This test was developed and its performa nce characteristics determined by [facility] in a manner consistent with CLIA requirements. This test has not been cleared or approved by the U.S. Misha d and Drug Administration. Specimen Anatomical Collection Method Collection Time Receive d Time (Source) Location / / Volume Laterality Varies 06/24/2018 11:03 06/24/2018 (Cerebrospinal AM BUDDER 11:48 AM BUDDER Fluid) Wolf Terrell LAB MICROBIOLOGY - GENERAL O COLLEEN Performing Organization Address [facility]/ZIP Code Phon e Number [facility] LABORATORIES - [address] Cryptococcus Antigen with Reflex, LFA, CSF (06/24/2018 11:03 AM BUDDER) [facility] Cangrade Method Time Signature Cryptococcus Ag Negative Negative 06/24/[address] [facility] Screen w/Titer, 4:17 PM BUDDER [address] [facility] Comment: A single negative result does not exclud e the diagnosis of cryptococcosis. ----ADDITIONAL INFORMATION---- This assay was performed using the FDA-c leared [employer] Cryptococcus Antigen Lateral Flow Assay. Specimen (Source) Anatomical Collection Method Collection Time Re ceived Time Location / / Volume Laterality Cerebrospinal Fluid 06/24/2018 11:03 1209/2017 (Cerebrospinal AM BUDDER 1:49 PM BUDDER Fluid) Wolf Terrell LAB MICROBIOLOGY - GENERAL O COLLEEN Performing Organization Address City/[facility]/ZIP Code Phon e Number [facility] [address] [place] [address] [facility] Gram Stain (06/24/2018 11:03 AM BUDDER) [facility] gist Method Time Signature Gram Stain No organisms 06/24/[address] [facility] seen. 12:33 PM BUDDER LABORATORIES - [facility] Specimen (Source) Anatomical Collection Method Collection Time Re ceived Time Location / / Volume Laterality Cerebrospinal Fluid 06/24/2018 11:03 1209/2017 (Cerebrospinal AM BUDDER 11:48 AM BUDDER Fluid) Comment: Specimen Source Site: Cerebrosp inal Fluid Wolf HoneycuttSPerla LAB MICROBIOLOGY - GENERAL O RDERABLES Performing Organization Address City/[facility]/ZIP Code Phon e Number [facility] LABORATORIES - [address] [place] [address] [facility] Malignant Cells, CSF (06/24/2018 11:03 AM BUDDER) Component Value Ref Test Analysis Performed At [facility] Range Method Time Signature Report Arash Rodriguez M.D. 06/24/2018 [facility] ANTHONY electronically I verify that I have examined all relevant slides/ma terials 12:45 PM LABORATORIES - signed by for the specimen(s) and rendered or confirmed the diagnosi s. [facility] 06/24/[address] [facility] 12:45 PM LABORATORIES - [facility] Gross Description Received 5 cc of 06/24/[address] [facility] clear fluid. 12:45 PM LABORATORIES - [facility] Source Cerebrospinal 06/24/[address] [facility] Fluid, 12:45 PM LABORATORIES - Cerebrospinal [facility] Clinical History brain lesion 06/24/2018 [facility] 12:45 PM LABORATORIES - [facility] Interpretation A. Cerebrospinal , Fluid (cytospin): ?? Negative for 06/24/[address] [facility] malignancy. 12:45 PM LABORATORIES - A Fitzpatrick-Giemsa stained slide of the fluid is examined. No [facility] malignant cells are seen. The cell count is low. CAMPUS Specimen Anatomical Collection Method Collection Time Receive d Time (Source) Location / / Volume Laterality Fluid 06/24/2018 11:03 06/24/2018 (Cerebrospinal AM BUDDER 11:31 AM BUDDER Fluid) Narrative This result has an attachment that is no t available. Wolf Terrell LAB SURG PATH ORDERABLES Performing Organization Address City/State/ZIP Code Phon e Number [facility] LABORATORIES - [address] [place] [address] [facility] West Nile Virus (WNV) Antibody, IgG and IgM, CSF, (Preferred) (06/24/2018 11:02 AM BUDDER) Patholo gist Method Time Signature West Nile Virus Negative Negative 06/24/[address] [facility] Ab, IgG, CSF 8:[address] [facility] West Nile Virus Negative Negative 06/25/[address] [facility] Ab, IgM, CSF 1:[address] [facility] Interpretation SEE COMMENT 06/25/[address] [facility] 1:[address] [facility] Comment: No antibodies to WNV detected. ??Repeat testing in 10-14 days if clinical suspicion persists. ----ADDITIONAL INFORMATION---- This test has been modified from the man evangelistr's instructions. Its performance characteri stics were determined by [facility] in a manner co nsistent with CLIA requirements. This test has not bee n cleared or approved by the U.S. Food and Drug Admin istration. Specimen (Source) Anatomical Collection Method Collection Time Re ceived Time Location / / Volume Laterality Cerebrospinal Fluid 06/24/2018 11:02 12/0 09/2017 (Cerebrospinal AM BUDDER 1:27 PM BUDDER Fluid) Wolf Terrell LAB MICROBIOLOGY - GENERAL O RDERABLES Performing Organization Address City/State/ZIP Code Phon e Number [facility] [address] [place], [place] [address] [facility] Arbovirus Antibody Panel, IgG and IgM, CSF (06/24/2018 11:02 AM BUDDER) P athologist Signature [place] <1:10 <1:10 06/25/[address] [facility] Encep Ab, 2:[address] IgG,CSF [facility] [place] <1:10 <1:10 06/25/[address] [facility] Encep Ab, 2:[address] IgM,CSF [facility] Comment: ----ADDITIONAL INFORMATION---- This test was developed and its performa nce characteristics determined by [facility] in a manner consistent with CLIA requirements. This test has not been cleared or approved by the U.S. Misha d and Drug Administration. [place] Enceph Ab, <1:10 <1:10 06/25/2018 2:40 P M BUDDER [facility] IgG, CSF DR[facility] [place] Enceph Ab, <1:10 <1:10 06/25/2018 2:40 P M BUDDER [facility] IgM, CSF [facility] Comment: ----ADDITIONAL INFORMATION---- This test was developed and its performa nce characteristics determined by [facility] in a manner consistent with CLIA requirements. This test has not been cleared or approved by the U.S. Misha d and Drug Administration. [place] Enceph Ab, <1:10 <1:10 06/25/2018 2:40 PM BUDDER [facility] IgG, CSF DRIVE [facility] [place] Enceph Ab, <1:10 <1:10 06/25/2018 2:40 PM BUDDER [facility] IgM, CSF [facility] Comment: ----ADDITIONAL INFORMATION---- This test was developed and its performa nce characteristics determined by [facility] in a manner consistent with CLIA requirements. This test has not been cleared or approved by the U.S. Misha d and Drug Administration. [place] Enceph Ab, <1:10 <1:10 06/25/2018 2:40 P M BUDDER [facility] IgG, CSF [facility] [place] Enceph Ab, <1:10 <1:10 06/25/2018 2:40 P M BUDDER [facility] IgM, CSF [facility] Comment: ----ADDITIONAL INFORMATION---- This test was developed and its performa nce characteristics determined by [facility] in a manner consistent with CLIA requirements. This test has not been cleared or approved by the U.S. Misha d and Drug Administration. Specimen (Source) Anatomical Collection Method Collection Time Re ceived Time Location / / Volume Laterality Cerebrospinal Fluid 06/24/2018 11:02 12/0 09/2017 (Cerebrospinal AM BUDDER 2:04 PM BUDDER Fluid) Wofl Terrell LAB BODY FLUIDS AND STOOLS O RDERABLES Performing Organization Address City/State/ZIP Code Phon e Number [facility] [address] [place], [place] [address] Herpes Simplex Virus, PCR, CSF (06/24/2018 11:02 AM BUDDER) Patholo gist Method Time Signature HSV 1 PCR, C Negative Negative 06/24/[address] [facility] 4:41 PM BUDDER LABORATORIES - [facility] HSV 2 PCR, C Negative Negative 06/24/[address] [facility] 4:41 PM BUDDER LABORATORIES - [facility] Specimen (Source) Anatomical Collection Method Collection Time Re ceived Time Location / / Volume Laterality Cerebrospinal Fluid 06/24/2018 11:02 09/2017 (Cerebrospinal AM BUDDER 11:48 AM BUDDER Fluid) Wolf HoneycuttSPerla LAB MICROBIOLOGY - GENERAL O COLLEEN Performing Organization Address City/State/ZIP Code Phon e Number [facility] LABORATORIES - [address] [place] [address] [facility] VDRL, CSF (06/24/2018 11:02 AM BUDDER) P athologist Signature VDRL, CSF Negative Negative 06/25/[address] [facility] 1:[address] [facility] Specimen (Source) Anatomical Collection Method Collection Time Re ceived Time Location / / Volume Laterality Cerebrospinal Fluid 06/24/2018 11:02 09/2017 (Cerebrospinal AM BUDDER 1:49 PM BUDDER Fluid) Wolf HoneycuttSPerla LAB BODY FLUIDS AND STOOLS O COLLEEN Performing Organization Address City/[facility]/ZIP Code Phon e Number [facility] [address] [place] [address] [facility] Glucose, CSF (06/24/2018 11:02 AM BUDDER) P athologist Signature Glucose, CSF 56 mg/dL 06/24/[address] [facility] 12:26 PM BUDDER LABORATORIES - [facility] Comment: ----REFERENCE VALUE---- CSF glucose concentration should be approximately 60% of the plasma /serum concentration and should be compared with concurrently measured plasma /serum glucose for adequate clinical interpretation. Specimen (Source) Anatomical Collection Method Collection Time Re ceived Time Location / / Volume Laterality Cerebrospinal Fluid 06/24/2018 11:02 09/2017 (Cerebrospinal AM BUDDER 11:17 AM BUDDER Fluid) Wolf HoneycuttSPerla LAB BODY FLUIDS AND STOOLS O COLLEEN Performing Organization Address City/[facility]/ZIP Code Phon e Number [facility] LABORATORIES - [address] [place], [place] [address] [facility] (ABNORMAL) Protein, Total, CSF (06/24/2018 11:02 AM BUDDER) Analysis Performed At Patho logist Time Signature Protein, 65 (H) 0 - 35 06/24/[address] [facility] Total, CSF mg/dL 12:26 PM BUDDER LABORATORIES [facility] Specimen (Source) Anatomical Collection Method Collection Time Re ceived Time Location / / Volume Laterality Cerebrospinal Fluid 06/24/2018 11:02 12/0 09/2017 (Cerebrospinal AM BUDDER 11:17 AM BUDDER Fluid) Wolf Terrell LAB BODY FLUIDS AND STOOLS O RDERABLES Performing Organization Address City/[facility]/ZIP [facility] Phon e Number [facility] LABORATORIES - [address] [place] [address] [facility] Thyroid Function [place] (06/19/2018 12:33 PM BUDDER) athologist Signature TSH, Sensitive 2.0 0.3 - 4.2 06/19/[address] [facility] mIU/L 2:21 PM BUDDER [facility] Specimen Anatomical Collection Method Collection Time Receive d Time (Source) Location / / Volume Laterality Blood (Blood, 06/19/2018 12:33 06/19/2018 Venous) PM BUDDER 12:55 PM BUDDER Wolf HoneycuttSPerla LAB BLOOD ADD-ON Performing Organization Address City/[facility]/ZIP Code Phon e Number [facility] LABORATORIES - [address] [place] [address] [facility] Pernicious Anemia [place] (06/19/2018 12:33 PM BUDDER) P athologist Signature Vitamin B12 400 180 - 914 06/19/[address] [facility] Assay, S ng/L 6:[address] [facility] Comment: B-12 <400; MMA test was perform ed. Specimen Anatomical Collection Method Collection Time Receive d Time (Source) Location / / Volume Laterality Blood (Blood, 06/19/2018 12:33 06/19/2018 3:30 Venous) PM BUDDER PM BUDDER Wolf HoneycuttSPerla LAB BLOOD NON ADD-ON Performing Organization Address City/[facility]/ZIP Code Phon e Number [facility] [address] [place] [address] [facility] Vitamin E (06/19/2018 12:33 PM BUDDER) athologist Signature A-Tocopherol, 11.4 5.5 - 17.0 06/20/[address] [facility] Vitamin E mg/L 1:55 PM BUDDER [facility] Comment: ----ADDITIONAL INFORMATION---- This test was developed and its performa nce characteristics determined by [facility] in a manner consistent with CLIA requirements. This test has not been cleared or approved by the U.S. Misha d and Drug Administration. Specimen Anatomical Collection Method Collection Time Receive d Time (Source) Location / / Volume Laterality Blood (Blood, 06/19/2018 12:33 06/19/2018 4:24 Venous) PM BUDDER PM BUDDER Wolf Terrell LAB BLOOD NON ADD-ON Performing Organization Address City/[facility]/ZIP Code Phon e Number [facility] [address] [place] [address] (ABNORMAL) Zinc (06/19/2018 12:33 PM BUDDER) athologist [facility] Zinc, S 0.60 (L) 0.66 - 1.10 06/19/[address] [facility] mcg/mL 8:33 PM BUDDER [facility] Comment: ----ADDITIONAL INFORMATION---- This test was developed and its performa nce characteristics determined by [facility] in a manner consistent with CLIA requirements. This test has not been cleared or approved by the U.S. Misha d and Drug Administration. Specimen Anatomical Collection Method Collection Time Receive d Time (Source) Location / / Volume Laterality Blood (Blood, 06/19/2018 12:33 06/19/2018 3:25 Venous) PM BUDDER PM BUDDER Wolf Terrell LAB BLOOD NON ADD-ON Performing Organization Address City/State/ZIP Code Phon e Number [facility] [address] [place] [address] [facility] [place] Thiamine (Vitamin B1), Whole Blood (06/19/2018 12:33 PM BUDDER) athologist Signature Thiamine 109 70 - 180 06/20/[address] [facility] (Vitamin B1), nmol/L 1:10 PM BUDDER [facility] Comment: ----ADDITIONAL INFORMATION---- This test was developed and its performa nce characteristics determined by [facility] in a manner consistent with CLIA requirements. This test has not been cleared or approved by the U.S. Misha d and Drug Administration. Specimen Anatomical Collection Method Collection Time Receive d Time (Source) Location / / Volume Laterality Blood (Blood, 06/19/2018 12:33 06/19/2018 3:32 Venous) PM BUDDER PM BUDDER Wolf Terrell LAB BLOOD NON ADD-ON Performing Organization Address City/State/ZIP Code Phon e Number [facility] [address] [place], [place] [address] [facility] (ABNORMAL) Monoclonal Gammopathy Screen (06/19/2018 12:33 PM BUDDER) Component Value Ref Test Analysis Performed At [facility] gist Range Method Time Signature Total 7.5 6.3 - [facility] Protein, S 7.9 8 2:25 PM LABORATORIES g/dL [facility] [place] [employer] 2.30 (H) 0.3300 [facility] [facility] Light Chain, - 1.94 8 7:41 PM LABORATORIES S mg/dL [facility] Lambda Free 1.[address] [facility] Light Chain, - 2.63 8 7:38 PM LABORATORIES S mg/dL [facility] Olmito And Olmito/Lambda 1.27 0.[address] [facility] FLC Ratio - 1.65 8 7:41 PM LABORATORIES [facility] Albumin 3.7 3.4 - [facility] 4.7 8 11:55 LABORATORIES g/dL AM [facility] Alpha-1 0.2 0.1 - [facility] Globulin 0.3 8 11:55 LABORATORIES g/dL AM [facility] Alpha-2 1.0 0.6 - [facility] Globulin 1.0 8 11:55 LABORATORIES g/dL AM [facility] Beta-Globuli 1.0 0.7 - [facility] n 1.2 8 11:55 LABORATORIES g/dL AM [facility] Gamma-Globul 1.7 (H) 0.6 - [facility] in 1.6 8 11:55 LABORATORIES g/dL AM [facility] A/G Ratio 0.[address] 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 See Isotype. 8 11:55 LABORATORIES AM [facility] M-protein No monoclonal protein [facility] Isotype detected. 8 4:48 PM LABORATORIES MALDI-TOF MS [facility] Comment: ----ADDITIONAL INFORMATION---- The submitted sample was assayed by five separate immunopurifications for IgG, IgA, IgM, kappa and lambda. ??The r esult reflects the findings of either no monoclonal protein detected or those monoclonal immunoglobulins that were detected. This test was developed and its performa nce characteristics determined by [facility] in a manner consistent with CLIA requirements. This test has not been cleared or approved by the U.[place]. Misha d and Drug Administration. Specimen Anatomical Collection Method Collection Time Receive d Time (Source) Location / / Volume Laterality Blood (Blood, 06/19/2018 12:33 06/19/2018 1:43 Venous) PM BUDDER PM BUDDER Wolf HoneycuttS. LAB BLOOD ADD-ON Performing Organization Address City/[facility] Code Phon e Number [facility] LABORATORIES - [address] CRP (C-Reactive Protein) (06/19/2018 12:33 PM BUDDER) P athologist Signature C-Reactive 7.2 <=8.0 mg/L 06/19/[address] [facility] Protein (CRP), 2:21 PM BUDDER [facility] Specimen Anatomical Collection Method Collection Time Receive d Time (Source) Location / / Volume Laterality Blood (Blood, 06/19/2018 12:33 06/19/2018 Venous) PM BUDDER 12:55 PM BUDDER Wolf HoneycuttS. LAB BLOOD ADD-ON Performing Organization Address City/[facility] Phon e Number [facility] LABORATORIES - [address] CMP (Comprehensive Metabolic Panel) (06/19/2018 12:33 PM BUDDER) Analysis Performed At Patho logist Time Signature Potassium, S 4.4 3.6 - 5.2 06/19/[address] [facility] mmol/L 2:21 PM [facility] Sodium, S 141 135 - 145 06/19/[address] [facility] mmol/L 2:21 PM [facility] Chloride, S 101 98 - 107 06/19/[address] [facility] mmol/L 2:21 PM [facility] Bicarbonate, S 27 22 - 29 06/19/[address] [facility] mmol/L 2:21 PM [facility] Anion Gap 13 7 - 15 06/19/[address] [facility] 2:21 PM [facility] BUN (Blood Urea 13 8 - 24 06/19/[address] [facility] Nitrogen), S mg/dL 2:21 PM [facility] Creatinine 0.91 0.74 - 06/19/[address] [facility] 1.35 mg/dL 2:21 PM [facility] eGFR-Non 80 >=60 06/19/[address] [facility] Black/ mL/min/BSA 2:[address] [facility] Comment: ----ADDITIONAL INFORMATION---- Estimated GFR calculated using the 2009 CKD_EPI creatinine equation. eGFR-Black/ >90 >=60 mL/min/BSA 06/19/2018 2:21 [facility] Comment: ----ADDITIONAL INFORMATION---- Estimated GFR calculated using the 2009 CKD_EPI creatinine equation. Calcium, Total, S 9.2 8.8 - 10.2 06/19/2018 2:21 PM [facility] mg/dL [facility] Glucose, S 98 70 - 140 mg/dL 06/19/2018 2:[address] [facility] Protein, Total, S 7.4 6.3 - 7.9 g/dL 06/19/2018 2:[address] [facility] Albumin, S 4.5 3.5 - 5.0 g/dL 06/19/2018 2:[address] [facility] Aspartate 21 8 - 48 U/L 06/19/2018 2[facility] [facility] Amin[facility] (AST), S [facility] Alkaline Phosphatase, S 72 40 - 129 U/L 06/19/2018 2: [address] [facility] Alanine Aminotransferase 16 7 - 55 U/L 06/19/2018 2:[address] [facility] (ALT), S [facility] LABORATORIES [facility] Bilirubin, Total, S 0.5 <=1.2 mg/dL 06/19/2018 2:21 PM [facility] Specimen Anatomical Collection Method Collection Time Receive d Time (Source) Location / / Volume Laterality Blood (Blood, 06/19/2018 12:33 06/19/2018 Venous) PM BUDDER 12:55 PM BUDDER Wolf Terrell LAB BLOOD ADD-ON Performing Organization Address City/State/ZIP Code Phon e Number [facility] LABORATORIES - [address] [place] [address] 05 [facility] (ABNORMAL) 25-Hydroxyvitamin D2 and D3 (06/19/2018 12:33 PM BUDDER) athologist Signature 25-Hydroxy D2 <4.0 ng/mL 06/21/[address] [facility] 11:26 AM [facility] 25-Hydroxy D3 14 ng/mL 06/21/[address] [facility] 11:26 AM [facility] 25-Hydroxy D 14 (L) ng/mL 06/21/[address] [facility] Total 11:26 AM [facility] Comment: Interpretation: 10-19 ng/mL (mild to mod erate deficiency) ----REFERENCE VALUE---- 25-HYDROXY D TOTAL (D2+D3) Optimum level s in the healthy population are 20-50, patients with bone disease may benefit from higher levels within this r sherry. ----ADDITIONAL INFORMATION---- This test was developed and its performa nce characteristics determined by [facility] in a manner consistent with CLIA requirements. This test has not been cleared or approved by the U.[place]. Misha d and Drug Administration. Specimen Anatomical Collection Method Collection Time Receive d Time (Source) Location / / Volume Laterality Blood (Blood, 06/19/2018 12:33 06/20/2018 8:22 Venous) PM BUDDER AM BUDDER Wolf Terrell LAB BLOOD ADD-ON Performing Organization Address City/State/ZIP Code Phon e Number [facility] [address] [place], [place] [address] [facility] HIV-1/-2 Ag and Ab Screen, Plasma (06/19/2018 12:33 PM BUDDER) athologist Signature HIV-1/-2 Ag Negative Negative 06/19/[address] [facility] and Ab Screen, 4:21 PM BUDDER [facility] Comment: Negative result does not rule out HIV in fection. If exposure to HIV infection occurred <14 d ays ago, contact the laboratory to request additi on of HIV-1 RNA detection / quantification test (HIV QN). Specimen Anatomical Collection Method Collection Time Receive d Time (Source) Location / / Volume Laterality Blood (Blood, 06/19/2018 12:33 06/19/2018 3:22 Venous) PM BUDDER PM BUDDER Wolf Terrell LAB MICROBIOLOGY - BLOOD ORD ERABLES Performing Organization Address City/State/ZIP Code Phon e Number [address] [place] Hepatitis B Surface Antigen (06/19/2018 12:33 PM BUDDER) athologist [facility] Antigen, S Negative Negative 06/20/[address] [facility] 9:47 AM BUDDER [facility] Specimen Anatomical Collection Method Collection Time Receive d Time (Source) Location / / Volume Laterality Blood (Blood, 06/19/2018 12:33 06/19/2018 3:22 Venous) PM BUDDER PM BUDDER Wolf Terrell LAB MICROBIOLOGY - BLOOD ORD ERAGUME Performing Organization Address City/State/ZIP Code Phon e Number [address] JOSUE [place] HCV Ab Scrn w/Reflex to HCV PCR, Serum (06/19/2018 12:33 PM BUDDER) athologist [facility] HCV Ab Screen, Negative Negative 06/20/[address] [facility] S 10:05 AM [facility] Comment: Vidghd-ei-xqsfvx ratio is <1.00 . Specimen Anatomical Collection Method Collection Time Receive d Time (Source) Location / / Volume Laterality Blood (Blood, 06/19/2018 12:33 06/19/2018 3:22 Venous) PM BUDDER PM BUDDER Wolf Terrell LAB MICROBIOLOGY - BLOOD ORD ERABLES Performing Organization Address City/State/ZIP Code Phon e Number [place] [id number] [place], [place] [address] [facility] Encephalopathy, Autoimmune Evaluation (06/19/2018 12:33 PM BUDDER) [facility] Method Time Signature Encephalopathy see below 06/26/[address] [facility] , 3:11 PM [facility] LABORATORIES - [facility] Comment: No informative autoantibodies were detec jj in this evaluation. However, a negative result does not exclude autoimm une encephalopathy, idiopathic or paraneoplastic. Sensitivity and specific ity of antibody testing are enhanced by testing both serum and CSF. NMDA-R Ab CBA, S Negative Negative 06/26/2018 3:11 PM BUDDER [facility] Comment: ----ADDITIONAL INFORMATION---- This test was developed and its performa nce characteristics determined by [facility] in a manner consistent with CLIA requirements. This test has not been cleared or approved by the U.[place]. Misha d and Drug Administration. Neuronal (V-G) K+ 0.00 <=0.02 nmol/L 06/26/2018 3:[address] [facility] Channel Ab, S [facility] Comment: ----ADDITIONAL INFORMATION---- This test was developed and its performa nce characteristics determined by [facility] in a manner consistent with CLIA requirements. This test has not been cleared or approved by the U.[place]. Misha d and Drug Administration. LGI1-IgG CBA, S Negative Negative 06/26/2018 3:[address] [facility] Comment: ----ADDITIONAL INFORMATION---- This test was developed and its performa nce characteristics determined by [facility] in a manner consistent with CLIA requirements. This test has not been cleared or approved by the U.[place]. Misha d and Drug Administration. CASPR2-IgG CBA, S Negative Negative 06/26/2018 3:11 PM [facility] Comment: ----ADDITIONAL INFORMATION---- This test was developed and its performa nce characteristics determined by [facility] in a manner consistent with CLIA requirements. This test has not been cleared or approved by the U.[place]. Misha d and Drug Administration. GAD65 Ab Assay, S 0.01 <=0.02 nmol/L 06/26/2018 3:11 PM [facility] Comment: ----ADDITIONAL INFORMATION---- This test was developed and its performa nce characteristics determined by [facility] in a manner consistent with CLIA requirements. This test has not been cleared or approved by the U.[place]. Misha d and Drug Administration. JESSICA-B-R Ab CBA, S Negative Negative 06/26/2018 3:11 PM [facility] Comment: ----ADDITIONAL INFORMATION---- This test was developed and its performa nce characteristics determined by [facility] in a manner consistent with CLIA requirements. This test has not been cleared or approved by the U.[place]. Misha d and Drug Administration. AMPA-R Ab CBA, S Negative Negative 06/26/2018 3:11 PM [facility] Comment: ----ADDITIONAL INFORMATION---- This test was developed and its performa nce characteristics determined by [facility] in a manner consistent with CLIA requirements. This test has not been cleared or approved by the U.[place]. Misha d and Drug Administration. JAVON-1, S Negative <1:240 titer 06/26/2018 3:11 PM [facility] Reflex Added None. 06/26/2018 3:11 PM [facility] Comment: ----ADDITIONAL INFORMATION---- This test was developed and its performa nce characteristics determined by [facility] in a manner consistent with CLIA requirements. This test has not been cleared or approved by the U.[place]. Misha d and Drug Administration. JAVON-2, S Negative <1:240 titer 06/26/2018 3:11 PM [facility] Comment: ----ADDITIONAL INFORMATION---- This test was developed and its performa nce characteristics determined by [facility] in a manner consistent with CLIA requirements. This test has not been cleared or approved by the U.S. Misha d and Drug Administration. JAVON-3, S Negative <1:240 titer 06/26/2018 3:11 PM [facility] Comment: ----ADDITIONAL INFORMATION---- This test was developed and its performa nce characteristics determined by [facility] in a manner consistent with CLIA requirements. This test has not been cleared or approved by the U.[place]. Misha d and Drug Administration. AGNA-1, S Negative <1:240 titer 06/26/2018 3:11 PM [facility] Comment: ----ADDITIONAL INFORMATION---- This test was developed and its performa nce characteristics determined by [facility] in a manner consistent with CLIA requirements. This test has not been cleared or approved by the U.S. Misha d and Drug Administration. ROAD REPAIRER-1, S Negative <1:240 titer 06/26/2018 3:11 PM [facility] Comment: ----ADDITIONAL INFORMATION---- This test was developed and its performa nce characteristics determined by [facility] in a manner consistent with CLIA requirements. This test has not been cleared or approved by the U.S. Misha d and Drug Administration. ROAD REPAIRER-2, S Negative <1:240 titer 06/26/2018 3:11 PM [facility] Comment: ----ADDITIONAL INFORMATION---- This test was developed and its performa nce characteristics determined by [facility] in a manner consistent with CLIA requirements. This test has not been cleared or approved by the U.S. Misha d and Drug Administration. ROAD REPAIRER-Tr, S Negative <1:240 titer 06/26/2018 3:11 PM [facility] Comment: ----ADDITIONAL INFORMATION---- This test was developed and its performa nce characteristics determined by [facility] in a manner consistent with CLIA requirements. This test has not been cleared or approved by the U.S. Misha d and Drug Administration. Amphiphysin Ab, S Negative <1:240 titer 06/26/2018 3:11 PM [facility] Comment: ----ADDITIONAL INFORMATION---- This test was developed and its performa nce characteristics determined by [facility] in a manner consistent with CLIA requirements. This test has not been cleared or approved by the U.[place]. Misha d and Drug Administration. N-Type Calcium 0.00 <=0.03 nmol/L 06/26/2018 3:11 PM [facility] Channel Ab [facility] Comment: ----ADDITIONAL INFORMATION---- This test was developed and its performa nce characteristics determined by [facility] in a manner consistent with CLIA requirements. This test has not been cleared or approved by the U.S. Misha d and Drug Administration. P/Q-Type Calcium 0.00 <=0.02 nmol/L 06/26/2018 3:[address] [facility] Channel Ab [facility] Comment: ----ADDITIONAL INFORMATION---- This test was developed and its performa nce characteristics determined by [facility] in a manner consistent with CLIA requirements. This test has not been cleared or approved by the U.[place]. Misha d and Drug Administration. ACh Receptor 0.00 <=0.02 nmol/L 06/26/2018 3:[address] [facility] (Muscle) Binding Ab [facility] LABORATORI ES [facility] Comment: ----ADDITIONAL INFORMATION---- This test was developed and its performa nce characteristics determined by [facility] in a manner consistent with CLIA requirements. This test has not been cleared or approved by the U.[place]. Misha d and Drug Administration. AChR Ganglionic 0.00 <=0.02 nmol/L 06/26/2018 3:11 PM [facility] Neuronal Ab, S [facility] Comment: ----ADDITIONAL INFORMATION---- This test was developed and its performa nce characteristics determined by [facility] in a manner consistent with CLIA requirements. This test has not been cleared or approved by the U.[place]. Misha d and Drug Administration. CRMP-5-IgG, S Negative <1:240 titer 06/26/2018 3:11 PM [facility] Comment: ----ADDITIONAL INFORMATION---- This test was developed and its performa nce characteristics determined by [facility] in a manner consistent with CLIA requirements. This test has not been cleared or approved by the U.[place]. Misha d and Drug Administration. Specimen Anatomical Collection Method Collection Time Receive d Time (Source) Location / / Volume Laterality Blood (Blood, 06/19/2018 12:33 06/19/2018 1:53 Venous) PM BUDDER PM BUDDER Narrative This result has an attachment that is no t available. Wolf Terrell LAB BLOOD ADD-ON Performing Organization Address City/State/ZIP Code Phon e Number [facility] - [address] [place] [address] [facility] (ABNORMAL) Connective Tissue Diseases [place] (06/19/2018 12:33 PM BUDDER) Analysis Performed At Patho logist Time Signature Antinuclear Ab, 1.7 (H) <=1.0 06/20/[address] [facility] S (Negative) 11:14 AM BUDDER [facility] Comment: Interpretation: Weak Positive ( 1.1-2.9) Cyclic Citrullinated <15.6 <20.0 (Negative) 06/19/2018 8 :[address] [facility] Peptide Ab, S U PM BUDDER [facility] Interpretation SEE COMMENT 06/20/2018 11:14 [facility] LINIC AM [facility] Comment: Tests for antibodies to dsDNA and ZENOBIA an tigens are not performed automatically unless the SUSANNA r esult is > or = 3.0 U. ??Studies performed at [facility] indicate that positive SUSANNA results <3.0 U are rarely a ccompanied by positive second order tests. Specimen Anatomical Collection Method Collection Time Receive d Time (Source) Location / / Volume Laterality Blood (Blood, 06/19/2018 12:33 06/19/2018 3:24 Venous) PM BUDDER PM BUDDER Wolf HoneycuttSPerla LAB BLOOD ADD-ON Performing Organization Address City/State/ZIP Code Phon e Number [facility] [address] [place] [address] [facility] ANCA (Antineutrophil Cytoplasmic Antibodies) Vasculitis Panel (06/19/2018 12:33 PM BUDDER) Patholo gist Method Time Signature Myeloperoxidase Ab, <0.2 <0.4 06/19/2018 [facility] IC S (Negative 5:07 PM BUDDER [facility]PER[facility] ) U [facility] Proteinase 3 Ab <0.2 <0.4 06/19/[address] [facility] (PR3), S (Negative 5:07 PM BUDDER [facility]PERIOR ) U [facility] Specimen Anatomical Collection Method Collection Time Receive d Time (Source) Location / / Volume Laterality Blood (Blood, 06/19/2018 12:33 06/19/2018 3:23 Venous) PM BUDDER PM BUDDER Wolf Terrell LAB BLOOD ADD-ON Performing Organization Address City/State/ZIP Code Phon e Number [facility] [address] [address] [place], [place] [address] [facility] (ABNORMAL) PT (Prothrombin Time) with INR (06/19/2018 12:33 PM BUDDER) Patholo gist Method Time Signature Prothrombin 12.7 (H) 9.4 - 06/19/[address] [facility] Time, P 12.5 sec 1:24 PM BUDDER LABORATORIES - [facility] INR 1.2 0.9 - 1.1 06/19/[address] [facility] 1:24 PM BUDDER LABORATORIES - [facility] Comment: ----ADDITIONAL INFORMATION---- Standard intensity warfarin therapeutic range: 2.0 to 3.0 ?? High intensity warfarin therapeutic rang e: 2.5 to 3.5 Specimen Anatomical Collection Method Collection Time Receive d Time (Source) Location / / Volume Laterality Blood (Blood, 06/19/2018 12:33 06/19/2018 Venous) PM BUDDER 12:55 PM BUDDER Wolf Terrell LAB BLOOD ADD-ON Performing Organization Address City/[facility]/ZIP Code Phon e Number [facility] LABORATORIES - [address] [place] [address] [facility] APTT (Activated Partial Thromboplastin Time) (06/19/2018 12:33 PM BUDDER) P athologist Signature Activated 30 25 - 37 06/19/[address] [facility] Partial sec 1:24 PM BUDDER LABORATORIES - [facility] Specimen Anatomical Collection Method Collection Time Receive d Time (Source) Location / / Volume Laterality Blood (Blood, 06/19/2018 12:33 06/19/2018 Venous) PM BUDDER 12:55 PM BUDDER Wolf Terrell LAB BLOOD ADD-ON Performing Organization Address City/State/ZIP Code Phon e Number [facility] LABORATORIES - [address] [place] [address] [facility] Ferritin (06/19/2018 12:33 PM BUDDER) P athologist Signature Ferritin, S 127 24 - 336 06/19/[address] [facility] mcg/L 3:29 PM BUDDER LABORATORIES [facility] Specimen Anatomical Collection Method Collection Time Receive d Time (Source) Location / / Volume Laterality Blood (Blood, 06/19/2018 12:33 06/19/2018 Venous) PM BUDDER 12:55 PM BUDDER Wolf Terrell LAB BLOOD ADD-ON Performing Organization Address City/State/ZIP Code Phon e Number [facility] LABORATORIES - [address] [place], [place] [address] [facility] CBC with Differential, Blood (06/19/2018 12:33 PM BUDDER) [facility] Method Time Signature Hemoglobin 15.8 13.2 - 06/19/[address] [facility] 16.6 g/dL 1:03 PM BUDDER LABORATORIES - [facility] Hematocrit 48.0 38.3 - 06/19/[address] [facility] 48.6 % 1:03 PM BUDDER LABORATORIES - [facility] Erythrocytes 5.29 4.35 - 06/19/[address] [facility] 5.65 1:03 PM BUDDER LABORATORIES - x10(12)/L [facility] MCV 90.7 78.2 - 06/19/[address] [facility] 97.9 fL 1:03 PM BUDDER LABORATORIES - [facility] RBC Distrib Width 14.5 11.8 - 06/19/[address] [facility] 14.5 % 1:03 PM BUDDER LABORATORIES - [facility] Platelet Count 231 135 - 317 06/19/[address] [facility] x10(9)/L 1:03 PM BUDDER LABORATORIES - [facility] Leukocytes 6.2 3.4 - 9.6 06/19/[address] [facility] x10(9)/L 1:03 PM BUDDER LABORATORIES - [facility] Neutrophils 4.15 1.56 - 06/19/[address] [facility] 6.45 1:03 PM BUDDER LABORATORIES - x10(9)/L [facility] Lymphocytes 1.30 0.95 - 06/19/[address] [facility] 3.07 1:03 PM BUDDER LABORATORIES - x10(9)/L [facility] Monocytes 0.55 0.26 - 06/19/[address] [facility] 0.81 1:03 PM BUDDER LABORATORIES - x10(9)/L [facility] Eosinophils 0.18 0.03 - 06/19/[address] [facility] [facility] 0.48 1:03 PM [facility] - x10(9)/L [facility] Basophils 0.06 0.01 - 06/19/[address] [facility] 0.08 1:03 PM [facility] - x10(9)/L [facility] Specimen Anatomical Collection Method Collection Time Receive d Time (Source) Location / / Volume Laterality Blood (Blood, 06/19/2018 12:33 06/19/2018 Venous) PM BUDDER 12:55 PM BUDDER Wolf HoneycuttSPerla LAB BLOOD ADD-ON Performing Organization Address City/[facility]/ZIP Code Phon e Number [facility] LABORATORIES - [address] [id number] [facility] (ABNORMAL) Antinuclear Antibodies, HEp-2 Substrate, IgG, Serum (06/19/2018 12:23 PM BUDDER) Component Value Ref Test Analysis Performed At Patholo gist Range Method Time Signature Antinuclear Positive 1:320 <1:80 06/20/[address] [facility] Ab, HEp-2 (A) (Negativ 11:39 PM LABORATORIES - Substrate, S e) [facility] SUSANNA Titer: 1:320 06/20/[address] [facility] 11:39 PM LABORATORIES - [facility] SUSANNA Pattern: Homogeneous 06/20/[address] [facility] 11:39 PM LABORATORIES - [facility] Specimen Anatomical Collection Method Collection Time Receive d Time (Source) Location / / Volume Laterality Blood (Blood, 06/19/2018 12:23 06/20/2018 1:17 Venous) PM BUDDER PM BUDDER Wolf Terrell LAB BLOOD ADD-ON Performing Organization Address City/[facility]/ZIP Code Phon e Number [facility] LABORATORIES - [address] Interpretation of Outside MR Head (06/19/2018 11:56 AM BUDDER) Anatomical Region Laterality Modality Neuroradiology RST LOS, Neuroradiology ARZ LOS, N/A Magnetic Resonance Neuroradiology FLA [facility] Specimen (Source) Anatomical Collection Method Collection Time Re ceived Time Location / / Volume Laterality 06/19/2018 12:01 PM BUDDER Impressions 06/19/2018 12:19 PM BUDDER IMPRESSION: No restricted diffusion. Confluent abnor mal T2 signal involving the right centrum semiovale extending to the right frontoparietal periventricular white matter without convincing abnormal enhan cement or mass effect. This finding is not specific but may represent chronic s ubcortical ischemia. Comparison with previous outside imaging would be helpfu l for further clarification. Mild superimposed leukoaraiosis. Minimal generalized cerebral and cerebellar volume loss. Mild bilateral maxillary si nus and ethmoid air cell mucosal thickening. Minimal abnormal fluid signa l in the inferior left mastoid air cells. Narrative 06/19/2018 12:19 PM BUDDER EXAM: ??INTERPRETATION OF OUTSIDE MR HEAD including post gadolinium brain MRI from 04/03/2018 and a noncontrast brain M RI from 03/27/2018: Procedure Note Joel Hernandez M.D. - 06/19/2018Formatt ing of this note might be different from the original. EXAM: INTERPRETATION OF OUTSIDE MR HEAD including post gadolinium brain MRI from 04/03/2018 and a noncontrast brain M RI from 03/27/2018: IMPRESSION: No restricted diffusion. Confluent abnor mal T2 signal involving the right centrum semiovale extending to the right frontoparietal periventricular white matter without convincing abnormal enhan cement or mass effect. This finding is not specific but may represent chronic s ubcortical ischemia. Comparison with previous outside imaging would be helpfu l for further clarification. Mild superimposed leukoaraiosis. Minimal generalized cerebral and cerebellar volume loss. Mild bilateral maxillary si nus and ethmoid air cell mucosal thickening. Minimal abnormal fluid signa l in the inferior left mastoid air cells. Wolf Terrell IMBetty MRI PROCEDURES documented in this encounter Visit Diagnoses Diagnosis Hemiplegia Nondominant Side Left (HCC) - Primary Paraparesis Spastic (HCC) Lesion Brain Hemiplegia Nondominant Side Left (HCC) Lesion Brain Hemiplegia Nondominant Side Left (HCC) Lesion Brain documented in this encounter"
--- OUTSIDE RECORDS SUMMARY | 2022-05-25 10:03 | XMS_ITS | Encounter Summary ---
:[address] [facility] Address [address] [place] [address] Care Team Providers Name Role Phone Unavailable Primary Care Provider Unavailable Encounter Details Date Type Department Care Team Description 06/19/2018 Ancillary Procedure Department of Tahira Acevedo Hemiple gia Nondominant Side Left (HCC); Radiology in [facility] Lesion Brain [place], [place] [address] [facility] [address] [place] [phone] Social History Tobacco Use Types Packs/Day Years Used Date Smoking Tobacco: Never Smokeless Tobacco: Never Alcohol Use Standard Drinks/Week Comments Yes 1 (1 standard drink = 0.6 oz pure alcoho l) Alcohol Habits Answer Date Recorded How often do you have a drink containing 4 or more times a w [place] 01/14/2022 alcohol? How many drinks containing alcohol [...] or relatives? How often do you attend sabianist or confucianism More than 4 time s per year 01/14/2022 services? Do you belong to any clubs or organizations Yes 01/14/2022 such as sabianist groups, unions, fraternal or athletic groups, or [...] or slept in a alf (including now)? 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 documented in this encounter Results Interpretation of Outside MR Head (06/19/2018 11:56 AM JOURNEYMAN GLAZIER) Anatomical Region Laterality Modality Neuroradiology RST [facility], Neuroradiology ARZ [facility], N/A Magnetic Resonance Neuroradiology FLA [facility] Specimen (Source) Anatomical Collection Method Collection Time Re ceived Time Location / / Volume Laterality 06/19/2018 12:01 PM JOURNEYMAN GLAZIER Impressions 06/19/2018 12:19 PM JOURNEYMAN GLAZIER IMPRESSION: No restricted diffusion. Confluent abnor mal [...] mastoid air cells. Narrative 06/19/2018 12:19 PM JOURNEYMAN GLAZIER EXAM: ??INTERPRETATION OF OUTSIDE MR HEAD including [...] in the inferior left mastoid air cells. Tahira Terrell IMBetty MRI PROCEDURES documented in this encounter Visit Diagnoses Diagnosis Hemiplegia Nondominant Side Left (HCC) Lesion Brain documented in this encounter
--- OUTSIDE RECORDS SUMMARY | 2022-05-25 10:03 | XMS_ITS | Encounter Summary ---
:1940 Author Organization [facility] Address [address] [place] [address] Care Team Providers Name Role Phone Unavailable Primary Care Provider Unavailable Encounter Details Date Type Department Care Team Description 01/31/2018 Clinical Communication Department of Nicole Sauceda Neurological Surgery in [facility] [address] [phone] [phone] Social History Tobacco Use Types Packs/Day Years Used Date Smoking Tobacco: Never Assessed Alcohol Habits Answer Date Recorded How often do you have a drink containing 4 or more times a w [place] 01/14/2022 alcohol? How many drinks containing alcohol [...] or relatives? How often do you attend holiness or hindu More than 4 time s per year 01/14/2022 services? Do you belong to any clubs or organizations Yes 01/14/2022 such as holiness groups, unions, fraternal or athletic groups, or [...] place to sleep or slept in a custodial (including now)? 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 Left message of date/time Telephone Encounter - Emi Epps R.N. - 02/05/2018 9:34 AM CDT Please call the patient and offer him a new patient appointment with Dr. Bardales on February 25 at 1100. Referral from [place]. Telephone Encounter - Timmy Bardales M.B.B.S. - 02/04/2018 5:21 PM CDT Priority. Telephone Encounter - Emi Epps R.N. - 02/04/2018 11:03 AM CDT There are records under Media. Are you looking for something specific? Telephone Encounter - Timmy Bardales M.B.B.S. - 02/02/2018 2:08 PM CDT Need records. Telephone Encounter - Nicole Scruggs L.P.N. - 01/31/2018 8:[address] Bardales, Dr Lindsey from [place] is referring patient to neurosurgery for lumbar sacral radiculopathy. MRI's online available for viewing. Please review and advise. Thank you. documented in this encounter Plan of Treatment Not on filedocumented as of this encounter Visit Diagnoses Not on filedocumented in this encounter
--- OUTSIDE RECORDS SUMMARY | 2022-05-25 10:03 | XMS_ITS | Encounter Summary ---
:1940 Author Organization [facility] Address [address] [place] [address] Care Team Providers Name Role Phone Unavailable Primary Care Provider Unavailable Encounter Details Date Type Department Care Team Description 04/19/2018 Clinical Communication Department of [facility] Neurological Surgery in , M.B.B .[address] [phone] [phone] Social History Tobacco Use Types Packs/Day Years [...] or relatives? How often do you attend jewish or orthodox More than 4 time s per year 01/14/2022 services? 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 Please review and advise when patient shouldbe seen back with GAUTAM. Thank you documented in this encounter Plan of Treatment Not on filedocumented as of this encounter Visit Diagnoses Not on filedocumented in this encounter
[2022-05-25 10:04] LABS: Alanine Aminotransferase* 14 U/L (4-50); Alkaline Phosphatase* 74 U/L (40-150); Aspartate Amino Transferase* 20 U/L (12-35)
--- OUTSIDE RECORDS SUMMARY | 2022-05-25 10:04 | XMS_ITS | Encounter Summary ---
:1939 Author Care Team Providers Name Role Phone Jerry Gates MD Primary Care Provider [phone] Reason for Visit Follow up - Review Pathology Results; Te lephofranco Visit Assessment and Plan Assessment Note Of note a total of 20 minutes was spent : preparing to see the patient by reviewing records, images, and laboratory data; obtaining/reviewing separately obtained history; performing physical examination , counseling and educating patient/famil y/caregiver; ordering appropriate medications, labs, imaging or procedures; documenting the clinical encounter; and coordination of care. 1. Raised prostate specific antigen -4K score 21% - Now s/p TRUS biopsy - pathology with c hronic inflamation but no cancer - Recommend annual PSA 2. Nocturia - We discussed the natural history of v oiding dysfunction including primary bladder outlet obstruction vs detrusor instability vs combination. We discussed the role of medications in the management of BPH including alpha blockers, 5-KRISTIN, and anticholinergics/beta agonists including their mechanisms of action. - He will consider option of medication and report back 3. Urge incontinence of urine - As above 4. Increased frequency of urination - As above Discussion Note: None recorded.Patient educational handouts: No information available. Plan of Care Reminders Provider Appointments None recorded. ? ? Lab None recorded. ? ? Referral None recorded. ? ? Procedures None recorded. ? ? Surgeries None recorded. ? ? Imaging None recorded. ? ? Medications Name Start Date ? ? ceftriaxone 1 gram solution for injection ? Take 1 g by injection route. levetiracetam 500 mg tablet ? Medications Administered None recorded. Vitals Height Weight BMI 5 ft 10 in 175 lbs 25.1 kg/m2 Results Lab Results None recorded. Allergies Code Code System Name Reaction Severity Onset NKDA ? ? ? Problems None recorded. Procedures Date Name Performed by ? 07/23/2011 Colonoscopy Information not avai lable Vaccine List Vaccine Type COVID-19, mRNA, LNP-S, PF, 30 mcg/0.3 mL dose (Beneq) 09/01/2020 09/27/2020 05/03/2021 COVID-19, mRNA, LNP-S, PF, 30 mcg/0.3 mL dose, trace-sucrose (Beneq) 11/08/2021 pneumococcal conjugate PCV 13 06/10/2014 pneumococcal polysaccharide PPV23 2007 Social History Tobacco Smoking Status Never Smoker What was the date of your most recent tobacco screening? 01/2022 Family History Relation Problem Onset Age of Age Notes Father Family history of prostate (No Information) N/A (No Notes) cancer Functional Status Unknown. Past Encounters 03/29/2022 Raised Prostate Specific Antigen; Noctur ia; Urge Incontinence of Urine; Increased Frequency of Urination Timothy Golden MD: [address] [email or web address] [address], Ph. 03/22/2022 Raised Prostate Specific Antigen Timothy Golden MD: [address] [place] [address], Ph. History of Present Illness Note: <div>02/09/2022:</div><div>81-year-old gentleman who follows with me in our [facility] for elevated PSA. Underwent 4K test for better evaluation of his risk. 4K score 21% (elevated).</div><div>
</div><div>Very joined today by his .</div><div>
</div><div>03/22/2022:</div><div>Here for prostate biopsy, all questions answered.</div><div>
</div><div>03/29/2022:</div& gt;<div>Here for pathology review. Prostate biopsy shows evidence of chronic inflammation but no cancer. Does report some nocturia, weakening of stream, and urinary frequency. Not overly bothersome but moreso than previous. No currently on any treatment.</div><div>
This visit was conducted by telephone due to the COVID-19 crisis. Prior to conducting our telephone visit, thepatient was apprised of the risks, benefits and alternatives to telephone visits including but not limited to poor audio quality, interrupted visits due to technological limitations, delays in medical evaluation and treatment due to deficiencies or failures of equipment, failure of security protocols resulting in a breach of privacy of personal medical information and a lack of access to complete medical records resulting in not fully informed decisions. Also, because of the COVID-19 pandemic, it was not possible for the patient to sign the privacy regulations, HIPAA release and assignment of benefits forms. The patient was given the opportunity to ask questions about these policies and gave verbal acknowledgement and approval of these policies as well as to hold this meeting by telephone. Lastly, the patient agreed to allowing their medication history to be pulled from a national pharmacy database to facilitate and coordinate their care.</div> Review of Systems None recorded. Physical Exam None recorded.
--- OUTSIDE RECORDS SUMMARY | 2022-05-25 10:04 | XMS_ITS ---
:1939 Author Care Team Providers Name Role Phone RENÉ IRVING MD Primary Care Provider [phone] Allergies Code Code System Name Reaction Severity Status Onset NKDA ? Medications Name Status Start Date Stop Date ? ? ceftriaxone 1 gram solution for injection Active ? Not available Take 1 g by injection route. levetiracetam 500 mg tablet Active ? Not available Problems None recorded. Procedures Date Name Performed by ? 07/23/2011 Colonoscopy Information not avai lable Results Lab Results None recorded. Past Encounters 03/29/2022 Raised Prostate Specific Antigen; Noctur ia; Urge Incontinence of Urine; Increased Frequency of Urination Timothy Golden MD: [address] [place] [address], Ph. 03/22/2022 Raised Prostate Specific Antigen Timothy Golden MD: [address] [place] [address], Ph. 02/09/2022 Raised Prostate Specific Antigen Timothy Golden MD: [address] [place] [address], Ph. 12/12/2021 Timothy Golden MD: [address] [place] [address], Ph. Social History Tobacco Smoking Status Never Smoker Vaccine List Vaccine Type COVID-19, mRNA, LNP-S, PF, 30 mcg/0.3 mL dose (Trustpilot) 09/01/2020 09/27/2020 05/03/2021 COVID-19, mRNA, LNP-S, PF, 30 mcg/0.3 mL dose, trace-sucrose (Trustpilot) 11/08/2021 pneumococcal conjugate PCV 13 06/10/2014 pneumococcal polysaccharide PPV23 2007 Plan of Care Patient Instructions Pt to follow up with provider Reminders Provider Appointments None recorded. ? ? Lab None recorded. ? ? Referral None recorded. ? ? Procedures None recorded. ? ? Surgeries None recorded. ? ? Imaging None recorded. ? ? Vitals 03/29/2022 01:00PM ESTABLISHED PHONE VISIT 20 Height Weight BMI 5 ft 10 in 175 lbs 25.1 kg/m2 02/09/2022 03:40PM NEW PHONE VISIT 20 Height Weight BMI 5 ft 10 in 175 lbs 25.1 kg/m2
--- OUTSIDE RECORDS SUMMARY | 2022-05-25 10:05 | XMS_ITS | Clinical Summary ---
:1940 Author Organization [facility] [place] [address] Care Team Providers Name Role Phone Jerry Gates MD Primary Care Provider [phone] Allergies Active Allergy Reactions Severity Noted Date Comments Clams Nausea And Vomiting 01/30/2018 House Dust Mite Other - Describe In Comment Field 01/20 sneezy Mold Other - Describe In Comment Field 018 sneezy Medications Medication Sig Dispensed Refills Start Date End Date Status cyanocobalamin (VITAMIN Take 500 mcg by 0 Active B12) 500 mcg tablet mouth. cholecalciferol Take 1 capsule 0 01/08/2019 Active (VITAMIN D-3) 2,000 by mouth once unit capsule daily. diclofenac topical Apply 2 g 200 g 0 08/12/2021 Active (VOLTAREN) 1 % topically to gelIndications: Right affected area(s) hand pain, Arthritis of 4 times daily. vkttlhpt-degqqyvut-fahy ezoid joint of right hand levETIRAcetam (Keppra) Take 0.5 Tablets 180 Tablet 1 2 Active 500 mg (250 mg) by tabletIndications: mouth 2 times Seizure (HC) daily. 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 08/12/2021 Lumbar facet arthropathy 02/10/2021 DDD (degenerative disc disease), lumbar 02/10/2021 Primary osteoarthritis of right knee 02/10/2021 BPH without urinary obstruction 11/02/2020 Elevated PSA 11/02/2020 Unstable gait 11/02/2020 Left hemiplegia Spinal stenosis of lumbar region Resolved Problems Problem Noted Date Resolved Date Low back pain 01/08/2012 11/08/2021 Encounters Date Type Specialty Care Team Description 03/22/2022 Orders Only Scanner <No scans attac hed> from Last 3 Months Immunizations Name Administration Dates Next Due COVID-19 vaccine ([facility] 11/08/2021 30mcg/0.3mL) 12YO+ RAINE-SUCROSE PF, MDV COVID-19 vaccine ([facility] 09/27/2020, 09/01/2020 30mcg/0.3mL) PF, MDV HepA-HepB (Twinrix) 11/17/2002 Hepatitis A (Adult) 12/12/2001, 10/29/2001 Hepatitis B (Adult) 11/17/2002, 12/12/2001, 10/29/2001 Inactivated Polio Vaccine 10/29/2001 Influenza A (H1N1), Inactivated 07/28/2009 Influenza, High-dose Inactivated 04/23/2019, 04/04/2017, , 04/29/2015 Influenza, IIV3 (Age >=3 years) 03/25/2014, 03/26/2013, 02/21, 03/16/2011, 04/16/2010, 06/01/2008, 2007, 06/27/2006, 05/28/2006 Influenza, Inactivated AIIV4 (Age 65+ 04/11/2021 Years) Preserv Free Influenza, Inactivated IIV3 (Age 65+ 04/26/2018 Years) Preserv Free Meningococcal Vaccine (Menomune) 06/14/2010 Pneumococcal Poly,23-Valent 2007 (Pneumovax) Pneumococcal conj 13-Valent (Prevnar 06/10/2014 13) Td (Age >=7 Years) 06/02/1995 Td, Preservative Free (age >= 7 Years) 2007 Tdap 07/30/2012 Tuberculin (PPD) 07/27/2008, 01/14/2002 Typhoid (injectable) 06/09/2016, 06/10/2014, 07/27/2008, 10/29/2001 Yellow Fever 10/29/2001 Zoster (Shingrix-RZV, recombinant) 12/04/2018, 09/26/2018 Zoster (Zostavax-ZVL, live) 2007 Family History Medical History Relation Name Comments Other Brother of cachexi a Cancer-prostate Father Diabetes Father Diabetes Maternal Grandmother Hypertension Mother Diabetes Paternal Grandmother Cancer-colon No Family History Relation Name Status Comments Brother Father Maternal Grandmother Mother Paternal Grandmother Social History Tobacco Use Types Packs/Day Years Used Date Never Smoker Smokeless Tobacco: Never Used Tobacco Cessation: Counseling Given: Yes Alcohol Use Standard Drinks/Week Comments Yes 7 (1 standard drink = 0.6 oz pure alcoho l) wine with dinner Alcohol Habits Answer Date Recorded How often do you have a drink containing 4 or more times a w [place] 11/13/2018 alcohol? How many drinks containing alcohol do you have 1 or 2 11/13/2018 on a typical day when you are drinking? How often do you have six or more drinks on one Never 11/13/2018 occasion? Comment: Not asked Sex Assigned at Date Recorded Not on file Obstetrics History Last Filed Vital Signs Vital Sign Reading Time Taken Comments Blood Pressure 117/66 01/20/2022 11:21 AM CDT Pulse 63 01/20/2022 11:21 AM CDT Temperature 36.7 ??C (98 ??F) 02/10/2021 9:32 AM CDT Respiratory Rate 16 11/16/2021 3:07 PM CDT Oxygen Saturation 97% 01/20/2022 11:21 AM CDT Inhaled Oxygen Concentration - - Weight 80.6 kg (177 lb 9.6 oz) 01/20/2022 11:21 AM CDT Height 178.7 cm (5' 10.35) 11/08/2021 2:07 PM CDT Body Mass Index 25.23 11/08/2021 2:07 PM CDT Plan of Treatment Upcoming Encounters Date Type Specialty Care Team Description 06/01/2022 Office Visit Jerry Gates MD [address] [phone] (Wo rk) Health Maintenance Due Date Last Done Comments COVID-19 vaccine series (5 - 01/03/2022 11/08/2021, 021, Booster for Pfizer series) 09/27/2020, Additiona l history exists Influenza for age 65+ 03/23/2022 04/11/2021, 04/23/2019, 04/26/2018, Additional history exists Tetanus booster 07/30/2022 07/30/2012, 2007, 06/02/1995 BMI (ht and wt on same day) for 11/08/2022 11/08/2021, 07/24, age 18+ 11/02/2020, Additional history exists Medicare Wellness for age 65+ 11/08/2022 11/08/2021, 2020, 11/13/2018, Additional history exists Depression screening for age 12+ 11/09/2022 11/09/2021, , 11/02/2020, Additional history exists Tdap Completed 07/30/2012 Pneumococcal series for age 65+ Completed 06/10/2014, 09/21 Zoster (shingles) series for age Completed 12/04/2018, 01/2019, 50+ 2007 Procedures Procedure Name Priority Date/Time Associated Diagnosis Comme nts SCAN-OPERATIVE/PROC 03/22/2022 12:00 AM R esults for this EDURE REPORT CDT procedure are i n the results section. from Last 3 Months Results SCAN-OPERATIVE/PROCEDURE REPORT (03/22/2022 12:00 AM CDT) Narrative This result has an attachment that is no t available. Scanner OTHER from Last 3 Months Insurance Payer Benefit Plan / Subscriber ID Effective Dates Phone Addre ss Type Group MEDICARE PART A MEDICARE PART A [id number] 2004-Presen ATTN: CLAIMS - HB USE ONLY HB ONLY t [address] [place] [address] MEDICARE PART B MEDICARE PART B [id number] 2008-Presen ATTN: CLAIMS - HB USE ONLY HB ONLY t [address] 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
--- OUTSIDE RECORDS SUMMARY | 2022-05-25 10:05 | XMS_ITS | Encounter Summary ---
:1940 Author Care Team Providers Name Role Phone Jerry Gates MD Primary Care Provider [phone] Reason for Visit TRUS biopsy Assessment and Plan 1. Raised prostate specific antigen - We discussed the significance of an e levated PSA and its utility in screening for prostate cancer. We discussed that while the PSA may be elevated in some men due to benign causes such as trauma, rec ent sexual intercourse, urinary tract in fections, or recent instrumentation, it may also be indicative of underlying prostate cancer. We discussed that a PSA test alone is not sufficient to determine if prostate cancer is present and further testing is warranted. - Given the recent change in his PSA I w ould recommend we first repeat his PSA while controlling for potential confounding variables to confirm the elevation. - We then discussed the available option s for further evaluations. (1) One option would be to proceed with transrectal ultrasound with prostate needle biopsy. This allows for sampling of the prostate in areas where cancer is likely to be found. This will allow for dete ction of underlying prostate cancer if i t is present. We discussed the limitations of this including under sampling which may lead to under diagnosis. We also discussed the risks most notably bleeding t o a degree enough to require interventio n (1-2.5%) and infection which may result in hospitalization (1-3%). We also discussed expected after effects of biopsy including temporary hematuria, blood per r ectum, and hematospermia which are consi dered normal after this procedure. (2) A second option we discussed would b e to proceed first with an MRI of the prostate. This would allow for detection of underlying lesions of the prostate which are suspicious for cancer. This informa tion could then be utilized for ultrasou nd-MRI fusion biopsies which may result in improved detection of underlying prostate cancer and also facilitate terminal operations supervisor surveillance for men in which low risk prostate cancers are identified. -4K score elevated - Now s/p TRUS biopsy - Phone visit in 2 weeks for pathology d iscussion - We reviewed the limitations of this in cluding under sampling which may lead to under diagnosis. We also reviewed the risks most notably bleeding to a degree enough to require intervention (1-2.5%) and infection which may result in hospitali zation (1-3%). We also discussed expected after effects of biopsy including temporary hematuria, blood per rectum, and hematospermia which are considered normal after this procedure. ? ceftriaxone 1 gram solution for injec tion Discussion Note: None recorded.Patient educational handouts: No [...] levetiracetam 500 mg tablet ? Medications Administered Name Date ? ? ceftriaxone 1 gram solution for injection 2022-03-22 T14:21:55 Take 1 g by injection route. Notes: BS Vitals None recorded. Results Lab Results None recorded. Allergies Code Code System Name Reaction Severity Onset NKDA ? ? ? Problems None recorded. Procedures Date Name Performed by ? 07/23/2011 Colonoscopy Information not avai lable Vaccine List Vaccine Type COVID-19, mRNA, LNP-S, PF, 30 mcg/0.3 mL dose ([employer]) 09/01/2020 09/27/2020 05/03/2021 COVID-19, mRNA, LNP-S, PF, 30 mcg/0.3 mL dose, trace-sucrose ([employer]) 11/08/2021 pneumococcal conjugate PCV 13 06/10/2014 pneumococcal polysaccharide PPV23 2007 Social History Tobacco Smoking Status Never Smoker What was the date of your most recent tobacco screening? 01/2022 Family History Relation Problem Onset Age of Age Notes Father Family history of prostate (No Information) N/A (No Notes) cancer Functional Status Unknown. Past Encounters 03/22/2022 Raised Prostate Specific Antigen Timothy Golden MD: [address] [facility] [address] [place] [address], Ph. History of Present Illness Note: <div>02/09/2022:</div><div>81-year-old gentleman who follows with me in our [place] [facility] for elevated PSA. Underwent 4K test for better evaluation of his risk. 4K score 21% (elevated).</div><div>
</div><div>Very joined today by his .</div><div>
</div><div>03/22/2022:</div><div>Here for prostate biopsy, all questions answered.</div> Review of Systems None recorded. Physical Exam None recorded.
--- OUTSIDE RECORDS SUMMARY | 2022-05-25 10:12 | XMS_ITS ---
:1940 Author Care Team Providers Name Role Phone RENÉ IRVING MD Primary Care Provider [phone] Allergies Code Code System Name Reaction Severity [...] Timothy Golden MD: [address] [place] [address], Ph. 03/22/2022 Raised Prostate Specific Antigen Timothy Golden MD: [address] [place] [address], Ph. 02/09/2022 Raised Prostate Specific Antigen Timothy Golden MD: [address] [place] [address], Ph. 12/12/2021 Timothy Golden MD: [address] [place] [address], Ph. Social History Tobacco Smoking Status Never Smoker Vaccine List Vaccine Type COVID-19, mRNA, LNP-S, PF, 30 mcg/0.3 mL dose ([employer]) 09/01/2020 09/27/2020 05/03/2021 COVID-19, mRNA, LNP-S, PF, 30 mcg/0.3 mL dose, trace-sucrose ([employer]) 11/08/2021 pneumococcal conjugate PCV 13 06/10/2014 pneumococcal [...]
--- OUTSIDE RECORDS SUMMARY | 2022-05-25 10:12 | XMS_ITS | Encounter Summary ---
:1940 Author Care Team Providers Name Role Phone Jerry Gates MD Primary Care Provider [phone] Reason for Visit TRUS biopsy Assessment and [...] of underlying prostate cancer and also facilitate watermelon inspector surveillance for men in which low risk [...] mRNA, LNP-S, PF, 30 mcg/0.3 mL dose ([employer]) 09/01/2020 09/27/2020 05/03/2021 COVID-19, mRNA, LNP-S, PF, 30 mcg/0.3 mL dose, trace-sucrose ([email or web address]) 11/08/2021 pneumococcal conjugate PCV 13 06/10/2014 pneumococcal polysaccharide PPV23 2007 Social History Tobacco Smoking Status Never Smoker What was the date of your most recent tobacco screening? 01/2022 Family History Relation Problem Onset Age of Age Notes Father Family history of prostate (No Information) N/A (No Notes) cancer Functional Status Unknown. Past Encounters 03/22/2022 Raised Prostate Specific Antigen Timothy Golden MD: [address] [facility] [address], [place] [address], Ph. History of Present Illness Note: <div>02/09/2022:</div><div>81-year-old gentleman who follows with me in our [place] clinic for elevated PSA. Underwent 4K test for better evaluation of his risk. 4K score 21% (elevated).</div><div>
</div><div>Very joined today by his .</div><div>
</div><div>03/22/2022:</div><div>Here for prostate biopsy, all questions answered.</div> Review of Systems None recorded. Physical Exam None recorded.
--- OUTSIDE RECORDS SUMMARY | 2022-05-25 10:12 | XMS_ITS | Encounter Summary ---
:1940 Author Care Team Providers Name Role Phone Jerry Gates MD Primary Care Provider [phone] Reason for Visit Follow up - Review [...] mRNA, LNP-S, PF, 30 mcg/0.3 mL dose ([employer]) 09/01/2020 09/27/2020 05/03/2021 COVID-19, mRNA, LNP-S, PF, 30 mcg/0.3 mL dose, trace-sucrose ([employer]) 11/08/2021 pneumococcal conjugate PCV 13 06/10/2014 pneumococcal [...] Frequency of Urination Timothy Golden MD: [address] [place] [address], Ph. 03/22/2022 Raised Prostate Specific Antigen Timothy Golden MD: [address] [place] [address], Ph. History of Present Illness Note: <div>02/09/2022:</div><div>81-year-old gentleman who follows with me in our [place] clinic for elevated PSA. Underwent 4K test [...]
[2022-05-25 10:16] LABS: Troponin I* < 0.01 ng/mL (0.01-0.04)
[2022-05-25] MEDS: LORazepam 2 MG/ML inj 1 MG IVP (10:24)
[2022-05-25 10:41] LABS: PCR FLU A Negative PCR FLU A (Negative); PCR FLU B Negative PCR FLU B (Negative); PCR RSV Negative PCR RSV (Negative)
[2022-05-25 10:52] LABS: SARS PCR* Negative SARS-CoV-2 (Negative)
--- NOTE | 2022-05-25 12:18 | ED.NURSE ---
was noted to have another episode of jaw movement, on monitor hr was bradycardic to 28. did awaken and was drowsy. was given ativan earlier and was more relaxed after ativan was given. did alert staff of this episode. dr méndez aware of situation and lowered hr.
[2022-05-25] MEDS: levETIRAcetam 500 MG TABLET 250 MG PO (12:43)
--- NOTE | 2022-05-25 13:42 | ED.GENADULT ---
HPI - General Adult General Date Seen: 05/25/22 Chief complaint: Seizure Stated complaint: Seizure Time Seen by Provider: 05/25/22 09:05 Source: patient and family History of Present Illness HPI narrative: Patient is an 81-year-old male brought in by ambulance after a seizure at home. History is provided both by patient and his . Apparently, they sleep in separate bedrooms, and the patient tells me that he got up sometime before midnight to go to the bathroom which is not uncommon. He went back to bed. Between then and when he woke up at 6:00 a.m., he was incontinent of urine, which he says is very unusual for him. Then, after he got up, he went to the bathroom to change out of his wet underwear. He put on fresh underwear and pants, and then the next thing he remembers is being on the floor with his looking at him. His says that she was downstairs, she heard a thud and went upstairs to investigate. She found him unresponsive. She does not describe tonic clonic activity. She says she left to get her phone to call 911 but then found that her phone was . She says she put it on the plsql developer, went to the bathroom, then went and got her phone and called 911. He was unresponsive for the duration of this time, so she estimates it was about 5 minutes. She says he was awake and getting back to normal by the time the paramedics got there, but she estimates it was about 15 minutes before he was fully alert and not confused. He denies any injuries from his fall. On arrival to the emergency department he is fully back to baseline, says he is looking forward to getting home and having some Cheerios. Patient was originally diagnosed with seizures earlier this year in about November. In talking with [facility] it sounds as if he had an MRI done earlier in the year and then a follow-up MRI done in January, he has some abnormal enhancement in the right frontal and parietal lobes of uncertain significance but it is stable. He does not have any evidence of masses or infarction. He was initially started on Keppra at 500 mg b.i.d. but had some emotional disturbances and it was decreased to 250 mg b.i.d. 2 weeks later. His thinks he has had a couple of spells since December. Prior to today they had always been unwitnessed. She said that he would just come downstairs having had a spell, would have maybe a cut on his lip or tongue. It does not sound as if he has had an EEG. Related Data Home Medications Medication Instructions Recorded Confirmed cholecalciferol (vitamin D3) 50 50 mcg PO DAILY 05/25/22 05/25/22 mcg (2,000 unit) capsule cyanocobalamin (vitamin B-12) 500 500 mcg PO DAILY 05/25/22 05/25/22 mcg tablet levetiracetam 500 mg tablet 250 mg PO BID 05/25/22 05/25/22 Allergies Allergy/AdvReac Type Severity Reaction Status Date / Time No Known Drug Allergies Allergy Verified 05/25/22 08:48 Review of Systems Status of ROS: Reports: 10 or more systems reviewed and unremarkable except as noted in History and below PFSH [facility] Social History Highest level of school completed/degree received: Doctoral degree Smoking Status: Never smoker Do you use any of these nicotine containing products: None Second hand tobacco smoke exposure: No How often do you have a drink containing alcohol: 2-3 times a week Alcohol type: beer and wine How many standard drinks containing alcohol do you have on a typical day: 1 or 2 How often do you have six or more drinks on one occasion: Never AUDIT-C Alcohol total score: 3 Non-prescribed substance use: denies use Caffeine: Yes (2-3 cups a day) service: Yes Exam Narrative: Exam Narrative: Vital signs as noted above. In general, an alert, nontoxic elderly male. Head: Normocephalic, atraumatic. Eyes: Pupils are equal reactive. Extraocular movements are full. Conjunctivae are normal. ENT: Mucous membranes are moist. Throat is normal. Neck: Supple without lymphadenopathy. Heart: Regular rate and rhythm. No murmur or rub. Lungs: Clear bilaterally. No increased work of breathing, crackles or wheezes. Abdomen: Soft and nontender. No organomegaly. Extremities: Well perfused. No edema. No calf tenderness. Pulses intact. Neurologic: Patient is alert and oriented to person and place. Speech is fluent. Face is symmetric. Moves all extremities equally. Affect: Normal. Skin: Warm and dry. Well perfused. Const: Vital Signs, click to edit/add: Vital Signs - 24 hr 05/25/22 08:48 05/25/22 09:00 05/25/22 09:52 Temperature 98.2 F Pulse Rate Pulse Rate [Pulse Oximeter] 69 68 63 Respiratory Rate 20 Blood Pressure [Le ft Upper Arm] 139/85 Blood Pressure [Ri ght Upper Arm] 130/88 132/85 Pulse Oximetry 96 87 L 90 Oxygen Delivery Me thod Room Air Room Air Room Air Oxygen Flow Rate 05/25/22 11:10 05/25/22 10:00 05/25/22 10:30 Temperature Pulse Rate 69 Pulse Rate [Pulse Oximeter] 74 73 Respiratory Rate 13 18 Blood Pressure [Le ft Upper Arm] 126/74 Blood Pressure [Ri ght Upper Arm] 140/98 H Pulse Oximetry 95 95 95 Oxygen Delivery Me thod Nasal Cannula Nasal Cannula Oxygen Flow Rate 05/25/22 11:00 05/25/22 11:30 05/25/22 12:00 Temperature Pulse Rate Pulse Rate [Pulse Oximeter] 73 67 66 Respiratory Rate 17 19 20 Blood Pressure [Le ft Upper Arm] Blood Pressure [Ri ght Upper Arm] 109/66 124/80 111/79 Pulse Oximetry 95 97 Oxygen Delivery Me thod Nasal Cannula Nasal Cannula Oxygen Flow Rate 05/25/22 12:15 05/25/22 12:30 05/25/22 13:00 Temperature Pulse Rate Pulse Rate [Pulse Oximeter] 60 72 67 Respiratory Rate 14 19 Blood Pressure [Le ft Upper Arm] Blood Pressure [Ri ght Upper Arm] 130/85 135/86 114/70 Pulse Oximetry 91 98 97 Oxygen Delivery Me thod Nasal Cannula Nasal Cannula Oxygen Flow Rate 05/25/22 13:30 05/25/22 14:30 05/25/22 14:44 Temperature Pulse Rate Pulse Rate [Pulse Oximeter] 97 66 66 Respiratory Rate 18 18 19 Blood Pressure [Le ft Upper Arm] Blood Pressure [Ri ght Upper Arm] 109/67 126/76 126/76 Pulse Oximetry 96 97 Oxygen Delivery Me thod Nasal Cannula Nasal Cannula Nasal Cannula Oxygen Flow Rate 2 2 Course Course Hospital Course: Following initial evaluation, I ordered routine labs. My initial plan was to rule out any electrolyte or metabolic abnormalities and observe here for a period of time. He did ultimately have another brief spell here with unresponsiveness and some lip-smacking. This lasted just 30 seconds or so. He was confused afterwards. I gave him Ativan 1 mg IV. We put him on a candle molder machine, he had been on oximetry and down into the mid 80s during this spell, so we put him on some oxygen. At that time, I made some attempts to get a hold of Neurology, 1st trying to get a hold of Dr. Lindsey, his primary neurologist, and then when that was initially unsuccessful, paging the on-call neurologist at [place]. Ultimately Dr. Lindsey did call me back, we had discussed a plan for medication adjustment and and plan to keep the patient here for observation today. The patient ultimately then had another episode of this unresponsiveness with some lip-smacking. At that time he was on the candle molder machine and was noted to become significantly bradycardic. I do not know if the bradycardia proceeded this spell or not. It was a sinus bradycardia. It resolved as the neurologic symptoms resolved. He awakened but was again somewhat confused. I then spoke with the neurologist at [facility] can confirm that he did not have an EEG in their system. It would seem that the seizure diagnosis has been somewhat presumptive. There are features of this that certainly seem consistent with seizure, the prolonged seeming postictal period, loss of bladder function, mouth injuries. However, the lack of generalized tonic clonic activity as witnessed by his today is somewhat unusual, and bradycardia seen on the monitor here raise the possibility that these symptoms might be cardiogenic. I did talk with the regional facilities manager at [facility]. They do not have any available tele beds. [facility] is likewise on complete divert at this time. Health Services Director at [place] said that if he is having further episodes of this severe bradycardia with neurologic changes, to call them back and they would likely be able to put him in the ICU there. For now however he recommended watching him here. He will need EP studies and an EEG, but if he is stable these could be done as an outpatient. Vital Signs Vital signs: Initial Vital Signs Respiratory Effort 05/25/22 08:45 Respiratory Depth Normal 05/25/22 08:45 Vital Signs Temperature 98.2 F 05/25/22 08:48 Pulse Rate 69 05/25/22 08:48 Respiratory Rate 20 05/25/22 08:48 Blood Pressure 139/85 05/25/22 08:48 Pulse Oximetry 96 05/25/22 08:48 Oxygen Delivery Method 05/25/22 08:48 Temperature 97.2 F L 05/25/22 16:04 Pulse Rate 73 05/25/22 15:00 Respiratory Rate 74 H 05/25/22 16:04 Blood Pressure 131/84 05/25/22 16:04 Pulse Oximetry 95 05/25/22 16:04 Oxygen Delivery Method 05/25/22 16:04 Oxygen Flow Rate 2 05/25/22 15:00 Medical Decision Making Lab Data Labs: Lab Results 05/25/22 05/25/22 05/25/22 Range/Units 09:30 09:34 09:34 WBC 7.80 (4.50-11.00) K/uL RBC 4.96 (4.30-5.90) m/uL Hgb 14.7 (13.5-17.5) gm/dL Hct 44.4 (37.0-53.0) % MCV 90 (80-100) fL MCH 30 (26-34) pg MCHC 33 (32-36) gm/dL RDW Coeff of Osorio 13.6 (11.5-15.5) % Plt Count 220 (140-440) K/uL Neut % (Auto) 79.3 H (42.0-72.0) % Lymph % (Auto) 11.0 L (20-44) % [place] % (Auto) 8.1 (0.0-11.0) % Eos % (Auto) 1.0 (0.0-7.0) % Baso % (Auto) 0.5 (0.0-3.0) % Neut # (Auto) 6.20 (1.7-7.0) K/uL Lymph # (Auto) 0.90 (0.90-2.90) K/uL [place] # (Auto) 0.60 (0.00-0.90) K/UL Eos # (Auto) 0.08 (0.00-0.50) K/uL Baso # (Auto) 0.04 (0.00-0.30) K/uL Abs Immat Gran (auto) 0.01 (0.00-0.30) K/uL Imm/Tot Granulo (auto) 0.1 % Sodium 139 (135-149) mmol/L Potassium 3.9 (3.6-5.1) mmol/L Chloride 103 (96-114) mmol/L Carbon Dioxide 27 (20-32) mmol/L BUN 13 (7-30) mg/dL Creatinine 0.7 (0.5-1.5) mg/dL Estimated Creat Clear 58.81 Estimated GFR 92 ml/min Glucose 117 H (60-115) mg/dL Calcium 8.8 (8.4-10.6) mg/dL Magnesium 2.3 (1.5-2.6) mg/dL Total Bilirubin (0.1-1.5) mg/dL Direct Bilirubin (0.0-0.5) mg/dL AST (12-35) U/L ALT (4-50) U/L Alkaline Phosphatase (40-150) U/L Troponin I (0.01-0.04) ng/mL Total Protein (6.0-8.3) g/dL Albumin (3.3-5.0) g/dL TSH (0.270-4.200) uIU/mL SARS-CoV-2 (PCR) Negative SARS-CoV-2 (Negative) Influenza Type A (PCR) Negative PCR FLU A (Negative) Influenza Type B (PCR) Negative PCR FLU B (Negative) RSV (PCR) Negative PCR RSV (Negative) 05/25/22 05/25/22 05/25/22 Range/Units 09:34 09:34 09:34 WBC (4.50-11.00) K/uL RBC (4.30-5.90) m/uL Hgb (13.5-17.5) gm/dL Hct (37.0-53.0) % MCV (80-100) fL MCH (26-34) pg MCHC (32-36) gm/dL RDW Coeff of Osorio (11.5-15.5) % Plt Count (140-440) K/uL Neut % (Auto) (42.0-72.0) % Lymph % (Auto) (20-44) % [place] % (Auto) (0.0-11.0) % Eos % (Auto) (0.0-7.0) % Baso % (Auto) (0.0-3.0) % Neut # (Auto) (1.7-7.0) K/uL Lymph # (Auto) (0.90-2.90) K/uL [place] # (Auto) (0.00-0.90) K/UL Eos # (Auto) (0.00-0.50) K/uL Baso # (Auto) (0.00-0.30) K/uL Abs Immat Gran (auto) (0.00-0.30) K/uL Imm/Tot Granulo (auto) % Sodium (135-149) mmol/L Potassium (3.6-5.1) mmol/L Chloride (96-114) mmol/L Carbon Dioxide (20-32) mmol/L BUN (7-30) mg/dL Creatinine (0.5-1.5) mg/dL Estimated Creat Clear Estimated GFR ml/min Glucose (60-115) mg/dL Calcium (8.4-10.6) mg/dL Magnesium (1.5-2.6) mg/dL Total Bilirubin 0.5 (0.1-1.5) mg/dL Direct Bilirubin 0.0 (0.0-0.5) mg/dL AST 20 (12-35) U/L ALT 14 (4-50) U/L Alkaline Phosphatase 74 (40-150) U/L Troponin I < 0.01 L (0.01-0.04) ng/mL Total Protein 7.3 (6.0-8.3) g/dL Albumin 3.9 (3.3-5.0) g/dL TSH 1.470 (0.270-4.200) uIU/mL SARS-CoV-2 (PCR) (Negative) Influenza Type A (PCR) (Negative) Influenza Type B (PCR) (Negative) RSV (PCR) (Negative)
--- NOTE | 2022-05-25 17:09 | PM.IMHP1 ---
Hospitalist- H&P: GILBERTO History of Present Illness Date Seen: 05/25/22 Chief complaint: Seizure Narrative: Da Monk is a 81 year old male admitted to the hospital with another episode of loss of consciousness. Patient was diagnosed earlier this year with a seizure disorder. This was after having at least 3 spells where he had loss of consciousness at home. All of these occurred at night or when he was getting up in the morning. Typically he would have incontinence of urine and go to the bathroom and come back to his bedroom and then lose consciousness. He was not aware of a prodrome. On 1 occasion he cut his lip when he fell. Another occasion he bit his tongue when he fell. He regained consciousness without any intervention on each occasion. He was never witnessed to have tonic clonic movements. All of these events were unwitnessed. He would come down stairs with blood on his face after these episodes. On this episode today she heard him fall and went upstairs to check on him. She found him unconscious on the floor. Appeared to be breathing normally. There were no body movements except she reported fluttering of his eyes. She indicated that she thought it was probably his eyelids that were moving. She could not arouse him. She went downstairs to get her phone. She had charge her phone to make a call to 911. She thinks this took up to 10 minutes. When she got back up to see him he was lying on the floor but awake. He was again incontinent of urine. He had no recollection of what happened. He has not had any other serious injury. The incontinence always precedes the loss of consciousness. In October 2021 as a part of his evaluation for seizures he had an MRI of the brain which showed right frontal parietal changes consistent with old ischemic injury. This spring he was evaluated and started on Keppra 500 mg b.i.d. for presumed seizures. His reported that he became irritable on that dose of Keppra so it was reduced to 250 mg twice daily. He has seen his neurologist, Dr. Lindsey in follow-up. Dr. Lindsey was contacted today and thinking that this was another seizure recommend he be started on lamotrigine at the usual starting dose of 25 mg daily for 2 weeks. In the emergency department today he had another spell. This was associated with his heart rate going down into the 20s on telemetry monitoring. This had spontaneous recovery. No seizure activity was noted. Dr. Hebert in the emergency department called Cardiology at [facility] to discuss the possibility that bradycardia was causing syncope as the explanation for these recurrent spells. Due to bed shortage they were unable to take him in transfer but recommend he be hospitalized for ongoing monitoring. The goal of monitoring will be to get a better idea of his bradycardia possibly get an electrocardiogram during an episode of possible and also evaluate his neurologic status prior to during and after these events. Patient reports he has no problems with urinary incontinence during the day. He has no other urinary symptoms. Review of Systems Narrative: He reports that he has been feeling well except of the issues above. Not aware of any injury from today's fall. [facility] Medical History (Updated 05/25/22 @ 17:29 by Denis Em MD) BPH (benign prostatic hyperplasia) History of malaria Loss of consciousness Spinal stenosis of lumbar region Surgical History (Updated 05/25/22 @ 17:24 by Denis Em MD) History of cataract surgery History of tonsillectomy History of wisdom tooth extraction Family History (Updated 05/25/22 @ 17:25 by Denis Em MD) Father Prostate cancer Diabetes Mother High blood pressure Social History (Updated 05/25/22 @ 17:26 by Denis Em MD) Narrative: He [place] in [place] with his . 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 His code status is full. He drinks 1 alcoholic beverage per day. He does not smoke. Highest level of school completed/degree received: Doctoral degree Smoking Status: Never smoker Do you use any of these nicotine containing products: None Second hand tobacco smoke exposure: No How often do you have a drink containing alcohol: 2-3 times a week Alcohol type: beer and wine How many standard drinks containing alcohol do you have on a typical day: 1 or 2 How often do you have six or more drinks on one occasion: Never AUDIT-C Alcohol total score: 3 Non-prescribed substance use: denies use Caffeine: Yes (2-3 cups a day) service: Yes Meds Home Medications and Allergies Home Medications Medication Instructions Recorded Confirmed Type cholecalciferol (vitamin D3) 50 50 mcg PO DAILY 05/25/22 05/25/22 History mcg (2,000 unit) capsule cyanocobalamin (vitamin B-12) 500 500 mcg PO DAILY 05/25/22 05/25/22 History mcg tablet levetiracetam 500 mg tablet 250 mg PO BID 05/25/22 05/25/22 History Allergies Allergy/AdvReac Type Severity Reaction Status Date / Time No Known Drug Allergies Allergy Verified 05/25/22 08:48 Exam Narrative: Exam Narrative: He is alert and appears in no distress. He gives his own history. Head is without trauma. Eyes are normal. Pupils are are equal around and reactive to light. Extraocular movements are full. Visual collado are intact. No facial asymmetry. Tongue is midline. Oropharynx is normal. Neck is supple without mass or adenopathy. No tenderness. Respirations are clear to auscultation. Good air exchange in all lung collado. Cardiovascular: S1, S2, regular rate and rhythm. No murmur gallop or rub. Abdomen: Bowel sounds active. Abdomen is soft without tenderness or mass. He has 5/5 strength in upper and lower extremities bilaterally including: Shoulder flexion extension, elbow flexion and extension, wrist flexion extension, finger extension, cured meats supervisor strength, hip flexion, knee flexion and extension, ankle dorsiflexion and plantar flexion. [id number] is accurate bilaterally. No rash Const: Vital Signs, click to edit/add: Vital Signs - 24 hr 05/25/22 08:48 05/25/22 09:00 05/25/22 09:52 Temperature 98.2 F Pulse Rate Pulse Rate [Pulse Oximeter] 69 68 63 Respiratory Rate 20 Blood Pressure [Le ft Upper Arm] 139/85 Blood Pressure [Ri ght Arm] Blood Pressure [Ri ght Upper Arm] 130/88 132/85 Pulse Oximetry 96 87 L 90 Oxygen Delivery Me thod Room Air Room Air Room Air Oxygen Flow Rate 05/25/22 11:10 05/25/22 10:00 05/25/22 10:30 Temperature Pulse Rate 69 Pulse Rate [Pulse Oximeter] 74 73 Respiratory Rate 13 18 Blood Pressure [Le ft Upper Arm] 126/74 Blood Pressure [Ri ght Arm] Blood Pressure [Ri ght Upper Arm] 140/98 H Pulse Oximetry 95 95 95 Oxygen Delivery Me thod Nasal Cannula Nasal Cannula Oxygen Flow Rate 05/25/22 11:00 05/25/22 11:30 05/25/22 12:00 Temperature Pulse Rate Pulse Rate [Pulse Oximeter] 73 67 66 Respiratory Rate 17 19 20 Blood Pressure [Le ft Upper Arm] Blood Pressure [Ri ght Arm] Blood Pressure [Ri ght Upper Arm] 109/66 124/80 111/79 Pulse Oximetry 95 97 Oxygen Delivery Me thod Nasal Cannula Nasal Cannula Oxygen Flow Rate 05/25/22 12:15 05/25/22 12:30 05/25/22 13:00 Temperature Pulse Rate Pulse Rate [Pulse Oximeter] 60 72 67 Respiratory Rate 14 19 Blood Pressure [Le ft Upper Arm] Blood Pressure [Ri ght Arm] Blood Pressure [Ri ght Upper Arm] 130/85 135/86 114/70 Pulse Oximetry 91 98 97 Oxygen Delivery Me thod Nasal Cannula Nasal Cannula Oxygen Flow Rate 05/25/22 13:30 05/25/22 15:00 05/25/22 14:30 Temperature Pulse Rate Pulse Rate [Pulse Oximeter] 97 73 66 Respiratory Rate 18 23 18 Blood Pressure [Le ft Upper Arm] Blood Pressure [Ri ght Arm] Blood Pressure [Ri ght Upper Arm] 109/67 115/80 126/76 Pulse Oximetry 94 96 Oxygen Delivery Me thod Nasal Cannula Nasal Cannula Nasal Cannula Oxygen Flow Rate 2 2 05/25/22 14:44 05/25/22 16:04 Temperature 97.2 F L Pulse Rate Pulse Rate [Pulse Oximeter] 66 Respiratory Rate 19 74 H Blood Pressure [Le ft Upper Arm] Blood Pressure [Ri ght Arm] 131/84 Blood Pressure [Ri ght Upper Arm] 126/76 Pulse Oximetry 97 95 Oxygen Delivery Me thod Nasal Cannula Room Air Oxygen Flow Rate 2 Documenting provider has reviewed patient's vital signs: yes Hospitalist - H&P: Result Labs Labs: Short CBC 05/25/22 Range/Units 09:34 WBC 7.80 (4.50-11.00) K/uL Hgb 14.7 (13.5-17.5) gm/dL Hct 44.4 (37.0-53.0) % Plt Count 220 (140-440) K/uL BMP 05/25/22 09:34 Sodium 139 Potassium 3.9 Chloride 103 Carbon Dioxide 27 BUN 13 Creatinine 0.7 Glucose 117 H Calcium 8.8 Cardiac Enzymes 05/25/22 Range/Units 09:34 Troponin I < 0.01 L (0.01-0.04) ng/mL Liver Function 05/25/22 Range/Units 09:34 Total Bilirubin 0.5 (0.1-1.5) mg/dL Direct Bilirubin 0.0 (0.0-0.5) mg/dL AST 20 (12-35) U/L ALT 14 (4-50) U/L Alkaline Phosphatase 74 (40-150) U/L Albumin 3.9 (3.3-5.0) g/dL Imaging MRI - head: Radiologist's impression: INDICATION: Possible seizure. ? TECHNIQUE: Multiplanar multisequence noncontrast MR images acquired through the brain as a seizure protocol. ? IMPRESSION: None. ? FINDINGS: Prominence of the ventricles and sulci compatible with mild to moderate diffuse cerebral volume loss. No mass effect midline shift. Scattered T2 FLAIR hyperintensities in the supratentorial white matter, typical for mild chronic microvascular ischemic changes. Moderate confluent region of T2 FLAIR hyperintensity within the right frontoparietal is centrum semiovale and siegel radiata, nonspecific. Signal abnormality potentially demonstrates slight extension into the overlying cortex of the medial right perirolandic region (series 4, image 19. The hippocampal formations are symmetric in size and signal intensity. No evidence for cortical dysplasia, encephalocele, or dubois matter heterotopia. No intracranial hemorrhage or pathologic extra-axial fluid collection. No diffusion restriction to suggest acute infarction. Chronic lacunar infarctions left cerebellar hemisphere. The major arterial flow voids of the skullbase are preserved. Thinning of the ocular lenses. Mild paranasal sinus mucosal thickening. Trace left mastoid fluid. ? IMPRESSION: 1. No acute infarction, mass effect, or intracranial hemorrhage. 2. Moderate confluent signal abnormality within the right frontoparietal white matter is nonspecific, though most typical for sequelae of chronic infarction or remote inflammatory insult. Signal abnormality potentially demonstrates slight extension into the overlying cortex of the medial right perirolandic region. 3. Mild chronic microvascular ischemic changes. Chronic lacunar infarctions left cerebellar hemisphere. 4. [id number] diffuse cerebral volume loss. ? ? ? Dictated by Shaka Buchanan MD @ 11/10/2021 1 Assessment and Plan Assessment and plan (1) Loss of consciousness: Problem comment: 3 episodes in September through November 2021 suspected to be seizures. I recommended that we start lamotrigine per his neurologist's recommendation at 25 mg daily. Because this is going to take some time to reach therapeutic level I have encouraged him to take Keppra 500 mg twice a day for at least the next 2 weeks. He is in agreement with that. I am also concerned that he is having syncopal episodes with bradycardia. Will place him on cardiac monitoring, monitor for symptoms and obtain echocardiogram as well. He will be hospitalized for this evaluation and then disposition depending on his clinical course. Status: Acute Assessment and Plan: Total time spent today is 75 minutes, 50 minutes in coordination of care and discussing with patient, and other providers ongoing evaluation management of these episodes of loss of consciousness.
[2022-05-25] MEDS: levETIRAcetam 500 MG TABLET PO (20:54)
[2022-05-25] MEDS: lamoTRIgine 25 MG TABLET PO (20:54)
[2022-05-25] MEDS: SODIUM CHLORIDE 0.9 % (FLUSH) 10 ML SYRINGE 5 ML IVF (20:56)
[2022-05-26] VITALS (8 sets, daily range): BP systolic 111–131; BP diastolic 74–94; PULSE 64–76; RESP 16–18; TEMP 36.3–36.9; O2SAT 93–96
--- NOTE | 2022-05-26 02:44 | PC.NURSE ---
End of Shift: Patient pleasant and cooperative. Afebrile. Denies pain. Neuros intact. Tele showing NSR with heart rate in the 70s-80s. Up to bathroom and chair with SBA. Denies any lightheadedness or dizziness. Tolerating regular diet with no nausea.
[2022-05-26] MEDS: guaiFENesin 100 MG/ML CUP PO (03:13)
--- NOTE | 2022-05-26 06:11 | PC.NURSE ---
End of shift Note: Patient slept on and off this shift. No abnormal activity noted. will continue to monitor.
[2022-05-26] MEDS: levETIRAcetam 500 MG TABLET PO ×2 (09:26→20:29)
[2022-05-26] MEDS: SODIUM CHLORIDE 0.9 % (FLUSH) 10 ML SYRINGE 5 ML IVF (09:26)
--- NOTE | 2022-05-26 13:09 | PM.IMPN1 ---
Progress Note: A&P Assessment and plan (1) Loss of consciousness: Problem details: 3 episodes in September through November 2021 suspected to be seizures. I recommended that we start lamotrigine per his neurologist's recommendation at 25 mg daily. Because this is going to take some time to reach therapeutic level I have encouraged him to take Keppra 500 mg twice a day for at least the next 2 weeks. He is in agreement with that. I am also concerned about his bradycardia. He is either having bradycardic episodes with syncope or having bradycardia secondary to increased vagal tone was seizures. Will place him on cardiac monitoring, monitor for symptoms and obtain echocardiogram as well. He will be hospitalized for this evaluation and then disposition depending on his clinical course. Status: Acute Assessment and Plan: No symptoms, spells or bradycardia overnight (2) Gait disorder: Problem details: Patient is observed to walk today with a wide-based gait. He uses walking sticks as well. He has subtle weakness on his left compared to his right. Apparently, a chronic problem. 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 Status: Acute Plan Continue in hospital for 1 more day of neurologic and cardiac monitoring. If doing well recommend outpatient follow-up with Neurology and possibly Cardiology for further evaluation Time Spent With Patient Total time spent: Total time spent today is 40 minutes, 30 minutes in coordination of care and discussing with patient, and other providers ongoing evaluation management of seizures, syncope. Subjective Date Seen: 05/26/22 Exam Narrative: Exam Narrative: He is alert and appears in no distress. He does not recall much of what happened yesterday. He did receive lorazepam in the emergency department and did appear to be a little bit sedated when I visited with him. He does not recall much of any of this. Today he is otherwise oriented. Speech is slow but normal. He is observed to walk he has a wide-based gait and uses walking sticks for balance. Eyes are normal. No facial asymmetry. No focal weakness. Breathing is unlabored. Cardiovascular: S1, S2, regular rate and rhythm. No edema Const: Vital Signs, click to edit/add: Vital Signs - 24 hr 05/25/22 13:30 05/25/22 15:00 05/25/22 14:30 Temperature Pulse Rate Pulse Rate [Left A pical] Pulse Rate [Pulse Oximeter] 97 73 66 Respiratory Rate 18 23 18 Blood Pressure [Ri ght Arm] Blood Pressure [Ri ght Upper Arm] 109/67 115/80 126/76 Pulse Oximetry 94 96 Oxygen Delivery Me thod Nasal Cannula Nasal Cannula Nasal Cannula Oxygen Flow Rate 2 2 05/25/22 14:44 05/25/22 16:04 05/25/22 15:10 Temperature 97.2 F L Pulse Rate 66 Pulse Rate [Left A pical] Pulse Rate [Pulse Oximeter] 66 Respiratory Rate 19 74 H Blood Pressure [Ri ght Arm] 131/84 Blood Pressure [Ri ght Upper Arm] 126/76 Pulse Oximetry 97 95 Oxygen Delivery Me thod Nasal Cannula Room Air Oxygen Flow Rate 2 05/25/22 17:50 05/25/22 19:32 05/25/22 19:00 Temperature 98.3 F Pulse Rate Pulse Rate [Left A pical] Pulse Rate [Pulse Oximeter] Respiratory Rate 18 18 Blood Pressure [Ri ght Arm] 108/80 Blood Pressure [Ri ght Upper Arm] Pulse Oximetry 93 93 95 Oxygen Delivery Me thod Room Air Room Air Oxygen Flow Rate 05/25/22 23:00 05/25/22 23:00 05/25/22 23:00 Temperature 98.5 F Pulse Rate Pulse Rate [Left A pical] 84 Pulse Rate [Pulse Oximeter] Respiratory Rate 16 16 Blood Pressure [Ri ght Arm] 118/95 H Blood Pressure [Ri ght Upper Arm] Pulse Oximetry 95 95 Oxygen Delivery Me thod Room Air Oxygen Flow Rate 05/25/22 23:00 05/26/22 03:00 05/26/22 08:23 Temperature 97.3 F L Pulse Rate 79 65 Pulse Rate [Left A pical] 76 Pulse Rate [Pulse Oximeter] Respiratory Rate 18 Blood Pressure [Ri ght Arm] 111/80 Blood Pressure [Ri ght Upper Arm] Pulse Oximetry 93 Oxygen Delivery Me thod Room Air Oxygen Flow Rate 05/26/22 07:00 05/26/22 07:00 05/26/22 07:00 Temperature 98.4 F Pulse Rate Pulse Rate [Left A pical] 66 72 Pulse Rate [Pulse Oximeter] Respiratory Rate 18 18 Blood Pressure [Ri ght Arm] 115/78 Blood Pressure [Ri ght Upper Arm] Pulse Oximetry 95 95 Oxygen Delivery Me thod Room Air Oxygen Flow Rate Documenting provider has reviewed patient's vital signs: yes Labs Labs: Laboratory Results - last 24 hr 05/25/22 09:34 Levetiracetam See Scanned Report
--- NOTE | 2022-05-26 15:14 | PC.NURSE ---
VSS AND AFEBRILE. PATIENT DENIES PAIN OR N/V. DENIES FEELING DIZZY OR LIGHTHEADED. UP WITH SBA TO BATHROOM. TOLERATING REGULAR DIET. TELE SHOWING NSR WITH 1ST DEGREE BLOCK AND HEART RATE 70-80'S.
--- NOTE | 2022-05-26 18:43 | PC.NURSE ---
Shift [id number]- Patient is up with SBA. He denies pain. ECHO performed. Neuros intact.
[2022-05-26] MEDS: lamoTRIgine 25 MG TABLET PO (20:28)
[2022-05-27 03:00] VITALS: BP 130/69; PULSE 66; RESP 18; TEMP 36.4; O2SAT 95
--- NOTE | 2022-05-27 06:51 | PC.NURSE ---
Sift note: Pt is doing well. No seizure episode noted. V/s WNL. Ambulate with Assist of 1 with walker and GB. Denied pain.
[2022-05-27 08:00] VITALS: BP 119/77; PULSE 68; RESP 16; TEMP 36.5; O2SAT 93
[2022-05-27 08:02] VITALS: PULSE 64
[2022-05-27 08:08] VITALS: O2SAT 93
--- NOTE | 2022-05-27 08:16 | P.DS_ITS ---
DS: Providers Provider Date Seen: 05/27/22 Date of admission: 05/25/22 14:52 Primary care physician: Jerry Gates MD Admitting Clinician: Sandra Loo MD Attending Physician on discharge: Sandra Loo MD Date of Discharge: 05/27/22 DS: Diagnosis Discharge Diagnosis (1) Loss of consciousness: Status: Acute Problem details: 3 episodes in September through November 2021 suspected to be seizures. I recommended that we start lamotrigine per his neurologist's recommendation at 25 mg daily. Because this is going to take some time to reach therapeutic level I have encouraged him to take Keppra 500 mg twice a day for at least the next 2 weeks. He is in agreement with that. I am also concerned about his bradycardia. He is either having bradycardic episodes with syncope or having bradycardia secondary to increased vagal tone was seizures. During his hospital stay had no bradycardic episodes or other cardiac dysrhythmia. Preliminary echo shows no serious structural heart disease. (2) Gait disorder: Status: Acute Problem details: Patient is observed to walk today with a wide-based gait. He uses walking sticks as well. He has subtle weakness on his left compared to his right. Apparently, a chronic problem. 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 DS: Summary Hospital Course Hospital Course: 81-year-old male admitted to the hospital after an unconscious spell at home. This was unwitnessed. His heard him fall and came to find him unconscious on the floor. He was not moving except he was breathing and she report his eyelids were fluttering. Patient has a history of seizure disorder and this was presumed to be a recurrent seizure. He is on Keppra but taking a dose of 250 mg twice daily. Levetiracetam blood level was 3.1 (therapeutic range 6.0-46). While the patient was being observed in the emergency department he had 2 additional spells brief unconsciousness. Each episode lasted several seconds. During one of them he was on nuclear monitoring technician and his heart rate went into the 20s. He was also observed to be smacking his lips during 1 episode. The slow heart rate raised concerns about possible cardiac syncope. Attempts to transfer him for neurologic or or cardiac evaluation were unsuccessful. He was admitted to the hospital here for monitoring. In [facility] he was on a nuclear monitoring technician and had no episodes of bradycardia. He also was observed to have no episodes of spells of altered consciousness. He was treated with increased dose of Keppra 500 mg twice daily and started on lamotrigine 25 mg daily. He also had an echocardiogram which on preliminary report showed no more serious structural heart disease. Final report is pending. He tolerated these medications and will be sent home on these new doses for outpatient followup. Status at Discharge Functional status at discharge: independent ambulation Overall status at discharge: patient is back to baseline Time Spent with Patient Time attestation: Total time spent providing and/or coordinating discharge services: Time spent: Less than 30 minutes Exam Narrative: Exam Narrative: He is alert and appears in no distress. Respirations unlabored. Cardiovascular: S1, S2, regular rate and rhythm. Abdomen is soft without tenderness. He moves all 4 extremities well. Const: Vital Signs, click to edit/add: Vital Signs - 24 hr 05/26/22 08:23 05/26/22 12:00 05/26/22 16:22 Temperature 98.1 F Pulse Rate 65 Pulse Rate [Left A pical] 74 Respiratory Rate 18 Blood Pressure [Ri ght Arm] 122/74 Pulse Oximetry 96 96 Oxygen Delivery Me thod Room Air 05/26/22 16:22 05/26/22 16:02 05/26/22 20:00 Temperature 98 F 97.8 F Pulse Rate 67 Pulse Rate [Left A pical] 64 67 Respiratory Rate 16 18 Blood Pressure [Ri ght Arm] 113/80 130/77 Pulse Oximetry 96 95 [facility] 05/26/22 23:00 05/26/22 23:00 05/26/22 23:00 Temperature Pulse Rate 64 Pulse Rate [Left A pical] 65 Respiratory Rate 18 Blood Pressure [Ri ght Arm] Pulse Oximetry 94 Oxygen Delivery Me thod 05/26/22 23:00 05/27/22 03:00 05/27/22 08:02 Temperature 97.7 F 97.5 F L Pulse Rate 64 Pulse Rate [Left A pical] 65 66 Respiratory Rate 18 18 Blood Pressure [Ri ght Arm] 131/94 H 130/69 Pulse Oximetry 94 95 [facility] Room Air 05/27/22 08:08 Temperature Pulse Rate Pulse Rate [Left A pical] Respiratory Rate Blood Pressure [Ri ght Arm] Pulse Oximetry 93 Oxygen Delivery Me thod Documenting provider has reviewed patient's vital signs: yes DS: Data Data Completed and Pending Labs on day of discharge: Labs from last 24 hours 05/25/22 09:34 Levetiracetam See Scanned Report Discharge Plan Discharge Disposition: Home, Self-Care Date of Admission: 05/25/22 14:52 Attending Provider on Discharge: Denis Em Primary Care Provider: Jerry Gates Condition: Improved Anticipated Discharge Date/Time: 05/27/22 09:00 Discharge Medications: New lamotrigine 25 mg Tablet 25 mg PO HS Qty: 30 0RF Continued cyanocobalamin (vitamin B-12) 500 mcg tablet 500 mcg PO DAILY cholecalciferol (vitamin D3) 50 mcg (2,000 unit) capsule 50 mcg PO DAILY Changed levetiracetam 500 mg tablet 500 mg PO BID Qty: 60 0RF Discharge Orders: Discharge Order (Routine); Ordered 05/27/22 Ordered By: Denis Em Patient Education: Lamotrigine (By mouth) Additional Instructions: See your neurologist, Dr. Lindsey, at next available appointment. Do not drive until you have seen Dr. Lindsey to review these spells of loss of consciousness Activity Level: No Restrictions and Other Discharge Diet: Regular Follow Up Appointments: Jerry Gates MD [Primary Care Provider] - Forms: [employer] Info Instructions
[2022-05-27] MEDS: levETIRAcetam 500 MG TABLET PO (08:33)
[2022-05-27 10:26] VITALS: BP 119/77; PULSE 64; RESP 16; TEMP 36.5
--- NOTE | 2022-05-27 10:30 | PC.NURSE ---
Discharge: Patient pleasant and cooperative. Up with SBA and walker. Worked with PT today prior to discharge. No IV present, vitals stable and WNL. Discharge instructions given and reviewed with patient and family. New medications and follow up discussed, questions answered as needed. Patient discharged via wheelchair @ 1020, picked up from ED entrance to bring home.
== END 2022-05-27 10:20 | disposition home or self-care (01) ==
LOC: ED 09:52 → MEDSURG 14:53
PROVIDERS: Admitting Provider Family Medicine; Emergency Provider Emergency Medicine; PCP Family Medicine; Visit Provider Family Medicine
DX: G40.909 Epilepsy, unspecified, not intractable, without status epilepticus (principal); R00.1 Bradycardia, unspecified; I69.398 Other sequelae of cerebral infarction; G93.89 Other specified disorders of brain; R26.9 Unspecified abnormalities of gait and mobility; Z86.69 Personal history of other diseases of the nervous system and sense organs
CPT/HCPCS: 36415; 51798; 80048; 80076; 80177; 83735; 84443; 84484; 85025; 87502; 87634; 87635; 93005; 93306; 96374; 97112; 97116; 97162; 99285; G0378; A9270; G0379; J2060

== ENCOUNTER 2023-04-18 10:15 | Outpatient (RCR) | payer MEDICARE, BC, SELFPAY | END 2023-04-25 10:27 | disposition home or self-care (01) | PROVIDERS: PCP Family Medicine; Visit Provider Family Medicine | DX: R26.9 Unspecified abnormalities of gait and mobility (principal); Z51.89 Encounter for other specified aftercare | CPT/HCPCS: 97110; 97112; 97162; 97530 ==

== ENCOUNTER 2024-04-15 16:14 | Observation (INO) | payer MEDICARE, BC, SELFPAY ==
[2024-04-15] VITALS (22 sets, daily range): BP systolic 121–148; BP diastolic 54–83; PULSE 75–88; RESP 18–22; TEMP 37–38; O2SAT 90–97; BMI 25.5
--- NOTE | 2024-04-15 16:54 | CRLHL7_ITS ---
For Patients: As a result of the Century Cures Act, medical imaging exams and procedure reports are released immediately into your electronic medical record. You may view this report before your referring provider. If you have questions, please contact your health care provider. INDICATION: COVID, weakness. TECHNIQUE: CT chest without contrast. COMPARISON: None. FINDINGS: Lungs and pleura: No suspicious nodules or infiltrates. No pleural effusions, pleural thickening, or pneumothorax. Heart and vasculature: Mild dilatation of the ascending aorta measuring 4.1 cm. Normal caliber main pulmonary artery. Normal heart size. No pericardial effusion.. Lymph nodes/mediastinum: No mediastinal, hilar, or axillary adenopathy. Chest wall: No masses. Upper abdomen: No acute or significant findings. Bones: Unremarkable for age. IMPRESSION: No acute findings in the chest. Please note that all CT scans at this facility use dose modulation, iterative reconstruction, and/or weight-based dosing when appropriate to reduce radiation dose to as low as reasonably achievable. Dictated by Elio Henderson MD @ 04/15/2024 7:59:23 PM (Electronically Signed)
--- OUTSIDE RECORDS SUMMARY | 2024-04-15 17:05 | XMS_ITS | Clinical Summary ---
Author Organization [facility] Address [address] [place] [address] Care Team Providers Care Drywall Stripper Name Role Phone Unavailable Primary Care Provider Unavailabl e Source Comments Patient records contain information from all sites at [facility]. For routine questions regarding patient records, call [phone] during business hours, M-F 8:00 AM - 5:00 PM Central Time. Record requests for emergency care only can be directed to [phone] at any time.[facility] Allergies Active Allergy Reactions Criticality Noted Date Comments Grass Pollen Wheezing (Reselect Reaction) 12/04 House Dust Mite Other (see comments) 01/30/2018 sneezy Medications Medication Sig Dispensed Refills Start Date End Date Status cyanocobalamin (VITAMIN B12) 500 mcg tablet Take 500 mcg by mouth daily. Active cholecalciferol (VITAMIN D3) 2,000 Unit capsule Take 2,000 Units by mouth daily. 01/08/2019 Active levETIRAcetam (Keppra) 500 mg tablet Take 1 tablet (500 mg total) by mouth 2 (two) times a day. 180 tablet 3 02/22/2024 02/21/2025 Active lamoTRIgine (LaMICtal) 100 mg tablet Take 1 tablet (100 mg total) by mouth 2 (two) times a day. 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 Med Refill from Last 3 Months Immunizations Name Administration Dates Next Due SARS-COV-2 (COVID-19) - PFIZ ER (Discontinued)(12 years or older) 09/27/2020,09/01/2020 Social History Tobacco Use Types Packs/Day Years Used Date Smoking Tobacco: Never Smokeless Tobacco: Never Tobacco Cessation:Counseling Given: Not Answered Alcohol Use Standard Drinks/Week Comments Yes 1 (1 standard drink = 0.6 oz pur e alcohol) Humiliation, Afraid, Rape, and Kick questionnair e Answer Date Recorded Within the last year, have y ou been afraid of your partner or ex-partner? No 07/24/2022 Within the last year, have y ou been humiliated or emotionally abused in other ways by your partner or ex-partner? No Within the last year, have y ou been kicked, hit, slapped, or otherwise physically hurt by your partner or ex-partner? No 07/24/2022 Within the last year, have y ou been raped or forced to have any kind of sexual activity by your partner or ex-partner? No 07/24/2022 Social Connection and Isolat ion Panel [NHANES] Answer Date Recorded In a typical week, how many times do you talk on the phone with family, friends, or neighbors? Once a week 07/24/2022 How often do you get togethe r with friends or relatives? Once a week 07/24/2022 How often do you attend chur ch or temple services? More than 4 times per year 07/24/2022 Do you belong to any clubs o r organizations such as cheondoism groups, unions, fraternal or athletic groups, or school groups? Yes 07/24/2022 How often do you attend meet ings of the clubs or organizations you belong to? More than 4 times per year 07/24/2022 Are you , , di vorced, , never , or living with a partner? 07/24/2022 AUDIT-C Answer Date Recorded Q1: How often do you have a drink containing alc ohol? 2-4 times a month 07/24/2022 Q2: How many drinks containi ng alcohol do you have on a typical day when you are drinking? 1 or 2 07/24/2022 Q3: How often do you have si x or more drinks on one occasion? Never 07/24/2022 Overall Financial Resource Strain (CARDIA) Answe r Date Recorded How hard is it for you to pa y for the very basics like food, housing, medical care, and heating? Not hard at all 07/24/2022 [facility] Occupat ional Health - Occupational Stress Questionnaire Answer Date Recorded Do you feel stress - tense, restless, nervous, or anxious, or unable to sleep at night because your mind is troubled all the time - these days? To some extent 07/24/2022 Exercise Vital Sign Answer Date Recorde d On average, how many days pe r week do you engage in moderate to strenuous exercise (like a brisk walk)? 1 day 07/24/2022 On average, how many minutes do you engage in exercise at this level? 30 min 07/24/2022 Hunger Vital Sign Answer Date Recorded Within the past 12 months, y ou worried that your food would run out before you got the money to buy more. Never true 07/24/19 23 Within the past 12 months, t he food you bought just didn't last and you didn't have money to get more. Never true 07/24/2022 PRAPARE - Transportation Answer Date Re corded In the past 12 months, has l ack of transportation kept you from medical appointments or from getting medications? No 08/2022 In the past 12 months, has l ack of transportation kept you from meetings, work, or from getting things needed for daily living? No 07/24/2022 Housing Stability Vital Sign Answer Juan Carlos e Recorded In the last 12 months, was t here a time when you were not able to pay the mortgage or rent on time? No 07/24/2022 In the last 12 months, how many places have you lived? 1 07/24/2022 In the last 12 months, was t here a time when you did not have a steady place to sleep or slept in a longterm (including now)? No 07/24/2022 Nutrition Answer Date Recorded Nutrition: EVOO Fat Source Yes 07/24 On average, how many serving s of fruits and vegetables do you eat per day (serving size is equal to 1 cup or approximately the size of a tennis ball)? 0-1 07/24/2022 Dental Answer Date Recorded Dental: Regular Dentist Yes 01/15/20 Employment Answer Date Recorded Employment status Retired 07/24/2022 Education Answer Date Recorded What is the highest level of school you have completed or the highest degree you have received? Doctorate 01/15/2019 Sex and Gender Information Value Date Recorded Sex Assigned at Male 08/30/2018 2:45 PM TANK SETTER Gender Identity Male 08/30/2018 2:45 PM TANK SETTER Sexual Orientation Straight 08/30/2018 2: 45 PM TANK SETTER Last Filed Vital Signs Vital Sign Reading Time Taken Comments Blood Pressure 112/71 02/01/2023 2:21 PM CDT Pulse 71 02/01/2023 2:21 PM CDT Temperature 36.4 ??C (97.5 ??F) 02/25/2018 10:59 AM C DT Respiratory Rate - - Oxygen Saturation 98% 07/25/2022 9:17 AM TANK SETTER Inhaled Oxygen Concentration - - Weight 84.4 kg (186 lb 1.1 oz) 02/01/2023 2:21 P M CDT Height 180 cm (5' 10.87) 02/25/2018 10:59 AM CD T Body Mass Index 26.05 02/25/2018 10:59 AM CDT Plan of Treatment Health Maintenance Due Date Last Done Comments RSV vaccine - (32-3 6 weeks) or 60+ years (1 - 1-dose 75+ series) 10/13/2014 Depression Screening (Annual PHQ-2) 07/23/2023 Fall Risk Screen (Annual) 07/23/2023 COVID-19 Vaccine (8 2023-2 5 season) 2024 05/18/2023, 12/06/2022, 04/13/2022, Additional history exists Influenza Vaccine (#1) 2024 , 04/13/2022, 04/11/2021, Additional history exists DTaP,Tdap,and Td Vaccines (3 - Td or Tdap) 12/26/2032 12/26/2022, 07/30/2012, 2007 Zoster Vaccines Completed 12/04/2018, 01/2019, 2007 Pneumococcal vaccine (65+ years) Completed 07/11/2022, 06/10/2014, 2007 Medical Devices Implanted Type Area Rn Cardiovascular Icu Device Identifier Shelf Expiration Date Model / Serial / Lot Ocular Lens Ocular Lens Cornea
--- OUTSIDE RECORDS SUMMARY | 2024-04-15 17:05 | XMS_ITS ---
Author Organization [facility] Address [address] [place] [address] Care Team Providers Care Scagliola Mechanic Name Role Phone Unavailable Unavailable Unavailable Surgery Details Not on file Complications Check Surgery Details section. Procedure Estimated Blood Loss Check Surgery Details section. Procedure Findings Check Surgery Details section. Procedure Specimens Taken Check Surgery Details section.
--- OUTSIDE RECORDS SUMMARY | 2024-04-15 17:05 | XMS_ITS | Continuity of Care Document ---
Author Organization [facility] Address [address] [place] [address] [address] [place] [address] Phone Care Team Providers Care Manager Respiratory Name Role Phone Gaetano LUX, Bhanu Unavailable Unavailable Advance Directives Directive Yes / No Effective Date File Name No Information Encounters Encounter Description Practice Location Reason(s) For Visit Diagnoses Date Provider Providers Copied on Encounter Z [facility], [address] [place], [place] [address], [place], [address], [place] tel:[phone] [facility] No Information Gaetano Drummond. [facility], [address] [place] [address] [address], [place], [place], [id number] , [place]. tel:[phone] Family History Family Member Type Diagnosis Age At Onset No Information Payers Payer name Insurance type Covered alliance party ID Authoriza tion(s) No Information Social History Type Description Quantity Date Captured Comments Sex Male Smoking Status No Information Chief Complaint And Reason For Visit No Information Reason For Referral Reason For Referral No Information History Of Present Illness Encounter Date Complaint History Of Prese nt Illness No Information Functional Status Date Functional Assessmen t No Information Instructions Date Instruction Additional Infor mation No Information Assessments Type Assessment Date No Information Patient Care Teams Name Effective Dates (start - stop) Status Members No Information
--- OUTSIDE RECORDS SUMMARY | 2024-04-15 17:05 | XMS_ITS | Referral Summary ---
Author Organization [facility] Address [address] [place] [address] Care Team Providers Care Educational Diagnostician Name Role Phone Unavailable Primary Care Provider Unavailabl e Source Comments Patient records contain information from all sites at [facility]. For routine questions regarding patient records, call [phone] during business hours, M-F 8:00 AM - 5:00 PM Central Time. Record requests for emergency care only can be directed to [phone] at any time.[facility] Encounters Date Type Department Care Team Description 02/22/2024 Refill Department of Neurology in [place], [place] [address], [place] [address] Miguel Barrios M.D. Med Refill from Last 3 Months Allergies Active Allergy Reactions Criticality Noted Date [...] Spastic 09/06/2018 Hemiplegia Nondominant Side Left 09/06/2018 Immunizations Name Administration Dates Next Due SARS-COV-2 [...] 07/24/2022 How often do you attend chur or jainism services? More than 4 times per year 07/24/2022 Do you belong to any clubs o r organizations such as rastafarian groups, unions, fraternal or [...] and heating? Not hard at all 07/24/2022 [facility] Occupat ional Health - Occupational Stress [...] place to sleep or slept in a fci (including now)? No 07/24/2022 Nutrition Answer Date [...] Sex Assigned at Male 08/30/2018 2:45 PM HAM SAWYER Gender Identity Male 08/30/2018 2:45 PM HAM SAWYER Sexual Orientation Straight 08/30/2018 2: 45 PM HAM SAWYER Last Filed Vital Signs Vital Sign Reading Time Taken Comments Blood Pressure 112/71 02/01/2023 2:21 PM CDT Pulse 71 02/01/2023 2:21 PM CDT Temperature 36.4 ??C (97.5 ??F) 02/25/2018 10:59 AM C DT Respiratory Rate - - Oxygen Saturation 98% 07/25/2022 9:17 AM HAM SAWYER Inhaled Oxygen Concentration - - Weight 84.4 kg (186 lb 1.1 oz) 02/01/2023 2:21 P M CDT Height 180 cm (5' 10.87) 02/25/2018 10:59 AM CD T Body Mass Index 26.05 02/25/2018 10:59 AM CDT Plan of Treatment Not on file Medical Devices Implanted Type Area Kinesiotherapist Device Identifier Shelf Expiration Date Model / Serial / Lot Ocular Lens Ocular Lens Cornea
--- OUTSIDE RECORDS SUMMARY | 2024-04-15 17:05 | XMS_ITS | Clinical Summary ---
Author Organization [facility] Address [place], [place] [address] Care Team Providers Care Alcoholism Worker Name Role Phone Jerry Gates MD Primary Care Provider Allergies Active Allergy Reactions Criticality Noted Date Comments Clams Nausea And Vomiting 01/30/2018 House Dust Mite Other - Describe In Comment Field 01/30/2018 sneezy Mold Other - Describe In Comment Field sneezy Medications Medication Sig Dispensed Refills Start Date End Date Status cyanocobalamin (VITAMIN B12) 500 mcg tablet Take 500 mcg by mouth. Active cholecalciferol (VITAMIN D-3) 2,000 unit capsule Take 1 capsule by mouth once daily. 0 01/08/2019 Active diclofenac topical (VOLTAREN) 1 % gelIndications:Right hand pain,Arthritis of uwcecawc-kagvtdyuw-ne apezoid joint of right hand Apply 2 g topically to affected area(s) 4 times daily. 200 g 08/12/2021 Active lamoTRIgine (LAMICTAL) 100 mg oral disintegrating tablet 07/14/2022 Active levETIRAcetam (KEPPRA) 1,000 mg tablet Take 500 mg by mouth two times daily. 06/12/2022 Active tamsulosin (FLOMAX) 0.4 mg capsuleIndications:BP H without urinary obstruction Take 1 Capsule (0.4 mg) by mouth once daily after a meal. May increase to two daily after two to three weeks if needed. 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 08/12/2021 Lumbar facet arthropathy 02/10/2021 DDD (degenerative disc disease), lumbar 02/11/20 Primary osteoarthritis of right knee 02/10/2021 BPH without urinary obstruction 11/02/2020 Elevated PSA 11/02/2020 Unstable gait 11/02/2020 Left hemiplegia Spinal stenosis of lumbar region Resolved Problems Problem Noted Date Diagnosed Date Resolved Date Low back pain 01/08/2012 11/08/2021 Encounters Date Type Department Care Team Description 04/15/2024 4:15 PM CDT Phone Office Visit [facility] [place] [address] [place] [address] Deyanira Gonzalez PA URI (COVID-19 positive) 04/15/2024 Travel 04/02/2024 8:58 AM CDT - 04/02/2024 11:59 PM CDT Hospital Encounter [facility] [address] [place] [address] Jerry Gates MD Chest pain in adult 04/01/2024 Travel 03/26/2024 Telephone [facility] [address] [place] [address] Sharri Nichols 03/19/2024 11:00 AM CDT Ancillary Procedure [facility] [address] [place] [address] 03/19/2024 Travel 03/06/2024 Orders Only [facility] Scanner 1 scan: (1-Ord) TUNG DERMATOLOGY, SHAVE BIOPSY LT INFERIOR VERMILION LIP, 03/06/2024 02/23/2024 9:00 AM CDT Orders Only [facility] [address] [address] Lab 02/21/2024 9:30 AM CDT Office Visit [facility] [place] [address] [place] [address] Cedrick Ivan, [facility] Visit 02/21/2024 Travel 02/15/2024 Telephone [facility] [place] [address] [place] [address] Andrew Ward MD Neurology 02/14/2024 3:45 PM CDT Office Visit [facility] [place] [address] [place] [address] Jerry Gates MD Medicare ANNUAL (subsequent) Visit (83 year old); Concerns (Balance/Discuss mobility); Referral (Dermatology ) 02/14/2024 Travel 02/10/2024 Travel from Last 3 Months Immunizations Name Administration Dates Next Due COVID-19 VACCINE SPIKEVAX (M ODERNA 50MCG/0.5ML) 12YO+ PFS 05/18/2023 COVID-19 vaccine (Pfizer-Bio NTech 30mcg/0.3mL) 12YO+ BIVALENT PF, MDV 12/06/2022 COVID-19 vaccine (Pfizer-Bio NTech 30mcg/0.3mL) 12YO+ RAINE-SUCROSE PF, MDV 11/08/2021 COVID-19 vaccine (Pfizer-Bio NTech 30mcg/0.3mL) PF, MDV 05/03/2021,09/27/2020,09/01/2020 HepA-HepB (Twinrix) 11/17/2002 Hepatitis A (Adult) 12/12/2001,10/29/2001 Hepatitis B (Adult) 11/17/2002,12/12/2001,2001 Inactivated Polio Vaccine 10/29/2001 Influenza A (H1N1), Inactivated 07/28/2009 Influenza, High-dose Inactivated 019,04/04/2017,04/05/2016,04/29 Influenza, High-dose Quadriv alent Inactivated 04/13/2022 Influenza, IIV3 (Age >=3 years) 03/25/20 14,03/26/2013,03/14/2012,03/16,04/16/2010,06/01/2008,2007 ,06/27/2006,05/28/2006 Influenza, Inactivated AIIV4 (Age 65+ Years) Preserv Free 04/20/2023,04/11/2021 Influenza, Inactivated IIV3 (Age 65+ Years) Preserv Free 04/26/2018 Meningococcal Vaccine (Menomune) 06/14/2010 Pneumococcal Conj 20-valent (Prevnar 20) 07/11/2022 Pneumococcal Poly,23-Valent (Pneumovax) 2007 Pneumococcal conj 13-Valent (Prevnar 13) 06/10/2014 Td (Age >=7 Years) 06/02/1995 Td, Preservative Free (age >= 7 Years) 8 Tdap 12/26/2022,07/30/2012 Tuberculin (PPD) 07/27/2008,01/14/2002 Typhoid (injectable) 06/09/2016,06/10/20 14,07/27/2008,10/29 Yellow Fever 10/29/2001 Zoster (Shingrix-RZV, recombinant) 12/04/2018, Zoster (Zostavax-ZVL, live) 2007 Family History Medical History Relation Name Comments Other Brother of cachex ia Cancer-prostate Father Diabetes Father Diabetes Maternal Grandmother Hypertension Mother Diabetes Paternal Grandmother Cancer-colon No Family History Relation Name Status Comments Brother Father Maternal Grandmother Mother Paternal Grandmother Social History Tobacco Use Types Packs/Day Years Used Date Smoking Tobacco: Never Smokeless Tobacco: Never Tobacco Cessation:Counseling Given: No Alcohol Use Standard Drinks/Week Comments Not Currently 7 (1 standard drink = 0.6 oz pur e alcohol) wine with dinner PHQ-2 Answer Date Recorded PHQ-2 TOTAL SCORE 1 02/14/2024 Social Connections Answer Date Recorded Frequency of Communication with Friends and Fami ly 0 09/25/2023 Alcohol Use Answer Date Recorded How often do you have a drink containing alcohol ? 4 11/16/2021 How many drinks containing a lcohol do you have on a typical day when you are drinking? 0 11/16/2021 How often do you have five or more drinks on one occasion? 0 11/16/2021 Financial Resource Strain Answer Date R ecorded Difficulty of Paying Living Expenses 3 09/25/2023 Difficulty of Paying Living Expenses Not on file 09/25/2023 Food Insecurity Answer Date Recorded Worried About Running Out of Food in the Last Ye ar 1 09/25/2023 Transportation Needs Answer Date Record ed Lack of Transportation (Medical) 1 09/25/2023 Housing Stability Answer Date Recorded Unable to Pay for Housing in the Last Year 1 09/25/2023 Sex and Gender Information Value Date Recorded Sex Assigned at Not on file Gender Identity Not on file Sexual Orientation Not on file Obstetrics History Last Filed Vital Signs Vital Sign Reading Time Taken Comments Blood Pressure 112/70 02/14/2024 4:01 PM CDT Pulse 61 02/14/2024 4:01 PM CDT Temperature 36.7 ??C (98 ??F) 02/10/2021 9:32 AM CDT Respiratory Rate 16 11/16/2021 3:07 PM CDT Oxygen Saturation 99% 02/14/2024 4:01 PM CDT Inhaled Oxygen Concentration - - Weight 81.6 kg (180 lb) 02/14/2024 4:01 PM CDT Height 177.8 cm (5' 10) 02/14/2024 4:01 PM CDT Body Mass Index 25.83 02/14/2024 4:01 PM CDT Plan of Treatment Upcoming Encounters Date Type Department Care Team (Late st Contact Info) Description 04/28/2024 1:50 PM CDT Office Visit Counts Include [address] At [facility] [address] [facility] [address] [place], [place] [id number] [place] [address] [place] [address] [place] [address] 07/07/2024 2:00 PM BOTTLE WASHER Office Visit [facility] [address] [place] [phone] Merritt Sutherland MD [facility] [place] [address] Health Maintenance Due Date Last Done Comments RSV vaccine for adults or (1 - 1-dose 75+ series) 10/13/2014 COVID-19 vaccine series ( season) 2024 05/18/2023, 12/06/2022, 04/13/2022, Additional history exists Influenza for age 65+ 03/23/2024 04/20/2023 , 04/13/2022, 04/11/2021, Additional history exists BMI (ht and wt on same day) for age 18+ 02/13/2025 02/14/2024, 02/05/2023, 07/24/2022, Additional history exists Depression screening for age 12+ 02/14/2025 02/15/2024, 02/14/2024, 02/05/2023, Additional history exists Medicare Wellness for age 65+ 02/14/2025, 02/05/2023, 11/08/2021, Additional history exists Tetanus booster 12/26/2032 12/26/2022, 02/2013, 2007, Additional history exists Zoster (shingles) series for age 50+ Completed 12/04/2018, 09/26/2018, 2007 Pneumococcal series for age 65+ Completed 07/11/2022, 06/10/2014, 2007 Tdap Completed 12/26/2022, 07/30/2012 Procedures Procedure Name Priority Date/Time Associated Diagnosis Comments NM CARDIAC MPI STRESS TEST Routine 04/02/2024 11:40 AM CDT Chest pain in adult SCAN-STRESS TEST 04/02/2024 12:0 0 AM CDT ECHO TTE COMPLETE WO CONTRAST Routine 03/19/2024 11:45 AM CDT Abnormality of aortic valve SCAN-OPERATIVE/PROCED URE REPORT 03/06/2024 12:00 AM CDT OCCULT BLOOD IFOBT STOOL Routine 02/23/2024 7:54 PM CDT Screening for colon cancer CBC WITH AUTO DIFFERENTIAL Routine 02/14/2024 5:11 PM CDT Chest pain in adult PSA TOTAL (DIAGNOSTIC) Routine 02/14/2024 5:11 PM CDT Elevated PSA CBC WITH AUTO DIFFERENTIAL Routine 02/14/2024 5:11 PM CDT Chest pain in adult BASIC METABOLIC PANEL Routine 02/14/2024 5:11 PM CDT Edema of left lower extremity VITAMIN B12 Routine 02/14/2024 5:11 PM CDT B12 deficiency VITAMIN D 25 (DEFICIENCY) Routine 02/14/2024 5:11 PM CDT Vitamin D deficiency from Last 3 Months Results * NM CARDIAC MPI STRESS TEST (04/02/2024 11:40 AM CDT) Anatomical Region Laterality Modality HEART Nuclear Medicine 04/02/2024 9:01 AM CDT Narrative 04/02/2024 1:46 PM CDT ? Toll -free: [phone] ?Disrupt6 ? MYOCARDIAL PERFUSION IMAGING REPORT REST/STRESS SINGLE ISOTOPE GATED SPECT IMAGING Patient Name: ?? DA MONK ? Gender: ? M ? Height: ? 70 in Accession #: ?[id number] ?Weight: ? 180 lb Study Date: ? 04/02/2024 9:01:19 AM ? BSA: ?2.00 m? ? ? : ?1940 83 years ? BMI: ?25.83 kg/m? ? ? Ord. Prov.: ? JERRY GATES ? Monitoring Prov.: Mack Escobar Performing [facility] Clinical History: ? Chest pain and lightheadedness. No known coronary artery ?disease. Cardiac Risk Factors: None. Cardiac History: ?None known. Beta sabas/calcium channel sabas/nitrate taken today: No. Caffeine/methylxanthine taken within 12 hrs: ?No. Chest pain/discomfort at baseline: ?No. IMPRESSION 1. Myocardial perfusion was normal. 2. The pharmacologic stress ECG was negative for ischemia. 3. Overall left ventricular systolic function was normal without wall motion abnormalities. The post stress LVEF was calculated to be 72 %. 4. Left ventricular cavity size was normal (resting EDV 93 ml). 5. Adequate pharmacologic stress test with regadenoson. 6. There were no prior studies available for comparison. STRESS MPI PROCEDURE The patient was studied utilizing a same day rest/stress protocol. Myocardial perfusion imaging was performed at rest, 21 minutes following the intravenous injection of 8.77 mCi of 99mTc sestamibi. 30 seconds after the 15 second IV regadenoson injection, the patient was injected via IV with 30.8 mCi of 99mTc sestamibi. Gated post-stress tomographic imaging was performed 45 minutes after stress. After image acquisition was completed, data was reconstructed in short, horizontal long and vertical long axis views and tomographic slices were generated. - Pharmacologic stress testing was performed with an IV regadenoson dose of 0.4 mg. - No low level exercise was performed. - Resting heart rate was 58 bpm, peak heart rate was 75 bpm. - Resting blood pressure was 146 mmHg/80 mmHg; peak blood pressure was 146 mmHg/80 mmHg. FINDINGS Baseline ECG - The baseline ECG was abnormal with sinus rhythm and first degree AV block. - There were nonspecific ST segment / T-wave abnormalities. - There was no atrial or ventricular ectopy. Stress ECG - The pharmacologic stress ECG was negative for ischemia. - There were no stress induced arrhythmias. - Repolarization was unchanged from baseline. Imaging - The overall quality of the study was excellent with mild soft tissue attenuation on rest and stress studies. Computerized motion correction was not applied. - SPECT perfusion images were normal without evidence of ischemia or infarction. - Computer processed gated imaging revealed normal left ventricular size with a calculated LVEF of 72 %. (Lab normals: LVEF >50%, LV Size <150 ml). - There was normal post-stress myocardial thickening and wall motion. - The right ventricle was not visualized. - There was no evidence of abnormal lung or extracardiac activity. - Risk/extent of ischemia per ACC Noninvasive Risk Stratification Guideline: LOW RISK. This study was interpreted and electronically signed by Joel Laws MD on 04/02/2024 1:46:23 PM. ??Final ?? Procedure Note Joel Laws MD - 04/02/2024 Toll -free: [phone] Disrupt6 MYOCARDIAL PERFUSION IMAGING REPORT REST/STRESS SINGLE ISOTOPE GATED SPECT IMAGING Patient Name: DA MONK Gender: Leeann Height: 70 in Weight: 180lb Study Date: 04/02/2024 9:01:19 AM BSA: 2.00m? ? ? : 1940 83 years BMI: 25.83kg/m? ? ? Ord. Prov.: JERRY GATES Monitoring Prov.:Mack Escobar Performing Site [facility] Clinical History: Chest pain and lightheadedness. No known coronaryartery disease. Cardiac Risk Factors: None. Cardiac History: None known. Beta sabas/calcium channel sabas/nitrate taken today: No. Caffeine/methylxanthine taken within 12 hrs: No. Chest pain/discomfort at baseline: No. IMPRESSION 1. Myocardial perfusion was normal. 2. The pharmacologic stress ECG was negative for ischemia. 3. Overall left ventricular systolic function was normal without wallmotion abnormalities. The post stress LVEF was calculated to be 72 %. 4. Left ventricular cavity size was normal (resting EDV 93 ml). 5. Adequate pharmacologic stress test with regadenoson. 6. There were no prior studies available for comparison. STRESS MPI PROCEDURE The patient was studied utilizing a same day rest/stress protocol.Myocardial perfusion imaging was performed at rest, 21 minutes followingthe intravenous injection of 8.77 mCi of 99mTc sestamibi. 30 seconds afterthe 15 second IV regadenoson injection, the patient was injected via IVwith 30.8 mCi of 99mTc sestamibi. Gated post-stress tomographic imagingwas performed 45 minutes after stress. After image acquisition wascompleted, data was reconstructed in short, horizontal long and verticallong axis views and tomographic slices were generated. - Pharmacologic stress testing was performed with an IV regadenoson doseof 0.4 mg. - No low level exercise was performed. - Resting heart rate was 58 bpm, peak heart rate was 75 bpm. - Resting blood pressure was 146 mmHg/80 mmHg; peak blood pressure cse802 mmHg/80 mmHg. FINDINGS Baseline ECG - The baseline ECG was abnormal with sinus rhythm and first degree AVblock. - There were nonspecific ST segment / T-wave abnormalities. - There was no atrial or ventricular ectopy. Stress ECG - The pharmacologic stress ECG was negative for ischemia. - There were no stress induced arrhythmias. - Repolarization was unchanged from baseline. Imaging - The overall quality of the study was excellent with mild soft tissue attenuation on rest and stress studies. Computerized motion correction wasnot applied. - SPECT perfusion images were normal without evidence of ischemia orinfarction. - Computer processed gated imaging revealed normal left ventricular sizewith a calculated LVEF of 72 %. (Lab normals: LVEF >50%, LV Size <150 ml). - There was normal post-stress myocardial thickening and wall motion. - The right ventricle was not visualized. - There was no evidence of abnormal lung or extracardiac activity. - Risk/extent of ischemia per ACC Noninvasive Risk StratificationGuideline: LOW RISK. This study was interpreted and electronically signed by Joel Laws MD on04/02/2024 1:46:23 PM. Final Jerry Gates MD NM * SCAN-STRESS TEST (04/02/2024 12:00 AM CDT) Anatomical Region Laterality Modality Nuclear Medicine Narrative 04/02/2024 12:00 AM CDT Ordered by an unspecified provider. Other Clinical Staff OTHER * ECHO TTE COMPLETE WO CONTRAST (03/19/2024 11:45 AM CDT) AORTIC VALVE MEAN PG 5 mmHg EJECTION FRACTION 74 % PEAK TR VELOCITY 2.1 m/s LVEDD 3.9 cm EJECTION FRACTION 60 - 65% Anatomical Region Laterality Modality Ultrasound 03/19/2024 11:1 5 AM CDT Narrative 03/19/2024 12:26 PM CDT ECHOCARDIOGRAM DA MONK ? Accession#: ?? [id number] : ?1940 83 years Study Date: ?? 03/19/2024 11:15:17 AM Gender: M ?BP: ? 132/68 mmHg Height: 178.00 cm ?BSA: ?2.00 m? ? ? Weight: 82.00 kg ? Tech: ? MCK ? Referring MD: JERRY GATES Site: ? [facility] Reading Location: Mobile-OP Patient Location: Outpatient. Procedure: 2D, Color Doppler and Spectral Doppler. Indication for study: Abnormal Aortic Valve Cardiac Rhythm: Regular.Study quality: Fair. Imaging limitations: This study was subject to imaging limitations due to a prominent lung artifact. Final Impressions: 1. Normal LV size, mildly increased wall thickness, normal global systolic function with an estimated EF of 60 - 65%. 2. Right ventricular cavity size is mildly enlarged, global systolic RV function is normal. 3. The aortic valve is calcified, no stenosis and trivial regurgitation. 4. The mitral valve is sclerotic, trace mitral regurgitation. 5. The aortic sinus is mildly dilated with a maximal diameter of 4.2 cm. Comparison Compared to prior exam images and report of 05/26/2022, there has been no significant change. Chamber Sizes and Function Normal left ventricular size, mildly increased wall thickness, normal global systolic function with an estimated EF of 60 - 65%. Left atrial size is normal. Right ventricular cavity size is mildly enlarged, global systolic RV function is normal. The right atrium is normal. Right atrial volume index is 11 ml/m? ? ?. Right atrial area is 14 cm? ? ?. The pulmonary artery is not well visualized. The sinus of Valsalva is dilated. The ascending aorta is normal sized. Valves, RV Pressures and Diastolic Function The aortic valve is calcified, no stenosis and trivial regurgitation. The mitral valve is sclerotic, trace mitral regurgitation. Normal diastolic function. The tricuspid valve is normal in structure. Tricuspid regurgitation is mild regurgitation. The tricuspid regurgitant velocity is 2.1 m/s, the estimated right ventricular systolic pressure is 18 mmHg plus right atrial pressure. There is normal estimated pulmonary pressure by tricuspid regurgitation velocity and right atrial pressure. The pulmonic valve is not well visualized. Trace pulmonary regurgitation. Masses, Effusion, Shunts There is no pericardial effusion. The inferior vena cava is normal sized, respiratory size variation greater than 50%. No left to right shunting was detected by limited color flow Doppler interrogation of the interatrial septum. MEASUREMENTS AND CALCULATIONS 2-D Measurements and LV Function: LVID (d) 3.9 cm LV FS% (2D) ?? 46 % LVID (s) 2.1 cm LVOT diameter 2.2 cm IVS (d) ??1.2 cm HR ?61 bpm LVPW (d) 1.2 cm LA Vol index ??9 ml/m2 Ao Sinus 4.2 cm RA Vol index ??11 ml/m2 Asc Ao ?? 3.8 cm RA area ? 14 cm? ? ? LA ? 3.4 cm RV Max 4C (d) 4.7 cm Diastology: Mitral ?Tissue Doppler E Peak 0.6 m/s ??e', Septum ? 0.05 m/s A Peak 0.8 m/s ??e', Lateral ?0.08 m/s E/A ?0.7 ?E/e' Average ?? 9.21 DT ? 328 msec Aortic Valve: Vmax ? 1.5 m/s ??MINERVA (V) ?? 3.40 cm? ? ? VTI ?0.30 m ?? MINERVA (I) ?? 3.45 cm? ? ? LVOT V max 1.3 m/s ??Max PG ?9 mmHg LVOT VTI ?? 0.26 m ?? Mean PG ?? 5 mmHg SV ? 105 ml ?? Dim Index 0.87 SV index ?? 52 ml/m? ? ? CO ?6.4 l/min ?CI ?3.2 l/min/m? ? ? Mitral Valve: MVA ?2.3 cm? ? ? MV P 1/2 95 msec Tricuspid Valve and estimated PA pressures: TR Vmax 2.1 m/s TAPSE 2.8 cm TR maxG 18 mmHg . This study was interpreted by an [facility] accredited facility. ??Final ?? Procedure Note Shaka Fulton MD - 03/19/2024 ECHOCARDIOGRAM DA MONK : 1940 83 years Study Date: 03/19/2024 11:15:17 AM Gender: M BP: 132/68 mmHg Height: 178.00 cm BSA: 2.00 m? ? ? Weight: 82.00 kg Tech: VICKY Referring MD: JERRY GATES Site: [facility] Reading Location: Mobile-OP Patient Location: Outpatient. Procedure: 2D, Color Doppler and Spectral Doppler. Indication for study: Abnormal Aortic Valve Cardiac Rhythm: Regular.Study quality: Fair. Imaging limitations: This study was subject to imaging limitations due toa prominent lung artifact. Final Impressions: 1. Normal LV size, mildly increased wall thickness, normal globalsystolic function with an estimated EF of 60 - 65%. 2. Right ventricular cavity size is mildly enlarged, global systolic RVfunction is normal. 3. The aortic valve is calcified, no stenosis and trivialregurgitation. 4. The mitral valve is sclerotic, trace mitral regurgitation. 5. The aortic sinus is mildly dilated with a maximal diameter of 4.2cm. Comparison Compared to prior exam images and report of 05/26/2022, there has been nosignificant change. Chamber Sizes and Function Normal left ventricular size, mildly increased wall thickness, normalglobal systolic function with an estimated EF of 60 - 65%. Left atrialsize is normal. Right ventricular cavity size is mildly enlarged, globalsystolic RV function is normal. The right atrium is normal. Right atrialvolume index is 11 ml/m? ? ?. Right atrial area is 14 cm? ? ?. The pulmonaryartery is not well visualized. The sinus of Valsalva is dilated. Theascending aorta is normal sized. Valves, RV Pressures and Diastolic Function The aortic valve is calcified, no stenosis and trivial regurgitation. Themitral valve is sclerotic, trace mitral regurgitation. Normal diastolicfunction. The tricuspid valve is normal in structure. Tricuspidregurgitation is mild regurgitation. The tricuspid regurgitant velocity is2.1 m/s, the estimated right ventricular systolic pressure is 18 mmHg plusright atrial pressure. There is normal estimated pulmonary pressure bytricuspid regurgitation velocity and right atrial pressure. The pulmonicvalve is not well visualized. Trace pulmonary regurgitation. Masses, Effusion, Shunts There is no pericardial effusion. The inferior vena cava is normal sized,respiratory size variation greater than 50%. No left to right shunting wasdetected by limited color flow Doppler interrogation of the interatrialseptum. MEASUREMENTS AND CALCULATIONS 2-D Measurements and LV Function: LVID (d) 3.9 cm LV FS% (2D) 46 % LVID (s) 2.1 cm LVOT diameter 2.2 cm IVS (d) 1.2 cm HR 61 bpm LVPW (d) 1.2 cm LA Vol index 9 ml/m2 Ao Sinus 4.2 cm RA Vol index 11 ml/m2 Asc Ao 3.8 cm RA area 14 cm? ? ? LA 3.4 cm RV Max 4C (d) 4.7 cm Diastology: Mitral Tissue Doppler E Peak 0.6 m/s e', Septum 0.05 m/s A Peak 0.8 m/s e', Lateral 0.08 m/s E/A 0.7 E/e' Average 9.21 DT 328 msec Aortic Valve: Vmax 1.5 m/s MINERVA (V) 3.40 cm? ? ? VTI 0.30 m MINERVA (I) 3.45 cm? ? ? LVOT V max 1.3 m/s Max PG 9 mmHg LVOT VTI 0.26 m Mean PG 5 mmHg SV 105 ml Dim Index 0.87 SV index 52 ml/m? ? ? CO 6.4 l/min CI 3.2 l/min/m? ? ? Mitral Valve: MVA 2.3 cm? ? ? MV P 1/2 95 msec Tricuspid Valve and estimated PA pressures: TR Vmax 2.1 m/s TAPSE 2.8 cm TR maxG 18 mmHg . This study was interpreted by an [facility] accredited facility. Final Jerry Gates MD ECHO ORD * SCAN-OPERATIVE/PROCEDURE REPORT (03/06/2024 12:00 AM CDT) Scanner OTHER * OCCULT BLOOD IFOBT STOOL (02/23/2024 7:54 PM CDT) STOOL BLOOD ,IFOBT Negative Negative 02/29/2024 8:37 AM CDT [facility] Stool STOOL SPECIMEN / Unknown Non-Blood / Unknown 02/23/2024 7:54 PM CDT 02/27/2024 7:54 PM CDT Jerry Gates MD LABORATORY [facility] [address] [place] [address], * CBC WITH AUTO DIFFERENTIAL (02/14/2024 5:11 PM CDT) WHITE BLOOD COUNT 6.6 4.5 - 11.0 thou/cu mm 02/14/2024 5:15 PM CDT [facility] RED BLOOD COUNT 4.95 4.30 - 5.90 mil/cu mm 02/14/2024 5:15 PM CDT [facility] HEMOGLOBIN 15.4 13.5 - 17.5 g/dL 02/14/2024 5:15 PM CDT [facility] HEMATOCRIT 45.1 37.0 - 53.0 % 02/14/2024 5:15 PM CDT [facility] MCV 91 80 - 100 fL 02/14/2024 5:15 PM CDT [facility] MCH 31.1 26.0 - 34.0 pg 02/14/2024 5:15 PM CDT [facility] MCHC 34.1 32.0 - 36.0 g/dL 02/14/2024 5:15 PM CDT [facility] RDW 15.0 11.5 - 15.5 % 02/14/2024 5:15 PM CDT [facility] PLATELET COUNT 190 140 - 440 thou/cu mm 02/14/2024 5:15 PM CDT [facility] MPV 10.7 6.5 - 11.0 fL 02/14/2024 5:15 PM CDT [facility] % NEUT 61.1 % 02/14/2024 5:15 PM CDT [facility] % LYMPH 22.4 % 02/14/2024 5:15 PM CDT [facility] % MONO 10.9 % 02/14/2024 5:15 PM CDT [facility] % EOS 5.0 % 02/14/2024 5:15 PM CDT [facility] % BASO 0.6 % 02/14/2024 5:15 PM CDT [facility] ABSOLUTE NEUTROPHILS 4.0 1.7 - 7.0 thou/cu mm 02/14/2024 5:15 PM CDT [facility] ABSOLUTE LYMPHOCYTES 1.5 0.9 - 2.9 thou/cu mm 02/14/2024 5:15 PM CDT [facility] ABSOLUTE MONOCYTES 0.7 <0.9 thou/cu mm 02/14/2024 5:15 PM CDT [facility] ABSOLUTE EOSINOPHILS 0.3 <0.5 thou/cu mm 02/14/2024 5:15 PM CDT [facility] ABSOLUTE BASOPHILS 0.0 <0.3 thou/cu mm 02/14/2024 5:15 PM CDT [facility] Blood BLOOD SPECIMEN / Unknown Venipuncture / Unknown 02/14/2024 5:11 PM CDT 02/14/2024 5:11 PM CDT Jerry Gates MD HEMATOLOGY Performing Organization Address City/[facility]/ZIP Co de Phone Number [facility] [address] [place] [address], [place] [phone] * VITAMIN D 25 (DEFICIENCY) (02/14/2024 5:11 PM CDT) VITAMIN D TOTAL 32.1 20.0 - 80.0 ng/mL 02/15/2024 2:26 PM CDT [facility] Blood BLOOD SPECIMEN / Unknown Venipuncture / Unknown 02/14/2024 5:11 PM CDT 02/14/2024 5:11 PM CDT Narrative [facility] - 02/15/2024 2:26 PM CDT ? Vitamin D Status Deficiency: ? <20 ng/mL Insufficiency: ?20-29 ng/mL Sufficiency: ?30-80 ng/mL Possible Toxicity: ??>80 ng/mL Based on [place] [employer] recommendations Biotin supplements may cause clinically significant interference for this test assay. ??If interference is suspected, it is strongly recommended that biotin is discontinued for at least one week prior to retesting. Jerry Gates MD SEND OUTS [facility] [address] [place] [address], [place] * (ABNORMAL) PSA TOTAL (DIAGNOSTIC) (02/14/2024 5:11 PM CDT) PSA TOTAL (DIAGNOSTIC) 10.30(H) <4.00 ng/mL 02/15/2024 2:26 PM CDT [facility] Blood BLOOD SPECIMEN / Unknown Venipuncture / Unknown 02/14/2024 5:11 PM CDT 02/14/2024 5:11 PM CDT Narrative [facility] - 02/15/2024 2:26 PM CDT The test method changed on 01/16/2023. If this test has been used for serial monitoring, rebaselining is recommended. Rebaselining consists of 2 measurements, collected 3-6 weeks apart. The [employer] Elecsys total PSA assay is an electrochemiluminescence immunoassay ECLIA performed on the [employer] Kaylan e immunoassay analyzers. Values obtained with different assay methods may be different and cannot be used interchangeably. Jerry Gates MD CHEMISTRY Performing Organization Address [facility] Co de Phone Number [facility] [address] [place] [phone], [place] * VITAMIN B12 (02/14/2024 5:11 PM CDT) Pathologist [facility] VITAMIN B12 855 232 - 1,245 pg/mL 02/15/2024 2:26 PM CDT [facility] Blood BLOOD SPECIMEN / Unknown Venipuncture / Unknown 02/14/2024 5:11 PM CDT 02/14/2024 5:11 PM CDT Narrative [facility] - 02/15/2024 2:26 PM CDT Biotin supplements may cause clinically significant interference for this test assay. ??If interference is suspected, it is strongly recommended that biotin is discontinued for at least one week prior to retesting. Jerry Gates MD CHEMISTRY Performing Organization Address City/[facility]/ZIP Co de Phone Number [facility] [address] [place] [phone], [place] * (ABNORMAL) BASIC METABOLIC PANEL (02/14/2024 5:11 PM CDT) [facility] SODIUM 140 136 - 145 mmol/L 02/15/2024 2:26 PM CDT [facility] POTASSIUM 4.3 3.5 - 5.1 mmol/L 02/15/2024 2:26 PM CDT [facility] CHLORIDE 101 98 - 107 mmol/L 02/15/2024 2:26 PM CDT [facility] CO2,TOTAL 30(H) 22 - 29 mmol/L 02/15/2024 2:26 PM CDT [facility] ANION GAP 9 5 - 18 02/15/2024 2:26 PM CDT [facility] GLUCOSE 100(H) 70 - 99 mg/dL 02/15/2024 2:26 PM CDT [facility] CALCIUM 9.7 8.8 - 10.2 mg/dL 02/15/2024 2:26 PM CDT [facility] BUN 13 8 - 23 mg/dL 02/15/2024 2:26 PM CDT [facility] CREATININE 0.98 0.70 - 1.20 mg/dL 02/15/2024 2:26 PM T [facility] BUN/CREAT RATIO 13 10 - 20 2:26 PM CDT [facility] eGFR 76(L) >90 mL/min/1.7 3m2 02/15/2024 2:26 PM T [facility] Comment:As of 2021, eG FR is calculated by the CKD-EPI creatinine equation without race adjustment. ??eGFR can be influenced by muscle mass, exercise, and diet. ??The reported eGFR is an estimation only and is only applicable if the renal function is stable. Blood BLOOD SPECIMEN / Unknown Venipuncture / Unknown 02/14/2024 5:11 PM CDT 02/14/2024 5:11 PM CDT Jerry Gates MD CHEMISTRY [facility] 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
--- OUTSIDE RECORDS SUMMARY | 2024-04-15 17:05 | XMS_ITS | Encounter Summary ---
Author Organization [facility] Address [address] [place] [address] Care Team Providers Care Rn Patient Care Name Role Phone Unavailable Primary Care Provider Unavailabl e Reason for Visit * Reason Comments Med Refill Encounter Details Date Type Department Care Team (Late st Contact Info) Description 02/22/2024 Refill Department of Neurology in [place], [place] [address] [phone] Miguel Barrios M.D. [address] [phone] Med Refill Social History Tobacco Use Types Packs/Day Years [...] often do you attend chur ch or tenriism services? More than 4 times per year 07/24/2022 Do you belong to any clubs o r organizations such as samaritan groups, unions, fraternal or [...] and heating? Not hard at all 07/24/2022 [facility] - Occupational [...] or slept in a chcf (including now)? No 07/24/2022 Nutrition Answer Date [...] Sex Assigned at Male 08/30/2018 2:45 PM INSTRUMENT FITTER Gender Identity Male 08/30/2018 2:45 PM INSTRUMENT FITTER Sexual Orientation Straight 08/30/2018 2: 45 PM INSTRUMENT FITTER documented as of this encounter Miscellaneous Notes * Telephone Encounter - Penny Elizabeth L.P.N. - 02/22/2024 2:51 PM CDT Pharmacy refill request for levetiracetam 500 mg twice daily Last filled 02/01/2023 #180 with 3 refills Pharmacy refill request for lamotrigine 100 mg twice daily Last filled 02/01/2023 #180 with 3 refills Last visit 02/01/2023 Orders pended for your review. Patient is also wondering when he should see you again. 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 He has not had anything since, to his knowledge. He remains active with no change in his daytime sleepiness. Thank you. documented in this encounter Plan of Treatment Not on file documented as of this encounter Visit Diagnoses Not on filedocumented in this encounter
[2024-04-15 17:10] LABS: PCR FLU A Negative PCR FLU A (Negative); PCR FLU B Negative PCR FLU B (Negative); PCR RSV Negative PCR RSV (Negative); SARS PCR* POSITIVE SARS-CoV-2 (Negative)
[2024-04-15 17:23] LABS: Basophils Absolute Auto 0.03 K/uL (0.00-0.30); Basophils Percent Auto 0.4 % (0.0-3.0); Eosinophils Absolute Auto 0.07 K/uL (0.00-0.50); Hematocrit 44.9 % (37.0-53.0); Hemoglobin* 14.8 gm/dL (13.5-17.5); Immature Granulocytes Abs Auto 0.01 K/uL (0.00-0.30); Immature Granulocytes Pct Auto 0.1 %; Lymphocytes Percent Auto 8.7 % (20-44); Mean Corpuscular HGB Conc 33 gm/dL (32-36); Mean Corpuscular Hemoglobin 31 pg (26-34); Mean Corpuscular Volume 92 fL (80-100); Neutrophils Percent Auto 75.8 % (42.0-72.0); Platelet Count* 154 K/uL (140-440); Red Blood Count 4.86 m/uL (4.30-5.90); White Blood Count* 6.79 K/uL (4.50-11.00)
--- NOTE | 2024-04-15 17:29 | ED_ITS ---
HPI - Weakness General Date Seen: 04/15/24 Chief complaint: Weakness Stated complaint: Weakness, balance off Time Seen by Provider: 04/15/24 16:43 Source: patient Mode of arrival: wheelchair Limitations: no limitations History of Present Illness HPI Narrative: Patient is an 83-year-old male presenting to emergency department for weakness. He started having symptoms yesterday and a positive home COVID test at that time. His also has COVID. He had a telehealth appointment today because he has been feeling very weak and they recommend he come to the emergency department for his weakness. Patient states usually he is able to get up and around the house without issue using his walker but now states he feels so weak he feels like he is constantly going to fall. Had 5 episodes of incontinence last night which she states is very abnormal for him. States he she is able get himself all the bed but today was having lots of difficulty with it due to the weakness. 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 That is not any different today compared to previously. He has not noticed much shortness of breath but does feel like he is breathing harder than normal. Denies any chest pain. Denies fevers, chills, lightheadedness, dizziness. Does have a very mild headache at this time. States he currently does not feel safe at home due to his weakness and feels like he is going to fall. Had to be brought into the emergency department via wheelchair consider not believe he would be able to walk far enough. Related Data Home Medications ?Medication ?Instructions ?Recorded ?Confirmed cholecalciferol (vitamin D3) 50 50 mcg PO DAILY 05/25/22 04/15/24 mcg (2,000 unit) capsule cyanocobalamin (vitamin B-12) 500 500 mcg PO DAILY 05/25/22 04/15/24 mcg tablet Previous Rx's ?Medication ?Instructions ?Recorded lamotrigine 25 mg tablet 25 mg PO HS #30 tabs 05/27/22 levetiracetam 500 mg tablet 500 mg PO BID #60 tabs 05/27/22 Allergies Allergy/AdvReac Type Severity Reaction Status Date / Time No Known Drug Allergies Allergy Verified 04/15/24 16:25 Review of Systems Status of ROS: Reports: 10 or more systems reviewed and unremarkable except as noted in History and below [facility] Medical History Gait disorder ?R26.9 - Unspecified abnormalities of gait and mobility (ICD-10) Spinal stenosis of lumbar region ?M48.061 - Spinal stenosis, lumbar region without neurogenic claudication (ICD-10) History of malaria ?Z86.13 - Personal history of malaria (ICD-10) BPH (benign prostatic hyperplasia) ?N40.0 - Benign prostatic hyperplasia without lower urinary tract symptoms (ICD-10) Loss of consciousness ?R40.20 - Unspecified coma (ICD-10) Surgical History History of wisdom tooth extraction ?K08.409 - Partial loss of teeth, unspecified cause, unspecified class (ICD- 10) History of tonsillectomy ?Z90.89 - Acquired absence of other organs (ICD-10) History of cataract surgery ?Z98.49 - Cataract extraction status, unspecified eye (ICD-10) Family History Father Prostate cancer Diabetes Mother High blood pressure Social History Narrative: He [place] in [place] with his . 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 His is healthcare power of district attorney. His code status is full. He drinks 1 alcoholic beverage per day. He does not smoke. Highest level of school completed/degree received: Doctoral degree Smoking Status: Never smoker Do you use any of these nicotine containing products: None Second hand tobacco smoke exposure: No How often do you have a drink containing alcohol: 2-3 times a week Alcohol type: beer and wine How many standard drinks containing alcohol do you have on a typical day: 1 or 2 How often do you have six or more drinks on one occasion: Never AUDIT-C Alcohol total score: 3 Non-prescribed substance use: denies use Caffeine: Yes (2-3 cups a day) service: Yes Exam Narrative: Exam Narrative: Const: Well-nourished, Well-developed, in moderate distress Eyes: PERRL, no conjunctival injection, and symmetrical lids HENT: Atraumatic external nose and ears. Moist mucous membranes. Neck: Symmetric, trachea midline, No thyromegaly. CVS: RRR, No murmurs or gallops. Peripheral pulses 2+ and equal in all extremities RESP: Clear to auscultation bilaterally. Increased breathing GI: Nontender/Nondistended, No rebound or guarding. MSK:Extremities w/o deformity, Normal Active ROM Skin: Warm, Dry. No rashes or lesions. Neuro: Normal Muscle tone, No focal neurological deficits. Psych: Awake, Alert, & Oriented x3. Appropriate mood and affect. Const: Vital Signs, click to edit/add: Vital Signs - 24 hr 04/15/24 16:22 04/15/24 17:50 04/15/24 18:00 Temperature 99.6 F Pulse Rate 80 80 Pulse Rate [Right Pulse Oximeter] 84 Respiratory Rate 22 Blood Pressure Blood Pressure [Ri ght Upper Arm] 148/83 H Pulse Oximetry 97 93 92 Oxygen Delivery Me thod Room Air 04/15/24 18:01 04/15/24 18:15 04/15/24 18:30 Temperature Pulse Rate 80 79 78 Pulse Rate [Right Pulse Oximeter] Respiratory Rate Blood Pressure 135/83 Blood Pressure [Ri ght Upper Arm] Pulse Oximetry 91 93 93 Oxygen Delivery Me thod 04/15/24 18:31 04/15/24 18:45 04/15/24 19:00 Temperature Pulse Rate 77 81 82 Pulse Rate [Right Pulse Oximeter] Respiratory Rate Blood Pressure 142/77 H Blood Pressure [Ri ght Upper Arm] Pulse Oximetry 92 92 92 Oxygen Delivery Me thod 04/15/24 19:01 04/15/24 19:02 04/15/24 19:15 Temperature Pulse Rate 82 81 82 Pulse Rate [Right Pulse Oximeter] Respiratory Rate Blood Pressure 139/80 Blood Pressure [Ri ght Upper Arm] Pulse Oximetry 93 92 90 Oxygen Delivery Me thod 04/15/24 19:30 04/15/24 19:31 04/15/24 19:45 Temperature Pulse Rate 79 78 80 Pulse Rate [Right Pulse Oximeter] Respiratory Rate Blood Pressure 137/75 Blood Pressure [Ri ght Upper Arm] Pulse Oximetry 93 93 92 Oxygen Delivery Me thod 04/15/24 20:00 04/15/24 20:04 Temperature 100.4 F H Pulse Rate 88 Pulse Rate [Right Pulse Oximeter] Respiratory Rate Blood Pressure Blood Pressure [Ri ght Upper Arm] Pulse Oximetry 93 Oxygen Delivery Me thod Course Vital Signs Vital signs: Initial Vital Signs Temperature 99.6 F 04/15/24 16:22 Temperature Source Temporal Artery Scan 04/15/24 16:22 Pulse Rate 84 04/15/24 16:22 Pulse Strength 3+ Normal 04/15/24 16:22 Respiratory Rate 22 04/15/24 16:22 Blood Pressure 148/83 H 04/15/24 16:22 Blood Pressure Mean 104 04/15/24 16:22 Blood Pressure Position Sitting 04/15/24 16:22 Pulse Oximetry 97 04/15/24 16:22 Oxygen Delivery Method Room Air 04/15/24 16:22 Vital Signs Temperature 99.6 F 04/15/24 16:22 Pulse Rate 84 04/15/24 16:22 Respiratory Rate 22 04/15/24 16:22 Blood Pressure 148/83 H 04/15/24 16:22 Pulse Oximetry 97 04/15/24 16:22 Oxygen Delivery Method Room Air 04/15/24 16:22 Temperature 100.4 F H 04/15/24 20:04 Pulse Rate 88 04/15/24 20:00 Respiratory Rate 22 04/15/24 16:22 Blood Pressure 137/75 04/15/24 19:31 Pulse Oximetry 93 04/15/24 20:00 Oxygen Delivery Method Room Air 04/15/24 16:22 MDM - Weakness MDM Narrative Medical decision making narrative: Patient is an 83-year-old COVID positive male presenting to emergency department for weakness. He does appear to have increased work of breathing and seems to be talking in short sentences but he is not really noticed any shortness of breath. I will do a chest CT to see the extent of active his 1st COVID diagnosis. Also order a BMP, CBC, troponin, magnesium, EKG appears urinalysis also ordered. His weakness is most likely secondary to his COVID. COVID test here was positive. CBC and BMP shows no concerning findings. EKG and troponin within normal limits. Lab work all returned otherwise showing no concerning abnormalities. Did chest CT which shows no concerning abnormalities. I spoke to him about admission versus discharge in at 1st he was looking to go home but when nurses helped him up again to go the bathroom he needed a to assist because he was feeling so weak he can only has his at home to help improve also has COVID. Due that he is agreeable for admission. I spoke to the hospitalist who accepted him for admission. Lab Data Labs: Lab Results 04/15/24 04/15/24 04/15/24 Range/Units 16:27 17:15 17:50 WBC 6.79 (4.50-11.00) K/uL RBC 4.86 (4.30-5.90) m/uL Hgb 14.8 (13.5-17.5) gm/dL Hct 44.9 (37.0-53.0) % MCV 92 (80-100) fL MCH 31 (26-34) pg MCHC 33 (32-36) gm/dL RDW Coeff of Osorio 14.0 (11.5-15.5) % Plt Count 154 (140-440) K/uL Neut % (Auto) 75.8 H (42.0-72.0) % Lymph % (Auto) 8.7 L (20-44) % C[place]shaw % (Auto) 14.0 H (0.0-11.0) % Eos % (Auto) 1.0 (0.0-7.0) % Baso % (Auto) 0.4 (0.0-3.0) % Neut # (Auto) 5.10 (1.7-7.0) K/uL Lymph # (Auto) 0.60 L (0.90-2.90) K/uL [place] # (Auto) 1.00 H (0.00-0.90) K/UL Eos # (Auto) 0.07 (0.00-0.50) K/uL Baso # (Auto) 0.03 (0.00-0.30) K/uL Abs Immat Gran (auto) 0.01 (0.00-0.30) K/uL Imm/Tot Granulo (auto) 0.1 % Sodium 136 (135-149) mmol/L Potassium 3.9 (3.6-5.1) mmol/L Chloride 100 (96-114) mmol/L Carbon Dioxide 28 (20-32) mmol/L Anion Gap 8 (7-15) mEq/L BUN 15 (7-30) mg/dL Creatinine 0.9 (0.5-1.5) mg/dL Estimated GFR 84 ml/min Glucose 115 (60-115) mg/dL Calcium 9.5 (8.4-10.6) mg/dL Magnesium 2.2 (1.5-2.6) mg/dL Troponin I < 0.01 L (0.01-0.04) ng/mL Urine Color Yellow (Yellow) Urine Appearance Clear (Clear) Urine pH 7.0 (5.0-8.5) Ur Specific Dunn 1.015 (1.000-1.030) Urine Protein Negative (Negative) Urine Glucose (UA) Negative (Negative) Urine Ketones Negative (Negative) Urine Blood Negative (Negative) Urine Nitrite Negative (Negative) Urine Bilirubin Negative (Negative) Urine Urobilinogen 0.2 (0.2-1.0) Ur Leukocyte Esterase Negative (Negative) Urine RBC 0-2 (0-2) Urine WBC 0-2 (0-5) Ur Squamous Epith Cells None (None-Few) Urine Bacteria None (None) SARS-CoV-2 (PCR) POSITIVE SARS-CoV-2 A (Negative) Influenza Type A (PCR) Negative PCR FLU A (Negative) Influenza Type B (PCR) Negative PCR FLU B (Negative) RSV (PCR) Negative PCR RSV (Negative) Imaging Data CT scan chest: Attestation: I have reviewed the pertinent imaging results. Radiologist's impression: No acute findings in the chest. Please note that all CT scans at this facility use dose modulation, iterative reconstruction, and/or weight-based dosing when appropriate to reduce radiation dose to as low as reasonably achievable. Dictated by Elio Henderson MD @ 04/15/2024 7:59:23 PM ECG Data Attestation: I personally reviewed and interpreted this ECG as follows: Prior ECG tracings: available for review Interpretation: Normal sinus rhythm with a rate of 80 beats per minute, normal QRS, no ST or T- wave abnormalities. Appears similar previous EKG on file. Discharge Plan Discharge Clinical Impression: COVID Patient Disposition: Admitted As Observation Condition: Stable Prescriptions: No Action cyanocobalamin (vitamin B-12) 500 mcg tablet 500 mcg PO DAILY cholecalciferol (vitamin D3) 50 mcg (2,000 unit) capsule 50 mcg PO DAILY lamotrigine 25 mg Tablet 25 mg PO HS Qty: 30 0RF levetiracetam 500 mg tablet 500 mg PO BID Qty: 60 0RF Follow Up/Referrals: Provider,Not a Local [Primary Care Provider] -
[2024-04-15 17:34] LABS: Slide Review Reflex No
[2024-04-15 17:36] LABS: Chloride* 100 mmol/L (96-114)
[2024-04-15 17:37] LABS: Potassium* 3.9 mmol/L (3.6-5.1); Sodium* 136 mmol/L (135-149)
[2024-04-15 17:39] LABS: Anion Gap 8 mEq/L (7-15); Carbon Dioxide* 28 mmol/L (20-32); Creatinine* 0.9 mg/dL (0.5-1.5); Estimated Glomerular Filt Rate 84 ml/min
[2024-04-15 17:40] LABS: Blood Urea Nitrogen* 15 mg/dL (7-30); Calcium* 9.5 mg/dL (8.4-10.6); Glucose* 115 mg/dL (60-115); Magnesium* 2.2 mg/dL (1.5-2.6)
[2024-04-15 17:52] LABS: Troponin I* < 0.01 ng/mL (0.01-0.04)
[2024-04-15 17:59] LABS: Appearance Urine Clear (Clear); Bilirubin Urine Negative (Negative); Blood Urine Negative (Negative); Color Urine Yellow (Yellow); Glucose Urine Negative (Negative); Ketones Urine Negative (Negative); Leukocyte Esterase Urine Negative (Negative); Nitrite Urine Negative (Negative); Protein Urine Negative (Negative); Specific Gravity Urine 1.015 (1.000-1.030); Urobilinogen Urine 0.2 (0.2-1.0)
[2024-04-15 18:07] LABS: RBC Urine 0-2 (0-2); WBC Urine 0-2 (0-5)
[2024-04-15] MEDS: ACETAMINOPHEN 325 MG TABLET 650 MG PO ×2 (20:20→22:32)
--- NOTE | 2024-04-15 21:37 | P.IMHP_ITS ---
Hospitalist- H&P: HPI History of Present Illness Date Seen: 04/15/24 Chief complaint: Weakness, balance off Narrative: Da Monk is a 83 year old male past medical history significant for seizure disorder, left-sided hemiparesis, gait disorder, osteoarthritis is admitted to the medical floor from the ED for profound generalized weakness in setting of acute covid infection. Reports onset progressive weakness yesterday. Mild, productive cough. Low grade fever today. Mild headache improved with Tylenol and hydration. Denies dizziness. Denies chest pain or shortness of breath. Denies nausea or vomiting. is also COVID positive but reported to be doing well. Review of Systems Narrative: REVIEW OF SYSTEMS: Complete review of systems performed and negative unless otherwise stated in HPI or below. PFSH PFS Medical History Frequent falls ?R29.6 - Repeated falls (ICD-10) Left hemiplegia ?G81.94 - Hemiplegia, unspecified affecting left nondominant side (ICD-10) Osteoarthritis ?M19.90 - Unspecified osteoarthritis, unspecified site (ICD-10) Gait disorder ?R26.9 - Unspecified abnormalities of gait and mobility (ICD-10) Spinal stenosis of lumbar region ?M48.061 - Spinal stenosis, lumbar region without neurogenic claudication (ICD-10) History of malaria ?Z86.13 - Personal history of malaria (ICD-10) BPH (benign prostatic hyperplasia) ?N40.0 - Benign prostatic hyperplasia without lower urinary tract symptoms (ICD-10) Loss of consciousness ?R40.20 - Unspecified coma (ICD-10) Surgical History History of wisdom tooth extraction ?K08.409 - Partial loss of teeth, unspecified cause, unspecified class (ICD- 10) History of tonsillectomy ?Z90.89 - Acquired absence of other organs (ICD-10) History of cataract surgery ?Z98.49 - Cataract extraction status, unspecified eye (ICD-10) Family History Father Prostate cancer Diabetes Mother High blood pressure Social History Narrative: He [place] in [place] with his . 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 His code status is full. He drinks 1 alcoholic beverage per day. He does not smoke. What is your current living situation?: I presently have a place to live Problems where you live: no known problems Problems where you live details: N/A In the past 12 months, utilities in danger of being shut off: no In past 12 months, lack of transportation kept you from medical appts, meetings, work, or getting things needed for daily living: no In the past 12 mos, have been you worried that your food would run out before you had money to buy more?: never true In the past 12 mos, the food you bought just didn't last and you didn't have money to buy more?: never true Highest level of school completed/degree received: Doctoral degree Smoking Status: Never smoker Do you use any of these nicotine containing products: None Second hand tobacco smoke exposure: No How often do you have a drink containing alcohol: 2-3 times a week Alcohol type: beer and wine How many standard drinks containing alcohol do you have on a typical day: 1 or 2 How often do you have six or more drinks on one occasion: Never AUDIT-C Alcohol total score: 3 Non-prescribed substance use: denies use Caffeine: Yes (2-3 cups a day) How often does anyone, including family, friends and others, physically hurt you : never How often does anyone, including family, friends and others, insult or talk down to you: never How often does anyone, including family, friends and others, threaten you with harm: never How often does anyone, including family, friends and others, scream or curse at you: never service: Yes Meds Home Medications and Allergies Home Medications ?Medication ?Instructions ?Recorded ?Confirmed ?Type cholecalciferol (vitamin D3) 50 50 mcg PO DAILY 05/25/22 04/15/24 History mcg (2,000 unit) capsule cyanocobalamin (vitamin B-12) 500 500 mcg PO DAILY 05/25/22 04/15/24 History mcg tablet Allergies Allergy/AdvReac Type Severity Reaction Status Date / Time No Known Drug Allergies Allergy Verified 04/15/24 16:25 Exam Narrative: Exam Narrative: PHYSICAL EXAM General: Pleasant, conversant, NAD HEENT: Normocephalic, atraumatic, sclera white, EOMI, oral mucosa moist Cardiovascular: RRR, S1S2. No pitting edema Pulmonary: CTA bilaterally without rhonchi, rales, expiratory wheezes. No dyspnea Abdominal: Soft, nondistended, NTTP Neurological: Alert, answering questions appropriately, cranial nerves intact, no focal findings Extremities: No gross joint deformity or swelling. AROMI. Neurovascularly intact Skin: Warm, dry. Const: Vital Signs, click to edit/add: Vital Signs - 24 hr 04/15/24 16:22 04/15/24 17:50 04/15/24 18:00 Temperature 99.6 F Pulse Rate 80 80 Pulse Rate [Left P ulse Oximeter] Pulse Rate [Right Pulse Oximeter] 84 Respiratory Rate 22 Blood Pressure Blood Pressure [Le ft Arm] Blood Pressure [Ri ght Upper Arm] 148/83 H Pulse Oximetry 97 93 [facility] 04/15/24 18:01 04/15/24 18:15 04/15/24 18:30 Temperature Pulse Rate 80 79 78 Pulse Rate [Left P ulse Oximeter] Pulse Rate [Right Pulse Oximeter] Respiratory Rate Blood Pressure 135/83 Blood Pressure [Le ft Arm] Blood Pressure [Ri ght Upper Arm] Pulse Oximetry 91 93 93 Oxygen Delivery Me thod 04/15/24 18:31 04/15/24 18:45 04/15/24 19:00 Temperature Pulse Rate 77 81 82 Pulse Rate [Left P ulse Oximeter] Pulse Rate [Right Pulse Oximeter] Respiratory Rate Blood Pressure 142/77 H Blood Pressure [Le ft Arm] Blood Pressure [Ri ght Upper Arm] Pulse Oximetry 92 92 92 Oxygen Delivery Me thod 04/15/24 19:01 04/15/24 19:02 04/15/24 19:15 Temperature Pulse Rate 82 81 82 Pulse Rate [Left P ulse Oximeter] Pulse Rate [Right Pulse Oximeter] Respiratory Rate Blood Pressure 139/80 Blood Pressure [Le ft Arm] Blood Pressure [Ri ght Upper Arm] Pulse Oximetry 93 92 90 Oxygen Delivery Me thod 04/15/24 19:30 04/15/24 19:31 04/15/24 19:45 Temperature Pulse Rate 79 78 80 Pulse Rate [Left P ulse Oximeter] Pulse Rate [Right Pulse Oximeter] Respiratory Rate Blood Pressure 137/75 Blood Pressure [Le ft Arm] Blood Pressure [Ri ght Upper Arm] Pulse Oximetry 93 93 92 Oxygen Delivery Me thod 04/15/24 20:00 04/15/24 20:04 04/15/24 21:10 Temperature 100.4 F H 100 F H Pulse Rate 88 Pulse Rate [Left P ulse Oximeter] 87 Pulse Rate [Right Pulse Oximeter] Respiratory Rate 18 Blood Pressure Blood Pressure [Le ft Arm] 148/80 H Blood Pressure [Ri ght Upper Arm] Pulse Oximetry 93 92 Oxygen Delivery Me thod Room Air 04/15/24 21:23 Temperature Pulse Rate Pulse Rate [Left P ulse Oximeter] Pulse Rate [Right Pulse Oximeter] Respiratory Rate 18 Blood Pressure Blood Pressure [Le ft Arm] Blood Pressure [Ri ght Upper Arm] Pulse Oximetry 92 Oxygen Delivery Me thod Room Air Hospitalist - H&P: Result Labs Labs: Short CBC 04/15/24 Range/Units 17:15 WBC 6.79 (4.50-11.00) K/uL Hgb 14.8 (13.5-17.5) gm/dL Hct 44.9 (37.0-53.0) % Plt Count 154 (140-440) K/uL BMP 04/15/24 17:15 Sodium 136 Potassium 3.9 Chloride 100 Carbon Dioxide 28 BUN 15 Creatinine 0.9 Glucose 115 Calcium 9.5 Cardiac Enzymes 04/15/24 Range/Units 17:15 Troponin I < 0.01 L (0.01-0.04) ng/mL Urine 04/15/24 Range/Units 17:50 Urine Color Yellow (Yellow) Urine Appearance Clear (Clear) Urine pH 7.0 (5.0-8.5) Ur Specific [place] 1.015 (1.000-1.030) Urine Protein Negative (Negative) Urine Glucose (UA) Negative (Negative) ECG Attestation: I personally reviewed and interpreted this ECG as follows: Interpretation: Sinus rhythm with first-degree AV block, rate 80, QTC [address] scan - chest: Attestation: I have reviewed the pertinent imaging results. Radiologist's impression: Lungs and pleura: No suspicious nodules or infiltrates. No pleural effusions, pleural thickening, or pneumothorax. Heart and vasculature: Mild dilatation of the ascending aorta measuring 4.1 cm. Normal caliber main pulmonary artery. Normal heart size. No pericardial effusion.. Lymph nodes/mediastinum: No mediastinal, hilar, or axillary adenopathy. Chest wall: No masses. Upper abdomen: No acute or significant findings. Bones: Unremarkable for age. IMPRESSION: No acute findings in the chest. Assessment and Plan Assessment and plan (1) COVID: Problem comment: Symptom onset 04/14/2024. Home COVID test positive 04/14/2024. 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 This includes time spent for the visit reviewing the chart, time spent during the visit, time spent after the visit and documentation and planning in coordination of care.
[2024-04-15] MEDS: lamoTRIgine 25 MG TABLET PO (22:33)
[2024-04-15] MEDS: levETIRAcetam 500 MG TABLET PO (22:33)
[2024-04-16] VITALS (10 sets, daily range): BP systolic 100–132; BP diastolic 66–79; PULSE 65–86; RESP 18–20; TEMP 36.8–37.8; O2SAT 92–99
--- NOTE | 2024-04-16 04:34 | PC.NURSE ---
Shift note:Pt was brought to unit for admission on account of xiang COVID 19. Pt come from home, had covid together with . Pt arrived at 2050on a wheelchair. Alert and oriented, O2 >90% on RA. Assisted with 2 for transfer from wheelchair to recliner. Pt asked for food and 2 slides of bread toast was prepared for him. Pt had non-productive cough with running nose, complained of headache, Tylenol given which appeared effective. SCD applied and IS supplied and educated on it use and benefit. Droplet precaution ensured. Pt had stable vital signs. Pt had adequate sleep. Pt was up at 0230 to use BR. A1, walker and GB were enough to help pt.
[2024-04-16 06:45] LABS: Hematocrit 45.1 % (37.0-53.0); Hemoglobin* 14.9 gm/dL (13.5-17.5); Mean Corpuscular HGB Conc 33 gm/dL (32-36); Mean Corpuscular Hemoglobin 31 pg (26-34); Mean Corpuscular Volume 93 fL (80-100); Platelet Count* 148 K/uL (140-440); Red Blood Count 4.87 m/uL (4.30-5.90); White Blood Count* 5.04 K/uL (4.50-11.00)
[2024-04-16 06:47] LABS: Slide Review Reflex No
[2024-04-16 07:10] LABS: Chloride* 101 mmol/L (96-114); Potassium* 3.7 mmol/L (3.6-5.1); Sodium* 137 mmol/L (135-149)
[2024-04-16 07:12] LABS: Creatinine* 0.9 mg/dL (0.5-1.5); Est. Creatinine Clearance* 56.78; Estimated Glomerular Filt Rate 84 ml/min
[2024-04-16 07:13] LABS: Anion Gap 6 mEq/L (7-15); Blood Urea Nitrogen* 13 mg/dL (7-30); Calcium* 9.2 mg/dL (8.4-10.6); Carbon Dioxide* 30 mmol/L (20-32); Glucose* 104 mg/dL (60-115)
[2024-04-16] MEDS: levETIRAcetam 500 MG TABLET PO ×2 (08:49→22:15)
[2024-04-16] MEDS: SODIUM CHLORIDE 0.9 % (FLUSH) 10 ML SYRINGE 5 ML IVF ×2 (08:49→20:43)
[2024-04-16] MEDS: lamoTRIgine 100 MG TABLET PO ×2 (10:25→22:15)
--- NOTE | 2024-04-16 11:30 | PM.IMPN1 ---
Progress Note: A&P Assessment and plan (1) Weakness: Problem details: In setting of acute COVID infection History of falls and unstable gait PT/OT consults 04/16/24: Slightly improved today. Continue with efforts as outlined above. Anticipate ongoing improvement and possibly safe enough for discharge home as early as tomorrow. Status: Acute (2) COVID: Problem details: Symptom onset 04/14/2024. Home COVID test positive 04/14/2024. 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 Status: Acute (3) Gait disorder: Problem details: Patient is observed to walk today with a wide-based gait. He uses walking sticks as well. He has subtle weakness on his left compared to his right. Apparently, a chronic problem. 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 Status: Acute (4) Left hemiplegia: Problem details: Reported from an encephalitis in the Status: Acute (5) Epileptic seizure: Problem details: Followed by Neurology Continue Keppra and Lamictal Seizure precautions Status: Acute Plan 1. Reviewed impression and recommendations with patient. 2. Answered his questions to satisfaction. 3. Worked with patient and pharmacist to make certain he is on his correct usual doses of medications. 4. Will start Paxil of it today. His will bring this in. 5. Continue with current efforts. 6. Anticipate he might be improved sufficiently by tomorrow to possibly be safely discharged to his home with his . Time Spent With Patient Total time spent: 30 minute Subjective Date Seen: 04/16/24 Interval history: Hospital day 2. 83-year-old man presents with symptomatic COVID 19. Has baseline gait disorder due to left hemiplegia status post encephalitis the . Profoundly more weak with the COVID-19. Denies lower respiratory tract symptoms including dyspnea. Does have upper respiratory tract symptoms. Continues to have intermittent fevers. Feels slightly improved today. Exam Narrative: Exam Narrative: I examined him in his hospital room. Appears comfortable. Sitting on the edge of the bed. Vision and hearing are adequate. Alert and oriented to self, place, time, situation. Articulate and cooperative. Thought full. Lungs actually are clear to auscultation without wheezing, rhonchi, or rales. No CVA tenderness to percussion. Heart tones with regular rhythm, normal S1-S2, without murmur, gallop, or rub. PMI not laterally displaced. Abdomen with active bowel sounds, soft, nontender. No rebound or guarding. Extremities without edema. Skin is dry and intact. No rashes, petechiae, purpura, or cyanosis. No jaundice. Const: Vital Signs, click to edit/add: Vital Signs - 24 hr 04/15/24 16:22 04/15/24 17:50 04/15/24 18:00 Temperature 99.6 F Pulse Rate 80 80 Pulse Rate [Left P ulse Oximeter] Pulse Rate [Right Pulse Oximeter] 84 Respiratory Rate 22 Blood Pressure Blood Pressure [Le ft Arm] Blood Pressure [Ri ght Upper Arm] 148/83 H Pulse Oximetry 97 93 92 [facility] 04/15/24 18:01 04/15/24 18:15 04/15/24 18:30 Temperature Pulse Rate 80 79 78 Pulse Rate [Left P ulse Oximeter] Pulse Rate [Right Pulse Oximeter] Respiratory Rate Blood Pressure 135/83 Blood Pressure [Le ft Arm] Blood Pressure [Ri ght Upper Arm] Pulse Oximetry 91 93 93 Oxygen Delivery Dc thod 04/15/24 18:31 04/15/24 18:45 04/15/24 19:00 Temperature Pulse Rate 77 81 82 Pulse Rate [Left P ulse Oximeter] Pulse Rate [Right Pulse Oximeter] Respiratory Rate Blood Pressure 142/77 H Blood Pressure [Le ft Arm] Blood Pressure [Ri ght Upper Arm] Pulse Oximetry 92 92 92 Oxygen Delivery Dc thod 04/15/24 19:01 04/15/24 19:02 04/15/24 19:15 Temperature Pulse Rate 82 81 82 Pulse Rate [Left P ulse Oximeter] Pulse Rate [Right Pulse Oximeter] Respiratory Rate Blood Pressure 139/80 Blood Pressure [Le ft Arm] Blood Pressure [Ri ght Upper Arm] Pulse Oximetry 93 92 90 Oxygen Delivery Dc thod 04/15/24 19:30 04/15/24 19:31 04/15/24 19:45 Temperature Pulse Rate 79 78 80 Pulse Rate [Left P ulse Oximeter] Pulse Rate [Right Pulse Oximeter] Respiratory Rate Blood Pressure 137/75 Blood Pressure [Le ft Arm] Blood Pressure [Ri ght Upper Arm] Pulse Oximetry 93 93 92 Oxygen Delivery Me thod 04/15/24 20:00 04/15/24 20:04 04/15/24 21:10 Temperature 100.4 F H 100 F H Pulse Rate 88 Pulse Rate [Left P ulse Oximeter] 87 Pulse Rate [Right Pulse Oximeter] Respiratory Rate 18 Blood Pressure Blood Pressure [Le ft Arm] 148/80 H Blood Pressure [Ri ght Upper Arm] Pulse Oximetry 93 92 Oxygen Delivery Me thod Room Air 04/15/24 21:23 04/15/24 21:47 04/15/24 22:45 Temperature 100 F H Pulse Rate Pulse Rate [Left P ulse Oximeter] 87 Pulse Rate [Right Pulse Oximeter] Respiratory Rate 18 18 Blood Pressure Blood Pressure [Le ft Arm] 148/80 H Blood Pressure [Ri ght Upper Arm] Pulse Oximetry 92 92 96 Oxygen Delivery Me od Room Air Room Air 04/15/24 22:45 04/15/24 22:47 04/16/24 02:38 Temperature 98.6 F 98.2 F Pulse Rate Pulse Rate [Left P ulse Oximeter] 75 75 65 Pulse Rate [Right Pulse Oximeter] Respiratory Rate 18 18 18 Blood Pressure Blood Pressure [Le ft Arm] 121/54 L 100/79 Blood Pressure [Ri ght Upper Arm] Pulse Oximetry 96 99 Oxygen Delivery Me od Room Air Room Air 04/16/24 07:59 04/16/24 08:33 04/16/24 08:57 Temperature 99.6 F Pulse Rate Pulse Rate [Left P ulse Oximeter] 73 73 Pulse Rate [Right Pulse Oximeter] Respiratory Rate 20 20 Blood Pressure Blood Pressure [Le ft Arm] 110/77 Blood Pressure [Ri ght Upper Arm] Pulse Oximetry 97 97 Oxygen Delivery Me thod Room Air Labs Labs: Laboratory Results - last 24 hr 04/15/24 04/15/24 04/15/24 16:27 17:15 17:50 WBC 6.79 RBC 4.86 Hgb 14.8 Hct 44.9 MCV 92 MCH 31 MCHC 33 RDW Coeff of Osorio 14.0 Plt Count 154 Neut % (Auto) 75.8 H Lymph % (Auto) 8.7 L Worth % (Auto) 14.0 H Eos % (Auto) 1.0 Baso % (Auto) 0.4 Neut # (Auto) 5.10 Lymph # (Auto) 0.60 L Worth # (Auto) 1.00 H Eos # (Auto) 0.07 Baso # (Auto) 0.03 Abs Immat Gran (auto) 0.01 Imm/Tot Granulo (auto) 0.1 Sodium 136 Potassium 3.9 Chloride 100 Carbon Dioxide 28 Anion Gap 8 BUN 15 Creatinine 0.9 Estimated Creat Clear Estimated GFR 84 Glucose 115 Calcium 9.5 Magnesium 2.2 Troponin I < 0.01 L Urine Color Yellow Urine Appearance Clear Urine pH 7.0 Ur Specific Soldier 1.015 Urine Protein Negative Urine Glucose (UA) Negative Urine Ketones Negative Urine Blood Negative Urine Nitrite Negative Urine Bilirubin Negative Urine Urobilinogen 0.2 Ur Leukocyte Esterase Negative Urine RBC 0-2 Urine WBC 0-2 Ur Squamous Epith Cells None Urine Bacteria None SARS-CoV-2 (PCR) POSITIVE SARS-CoV-2 A Influenza Type A (PCR) Negative PCR FLU A Influenza Type B (PCR) Negative PCR FLU B RSV (PCR) Negative PCR RSV 04/16/24 06:18 WBC 5.04 RBC 4.87 Hgb 14.9 Hct 45.1 MCV 93 MCH 31 MCHC 33 RDW Coeff of Osorio Plt Count 148 Neut % (Auto) Lymph % (Auto) Worth % (Auto) Eos % (Auto) Baso % (Auto) Neut # (Auto) Lymph # (Auto) Worth # (Auto) Eos # (Auto) Baso # (Auto) Abs Immat Gran (auto) Imm/Tot Granulo (auto) Sodium 137 Potassium 3.7 Chloride 101 Carbon Dioxide 30 Anion Gap 6 L BUN 13 Creatinine 0.9 Estimated Creat Clear 56.78 Estimated GFR 84 Glucose 104 Calcium 9.2 Magnesium Troponin I Urine Color Urine Appearance Urine pH Ur Specific Soldier Urine Protein Urine Glucose (UA) Urine Ketones Urine Blood Urine Nitrite Urine Bilirubin Urine Urobilinogen Ur Leukocyte Esterase Urine RBC Urine WBC Ur Squamous Epith Cells Urine Bacteria SARS-CoV-2 (PCR) Influenza Type A (PCR) Influenza Type B (PCR) RSV (PCR) Imaging CT scan - chest: Radiologist's impression: No acute abnormalities noted.
--- NOTE | 2024-04-16 18:12 | PC.NURSE ---
End of Shift: Patient pleasant and cooperative, A&O. VSS, afebrile. SpO2 maintained above 90% on RA. Intermittent cough. Patient reported mild back aches, declined any PRN medication. Patient states he feels much better today. 1A walker and gaitbelt to the bathroom. Tolerating regular diet.
[2024-04-16] MEDS: NIRMATRELVIR/RITONAVIR DOSEPAK 3 TAB PO (20:42)
[2024-04-16] MEDS: ENOXAPARIN 40 MG/0.4 ML INJ SUBCUT (20:43)
[2024-04-16] MEDS: ACETAMINOPHEN 325 MG TABLET 650 MG PO (20:46)
[2024-04-17 02:35] VITALS: BP 124/84; PULSE 68; RESP 20; TEMP 37.3; O2SAT 95
--- NOTE | 2024-04-17 05:47 | PC.NURSE ---
Shift note: Pt is doing ambulating with A1 to SBA, walker and GB. Pt had fever of 100.1 at 1900. Tylenol given and temperature fell to WNL at both 2300 and 0300. Alert and oriented. Pt had adequate sleep.
[2024-04-17 08:15] VITALS: PULSE 70; RESP 20; O2SAT 100
[2024-04-17 08:20] VITALS: BP 119/72; PULSE 70; RESP 20; TEMP 36.6; O2SAT 100
[2024-04-17] MEDS: SODIUM CHLORIDE 0.9 % (FLUSH) 10 ML SYRINGE 5 ML IVF (09:19)
[2024-04-17] MEDS: NIRMATRELVIR/RITONAVIR DOSEPAK 3 TAB PO (09:19)
[2024-04-17] MEDS: lamoTRIgine 100 MG TABLET PO (09:19)
[2024-04-17] MEDS: levETIRAcetam 500 MG TABLET PO (09:19)
[2024-04-17 11:44] VITALS: BP 102/63; PULSE 71; RESP 18; TEMP 36.6; O2SAT 95
--- NOTE | 2024-04-17 12:09 | P.DS_ITS ---
DS: Providers Provider Date Seen: 04/17/24 Date of admission: 04/15/24 20:42 Primary care physician: Not a Local Provider Admitting Clinician: Sandra Loo MD Consults: 04/15/24 21:47 Consult to Occupational Therapy [CONS] Routine Comment: Reason(s) for OT Consult:: Evaluate and Treat Any Restrictions?:: No Restrictions Consult to Physical Therapy [CONS] Routine Comment: Reason(s) for PT Consult:: Evaluate and Treat Any Restrictions?:: No Restrictions Consult to Environmental Engineering Technician [CONS] Routine Comment: Reason for Consult:: Social Service Consult Attending Physician on discharge: Alexx Garcia MD Date of Discharge: 04/17/24 DS: Diagnosis Discharge Diagnosis (1) COVID: Status: Acute Problem details: Symptom onset 04/14/2024. Home COVID test positive 04/14/2024. also has COVID currently Febrile, 100.4?, no hypoxia, no supplemental oxygen needs Paxlovid Rx sent to [facility] for someone to strip picker for him PT/OT for weakness 04/16/24: Starting Paxlovid today. 04/17/24: Improving. Complete full course of Paxlovid. (2) Weakness: Status: Acute Problem details: In setting of acute COVID infection History of falls and unstable gait PT/OT consults 04/16/24: Slightly improved today. Continue with efforts as outlined above. Anticipate ongoing improvement and possibly safe enough for discharge home as early as tomorrow. 04/17/24: More improvement. Ready for discharge today. 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 He uses walking sticks as well. He has subtle weakness on his left compared to his right. Apparently, a chronic problem. 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 (5) Epileptic seizure: Status: Acute Problem details: Followed by Neurology Continue Keppra and Lamictal Seizure precautions in hospital DS: Summary Hospital Course Hospital Course: 83-year-old man presented with symptomatic COVID 19. Primary limiting symptom was marked weakness. 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 Also had mild dehydration and was treated for the same. Condition improved over 2 days as specified above. Discharged home with directions to complete full course of Paxlovid. Status at Discharge Functional status at discharge: uses cane/walker Overall status at discharge: patient is progressing back to baseline Time Spent with Patient Time attestation: Total time spent providing and/or coordinating discharge services: Time spent: Less than 30 minutes Exam Narrative: Exam Narrative: I examined him in his hospital room. Appears comfortable. Sitting on the edge of the bed. Vision and hearing are adequate. Alert and oriented to self, place, time, situation. Articulate and cooperative. Thought full. Lungs actually are clear to auscultation without wheezing, rhonchi, or rales. No CVA tenderness to percussion. Heart tones with regular rhythm, normal S1-S2, without murmur, gallop, or rub. PMI not laterally displaced. Abdomen with active bowel sounds, soft, nontender. No rebound or guarding. Extremities without edema. Skin is dry and intact. No rashes, petechiae, purpura, or cyanosis. No jaundice. Independent with transfer, station, and gait. Appears to be close to baseline. Const: Vital Signs, click to edit/add: Vital Signs - 24 hr 04/16/24 15:02 04/16/24 15:54 04/16/24 15:54 Temperature 98.9 F Pulse Rate [Left P ulse Oximeter] 78 78 Respiratory Rate 20 20 Blood Pressure [Le ft Arm] 127/66 Pulse Oximetry 96 96 Oxygen Delivery Ia thod Room Air 04/16/24 19:00 04/16/24 20:46 04/16/24 22:19 Temperature 100.1 F H 100.1 F H 98.9 F Pulse Rate [Left P ulse Oximeter] 86 Respiratory Rate 20 Blood Pressure [Le ft Arm] 132/76 Pulse Oximetry 92 Oxygen Delivery Ia thod Room Air 04/16/24 22:19 04/16/24 22:19 04/16/24 22:19 Temperature 98.9 F Pulse Rate [Left P ulse Oximeter] 79 79 Respiratory Rate 20 20 Blood Pressure [Le ft Arm] 103/68 Pulse Oximetry 93 93 Oxygen Delivery Ia thod Room Air 04/17/24 02:35 04/17/24 08:15 04/17/24 08:15 Temperature 99.1 F Pulse Rate [Left P ulse Oximeter] 68 70 Respiratory Rate 20 20 Blood Pressure [Le ft Arm] 124/84 Pulse Oximetry 95 100 Oxygen Delivery Me thod Room Air 04/17/24 08:20 04/17/24 11:44 Temperature 98 F 97.8 F Pulse Rate [Left P ulse Oximeter] 70 71 Respiratory Rate 20 18 Blood Pressure [Le ft Arm] 119/72 102/63 Pulse Oximetry 100 95 Oxygen Delivery Me thod Room Air Room Air DS: Data Imaging CT scan - chest: Radiologist's impression: No acute abnormalities Discharge Plan Discharge Disposition: Home, Self-Care Date of Admission: 04/15/24 20:42 Attending Provider on Discharge: Alexx Garcia Primary Care Provider: Provider,Not a Local Condition: Stable Anticipated Discharge Date/Time: 04/17/24 11:30 Discharge Medications: New Paxlovid 300 mg (150 mg x 2)-100 mg tablets,dose pack See Rx Instructions .ROUTE .COMPLEX Qty: 30 0RF Rx Instructions: take TWO 150 mg tablets of nirmatrelvir with ONE 100 mg tablet of ritonavir twice daily for 5 days Continued cyanocobalamin (vitamin B-12) 500 mcg tablet 500 mcg PO DAILY cholecalciferol (vitamin D3) 50 mcg (2,000 unit) capsule 50 mcg PO DAILY levetiracetam 500 mg tablet 500 mg PO BID Qty: 60 0RF lamotrigine 100 mg tablet 100 mg PO BID Discharge Orders: Discharge Order (Routine); Ordered 04/17/24 Ordered By: Alexx Garcia Patient Education: Nirmatrelvir/Ritonavir (By mouth) (Paxlovid), COVID-19 (Coronavirus Disease 2019) (DC) Additional Instructions: 1. Complete full course of nirmatrelvir/ritonavir (Paxlovid); 2. Return to clinic or hospital if condition worsening over next few days; 3. Follow-up with primary nursing care attendant in 2-3 weeks if not improving; 4. Continue with usual cares per your clinicians/physicians. Activity Level: Activity as Tolerated, Use Walker and Other Activity Detail: Gradually resume usual activities and physical exercises over next 5-10 days as tolerated Discharge Diet: Regular Follow Up Appointments: Provider,Not a Local [Primary Care Provider] - Forms: [employer] Info Instructions
--- NOTE | 2024-04-17 14:40 | PC.NURSE ---
Discharged: Pt alert, oriented and vitally stable. Afebrile. Pt is a stand by assist and tolerates well. IV removed, tip intact. Discharge instruction given. Topics were medication and symptoms worsening. Discharged home with spouse.
== END 2024-04-17 12:35 | disposition home or self-care (01) ==
LOC: ED 20:24 → MEDSURG 20:42
PROVIDERS: Emergency Medicine Emergency Medical Services; Physician Assistant; Admitting Provider Family Medicine; Emergency Provider Student in an Organized Health Care Education/Training Program; Visit Provider Family Medicine
DX: U07.1 COVID-19 (principal); R53.1 Weakness; E86.0 Dehydration; G81.94 Hemiplegia, unspecified affecting left nondominant side; R26.9 Unspecified abnormalities of gait and mobility; R51.9 Headache, unspecified; R50.9 Fever, unspecified; R05.8 Other specified cough; M19.90 Unspecified osteoarthritis, unspecified site; G40.909 Epilepsy, unspecified, not intractable, without status epilepticus; R40.20 Unspecified coma; N40.0 Benign prostatic hyperplasia without lower urinary tract symptoms; Z91.81 History of falling; Z86.13 Personal history of malaria; K08.409 Partial loss of teeth, unspecified cause, unspecified class; Z90.89 Acquired absence of other organs; Z98.49 Cataract extraction status, unspecified eye
CPT/HCPCS: 36415; 71250; 80048; 81001; 83735; 84484; 85025; 85027; 87631; 93005; 96372; 97110; 97116; 97162; 97165; 97535; 99283; 99284; 99285; A9270; G0378; J1650

== ENCOUNTER 2025-07-14 08:57 | Outpatient (CLI) | payer MEDICARE, BC, SELFPAY | END 2025-07-14 08:58 | disposition home or self-care (01) | LOC: INJ CL 08:59 | PROVIDERS: Visit Provider Family Medicine | DX: M17.11 Unilateral primary osteoarthritis, right knee (principal); M25.561 Pain in right knee; G89.29 Other chronic pain | CPT/HCPCS: 64454 ==